=== PATIENT | female | born 1950 | race Caucasian/White ===

== ENCOUNTER 2020-02-01 18:12 | Emergency (ER) | payer MEDICARE, OTHER ==
[~2020-02-01] VITALS: Ht 180.3 cm; Wt 117.0 kg
--- OUTSIDE RECORDS SUMMARY | ~2020-02-01 | XMS | Encounter Summary ---
Demographics + + + | Address | [address] | | | [place] [address] | + + + | Home Phone | | + + + | Preferred Language | Unknown | + + + | Marital Status | | + + + | Episcopalian Affiliation | Unknown | + + + | Race | Unknown | + + + | Ethnic Group | Unknown | + + + Author + + + | Author | [facility] | | | and [place] | + + + | Organization | [facility] | | | and [place] | + + + | Address | Unknown | + + + | Phone | Unavailable | + + + Support + + +---------+ + | Name | Relationship | Address | Phone | + + +---------+ + | Nolan Manuel | ECON | Unknown | | + + +---------+ + | Naheed Shelton | ECON | Unknown | | + + +---------+ + Care Team Providers + +------+ + | Care Oil Lease Buyer Name | Role | Phone | + +------+ + PCP | Unavailable | + +------+ + Encounter Details +--------+ + + + + | Date | Type | Department | Care Team | Description | +--------+ + + + + | 06/18/ | Hospital | [facility] | Conversion | Pain | | 2018 | Encounter | CONVERSION DEP [address] | Transaction, | | | | | [address] | Provider Unknown | | | | | [place] | [phone] | | | | | [phone] | | | | | | [phone] | | | +--------+ + + + + Social History + +-------+ +--------+------+ | Tobacco Use | Types | Packs/Day | Years | Date | | | | | Used | | + +-------+ +--------+------+ | Never Assessed | | | | | + +-------+ +--------+------+ + + + | Sex Assigned at | Date Recorded | | | | + + + | Not on file | | + + + documented as of this encounter Medications at Time of Discharge + + + +---------+ + + | Medication | Sig | Dispensed | Refills | Start | End Date | | | | | | Date | | + + + +---------+ + + | clopidogrel | Take 75 mg by mouth | | 0 | 07/15/19 | | | (PLAVIX) 75 mg | Daily. | | | 12 | | | tablet | | | | | | + + + +---------+ + + | gemfibrozil | Take 600 mg by mouth | | 0 | 07/15/19 | | | (LOPID) 600 mg | 2 times daily. | | | 12 | | | tablet | | | | | | + + + +---------+ + + | metoprolol | Take 50 mg by mouth | | 0 | 07/15/19 | | | succinate | Daily. | | | 12 | | | (TOPROL-XL) 50 mg 24 | | | | | | | hr tablet | | | | | | + + + +---------+ + + | pravastatin | Take 40 mg by mouth | | 0 | 07/15/19 | | | (PRAVACHOL) 40 MG | Daily. | | | 12 | | | tablet | | | | | | + + + +---------+ + + | fluoxetine | Take 40 mg by mouth | | 0 | 07/15/19 | | | (PROZAC) 40 MG | Daily. | | | 12 | 9 | | capsule | | | | | | + + + +---------+ + + | furosemide (LASIX) | Take 40 mg by mouth | | 0 | 11/18/19 | | | 40 mg tablet | every morning. | | | 12 | 9 | + + + +---------+ + + | | Take 25 mg by mouth | | 0 | 07/15/19 | | | hydrochlorothiazide | Daily. | | | 12 | 9 | | 25 mg tablet | | | | | | + + + +---------+ + + | lisinopril | Take 40 mg by mouth | | 0 | 07/15/19 | | | (PRINIVIL,ZESTRIL) | Daily. | | | 12 | 9 | | 40 MG tablet | | | | | | + + + +---------+ + + | omeprazole ([facility] | Take 20 mg by mouth | | 0 | 09/18/19 | | | OMEPRAZOLE) 20 mg | nightly. | | | 12 | 9 | | TBEC | | | | | | + + + +---------+ + + | potassium chloride | Take 10 mEq by mouth | | 0 | 11/18/19 | | | (K-DUR) 10 MEQ | Daily. | | | 12 | 9 | | tablet | | | | | | + + + +---------+ + + documented as of this encounter Plan of Treatment +--------+ + + + + | Date | Type | Specialty | Care Team | Description | +--------+ + + + + | 02/01/ | Virtual | Pulmonology | Rodrigo Cruz MD | | | 2019 | Office | | [address] | | | | Visit | | [place] | | | | | | [phone] | | | | | | | | +--------+ + + + + | 02/22/ | Office | Cardiology | Phylicia Patel DO | | | 2019 | Visit | | [address] | | | | | | [place] | | | | | | [phone] | | | | | | | | +--------+ + + + + documented as of this encounter Procedures + +--------+ + + + | Procedure Name | Priori | Date/Time | Associated Diagnosis | Comments | | | ty | | | | + +--------+ + + + | ECHO COMPLETE | Routin | 06/18/2018 | | Results for this | | | e | 11:05 PM | | procedure are in the | | | | PST | | results section. | + +--------+ + + + documented in this encounter Results ECHO Complete (06/18/2018 11:05 PM PST) + + | Specimen | + + | | + + + + + | Narrative | Performed At | + + + | This is a non-reportable procedure without a radiologist report and | | | is used for image storage only | | + + + + + | Procedure Note | + + | Cody Thrasher - 02/16/2019 5:12 AM PDT This is a non-reportable procedure | | without a radiologist report and isused for image storage only | + + documented in this encounter Visit Diagnoses + + | Diagnosis | + + | Pain Generalized pain | + + documented in this encounter"
--- OUTSIDE RECORDS SUMMARY | ~2020-02-01 | XMS | Encounter Summary ---
Demographics + + + | Address | [address] | | | [place] [address] | + + + | Home Phone | | + + + | Preferred Language | Unknown | + + + | Marital Status | | + + + | Pentecostal Affiliation | Unknown | + + + | Race | Unknown | + + + | Ethnic Group | Unknown | + + + Author + + + | Author | [facility] | | | and [place] | + + + | Organization | [facility] | | | and [...] Team Providers + +------+ + | Care Packing Floor Worker Name | Role | Phone | + +------+ + | Heidi Koch MD | PCP | | + +------+ + Encounter Details +--------+ + + + + | Date | Type | Department | Care Team | Description | +--------+ + + + + | 07/20/ | Orders Only | [facility] | Conversion | | | 2018 | | NEPRHOLOGY FRIEND | Transaction, | | | | | [address] | Provider Unknown | | | | | [address] [place], [place] | [phone] | | | | | [address] | | | | | | [phone] | | | +--------+ + + + [...] [place] | | | | | | [phone] | | | | | | | | +--------+ + + + + | 02/22/ | Office | Cardiology | Phylicia Patel DO | | | 2019 | Visit | | [address] | | | | | | [place] | | | | | | [address] | | | | | | | | +--------+ + + + + documented as of this encounter Procedures + +--------+ + + + | Procedure Name | Priori | Date/Time | Associated Diagnosis | Comments | | | ty | | | | + +--------+ + + + | EXTERNAL LAB: CBC | Routin | 07/20/2017 | | Results for this | | | e | 12:00 AM | | procedure are in the | | | | PST | | results section. | + +--------+ + + + | PARATHYROID HORMONE, | Routin | 07/20/2017 | | Results for this | | INTACT AND CALCIUM | e | 12:00 AM | | procedure are in the | | | | PST | | results section. | + +--------+ + + + | URIC ACID | Routin | 07/20/2017 | | Results for this | | | e | 12:00 AM | | procedure are in the | | | | PST | | results section. | + +--------+ + + + | MAGNESIUM | Routin | 07/20/2017 | | Results for this | | | e | 12:00 AM | | procedure are in the | | | | PST | | results section. | + +--------+ + + + | RENAL FUNCTION PANEL | Routin | 07/20/2017 | | Results for this | | | e | 12:00 AM | | procedure are in the | | | | PST | | results section. | + +--------+ + + + documented in this encounter Results Parathyroid Hormone, Intact and Calcium (07/20/2017 12:00 AM PST) + + + + + + | Component | Value | Ref Range | Performed | Pathologist | | | | | At | Signature | + + + + + + | PTH Intact | 5.15 (A) | 15 - 65 | EXTERNAL | | | | | | LAB | | + + + + + + | Calcium | 10.2 | 8.4 - 10.2 | EXTERNAL | | | | | | LAB | | + + + + + + + + | Specimen | + + | Blood specimen | | (specimen) | + + + +---------+ + + | Performing | Address | City/State/Zipcode | Phone Number | | Organization | | | | + +---------+ + + | EXTERNAL LAB | | | | + +---------+ + + External Lab: CBC (07/20/2017 12:00 AM PST) + + + + + + | Component | Value | Ref Range | Performed | Pathologist | | | | | At | Signature | + + + + + + | WBC | 5.3 | 4.5 - 11.0 10 | EXTERNAL | | | | | | LAB | | + + + + + + | Non- | 4.06 | 3.8 - 5.1 10 | EXTERNAL | | | Red Blood | | | LAB | | | Cells | | | | | | Counted | | | | | + + + + + + | Hemoglobin | 11.7 (A) | 12.0 - 16.0 | EXTERNAL | | | | | g/dL | LAB | | + + + + + + | Hematocrit, | 35.7 | 35 - 45 % | EXTERNAL | | | POC | | | LAB | | + + + + + + | MCV | 87.8 | 81 - 99 fL | EXTERNAL | | | | | | LAB | | + + + + + + | MCH | 29 | 27 - 33 pg | EXTERNAL | | | | | | LAB | | + + + + + + | MCHC | 33 | 30 - 36 g/dL | EXTERNAL | | | | | | LAB | | + + + + + + | Platelet | 329 | 140 - 440 K/ L | EXTERNAL | | | Count | | | LAB | | | Plasma | | | | | + + + + + + | RDW-CV | 13.9 | 10.5 - 15.0 % | EXTERNAL | | | | | | LAB | | + + + + + + | MPV | | fL | EXTERNAL | | | | | | LAB | | + + + + + + | Differentia | | | EXTERNAL | | | l Type | | | LAB | | + + + + + + | % Segmented | 63.8 | 39 - 80 % | EXTERNAL | | | | | | LAB | | | Neutrophils | | | | | + + + + + + | % | 20.3 (A) | 24 - 44 % | EXTERNAL | | | Lymphocytes | | | LAB | | + + + + + + | % Monocytes | 10.5 | 0 - 12 % | EXTERNAL | | | | | | LAB | | + + + + + + | % | 4.6 | 0 - 6 % | EXTERNAL | | | Eosinophils | | | LAB | | + + + + + + | % Basophils | 0.8 | 0 - 2 % | EXTERNAL | | | | | | LAB | | + + + + + + | Absolute | | / L | EXTERNAL | | | Segmented | | | LAB | | | Neutrophils | | | | | + + + + + + | Absolute | | / L | EXTERNAL | | | Lymphocytes | | | LAB | | + + + + + + | Absolute | | / L | EXTERNAL | | | Monocytes | | | LAB | | + + + + + + | Absolute | | / L | EXTERNAL | | | Eosinophils | | | LAB | | + + + + + + | Absolute | | / L | EXTERNAL | | | Basophils | | | LAB | | + + + + + + + + | Specimen | + + | Blood specimen | | (specimen) | + + + +---------+ + + | Performing | Address | City/State/Zipcode | Phone Number | | Organization | | | | + +---------+ + + | EXTERNAL LAB | | | | + +---------+ + + Uric Acid (07/20/2017 12:00 AM PST) + +---------+ + + + | Component | Value | Ref Range | Performed | Pathologist | | | | | At | Signature | + +---------+ + + + | Uric Acid | 9.2 (A) | 2.3 - 6.6 | EXTERNAL | | | | | | LAB | | + +---------+ + + + + + | Specimen | + + | Blood specimen | | (specimen) | + + + +---------+ + + | Performing | Address | City/State/Zipcode | Phone Number | | Organization | | | | + +---------+ + + | EXTERNAL LAB | | | | + +---------+ + + Magnesium (07/20/2017 12:00 AM PST) + +-------+ + + + | Component | Value | Ref Range | Performed | Pathologist | | | | | At | Signature | + +-------+ + + + | Magnesium | 2.3 | 1.7 - 2.5 mg/dL | EXTERNAL | | | | | | LAB | | + +-------+ + + + + + | Specimen | + + | Blood specimen | | (specimen) | + + + +---------+ + + | Performing | Address | City/State/Zipcode | Phone Number | | Organization | | | | + +---------+ + + | EXTERNAL LAB | | | | + +---------+ + + Renal Function Panel (07/20/2017 12:00 AM PST) + + + + + + | Component | Value | Ref Range | Performed | Pathologist | | | | | At | Signature | + + + + + + | Glucose, | 87 | 70 - 100 mg/dL | EXTERNAL | | | Fasting | | | LAB | | + + + + + + | BUN | 52 (A) | 6 - 23 mg/dL | EXTERNAL | | | | | | LAB | | + + + + + + | Creatinine | 3.06 (A) | 0.70 - 1.25 | EXTERNAL | | | | | mg/dL | LAB | | + + + + + + | PHOSPHORUS | | mg/dL | EXTERNAL | | | | | | LAB | | + + + + + + | Albumin | 4.2 | 3.5 - 5.0 | EXTERNAL | | | | | | LAB | | + + + + + + | Na | 138 | 132 - 143 | EXTERNAL | | | | | mmol/L | LAB | | + + + + + + | K | 4.9 | 3.6 - 5.1 | EXTERNAL | | | | | mmol/L | LAB | | + + + + + + | Cl | 104 | 95 - 112 mmol/L | EXTERNAL | | | | | | LAB | | + + + + + + | CO2 | 23 | 19 - 31 mmol/L | EXTERNAL | | | | | | LAB | | + + + + + + | Anion Gap | 15.9 | 7 - 21 mmol/L | EXTERNAL | | | | | | LAB | | + + + + + + | eGFR, | | | EXTERNAL | | | non- | | | LAB | | | [place]ronesian | | | | | + + + + + + | Phosphorus, | 4.3 | 2.5 - 5.0 | EXTERNAL | | | Inorganic | | | LAB | | + + + + + + | BUN/Creatin | 17.0 | 6.0 - 28.6 | EXTERNAL | | | ine Ratio | | | LAB | | + + + + + + | Calcium | 10.2 | 8.4 - 10.2 | EXTERNAL | | | | | mg/dL | LAB | | + + + + + + | Estimated | 15 | mg/dL | EXTERNAL | | | GFR | | | LAB | | + + + + + + + + | Specimen | + + | Blood specimen | | (specimen) | + + + +---------+ + + | Performing | Address | City/State/Zipcode | Phone Number | | Organization | | | | + +---------+ + + | EXTERNAL LAB | | | | + +---------+ + + documented in this encounter Visit Diagnoses Not on filedocumented in this encounter"
--- OUTSIDE RECORDS SUMMARY | ~2020-02-01 | XMS | Encounter Summary ---
Demographics + + + | Address | [address] | | | [place] [address] | + + + | Home Phone | | + + + | Preferred Language | Unknown | + + + | Marital Status | | + + + | Jehovah'S Witness Affiliation | Unknown | + + + | Race | Unknown | + + + | Ethnic Group | Unknown | + + + Author + + + | Author | [facility] | | | and [place] | + + + | Organization | [facility] | | [...] Team Providers + +------+ + | Care Tray Filler Name | Role | Phone | + +------+ + | Heidi Koch MD | PCP | | + +------+ + Encounter Details +--------+ + + + + | Date | Type | Department | Care Team | Description | +--------+ + + + + | 12/23/ | Orders Only | [facility] | Conversion | | | 2015 | | NEPHROLOGY [place] | Transaction, | | | | | [address] | Provider Unknown | | | | | [address] [facility], [place] | | | | | | [address] | (Fax) | | | | | [phone] | | | +--------+ + + + [...] [place] | | | | | | [phone] | | | | | | | | +--------+ + + + + | 02/22/ | Office | Cardiology | Phylicia Patel DO | | | 2019 | Visit | | [address] | | | | | | [place] | | | | | | [phone] | | | | | | | | +--------+ + + + + documented as of this encounter Procedures + +--------+ + + + | Procedure Name | Priori | Date/Time | Associated Diagnosis | Comments | | | ty | | | | + +--------+ + + + | EXTERNAL LAB: CBC | Routin | 12/24/2015 | | Results for this | | | e | 12:59 PM | | procedure are in the | | | | PDT | | results section. | + +--------+ + + + | URINALYSIS WITH | Routin | 12/24/2015 | | Results for this | | MICROSCOPIC WITH | e | 12:59 PM | | procedure are in the | | CULTURE IF INDICATED | | PDT | | results section. | + +--------+ + + + | VITAMIN D, | Routin | 12/24/2015 | | Results for this | | DEFICIENCY SCREEN | e | 12:59 PM | | procedure are in the | | (25-HYDROXY) | | PDT | | results section. | + +--------+ + + + | PARATHYROID HORMONE, | Routin | 12/24/2015 | | Results for this | | INTACT AND CALCIUM | e | 12:59 PM | | procedure are in the | | | | PDT | | results section. | + +--------+ + + + | MAGNESIUM | Routin | 12/24/2015 | | Results for this | | | e | 12:59 PM | | procedure are in the | | | | PDT | | results section. | + +--------+ + + + | RENAL FUNCTION PANEL | Routin | 12/24/2015 | | Results for this | | | e | 12:59 PM | | procedure are in the | | | | PDT | | results section. | + +--------+ + + + | URIC ACID | Routin | 11/20/2015 | | | | | e | 12:00 AM | | | | | | PDT | | | + +--------+ + + + documented in this encounter Results Urinalysis with Microscopic with Culture if Indicated (12/24/2015 12:59 PM PDT) + + + + + + | Component | Value | Ref Range | Performed | Pathologist | | | | | At | Signature | + + + + + + | Color | Yellow | | EXTERNAL | | | | | | LAB | | + + + + + + | Clarity, | Slightly Cloudy | | EXTERNAL | | | Urine | | | LAB | | + + + + + + | Spec Grav, | 1.019 | 1.005 - 1.030 | EXTERNAL | | | Fluid | | | LAB | | + + + + + + | Leukocyte | Comment: 100 | | EXTERNAL | | | Esterase, | | | LAB | | | Urine | | | | | + + + + + + | Nitrite, | Negative | | EXTERNAL | | | Urine | | | LAB | | + + + + + + | Urobilinoge | Normal | | EXTERNAL | | | n, Urine | | | LAB | | + + + + + + | Total | 25 | | EXTERNAL | | | Protein | | | LAB | | + + + + + + | pH, Urine | 5 | 5 - 9 | EXTERNAL | | | | | | LAB | | + + + + + + | Blood, | Negative | | EXTERNAL | | | Urine | | | LAB | | + + + + + + | Ketones | Negative | | EXTERNAL | | | | | | LAB | | + + + + + + | Bilirubin, | Negative | | EXTERNAL | | | Urine | | | LAB | | + + + + + + | Glucose, | Negative | | EXTERNAL | | | Urine | | | LAB | | + + + + + + | WBC, UA | 50 (A) | 0 - 4 | EXTERNAL | | | | | | LAB | | + + + + + + | RBC, UA | 5 (A) | 0 - 4 | EXTERNAL | | | | | | LAB | | + + + + + + | Epithelial | Squ[place] 2+ | | EXTERNAL | | | Cells | | | LAB | | + + + + + + | Bacteria, | Comment: 3+ | | EXTERNAL | | | UA | | | LAB | | + + + + + + | HYALINE | | | EXTERNAL | | | CASTS UA | | | LAB | | + + + + + + + + | Specimen | + + | | + + + +---------+ + + | Performing | Address | City/State/Zipcode | Phone Number | | Organization | | | | + +---------+ + + | EXTERNAL LAB | | | | + +---------+ + + Parathyroid Hormone, Intact and Calcium (12/24/2015 12:59 PM PDT) + + + + + + | Component | Value | Ref Range | Performed | Pathologist | | | | | At | Signature | + + + + + + | PTH Intact | 32.94 | 15 - 65 | EXTERNAL | | | | | | LAB | | + + + + + + | Calcium | 10.9 (A) | 8.4 - 10.2 | EXTERNAL | [...] | | | + +---------+ + + Vitamin D, Deficiency Screen (25-Hydroxy) (12/24/2015 12:59 PM PDT) + +-------+ + + + | Component | Value | Ref Range | Performed | Pathologist | | | | | At | Signature | + +-------+ + + + | Vit D, | 54 | 30 - 100 | EXTERNAL | | | 25-Hydroxy | | | LAB | | + [...] + +---------+ + + External Lab: CBC (12/24/2015 12:59 PM PDT) + + + + + + | Component | Value | Ref Range | Performed | Pathologist | | | | | At | Signature | + + + + + + | WBC | 6.6 | 4.5 - 11.0 10 | EXTERNAL | | | | | | LAB | | + + + + + + | Non- | 3.51 (A) | 3.8 - 5.1 10 | EXTERNAL | | | Red Blood | | | LAB | | | Cells | | | | | | Counted | | | | | + + + + + + | Hemoglobin | 9.5 (A) | 12.0 - 16.0 | EXTERNAL | | | | | g/dL | LAB | | + + + + + + | Hematocrit, | 29.4 (A) | 35 - 45 % | EXTERNAL | | | POC | | | LAB | | + + + + + + | MCV | 83.7 | 81 - 99 fL | EXTERNAL | | | | | | LAB | | + + + + + + | MCH | 27 | 27 - 33 pg | EXTERNAL | | | | | | LAB | | + + + + + + | MCHC | 32 | 30 - 36 g/dL | EXTERNAL | | | | | | LAB | | + + + + + + | Platelet | 388 | 140 - 440 K/ L | EXTERNAL | | | Count | | | LAB | | | Plasma | | | | | + + + + + + | RDW-CV | | % | EXTERNAL | | | | [...] + + + | % Segmented | | % | EXTERNAL | | | | | | LAB | | | Neutrophils | | | | | + + + + + + | % | | % | EXTERNAL | | | Lymphocytes | | | LAB | | + + + + + + | % Monocytes | | % | EXTERNAL | | | | | | LAB | | + + + + + + | % | | % | EXTERNAL | | | Eosinophils | | | LAB | | + + + + + + | % Basophils | | % | EXTERNAL | | | | [...] | | + +---------+ + + Magnesium (12/24/2015 12:59 PM PDT) + +-------+ + + + | Component | Value | Ref Range | Performed | Pathologist | | | | | At | Signature | + +-------+ + + + | Magnesium | 2.0 | 1.7 - 2.5 mg/dL | EXTERNAL [...] + +---------+ + + Renal Function Panel (12/24/2015 12:59 PM PDT) + + + + + + | Component | Value | Ref Range | Performed | Pathologist | | | | | At | Signature | + + + + + + | Glucose, | 101 (A) | 70 - 100 mg/dL | EXTERNAL | | | Fasting | | | LAB | | + + + + + + | BUN | 56 (A) | 6 - 23 mg/dL | EXTERNAL | | | | | | LAB | | + + + + + + | Creatinine | 3.57 (A) | 0.70 - 1.25 | EXTERNAL | | | | | mg/dL | LAB | | + + + + + + | PHOSPHORUS | 3.3 | 2.5 - 5.0 mg/dL | EXTERNAL | | | | | | LAB | | + + + + + + | Albumin | 4.0 | 3.5 - 5.0 | EXTERNAL | | | | | | LAB | | + + + + + + | Na | 134 | 132 - 143 | EXTERNAL | | | | | mmol/L | LAB | | + + + + + + | K | 4.2 | 3.6 - 5.1 | EXTERNAL | | | | | mmol/L | LAB | | + + + + + + | Cl | 102 | 95 - 112 mmol/L | EXTERNAL | | | | | | LAB | | + + + + + + | CO2 | 22 | 19 - 31 mmol/L | EXTERNAL | | | | | | LAB | | + + + + + + | Anion Gap | 14.2 | 7 - 21 mmol/L | EXTERNAL | | | | | | LAB | | + + + + + + | eGFR, | | | EXTERNAL | | | non- | | | LAB | | | [place] | | | | | + + + + + + | Phosphorus, | | | EXTERNAL | | | Inorganic | | | LAB | | + + + + + + | BUN/Creatin | 15.7 | 6.0 - 28.6 | EXTERNAL | | | ine Ratio | | | LAB | | + + + + + + | Calcium | 10.9 (A) | 8.4 - 10.2 | EXTERNAL | | | | | mg/dL | LAB | | + + + + + + | Estimated | 13 | mg/dL | EXTERNAL | | | [...] | + +---------+ + + Uric Acid (11/20/2015 12:00 AM PDT) + +-------+ + + + | Component | Value | Ref Range | Performed | Pathologist | | | | | At | Signature | + +-------+ + + + | Uric Acid | | | EXTERNAL | | | | | [...]
--- OUTSIDE RECORDS SUMMARY | ~2020-02-01 | XMS | Encounter Summary ---
Demographics + + + | Address | [address] | | | [place] [address] | + + + | Home Phone | | + + + | Preferred Language | Unknown | + + + | Marital Status | | + + + | Hinduism Affiliation | Unknown | + + + | Race | Unknown | + + + | Ethnic Group | Unknown | + + + Author + + + | Author | [facility] | | | and [place] | + + + | Organization | [facility] | | | [...] Team Providers + +------+ + | [employer] Name | Role | Phone | + +------+ + | Heidi Koch MD | PCP | | + +------+ + Encounter Details +--------+ + + + + | Date | Type | Department | Care Team | Description | +--------+ + + + + | 09/13/ | Orders Only | [facility] | Oskar Rainey MD | | | 2014 | | [facility] [place] | [address] [place] | | | | | [address] | [address], [place] | | | | | [place], [place] | [address] | | | | | [address] | | | | | | [phone] | | | +--------+ + + + [...] RIOS | | | | | | [id number] | | | | | | | | +--------+ + + + + documented as of this encounter Procedures + +--------+ + + + | Procedure Name | Priori | Date/Time | Associated Diagnosis | Comments | | | ty | | | | + +--------+ + + + | CULTURE, URINE | Routin | 09/13/2014 | | Results for this | | | e | 12:00 AM | | procedure are in the | | | | PDT | | results section. | + +--------+ + + + | LIPID PANEL | Routin | 03/13/2014 | | Results for this | | | e | 11:40 AM | | procedure are in the | | | | PDT | | results section. | + +--------+ + + + | CK TOTAL | Routin | 03/13/2014 | | Results for this | | | e | 11:40 AM | | procedure are in the | | | | PDT | | results section. | + +--------+ + + + | COMPREHENSIVE | Routin | 03/13/2014 | | Results for this | | METABOLIC PANEL | e | 11:40 AM | | procedure are in the | | | | PDT | | results section. | + +--------+ + + + documented in this encounter Results Culture, Urine (09/13/2014 12:00 AM PDT) + + | Specimen | + + | Urine specimen | | (specimen) | + + + + + | Narrative | Performed At | + + + | Specimen Description Urine CULTURE | EXTERNAL LAB | | No Growth at 18-24 hrs. REPORT | | | STATUS Final | | + + + + +---------+ + + | Performing | Address | City/State/Zipcode | Phone Number | | Organization | | | | + +---------+ + + | EXTERNAL LAB | | | | + +---------+ + + CK Total (03/13/2014 11:40 AM PDT) + +-------+ + + + | Component | Value | Ref Range | Performed | Pathologist | | | | | At | Signature | + +-------+ + + + | CK, Total | 28 | 24 - 170 U/L | EXTERNAL | | | | | [...] | | | + +---------+ + + Lipid Panel (03/13/2014 11:40 AM PDT) + +---------+ + + + | Component | Value | Ref Range | Performed | Pathologist | | | | | At | Signature | + +---------+ + + + | Cholesterol | 176 | 200 mg/dL | EXTERNAL | | | | | | LAB | | + +---------+ + + + | Triglycerid | 143 | 30 - 150 mg/dL | EXTERNAL | | | es | | | LAB | | + +---------+ + + + | HDL | 44.7 | 40 mg/dl | EXTERNAL | | | | | | LAB | | + +---------+ + + + | LDL, | 103 (A) | 100 mg/dL | EXTERNAL | | | Calculated | | | LAB | | + +---------+ + + + | LDl/HDL | | | EXTERNAL | | | Ratio | | | LAB | | + +---------+ + + + | Chol/HDL | 3.9 | 4.44 | EXTERNAL | | | Ratio | | | LAB | | + +---------+ + + + | VLDL | 29 | 4 - 40 mg/dL | EXTERNAL | | | | | | LAB | | + +---------+ + + + | Non HDL | 131 (A) | 130 | EXTERNAL | | | Chol. | | | LAB | | | (LDL+VLDL) | | | | | + +---------+ + + + + + | Specimen | + + | Blood specimen | | (specimen) | + + + +---------+ + + | Performing | Address | City/State/Zipcode | Phone Number | | Organization | | | | + +---------+ + + | EXTERNAL LAB | | | | + +---------+ + + Comprehensive Metabolic Panel (03/13/2014 11:40 AM PDT) + + + + + + | Component | Value | Ref Range | Performed | Pathologist | | | | | At | Signature | + + + + + + | Glucose, | 90 | 70 - 100 mg/dL | EXTERNAL | | | Fasting | | | LAB | | + + + + + + | BUN | 39 (A) | 6 - 23 mg/dL | EXTERNAL | | | | | | LAB | | + + + + + + | Creatinine | 1.91 (A) | 0.70 - 1.25 | EXTERNAL | | | | | mg/dL | LAB | | + + + + + + | BUN/Creatin | 20.4 | 6.0 - 28.6 | EXTERNAL | | | ine Ratio | | | LAB | | + + + + + + | Calcium | 11.3 (A) | 8.4 - 10.2 | EXTERNAL | | | | | mg/dL | LAB | | + + + + + + | Protein, | 7.7 | 6.0 - 8.0 g/dL | EXTERNAL | | | Total | | | LAB | | + + + + + + | Albumin | 4.6 | 3.5 - 5.0 | EXTERNAL | | | | | | LAB | | + + + + + + | Globulin | 3.1 | 1.8 - 3.5 | EXTERNAL | | | | | | LAB | | + + + + + + | A/G Ratio | 1.5 | 1.1 - 2.4 | EXTERNAL | | | | | | LAB | | + + + + + + | Bilirubin | 0.3 | 0.0 - 1.2 mg/dL | EXTERNAL | | | Total | | | LAB | | + + + + + + | ALP, | 88 | 30 - 128 | EXTERNAL | | | External | | | LAB | | + + + + + + | ALT | 11 | 7 - 52 U/L | EXTERNAL | | | | | | LAB | | + + + + + + | AST | 16 | 13 - 39 U/L | EXTERNAL | | | | | | LAB | | + + + + + + | Na | 137 | 132 - 143 | EXTERNAL | | | | | mmol/L | LAB | | + + + + + + | K | 4.6 | 3.6 - 5.1 | EXTERNAL | | | | | mmol/L | LAB | | + + + + + + | Cl | 103 | 95 - 112 mmol/L | EXTERNAL | | | | | | LAB | | + + + + + + | CO2 | 25 | 19 - 31 mmol/L | EXTERNAL | | | | | | LAB | | + + + + + + | Anion Gap | 13.6 | 7 - 21 mmol/L | EXTERNAL | | | | | | LAB | | + + + + + + | Estimated | 26 (A) | 60 mg/dL | EXTERNAL | | | GFR [...]
--- OUTSIDE RECORDS SUMMARY | ~2020-02-01 | XMS | Encounter Summary ---
Demographics + + + | Address | [address] | | | [place] [address] | + + + | Home Phone | | + + + | Preferred Language | Unknown | + + + | Marital Status | | + + + | Confucianist Affiliation | Unknown | + + + | Race | Unknown | + + + | Ethnic Group | Unknown | + + + Author + + + | Author | [facility] | | | and [place] | + + + | Organization | [facility] | | | [...] Team Providers + +------+ + | Care Exit Booth Agent Name | Role | Phone | + +------+ + | Heidi Koch MD | PCP | | + +------+ + Encounter Details +--------+ + + + + | Date | Type | Department | Care Team | Description | +--------+ + + + + | 09/15/ | Orders Only | [facility] | Oskar Rainey MD | | | 2013 | | NEPHROLOGY [place] | [address] [place] | | | | | [address] [place] | [address] [place], [place] | | | | | [address] [place], [place] | [address] | | | | | [address] | | | | | | [phone] | | | +--------+ + + + [...] RIOS | | | | | | [id number] | | | | | | | | +--------+ + + + + documented as of this encounter Procedures + +--------+ + + + | Procedure Name | Priori | Date/Time | Associated Diagnosis | Comments | | | ty | | | | + +--------+ + + + | EXTERNAL LAB: CBC | Routin | 03/13/2014 | | Results for this | | | e | 12:00 AM | | procedure are in the | | | | PDT | | results section. | + +--------+ + + + | URINALYSIS WITH | Routin | 03/13/2014 | | Results for this | | MICROSCOPIC WITH | e | 12:00 AM | | procedure are in the | | CULTURE IF INDICATED | | PDT | | results section. | + +--------+ + + + | VITAMIN D, | Routin | 03/13/2014 | | Results for this | | DEFICIENCY SCREEN | e | 12:00 AM | | procedure are in the | | (25-HYDROXY) | | PDT | | results section. | + +--------+ + + + | PARATHYROID HORMONE, | Routin | 03/13/2014 | | Results for this | | INTACT AND CALCIUM | e | 12:00 AM | | procedure are in the | | | | PDT | | results section. | + +--------+ + + + | PROTEIN/CREATININE | Routin | 03/13/2014 | | Results for this | | RATIO, URINE | e | 12:00 AM | | procedure are in the | | | | PDT | | results section. | + +--------+ + + + | PROTEIN, URINE, | Routin | 03/13/2014 | | Results for this | | RANDOM | e | 12:00 AM | | procedure are in the | | | | PDT | | results section. | + +--------+ + + + | CREATININE, URINE, | Routin | 03/13/2014 | | Results for this | | RANDOM | e | 12:00 AM | | procedure are in the | | | | PDT | | results section. | + +--------+ + + + | URIC ACID | Routin | 03/13/2014 | | Results for this | | | e | 12:00 AM | | procedure are in the | | | | PDT | | results section. | + +--------+ + + + | MAGNESIUM | Routin | 03/13/2014 | | Results for this | | | e | 12:00 AM | | procedure are in the | | | | PDT | | results section. | + +--------+ + + + | RENAL FUNCTION PANEL | Routin | 03/13/2014 | | Results for this | | | e | 12:00 AM | | procedure are in the | | | | PDT | | results section. | + +--------+ + + + | CULTURE, URINE | Routin | 09/15/2013 | | Results for this | | | e | 12:00 AM | | procedure are in the | | | | PDT | | results section. | + +--------+ + + + | URINALYSIS WITH | Routin | 09/13/2013 | | Results for this | | MICROSCOPIC WITH | e | 12:00 AM | | procedure are in the | | CULTURE IF INDICATED | | PDT | | results section. | + +--------+ + + + | URINALYSIS WITH | Routin | 08/29/2013 | | Results for this | | MICROSCOPIC WITH | e | 12:00 AM | | procedure are in the | | CULTURE IF INDICATED | | PST | | results section. | + +--------+ + + + | PROTEIN/CREATININE | Routin | 08/29/2013 | | Results for this | | RATIO, URINE | e | 12:00 AM | | procedure are in the | | | | PST | | results section. | + +--------+ + + + | PROTEIN, URINE, | Routin | 08/29/2013 | | Results for this | | RANDOM | e | 12:00 AM | | procedure are in the | | | | PST | | results section. | + +--------+ + + + | CREATININE, URINE, | Routin | 08/29/2013 | | Results for this | | RANDOM | e | 12:00 AM | | procedure are in the | | | | PST | | results section. | + +--------+ + + + | EXTERNAL LAB: CBC | Routin | 08/26/2013 | | Results for this | | | e | 12:00 AM | | procedure are in the | | | | PST | | results section. | + +--------+ + + + | VITAMIN D, | Routin | 08/26/2013 | | Results for this | | DEFICIENCY SCREEN | e | 12:00 AM | | procedure are in the | | (25-HYDROXY) | | PST | | results section. | + +--------+ + + + | PARATHYROID HORMONE, | Routin | 08/26/2013 | | Results for this | | INTACT AND CALCIUM | e | 12:00 AM | | procedure are in the | | | | PST | | results section. | + +--------+ + + + | SEDIMENTATION RATE, | Routin | 08/26/2013 | | Results for this | | AUTOMATED | e | 12:00 AM | | procedure are in the | | | | PST | | results section. | + +--------+ + + + | C-REACTIVE PROTEIN | Routin | 08/26/2013 | | Results for this | | | e | 12:00 AM | | procedure are in the | | | | PST | | results section. | + +--------+ + + + | URIC ACID | Routin | 08/26/2013 | | Results for this | | | e | 12:00 AM | | procedure are in the | | | | PST | | results section. | + +--------+ + + + | MAGNESIUM | Routin | 08/26/2013 | | Results for this | | | e | 12:00 AM | | procedure are in the | | | | PST | | results section. | + +--------+ + + + | RENAL FUNCTION PANEL | Routin | 08/26/2013 | | Results for this | | | e | 12:00 AM | | procedure are in the | | | | PST | | results section. | + +--------+ + + + documented in this encounter Results Urinalysis with Microscopic with Culture if Indicated (03/13/2014 12:00 AM PDT) + + + + + + | Component | Value | Ref Range | Performed | Pathologist | | | | | At | Signature | + + + + + + | Color | Yellow | | EXTERNAL | | | | | | LAB | | + + + + + + | Clarity, | Clear | | EXTERNAL | | | Urine | | | LAB | | + + + + + + | Spec Grav, | 1.020 | 1.005 - 1.030 | EXTERNAL | | | Fluid | | | LAB | | + + + + + + | Leukocyte | 4+Comment: 500 | | EXTERNAL | | | Esterase, [...] + + + + | Total | Negative | Negative | EXTERNAL | | | Protein | | | LAB | | + + + + + + | pH, Urine | 5 | 5 - 9 | EXTERNAL | | | | | | LAB | | + + + + + + | Blood, | PositiveComment: 10 | | EXTERNAL | | | Urine | | | LAB | | + + + + + + | Ketones | Negative | Negative | EXTERNAL | | | | | [...] + + + | WBC, UA | | | EXTERNAL | | | | | | LAB | | + + + + + + | RBC, UA | | | EXTERNAL | | | | | | LAB | | + + + + + + | Epithelial | | | EXTERNAL | | | Cells | | | LAB | | + + + + + + | Bacteria, | | | EXTERNAL | | | UA [...] + + Parathyroid Hormone, Intact and Calcium (03/13/2014 12:00 AM PDT) + + + + + + | Component | Value | Ref Range | Performed | Pathologist | | | | | At | Signature | + + + + + + | PTH Intact | 11.05 (A) | 15 - 65 | EXTERNAL | | | | | | LAB | | + + + + + + | Calcium | 11.2 (A) | 8.4 - 10.2 | EXTERNAL [...] | | | + +---------+ + + Protein/Creatinine Ratio, Urine (03/13/2014 12:00 AM PDT) + +-------+ + + + | Component | Value | Ref Range | Performed | Pathologist | | | | | At | Signature | + +-------+ + + + | Protein/Cre | 122.9 | 0 - 150 | EXTERNAL | | | at Ratio | | | LAB | | + +-------+ + + + + + | Specimen | + + | Urine specimen | | (specimen) | + + + +---------+ + + | Performing | Address | City/State/Zipcode | Phone Number | | Organization | | | | + +---------+ + + | EXTERNAL LAB | | | | + +---------+ + + Protein, Urine, Random (03/13/2014 12:00 AM PDT) + +-------+ + + + | Component | Value | Ref Range | Performed | Pathologist | | | | | At | Signature | + +-------+ + + + | Protein, | 22 | 0.0 - 50.0 | EXTERNAL | | | Urine | [...] | | | + +---------+ + + Creatinine, Urine, Random (03/13/2014 12:00 AM PDT) + +-------+ + + + | Component | Value | Ref Range | Performed | Pathologist | | | | | At | Signature | + +-------+ + + + | Creatinine, | 179 | | EXTERNAL | | | 24H Ur | | | LAB | | + [...] + + Vitamin D, Deficiency Screen (25-Hydroxy) (03/13/2014 12:00 AM PDT) + +-------+ + + + | Component | Value | Ref Range | Performed | Pathologist | | | | | At | Signature | + +-------+ + + + | Vit D, | 42 | 30 - 100 | EXTERNAL | [...] + +---------+ + + External Lab: CBC (03/13/2014 12:00 AM PDT) + +-------+ + + + | Component | Value | Ref Range | Performed | Pathologist | | | | | At | Signature | + +-------+ + + + | WBC | 6.1 | 4.5 - 11.0 10 | EXTERNAL | | | | | | LAB | | + +-------+ + + + | Non- | 4.47 | 3.8 - 5.1 10 | EXTERNAL | | | Red Blood | | | LAB | | | Cells | | | | | | Counted | | | | | + +-------+ + + + | Hemoglobin | 12.7 | 12.0 - 16.0 | EXTERNAL | | | | | g/dL | LAB | | + +-------+ + + + | Hematocrit, | 38.2 | 35 - 45 % | EXTERNAL | | | POC | | | LAB | | + +-------+ + + + | MCV | 85.5 | 81 - 99 fL | EXTERNAL | | | | | | LAB | | + +-------+ + + + | MCH | 28 | 27 - 33 pg | EXTERNAL | | | | | | LAB | | + +-------+ + + + | MCHC | 33 | 30 - 36 g/dL | EXTERNAL | | | | | | LAB | | + +-------+ + + + | Platelet | 367 | 140 - 440 K/ L | EXTERNAL | | | Count | | | LAB | | | Plasma | | | | | + +-------+ + + + | RDW-CV | 14.6 | 10.5 - 15.0 % | EXTERNAL | | | | | | LAB | | + +-------+ + + + | MPV | | fL | EXTERNAL | | | | | | LAB | | + +-------+ + + + | Differentia | Auto | | EXTERNAL | | | l Type | | | LAB | | + +-------+ + + + | % Segmented | 60.1 | 39 - 80 % | EXTERNAL | | | | | | LAB | | | Neutrophils | | | | | + +-------+ + + + | % | 26.5 | 24 - 44 % | EXTERNAL | | | Lymphocytes | | | LAB | | + +-------+ + + + | % Monocytes | 10.7 | 0 - 12 % | EXTERNAL | | | | | | LAB | | + +-------+ + + + | % | 2.3 | 0 - 6 % | EXTERNAL | | | Eosinophils | | | LAB | | + +-------+ + + + | % Basophils | 0.4 | 0 - 2 % | EXTERNAL | | | | | | LAB | | + +-------+ + + + | Absolute | | / L | EXTERNAL | | | Segmented | | | LAB | | | Neutrophils | | | | | + +-------+ + + + | Absolute | | / L | EXTERNAL | | | Lymphocytes | | | LAB | | + +-------+ + + + | Absolute | | / L | EXTERNAL | | | Monocytes | | | LAB | | + +-------+ + + + | Absolute | | / L | EXTERNAL | | | Eosinophils | | | LAB | | + +-------+ + + + | Absolute | | [...] | + +---------+ + + Uric Acid (03/13/2014 12:00 AM PDT) + + + + + + | Component | Value | Ref Range | Performed | Pathologist | | | | | At | Signature | + + + + + + | Uric Acid | 11.1 (A) | 2.3 - 6.6 | EXTERNAL [...] | | + +---------+ + + Magnesium (03/13/2014 12:00 AM PDT) + +-------+ + + + | Component | Value | Ref Range | Performed | Pathologist | | | | | At | Signature | + +-------+ + + + | Magnesium | 42 | 30 - 100 mg/dL | EXTERNAL | | | | [...] + +---------+ + + Renal Function Panel (03/13/2014 12:00 AM PDT) + + + + + + | Component | Value | Ref Range | Performed | Pathologist | | | | | At | Signature | + + + + + + | Glucose, | 94 | 70 - 100 mg/dL | EXTERNAL | | | Fasting | | | LAB | | + + + + + + | BUN | 40 (A) | 6 - 23 mg/dL | EXTERNAL | | | | | | LAB | | + + + + + + | Creatinine | 2.03 (A) | 0.70 - 1.25 | EXTERNAL | | | | | mg/dL | LAB | | + + + + + + | PHOSPHORUS | | mg/dL | EXTERNAL | | | | | | LAB | | + + + + + + | Albumin | 4.4 | 3.5 - 5.0 | EXTERNAL | | | | | | LAB | | + + + + + + | Na | 136 | 132 - 143 | EXTERNAL | | | | | mmol/L | LAB | | + + + + + + | K | 4.5 | 3.6 - 5.1 | EXTERNAL | | | | | mmol/L | LAB | | + + + + + + | Cl | 104 | 95 - 112 mmol/L | EXTERNAL | | | | | | LAB | | + + + + + + | CO2 | 24 | 19 - 31 mmol/L | EXTERNAL | | | | | | LAB | | + + + + + + | Anion Gap | 12.5 | 7 - 21 mmol/L | EXTERNAL | | | | | | LAB | | + + + + + + | eGFR, | | | EXTERNAL | | | non- | | | LAB | | | Ni[place]an | | | | | + + + + + + | Phosphorus, | 4.7 | 2.5 - 5.0 | EXTERNAL | | | Inorganic | | | LAB | | + + + + + + | BUN/Creatin | 19.7 | 6.0 - 28.6 | EXTERNAL | | | ine Ratio | | | LAB | | + + + + + + | Calcium | 11.2 (A) | 8.4 - 10.2 | EXTERNAL | | | | | mg/dL | LAB | | + + + + + + | Estimated | 25 | mg/dL | EXTERNAL | | | [...] | | | + +---------+ + + Culture, Urine (09/15/2013 12:00 AM PDT) + + | Specimen | + + | Urine specimen | | (specimen) | + + + + + | Narrative | Performed At | + + + | Specimen Description Urine CULTURE | EXTERNAL LAB | | See table below Over 100,000 | | | CFU/ML Yeast, Identification On Request. REPORT STATUS | | | Final | | + + + + +---------+ + + | Performing | Address | City/State/Zipcode | Phone Number | | Organization | | | | + +---------+ + + | EXTERNAL LAB | | | | + +---------+ + + Urinalysis with Microscopic with Culture if Indicated (09/13/2013 12:00 AM PDT) + + + + + + | Component | Value | Ref Range | Performed | Pathologist | | | | | At | Signature | + + + + + + | Color | Yellow | | EXTERNAL | | | | | | LAB | | + + + + + + | Clarity, | Clear | | EXTERNAL | | | Urine | | | LAB | | + + + + + + | Spec Grav, | 1.027 | | EXTERNAL | | | Fluid | | | LAB | | + + + + + + | Leukocyte | 4+Comment: 500 | | EXTERNAL | | | Esterase, [...] + | pH, Urine | 5 | | EXTERNAL | | | | [...] + + + + | Bilirubin, | 1+ | | EXTERNAL | | | Urine | | | LAB | | + + + + + + | Glucose, | Negative | | EXTERNAL | | | Urine | | | LAB | | + + + + + + | WBC, UA | | | EXTERNAL | | | | | | LAB | | + + + + + + | RBC, UA | | | EXTERNAL | | | | | | LAB | | + + + + + + | Epithelial | | | EXTERNAL | | | Cells | | | LAB | | + + + + + + | Bacteria, | | | EXTERNAL | | | UA [...] | | | + +---------+ + + Urinalysis with Microscopic with Culture if Indicated (08/29/2013 12:00 AM PST) + + + + + + | Component | Value | Ref Range | Performed | Pathologist | | | | | At | Signature | + + + + + + | Color | Yellow | | EXTERNAL | | | | | | LAB | | + + + + + + | Clarity, | Clear | | EXTERNAL | | | Urine | | | LAB | | + + + + + + | Spec Grav, | 1.017 | | EXTERNAL | | | Fluid | | | LAB | | + + + + + + | Leukocyte | 1+Comment: 25 | | EXTERNAL | | | Esterase, [...] + + + + | Total | Negative | | EXTERNAL | | | Protein | | | LAB | | + + + + + + | pH, Urine | 5 | | EXTERNAL | | | | [...] + + + | WBC, UA | | | EXTERNAL | | | | | | LAB | | + + + + + + | RBC, UA | | | EXTERNAL | | | | | | LAB | | + + + + + + | Epithelial | | | EXTERNAL | | | Cells | | | LAB | | + + + + + + | Bacteria, | | | EXTERNAL | | | UA [...] | | | + +---------+ + + Protein/Creatinine Ratio, Urine (08/29/2013 12:00 AM PST) + +-------+ + + + | Component | Value | Ref Range | Performed | Pathologist | | | | | At | Signature | + +-------+ + + + | Protein/Cre | 234.0 | | EXTERNAL | | | at Ratio | | | LAB | | + +-------+ + + + + + | Specimen | + + | Urine specimen | | (specimen) | + + + +---------+ + + | Performing | Address | City/State/Zipcode | Phone Number | | Organization | | | | + +---------+ + + | EXTERNAL LAB | | | | + +---------+ + + Protein, Urine, Random (08/29/2013 12:00 AM PST) + +-------+ + + + | Component | Value | Ref Range | Performed | Pathologist | | | | | At | Signature | + +-------+ + + + | Protein, | 22 | | EXTERNAL | | | Urine [...] | | | + +---------+ + + Creatinine, Urine, Random (08/29/2013 12:00 AM PST) + +-------+ + + + | Component | Value | Ref Range | Performed | Pathologist | | | | | At | Signature | + +-------+ + + + | Creatinine, | 94 | | EXTERNAL | | | 24H Ur | | | LAB | | + [...] + + Parathyroid Hormone, Intact and Calcium (08/26/2013 12:00 AM PST) + +-------+ + + + | Component | Value | Ref Range | Performed | Pathologist | | | | | At | Signature | + +-------+ + + + | PTH Intact | 63.61 | | EXTERNAL | | | | | | LAB | | + +-------+ + + + | Calcium | 9.3 | | EXTERNAL | | | | [...] + + Vitamin D, Deficiency Screen (25-Hydroxy) (08/26/2013 12:00 AM PST) + +-------+ + + + | Component | Value | Ref Range | Performed | Pathologist | | | | | At | Signature | + +-------+ + + + | Vit D, | 26 | | EXTERNAL | | | 25-Hydroxy | [...] | | | + +---------+ + + Sedimentation rate, automated (08/26/2013 12:00 AM PST) + +-------+ + + + | Component | Value | Ref Range | Performed | Pathologist | | | | | At | Signature | + +-------+ + + + | Sed Rate | 35 | | EXTERNAL | | | | [...] + +---------+ + + External Lab: CBC (08/26/2013 12:00 AM PST) + +-------+ + + + | Component | Value | Ref Range | Performed | Pathologist | | | | | At | Signature | + +-------+ + + + | WBC | 6.8 | 10 | EXTERNAL | | | | | | LAB | | + +-------+ + + + | Non- | 4.48 | 10 | EXTERNAL | | | Red Blood | | | LAB | | | Cells | | | | | | Counted | | | | | + +-------+ + + + | Hemoglobin | 13.2 | g/dL | EXTERNAL | | | | | | LAB | | + +-------+ + + + | Hematocrit, | 38.8 | % | EXTERNAL | | | POC | | | LAB | | + +-------+ + + + | MCV | 86.4 | fL | EXTERNAL | | | | | | LAB | | + +-------+ + + + | MCH | 29 | pg | EXTERNAL | | | | | | LAB | | + +-------+ + + + | MCHC | 34 | g/dL | EXTERNAL | | | | | | LAB | | + +-------+ + + + | Platelet | 373 | K/ L | EXTERNAL | | | Count | | | LAB | | | Plasma | | | | | + +-------+ + + + | RDW-CV | 15.0 | % | EXTERNAL | | | | | | LAB | | + +-------+ + + + | MPV | | fL | EXTERNAL | | | | | | LAB | | + +-------+ + + + | Differentia | Auto | | EXTERNAL | | | l Type | | | LAB | | + +-------+ + + + | % Segmented | 66.5 | % | EXTERNAL | | | | | | LAB | | | Neutrophils | | | | | + +-------+ + + + | % | 16.0 | % | EXTERNAL | | | Lymphocytes | | | LAB | | + +-------+ + + + | % Monocytes | 11.6 | % | EXTERNAL | | | | | | LAB | | + +-------+ + + + | % | 5.3 | % | EXTERNAL | | | Eosinophils | | | LAB | | + +-------+ + + + | % Basophils | 0.6 | % | EXTERNAL | | | | | | LAB | | + +-------+ + + + | Absolute | | / L | EXTERNAL | | | Segmented | | | LAB | | | Neutrophils | | | | | + +-------+ + + + | Absolute | | / L | EXTERNAL | | | Lymphocytes | | | LAB | | + +-------+ + + + | Absolute | | / L | EXTERNAL | | | Monocytes | | | LAB | | + +-------+ + + + | Absolute | | / L | EXTERNAL | | | Eosinophils | | | LAB | | + +-------+ + + + | Absolute | | [...] | | | + +---------+ + + C-Reactive Protein (08/26/2013 12:00 AM PST) + +-------+ + + + | Component | Value | Ref Range | Performed | Pathologist | | | | | At | Signature | + +-------+ + + + | CRP | 9.5 | mg/dL | EXTERNAL | | | [...] | + +---------+ + + Uric Acid (08/26/2013 12:00 AM PST) + +-------+ + + + | Component | Value | Ref Range | Performed | Pathologist | | | | | At | Signature | + +-------+ + + + | Uric Acid | 6.3 | | EXTERNAL | | | | [...] | | + +---------+ + + Magnesium (08/26/2013 12:00 AM PST) + +-------+ + + + | Component | Value | Ref Range | Performed | Pathologist | | | | | At | Signature | + +-------+ + + + | Magnesium | 2.0 | mg/dL | EXTERNAL | | | [...] + +---------+ + + Renal Function Panel (08/26/2013 12:00 AM PST) + +-------+ + + + | Component | Value | Ref Range | Performed | Pathologist | | | | | At | Signature | + +-------+ + + + | Glucose, | 88 | mg/dL | EXTERNAL | | | Fasting | | | LAB | | + +-------+ + + + | BUN | 30 | mg/dL | EXTERNAL | | | | | | LAB | | + +-------+ + + + | Creatinine | 1.83 | mg/dL | EXTERNAL | | | | | | LAB | | + +-------+ + + + | PHOSPHORUS | | mg/dL | EXTERNAL | | | | | | LAB | | + +-------+ + + + | Albumin | 4.5 | | EXTERNAL | | | | | | LAB | | + +-------+ + + + | Na | 139 | mmol/L | EXTERNAL | | | | | | LAB | | + +-------+ + + + | K | 4.4 | mmol/L | EXTERNAL | | | | | | LAB | | + +-------+ + + + | Cl | 104 | mmol/L | EXTERNAL | | | | | | LAB | | + +-------+ + + + | CO2 | 21 | mmol/L | EXTERNAL | | | | | | LAB | | + +-------+ + + + | Anion Gap | 18.4 | mmol/L | EXTERNAL | | | | | | LAB | | + +-------+ + + + | eGFR, | | | EXTERNAL | | | non- | | | LAB | | | [place]an | | | | | + +-------+ + + + | Phosphorus, | 3.5 | | EXTERNAL | | | Inorganic | | | LAB | | + +-------+ + + + | BUN/Creatin | 16.4 | | EXTERNAL | | | ine Ratio | | | LAB | | + +-------+ + + + | Calcium | 9.3 | mg/dL | EXTERNAL | | | | | | LAB | | + +-------+ + + + | Estimated | 28 | mg/dL | EXTERNAL | | | [...]
--- OUTSIDE RECORDS SUMMARY | ~2020-02-01 | XMS | Encounter Summary ---
Demographics + + + | Address | [address] | | | [place] [address] | + + + | Home Phone | | + + + | Preferred Language | Unknown | + + + | Marital Status | | + + + | Caodaism Affiliation | Unknown | + + + | Race | Unknown | + + + | Ethnic Group | Unknown | + + + Author + + + | Author | [facility] | | | and [place] | + + + | Organization | [facility] | | | [...] Team Providers + +------+ + | Care Shipping Receiving Manager Name | Role | Phone | + +------+ + PCP | Unavailable | + +------+ + Encounter Details +--------+ + + + + | Date | Type | Department | Care Team | Description | +--------+ + + + + | 10/05/ | Hospital | [facility] | Damion Zamarripa | | | 2012 - | Encounter | MED [facility] MED ON[facility] | MD Wei, FACS [address] | | | | | [address] [place] | [place] | | | 10/16/ | | [place] [address] | [place] [address] | | | 2011 | | [phone] | [phone] | | | | | | | [...] + + documented as of this encounter Discharge Summaries Damion Zamarripa MD - 10/06/2011 5:51 AM PDTADMISSION DATE: 10/06/2011 DISCHARGE DATE: 10/17/2011 FINAL DIAGNOSES 1. ABDOMINAL AND ILIAC ARTERY ANEURYSM. 2. ATHEROSCLEROTIC HEART DISEASE. 3. RENAL INSUFFICIENCY. 4. MORBID OBESITY. PROCEDURES PERFORMED: On 10/06/2011 abdominal aortic aneurysm resection with aortoiliac by pass. HISTORY OF PRESENT ILLNESS: This 61-year-old female is noted to have abdominal aortic ane urysm on CT scan done 04/21/2011 at [facility]. Consideration of doing en dovascular repair of the iliac and aortic aneurysm noted that this is not possible due to t he anatomy. The patient has a history of numerous myocardial infarctions in the past. She has had several stents placed by Dr. Smith in [facility] who is her weight reducing technician. A preoper ative Myoview stress test was done and Dr. Smith recommended proceeding with surgical care. The patient's preoperative creatinine is 1.65 and last creatinine in the hospital is 1.13. PHYSICAL EXAMINATION GENERAL: The patient is well developed, well nourished, quite obese. LUNGS: Clear and equal bilaterally to auscultation. ABDOMEN: Significant central adiposity. Unable to palpate aneurysms. LOWER EXTREMITIES: Left femoral pulse 1+, left DP present by Doppler only. Right femoral p ulse 2+, dorsalis pedis 1 to 2+. HOSPITAL COURSE: The patient was admitted, taken to the operating room on 10/05 whe re resection of the abdominal and iliac aneurysms was done. At the time of surgery, [facility] ed blood loss was 2500 mL. She received 4 units of packed RBCs. An 18 x 9-mm woven graft wa s placed. The first postoperative day, the patient complained of left hip pain. She thought it was dislocated. Subsequent x-ray revealed it to be in good position. This pain gradual ly resolved. The patient was extubated the day after surgery, tolerated this well. Two day s later, she had progressive confusion thought secondary to excessive narcotics. She was pl aced on a CPAP mask and Dilaudid was discontinued. The patient's confusion resolved. The myles olvera had persistent postoperative nausea. The patient improved. She was ambulated. On the 9th postoperative day, she had fluid draining from her wound. The wound was opened with apparent wound infection. Cultures were done, which eventually came back no growth. T he patient was given Ancef for 2 days but stopped after there was no growth in the wound. T o evaluate her ongoing nausea and apparent ileus, a small bowel follow through was done, wh ich demonstrated contrast in the colon within a few hours. The patient developed diarrhea. She was continued on Reglan, Zofran and Phenergan for her nausea. She seemed to improve. By the 11th postoperative day, a wound VAC was placed. She was judged to be stable to be t ransferred to intermediate for further care. PLAN: The patient will continue medications as ordered. She should be on one aspirin a da y the rest of her life. Return to clinic with Dr. Zamarripa in 2 weeks. Full liquids to a regul ar diet. Activity as tolerated. She should walk at least 3 times a day. DICTATED BY: Damion Zamarripa MD Surgery JOB #: [id number] EXT JOB #:[id number] EDITED: 10/17/2011 15:59 <Electronically Signed by Damion Zamarripa MD> 10/18/11 [id number] documented in this encounter Medications at Time of Discharge [...] + + documented as of this encounter Consult Notes Harrison Arrington MD - 10/06/2011 5:51 AM PDTDATE: 10/06/2011 CONSULTING PHYSICIAN: Harrison Arrington MD PHYSICIAN REQUESTING CONSULT: Dr. Jericho Zamarripa REASON FOR CONSULT: Ventilator management in a patient who is intubated postop abdominal ao rtic aneur ysm repair. The patient is intubated and not able to answer questions readily. Thus, her history is obt ained from the H and P of Dr. Jericho Zamarripa. PROBLEM LIST 1. Status post repair of the abdominal aortic aneurysm with bilateral common iliac artery g raftgirma. S urgeon Dr. Jericho Zamarripa. Library Circulation Department Chief surgeon Dr. Da Silva. 2. Hypercholesterolemia. 3. History of myocardial infarction in the past, with double bypass and 4 or 5 stents. Last stent was approximately 3 years ago. 4. Chronic pain from osteoarthritis and history of distant trauma. 5. History of chronic renal failure, kidney disease stage III. 6. History of multiple surgeries following trauma. 7. Left hip replacement multiple times. 8. Hysterectomy with bilateral salpingo-oophorectomy. 9. Some type of pulmonary surgery. 10. Cystoscopy with stone extraction. 11. Restless legs. 12. History of head injury. 13. History of depression. 14. History of hay fever versus seasonal allergies. Preop chest x-ray 09/18/2011, notable for post CABG and coronary artery re-stenting. Otherw ise, negat tracey chest x-ray. ALLERGIES 1. CODEINE. 2. BRAZIL NUTS. SOCIAL HISTORY: Ex-smoker, does not drink alcohol. HISTORY OF PRESENT ILLNESS: This is a patient who had first seen a doctor at [facility], who was not able to do endovascular thrombosis of the iliac aneurysms. Patient had seen a Dr. Skinner in Cardio logy, with a Lexiscan Myoview stress test and the recommendation that the patient proceed with surgic al care. She was seen by Dr. Jericho Zamarripa. Patient's primary care physician is Taina Beasley, who is a nurse practitioner. Patient's neph rologist i s Dr. Rainey, and patient's weight reducing technician is Dr. Skinner. Patient did go to the OR today and came back on the ventilator. Dr. Zamarripa contacted me for help with the ventilator. When she first came back this 6-foot-tall woman, who weighs 135 kg, was under-ventilated wi th setting s of rate 16, tidal volume 400, pressure support 10-P3, with a blood gas 7.1, pH 7.14, PCO2 66, PO2 8 9. They increased the rate to 20 and the tidal volume to 500, and it improved with a pH of 7.23, PCO2 49, PO2 104. Her bicarb was 20.2 on the second blood gas. I did ask that they increase the rate to 2 2 and she is on SIMV mode. The patient is not able to add much to history. I asked her if she is in pain and she is on ly in pain in her abdomen and she can indicate that by nodding her head. She can open and c lose her eyes. She s hakes her head, no, answering if she is having any pain in her chest o r head. She indicates that she no longer smokes and that she does not drink. A formal review of systems is really not possible in this patient at the present time. Family history and further past medical history, social history not obtainable at the prese nt time. REVIEW OF SYSTEMS: Not obtainable. PHYSICAL EXAMINATION GENERAL: She is an alert, intubated female who is awake despite being on propofol, but she looks comf ortable. Mood and affect appropriate for being on propofol and postop. Not able to talk because she i s intubated. VITAL SIGNS: Heart rate 64, blood pressure 110/62, but it was higher earlier, before they i ncreased t he propofol. Her rate was 20, but now 22 on the ventilator. Temperature 35.9 wit h an esophageal probe , she was colder when she first came up from the OR, but now they are warming her up. EYES: Pupils equal, round. No conjunctivitis nor scleral icterus. ENT: Difficult because she is intubated. NECK: Thick, but no adenopathy, thyromegaly nor masses. CARDIAC: Regular rate and rhythm. No murmur, rub or gallop, but obesity limits exam. CHEST: Also difficult. She is supine and intubated, but what I can hear is clear. ABDOMEN: Bowel sounds are absent. Cannot assess organomegaly. She is morbidly obese. She do es indicat e some abdominal discomfort. EXTREMITIES: Revealed mild edema. LYMPH NODES: Negative in the following areas: Neck and epitrochlear. I am not able to test orientation. Blood gases have been described as above. Pre-op chest x-ray as above. Also, she had some pre-op labs on 09/18/2011; hematocrit 35.9, platelet count normal. Maxi profile: BUN 29, creatinine 1.83, with an MDRD of 28. Her prev ious kidney function has been described as stage III chronic kidney disease, but if this is her baseline renal function t his is actually stage IV, since the GFR is less than 30. Her CO2 on 09/18/2011 is 23, which is almost normal, but not quite. ASSESSMENT 1. MECHANICAL VENTILATION, STATUS POST ABDOMINAL AORTIC ANEURYSM REPAIR IN A MORBIDLY OBESE PATIENT. Her current blood gas indicates a combination of metabolic and respiratory acidos is. I have increased the rate further, and will check another blood gas early this evening. She has some metabolic acidos is, as well. Her CO2 pre-op was barely below normal. She may have some contribution of chronic acidos is from her chronic kidney disease, but there may also be some component of metabolic acidosis from r ecent major surgery. 2. CORONARY ARTERY DISEASE WITH PREVIOUS MYOCARDIAL INFARCTIONS. 3. HIGH CHOLESTEROL, REPORTEDLY SEVERE IN THE PAST. 4. PATIENT INDICATES NO HISTORY OF DIABETES AND THAT SHE IS AN EX-SMOKER. PLAN: As above. Check blood gas later this evening and again tomorrow. Hopefully, she will be able to be extubated tomorrow. She is on propofol for sedation, which is appropriate. Gi yoko her body size, I suspect she may have sleep apnea. DICTATED BY: Harrison Arrington MD Internal Medicine JOB #: [id number] EXT JOB #:[id number] cc: MD Damion Lara MD <Electronically Signed by Harrison Arrington MD> 10/06/11 8507 documented in this encounter Miscellaneous Notes Op Note - Damion Zamarripa MD - 10/06/2011 5:51 AM PDTDATE: 10/06/2011 PREOPERATIVE DIAGNOSIS: Abdominal and iliac artery aneurysms. POSTOPERATIVE DIAGNOSIS: ABDOMINAL AND ILIAC ARTERY ANEURYSMS. TITLE OF PROCEDURE: Repair of abdominal and iliac aneurysms with [id number] bypass (Dac shayla graft) . OPERATING SURGEON: Damion Zamarripa MD TOW BOAT CAPTAIN: Santiago Da Silva MD DURATION OF SURGERY: Four hours. INDICATIONS FOR PROCEDURE: This 61-year-old female was noted to have aorto- and iliac arter y 4.5 cm a neurysms. The anatomy does not allow endovascular approach. FINDINGS AT SURGERY: An 18 x 9 mm UltraMax double velour Dacron graft chosen for replacemen t. Right i nternal iliac artery was occluded. Left internal iliac artery open. Post-procedu re, the patient with strong femoral pulses bilaterally. Right DP pulse 2+, left DP pulse by Doppler only. OPERATIVE PROCEDURE: In the same day surgery area, the surgical procedure was once again di scussed wi th the patient and her family. All questions were answered. The patient was then taken to the operati ng room where Dr. Hernandes proceeded with a general endotracheal ane sthesia, placed a right radial A -line. Nolasco catheter was placed. The patient's abdomen an d upper thighs were prepped with ChloraPrep and draped in a sterile manner. Pause was made to identify the patient, procedure, perioperative med ications, and allergies. Vertical midline incision was made. Subcutaneous fat was divided down to the linea alba and the perit khan cavity was entered. The abdomen was briefly explored. The small and large bowel were essentiall y normal. The appendix was present. Duodenum was dissected off the an eurysm neck and pushed to the ri ght side of the abdomen. Bowels were packed away using the Bookwalter retractor. The patient had a re tro-aortic left renal vein. The proximal aorta was dissected free of surrounding tissue, such that a clamp could be securely applied. Diss ection was carried on the anterior surface of the aorta down pas t the aneurysm to the marsha c bifurcation. The common iliac arteries were dissected out and cleared of surrounding tiss ue, such that they could be clamped. An 18 x 9 mm Dacron graft was chosen for replace ment. The patient was given heparin 10,000 units IV push. After 3 minute circulation time the valdemar ac a rteries were occluded with vascular clamps, followed by the infrarenal abdominal aorta . The aneurysm wall was then cauterized as it was opened. The patient had 2 sets of bleedin g lumbar arteries. One se t was stick tied using a 2-0 silk suture. The other set was right at the anastomotic line so these we re included in the suture line. The beveled end of the 18 mm graft was sutured into the infrarenal ab dominal aorta using a 2-0 Prolene suture. Anastomosis was completed, the suture line was checked. There was one area of bleeding on t he anterol ateral side. This was at a stick site. This bleeder was controlled using a 1 cm patch of aneurysm wal l and 4-0 Prolene suture. The patient had persistent oozing from the aortic bifurcation region. The m iddle sacral artery was suture ligated using a 2-0 silk bonilla ture. The patient had venous oozing. Consid ering this, I over sewed the aortic bifurcation using a 3-0 Prolene suture. This controlled the bleed ing. I then created a retroperitoneal tunnel to the right external iliac artery. This was done t o dissect posterior to the ureter. The common iliac aneurysm was then opened. From the insi de there was only on e lumen of the external iliac. There was no internal iliac lumen. I ov er sewed the lumen of the exter nal iliac artery using a 3-0 Prolene suture. I then isolate d the external iliac artery in vessel loop s in its mid position. I brought the 8 mm limb o f the graft in the retroperitoneal tunnel to the [facility] t external iliac artery. A longitudin al arteriotomy was made for about 15 mm along the external iliac artery. The beveled end of the right limb of the graft was sutured in place using 4-0 Prolene suture . Vessels were f lushed and back bled appropriately. Anastomosis was completed. The patient had slight hypot ension on de-clamping but this was quickly controlled. Attention was then directed towards the left limb. The sigmoid colon was dissected from its usual lat eral adhesions. The left external iliac artery was dissected away from the surro unding tissue and enc ircled with a vessel loop. The sigmoid colon was then pulled towards the midline, exposing the iliac bifurcation aneurysm. This was then entered and fortunately the end of the aneurysm was orifice of anders th the external and internal iliac artery. Consi dering this, I dragged the left limb of the 8 mm viraj t through the retroperitoneal tissue, measured it appropriately, sutured the beveled end of the left 8 mm graft to the orifice o f the external and internal iliac artery using 4-0 Prolene suture. Vessels were flushed and back bled appropriately. Anastomosis was completed and flow was established to the left li mb. The patient had excellent left external iliac and right external iliac pulses distal to th e anastomosis. The incoming common iliac artery was suture ligated using 3-0 Prolene sut ure on the le ft. The sigmoid colon was carefully inspected. It was pink, had brisk capillary refill. All 3 s uture line s were checked. There was no oozing noted. There was no further bleeding from th e aortic wall. The po sterior peritoneum was approximated using 2-0 Vicryl suture. Care was taken to pack retroperitoneal f atty tissue beneath the duodenum. The bowels were returned to their anatomic position. The abdomen wa s irrigated with saline, suctioned free. The li ghislaine alba was then approximated using running #1 Vicryl suture, skin edges using skin clips. The patient remained intubated, was taken to ICU for further ca re. ESTIMATED BLOOD LOSS: 2500. BLOOD REPLACED: 4 units packed RBCs post. Post procedure, the patient had a DP pulse present by Doppler. DICTATED BY: Damion Zamarripa MD Surgery JOB #: [id number] EXT JOB #:[id number] cc: Santiago Da Silva MD <Electronically Signed by Damion Zamarripa MD> 10/14/11 0900 documented in this encounter Plan of Treatment +--------+ + + + + | Date | Type | Specialty | Care Team | Description | +--------+ + + + + | 02/01/ | Virtual | Pulmonology | Rodrigo Cruz MD | | | 2019 | Office | | [address] | | | | Visit | | [place] | | | | | | [address] | | | | | | | | +--------+ + + + + | 02/22/ | Office | Cardiology | Phylicia Patel DO | | | 2019 | Visit | | [address] | | | | | | [place] | | | | | | [address] | | | | | | | | +--------+ + + + + documented as of this encounter Procedures + +--------+ + + + | Procedure Name | Priori | Date/Time | Associated Diagnosis | Comments | | | ty | | | | + +--------+ + + + | CBC WITH | Routin | 10/16/2011 | | Results for this | | DIFFERENTIAL | e | 6:26 AM | | procedure are in the | | | | PDT | | results section. | + +--------+ + + + | BASIC METABOLIC | Routin | 10/16/2011 | | Results for this | | PANEL | e | 6:26 AM | | procedure are in the | | | | PDT | | results section. | + +--------+ + + + | CULTURE, WOUND, | Routin | 10/15/2011 | | Results for this | | SMEAR | e | 10:38 AM | | procedure are in the | | | | PDT | | results section. | + +--------+ + + + | CBC WITH | Routin | 10/14/2011 | | Results for this | | DIFFERENTIAL | e | 4:52 AM | | procedure are in the | | | | PDT | | results section. | + +--------+ + + + | PHOSPHORUS | Routin | 10/14/2011 | | Results for this | | | e | 4:52 AM | | procedure are in the | | | | PDT | | results section. | + +--------+ + + + | MAGNESIUM | Routin | 10/14/2011 | | Results for this | | | e | 4:52 AM | | procedure are in the | | | | PDT | | results section. | + +--------+ + + + | COMPREHENSIVE | Routin | 10/14/2011 | | Results for this | | METABOLIC PANEL | e | 4:52 AM | | procedure are in the | | | | PDT | | results section. | + +--------+ + + + | CBC NO DIFFERENTIAL | Routin | 10/13/2011 | | Results for this | | | e | 4:32 AM | | procedure are in the | | | | PDT | | results section. | + +--------+ + + + | BASIC METABOLIC | Routin | 10/13/2011 | | Results for this | | PANEL | e | 4:32 AM | | procedure are in the | | | | PDT | | results section. | + +--------+ + + + | CBC WITH | Routin | 10/11/2011 | | Results for this | | DIFFERENTIAL | e | 4:17 AM | | procedure are in the | | | | PDT | | results section. | + +--------+ + + + | BASIC METABOLIC | Routin | 10/11/2011 | | Results for this | | PANEL | e | 4:17 AM | | procedure are in the | | | | PDT | | results section. | + +--------+ + + + | BLOOD GAS, ARTERIAL | Routin | 10/10/2011 | | Results for this | | | e | 6:32 AM | | procedure are in the | | | | PDT | | results section. | + +--------+ + + + | CBC WITH | Routin | 10/10/2011 | | Results for this | | DIFFERENTIAL | e | 4:36 AM | | procedure are in the | | | | PDT | | results section. | + +--------+ + + + | PHOSPHORUS | Routin | 10/10/2011 | | Results for this | | | e | 4:36 AM | | procedure are in the | | | | PDT | | results section. | + +--------+ + + + | MAGNESIUM | Routin | 10/10/2011 | | Results for this | | | e | 4:36 AM | | procedure are in the | | | | PDT | | results section. | + +--------+ + + + | BASIC METABOLIC | Routin | 10/10/2011 | | Results for this | | PANEL | e | 4:36 AM | | procedure are in the | | | | PDT | | results section. | + +--------+ + + + | BLOOD GAS, ARTERIAL | Routin | 10/09/2011 | | Results for this | | | e | 5:44 PM | | procedure are in the | | | | PDT | | results section. | + +--------+ + + + | CBC NO DIFFERENTIAL | Routin | 10/09/2011 | | Results for this | | | e | 6:28 AM | | procedure are in the | | | | PDT | | results section. | + +--------+ + + + | BASIC METABOLIC | Routin | 10/09/2011 | | Results for this | | PANEL | e | 6:28 AM | | procedure are in the | | | | PDT | | results section. | + +--------+ + + + | CBC WITH | Routin | 10/08/2011 | | Results for this | | DIFFERENTIAL | e | 5:14 AM | | procedure are in the | | | | PDT | | results section. | + +--------+ + + + | BASIC METABOLIC | Routin | 10/08/2011 | | Results for this | | PANEL | e | 5:14 AM | | procedure are in the | | | | PDT | | results section. | + +--------+ + + + | BLOOD GAS, ARTERIAL | Routin | 10/07/2011 | | Results for this | | | e | 4:59 AM | | procedure are in the | | | | PDT | | results section. | + +--------+ + + + | CBC WITH | Routin | 10/07/2011 | | Results for this | | DIFFERENTIAL | e | 4:26 AM | | procedure are in the | | | | PDT | | results section. | + +--------+ + + + | BASIC METABOLIC | Routin | 10/07/2011 | | Results for this | | PANEL | e | 4:26 AM | | procedure are in the | | | | PDT | | results section. | + +--------+ + + + | BLOOD GAS, ARTERIAL | Routin | 10/06/2011 | | Results for this | | | e | 8:51 PM | | procedure are in the | | | | PDT | | results section. | + +--------+ + + + | CULTURE, MRSA | Routin | 10/06/2011 | | | | | e | 6:11 PM | | | | | | PDT | | | + +--------+ + + + | BLOOD GAS, ARTERIAL | Routin | 10/06/2011 | | Results for this | | + CO-OX | e | 4:13 PM | | procedure are in the | | | | PDT | | results section. | + +--------+ + + + | BLOOD GAS, ARTERIAL | Routin | 10/06/2011 | | Results for this | | | e | 3:22 PM | | procedure are in the | | | | PDT | | results section. | + +--------+ + + + | ABO RH | Routin | 10/06/2011 | | Results for this | | | e | 7:11 AM | | procedure are in the | | | | PDT | | results section. | + +--------+ + + + | ABO RH | Routin | 10/06/2011 | | | | | e | 7:11 AM | | | | | | PDT | | | + +--------+ + + + | ANTIBODY SCREEN | Routin | 10/06/2011 | | Results for this | | | e | 7:11 AM | | procedure are in the | | | | PDT | | results section. | + +--------+ + + + | CROSSMATCH (IN ML) | Routin | 10/06/2011 | | Results for this | | | e | 6:50 AM | | procedure are in the | | | | PDT | | results section. | + +--------+ + + + | CROSSMATCH (IN ML) | Routin | 10/06/2011 | | Results for this | | | e | 6:50 AM | | procedure are in the | | | | PDT | | results section. | + +--------+ + + + | CROSSMATCH (IN ML) | Routin | 10/06/2011 | | Results for this | | | e | 6:50 AM | | procedure are in the | | | | PDT | | results section. | + +--------+ + + + | CROSSMATCH (IN ML) | Routin | 10/06/2011 | | Results for this | | | e | 6:50 AM | | procedure are in the | | | | PDT | | results section. | + +--------+ + + + | FL SMALL BOWEL | | 10/06/2011 | | Results for this | | FOLLOW THROUGH | | 5:51 AM | | procedure are in the | | | | PDT | | results section. | + +--------+ + + + | XR PELVIS 1 OR 2 VW | | 10/06/2011 | | Results for this | | | | 5:51 AM | | procedure are in the | | | | PDT | | results section. | + +--------+ + + + | XR CHEST AP PORTABLE | | 10/06/2011 | | Results for this | | | | 5:51 AM | | procedure are in the | | | | PDT | | results section. | + +--------+ + + + | XR CHEST AP PORTABLE | | 10/06/2011 | | Results for this | | | | 5:51 AM | | procedure are in the | | | | PDT | | results section. | + +--------+ + + + | XR ABDOMEN AP | | 10/06/2011 | | Results for this | | | | 5:51 AM | | procedure are in the | | | | PDT | | results section. | + +--------+ + + + documented in this encounter Results Basic Metabolic Panel (10/16/2011 6:26 AM PDT) + + + + + + | Component | Value | Ref Range | Performed | Pathologist | | | | | At | Signature | + + + + + + | Glucose | 93 | 70 - 109 mg/dL | [facility] - | | | | | | [facility]ORY | | + + + + + + | Calcium | 8.2 (L) | 8.3 - 10.5 | [facility] | | | | | mg/dL | [facility] | | | | [facility] | | | [facility] - | | | | | | LAB[facility]ATORY | | + + + + + + | BUN | 25 (H) | 7 - 18 mg/dL | [facility] | | | | | | [facility] | | | [facility] | [facility] | | | | | | [facility] - | | | | | | LABORATORY | | + + + + + + | Creatinine | 1.13 | 0.60 - 1.30 | [facility] | | | | | mg/dL | [facility] | | | | | | [facility] | | | | | | [facility] - | | | | | | LABORATORY | | + + + + + + | Estimated | 49 (L)Comment: For | >60 mL/min/A | [facility] | | | GFR | -Americans, | | [facility] | | | | please multiply the | | MEDICAL | | | | result by 1.210 | | CENTER - | | | | This is an estimated | | LABORATORY | | | | GFR and is based on a | | | | | | standard adult | | | | | | body mass (A=1.73m2) and | | | | | | serum creatinine | | | | + + + + + + | BUN/Creatin | 22.1 (H) | 12 - 20 | [facility] | | | ine Ratio | | | [facility] | | | | | | [facility] | | | | | | [facility] - | | | | | | LABORATORY | | + + + + + + | Na | 140 | 136 - 149 mEq/L | [facility] | | | | | | [facility] | | | | | | [facility] | | | | | | [facility] - | | | | | | LABORATORY | | + + + + + + | K | 3.9 | 3.5 - 5.1 mEq/l | [facility] | | | | | | [facility] | | | | | | [facility] | | | | | | [facility] - | | | | | | LABORATORY | | + + + + + + | Cl | 107 | 98 - 109 mEq/l | [facility] | | | | | | [facility] | | | | | | [facility] | | | | | | [facility] - | | | | | | LABORATORY | | + + + + + + | CO2 | 21 (L) | 24 - 31 mEq/L | [facility] | | | | | | [facility] | | | | | | [facility] | | | | | | [facility] - | | | | | | LABORATORY | | + + + + + + | Anion Gap | 15.9 | 6.0 - 17.0 | [facility] | | | | | | [facility] | | | | | | [facility] | | | | | | [facility] - | | | | | | LABORATORY | | + + + + + + + + | Specimen | + + | | + + + + + + + | Performing | Address | City/State/Zipcode | Phone Number | | Organization | | | | + + + + + | [facility] | [address] | [place] | [phone] | | [facility] | | [address] | | | - LABORATORY | | | | + + + + + | [facility] | [address] | [place], [place] | | | [facility] | | [address], [facility] | | | - LABORATORY | | | | + + + + + CBC with Differential (10/16/2011 6:26 AM PDT) + + + + + + | Component | Value | Ref Range | Performed | Pathologist | | | | | At | Signature | + + + + + + | White Blood | 11.3 (H) | 4.0 - 11.0 K/uL | [facility] | | | Cells | | | [facility] | | | | | | [facility] | | | | | | [facility] - | | | | | | LABORATORY | | + + + + + + | Red Blood | 3.18 (L) | 3.70 - 5.20 | [facility] | | | Cells | | M/uL | [facility] | | | | | | [facility] | | | | | | CENTER - | | | | | | LABORATORY | | + + + + + + | Hemoglobin | 9.3 (L) | 11.5 - 16.0 | [facility] | | | | | gm/dL | [facility] | | | | | | [facility] | | | | | | CENTER - | | | | | | LABORATORY | | + + + + + + | Hematocrit | 27.9 (L) | 34.0 - 47.0 % | [facility] | | | | | | [facility] | | | | | | [facility] | | | | | | [facility] - | | | | | | LABORATORY | | + + + + + + | MCV | 87.7 | 83.0 - 101.0 fL | [facility] | | | | | | [facility] | | | | | | [facility] | | | | | | [facility] - | | | | | | LABORATORY | | + + + + + + | MCH | 29.2 | 28.0 - 35.0 pg | [facility] | | | | | | [facility] | | | | | | [facility] | | | | | | CENTER - | | | | | | LABORATORY | | + + + + + + | MCHC | 33.2 | 32.0 - 36.0 | [facility] | | | | | g/dL | [facility] | | | | | | [facility] | | | | | | CENTER - | | | | | | LABORATORY | | + + + + + + | RDW-CV | 15.2 (H) | <15.0 % | [facility] | | | | | | [facility] | | | | | | [facility] | | | | | | CENTER - | | | | | | LABORATORY | | + + + + + + | Platelet | 402 | 140 - 440 K/uL | [facility] | | | Count | | | [facility] | | | | | | [facility] | | | | | | CENTER - | | | | | | LABORATORY | | + + + + + + | % | 78.3 | 45 - 82 % | [facility] | | | Neutrophils | | | [facility] | | | | | | [facility] | | | | | | CENTER - | | | | | | LABORATORY | | + + + + + + | % | 15.3 (L) | 20 - 45 % | [facility] | | | Lymphocytes | | | [facility] | | | | | | MEDICAL | | | | | | CENTER - | | | | | | LABORATORY | | + + + + + + | % Monocytes | 6.4 | 4 - 12 % | [facility] | | | | | | [facility] | | | | | | [facility] | | | | | | CENTER - | | | | | | LABORATORY | | + + + + + + | Absolute | 8.8 (H) | 1.8 - 8.5 K/uL | [facility] | | | Neutrophils | | | [facility] | | | | | | [facility] | | | | | | CENTER - | | | | | | LABORATORY | | + + + + + + | Absolute | 1.7 | 0.6 - 3.2 K/uL | [facility] | | | Lymphocytes | | | [facility] | | | | | | MEDICAL | | | | | | CENTER - | | | | | | LABORATORY | | + + + + + + | Absolute | 0.7 | 0.0 - 1.0 K/uL | [facility] | | | Monocytes | | | [facility] | | | | | | MEDICAL | | | | | | CENTER - | | | | | | LABORATORY | | + + + + + + + + | Specimen | + + | | + + + + + + + | Performing | Address | City/State/Zipcode | Phone Number | | Organization | | | | + + + + + | [facility] | [address] | [place], [place] | [phone] | | [facility] | | [address] | | | - LABORATORY | | | | + + + + + | [facility] | [address] | [place] | | | [facility] | | [id number] | | | - LABORATORY | | | | + + + + + Culture, Wound, Smear (10/15/2011 10:38 AM PDT) + + + + + + | Component | Value | Ref Range | Performed | Pathologist | | | | | At | Signature | + + + + + + | Culture | FEW WBC/HPF | | [facility] | | | Result | NO ORGANISMS SEEN | | [facility] | | | | | | [facility] | | | | | | CENTER - | | | | | | LABORATORY | | + + + + + + + + | Specimen | + + | | + + + + + + + | Performing | Address | City/State/Zipcode | Phone Number | | Organization | | | | + + + + + | [facility] | [address] | [place] | [phone] | | [facility] | | [address] | | | - LABORATORY | | | | + + + + + | [facility] | [address] | [place], [place] | | | [facility] | | [id number] | | | - LABORATORY | | | | + + + + + Comprehensive Metabolic Panel (10/14/2011 4:52 AM PDT) + + + + + + | Component | Value | Ref Range | Performed | Pathologist | | | | | At | Signature | + + + + + + | Glucose | 106 | 70 - 109 mg/dL | [facility] | | | | | | [facility] | | | | | | MEDICAL | | | | | | CENTER - | | | | | | LABORATORY | | + + + + + + | Calcium | 8.9 | 8.3 - 10.5 | [facility] | | | | | mg/dL | [facility] | | | | | | MEDICAL | | | | | | CENTER - | | | | | | LABORATORY | | + + + + + + | Alkaline | 85 | 40 - 110 IU/L | [facility] | | | Phosphatase | | | [facility] | | | | | | MEDICAL | | | | | | CENTER - | | | | | | LABORATORY | | + + + + + + | AST | 39 | 10 - 42 IU/L | [facility] | | | | | | [facility] | | | | | | MEDICAL | | | | | | CENTER - | | | | | | LABORATORY | | + + + + + + | ALT | 26 | 6 - 45 IU/L | [facility] | | | | | | [facility] | | | | | | [facility]ICAL | | | | | | CENTER - | | | | | | LABORATORY | | + + + + + + | Bilirubin | 0.7 | 0.2 - 1.0 mg/dL | [facility] | | | Total | | | [facility] | | | | | | MEDICAL | | | | | | CENTER - | | | | | | LABORATORY | | + + + + + + | Total | 5.8 (L) | 6.0 - 7.8 gm/dL | [facility] | | | Protein | | | [facility] | | | | | | MEDICAL | | | | | | CENTER - | | | | | | LABORATORY | | + + + + + + | Albumin | 2.5 (L) | 3.2 - 5.0 gm/dL | [facility] | | | | | | [facility] | | | | | | [facility]ICAL | | | | | | CENTER - | | | | | | LABORATORY | | + + + + + + | BUN | 27 (H) | 7 - 18 mg/dL | [facility] | | | | | | [facility] | | | | | | [facility]ICAL | | | | | | CENTER - | | | | | | LABORATORY | | + + + + + + | Creatinine | 1.13 | 0.60 - 1.30 | [facility] | | | | | mg/dL | [facility] | | | | | | MEDICAL | | | | | | CENTER - | | | | | | LABORATORY | | + + + + + + | Estimated | 49 (L)Comment: For | >60 mL/min/A | [facility] | | | GFR | -Americans, | | [facility] | | | | please multiply the | | MEDICAL | | | | result by 1.210 | | CENTER - | | | | This is an estimated | | LABORATORY | | | | GFR and is based on a | | | | | | standard adult | | | | | | body mass (A=1.73m2) and | | | | | | serum creatinine | | | | + + + + + + | BUN/Creatin | 23.9 (H) | 12 - 20 | [facility] | | | ine Ratio | | | [facility] | | | | | | MEDICAL | | | | | | CENTER - | | | | | | LABORATORY | | + + + + + + | Na | 141 | 136 - 149 mEq/L | [facility] | | | | | | [facility] | | | | | | [facility]ICAL | | | | | | CENTER - | | | | | | LABORATORY | | + + + + + + | K | 3.6 | 3.5 - 5.1 mEq/l | [facility] | | | | | | [facility] | | | | | | MEDICAL | | | | | | CENTER - | | | | | | LABORATORY | | + + + + + + | Cl | 104 | 98 - 109 mEq/l | [facility] | | | | | | [facility] | | | | | | MEDICAL | | | | | | CENTER - | | | | | | LABORATORY | | + + + + + + | CO2 | 26 | 24 - 31 mEq/L | [facility] | | | | | | [facility] | | | | | | [facility]ICAL | | | | | | CENTER - | | | | | | LABORATORY | | + + + + + + | Anion Gap | 14.6 | 6.0 - 17.0 | [facility] | | | | | | [facility] | | | | | | [facility]ICAL | | | | | | CENTER - | | | | | | LABORATORY | | + + + + + + + + | Specimen | + + | | + + + + + + + | Performing | Address | City/State/Zipcode | Phone Number | | Organization | | | | + + + + + | [facility] | [address] | [place] | [phone] | | [facility] | | [address] | | | - LABORATORY | | | | + + + + + | [facility] | [address] | [place] | | | [facility] | | [id number] | | | - LABORATORY | | | | + + + + + Magnesium (10/14/2011 4:52 AM PDT) + +-------+ + + + | Component | Value | Ref Range | Performed | Pathologist | | | | | At | Signature | + +-------+ + + + | Magnesium | 1.8 | 1.8 - 2.5 mg/dL | [facility] | | | | | | [facility] | | | | | | MEDICAL | | | | | | CENTER - | | | | | | LABORATORY | | + +-------+ + + + + + | Specimen | + + | | + + + + + + + | Performing | Address | City/State/Zipcode | Phone Number | | Organization | | | | + + + + + | [facility] | [address] | [place] | [phone] | | [facility] | | [address] | | | - LABORATORY | | | | + + + + + | [facility] | [address] | [place], [place] | | | [facility] | | [id number] | | | - LABORATORY | | | | + + + + + Phosphorus (10/14/2011 4:52 AM PDT) + +-------+ + + + | Component | Value | Ref Range | Performed | Pathologist | | | | | At | Signature | + +-------+ + + + | Phosphorus | 3.8 | 2.5 - 4.6 mg/dL | [facility] | | | | | | [facility] | | | | | | [facility] | | | | | | CENTER - | | | | | | LABORATORY | | + +-------+ + + + + + | Specimen | + + | | + + + + + + + | Performing | Address | City/State/Zipcode | Phone Number | | Organization | | | | + + + + + | [facility] | [address] | [place], [place] | [phone] | | [facility] | | [address] | | | - LABORATORY | | | | + + + + + | [facility] | [address] | [place] | | | [facility] | | [id number] [place] [address] | | | - LABORATORY | | | | + + + + + CBC with Differential (10/14/2011 4:52 AM PDT) + + + + + + | Component | Value | Ref Range | Performed | Pathologist | | | | | At | Signature | + + + + + + | White Blood | 6.7 | 4.0 - 11.0 K/uL | [facility] | | | Cells | | | [facility] | | | | | | MEDICAL | | | | | | CENTER - | | | | | | LABORATORY | | + + + + + + | Red Blood | 3.28 (L) | 3.70 - 5.20 | [facility] | | | Cells | | M/uL | [facility] | | | | | | MEDICAL | | | | | | CENTER - | | | | | | LABORATORY | | + + + + + + | Hemoglobin | 9.7 (L) | 11.5 - 16.0 | [facility] | | | | | gm/dL | [facility] | | | | | | MEDICAL | | | | | | CENTER - | | | | | | LABORATORY | | + + + + + + | Hematocrit | 29.0 (L) | 34.0 - 47.0 % | [facility] | | | | | | [facility] | | | | | | MEDICAL | | | | | | CENTER - | | | | | | LABORATORY | | + + + + + + | MCV | 88.4 | 83.0 - 101.0 fL | [facility] | | | | | | [facility] | | | | | | MEDICAL | | | | | | CENTER - | | | | | | LABORATORY | | + + + + + + | MCH | 29.6 | 28.0 - 35.0 pg | [facility] | | | | | | [facility] | | | | | | MEDICAL | | | | | | CENTER - | | | | | | LABORATORY | | + + + + + + | MCHC | 33.5 | 32.0 - 36.0 | [facility] | | | | | g/dL | [facility] | | | | | | MEDICAL | | | | | | CENTER - | | | | | | LABORATORY | | + + + + + + | RDW-CV | 15.9 (H) | <15.0 % | [facility] | | | | | | [facility] | | | | | | [facility]ICAL | | | | | | CENTER - | | | | | | LABORATORY | | + + + + + + | Platelet | 367 | 140 - 440 K/uL | [facility] | | | Count | | | [facility] | | | | [facility] | [facility] | | | | | | CENTER - | | | | | | LABORATORY | | + + + + + + | % | 71.7 | 45 - 75 % | [facility] | | | Neutrophils | | | [facility] | | | | | | MEDICAL | | | | | | CENTER - | | | | | | LABORATORY | | + + + + + + | % | 11.9 (L) | 20 - 45 % | [facility] | | | Lymphocytes | | | [facility] | | | | | | MEDICAL | | | | | | CENTER - | | | | | | LABORATORY | | + + + + + + | % Monocytes | 12.6 (H) | 4 - 12 % | [facility] | | | | | | [facility] | | | | | | MEDICAL | | | | | | CENTER - | | | | | | LABORATORY | | + + + + + + | % | 3.7 | 0 - 5 % | [facility] | | | Eosinophils | | | [facility] | | | | | | MEDICAL | | | | | | CENTER - | | | | | | LABORATORY | | + + + + + + | % Basophils | 0.1 | 0 - 1 % | [facility] | | | | | | [facility] | | | | | | MEDICAL | | | | | | CENTER - | | | | | | LABORATORY | | + + + + + + | Absolute | 4.8 | 1.5 - 6.6 K/uL | [facility] | | | Neutrophils | | | [facility] | | | | | | MEDICAL | | | | | | CENTER - | | | | | | LABORATORY | | + + + + + + | Absolute | 0.8 | 0.6 - 3.2 K/uL | [facility] | | | Lymphocytes | | | [facility] | | | | | | MEDICAL | | | | | | CENTER - | | | | | | LABORATORY | | + + + + + + | Absolute | 0.8 | 0.0 - 1.0 K/uL | [facility] | | | Monocytes | | | [facility] | | | | | | MEDICAL | | | | | | CENTER - | | | | | | LABORATORY | | + + + + + + | Absolute | 0.2 | 0.0 - 0.4 K/uL | [facility] | | | Eosinophils | | | [facility] | | | | | | MEDICAL | | | | | | CENTER - | | | | | | LABORATORY | | + + + + + + | Absolute | 0.0 | 0.0 - 0.1 K/uL | [facility] | | | Basophils | | | [facility] | | | | | | MEDICAL | | | | | | CENTER - | | | | | | LABORATORY | | + + + + + + + + | Specimen | + + | | + + + + + + + | Performing | Address | City/State/Zipcode | Phone Number | | Organization | | | | + + + + + | [facility] | [address] | [place] | [phone] | | [facility] | | [address] | | | - LABORATORY | | | | + + + + + | [facility] | [address] | [place], [place] | | | [facility] | | [id number] [address] | | | - LABORATORY | | | | + + + + + Basic Metabolic Panel (10/13/2011 4:32 AM PDT) + + + + + + | Component | Value | Ref Range | Performed | Pathologist | | | | | At | Signature | + + + + + + | Glucose | 101 | 70 - 109 mg/dL | [facility] | | | | | | [facility] | | | | | | [facility]ICAL | | | | | | CENTER - | | | | | | LABORATORY | | + + + + + + | Calcium | 8.5 | 8.3 - 10.5 | [facility] | | | | | mg/dL | [facility] | | | | | | MEDICAL | | | | | | CENTER - | | | | | | LABORATORY | | + + + + + + | BUN | 29 (H) | 7 - 18 mg/dL | [facility] | | | | | | [facility] | | | | | | MEDICAL | | | | | | CENTER - | | | | | | LABORATORY | | + + + + + + | Creatinine | 1.14 | 0.60 - 1.30 | [facility] | | | | | mg/dL | [facility] | | | | | | MEDICAL | | | | | | CENTER - | | | | | | LABORATORY | | + + + + + + | Estimated | 48 (L)Comment: For | >60 mL/min/A | [facility] | | | GFR | -Americans, | | [facility] | | | | please multiply the | | MEDICAL | | | | result by 1.210 | | CENTER - | | | | This is an estimated | | LABORATORY | | | | GFR and is based on a | | | | | | standard adult | | | | | | body mass (A=1.73m2) and | | | | | | serum creatinine | | | | + + + + + + | BUN/Creatin | 25.4 (H) | 12 - 20 | [facility] | | | ine Ratio | | | [facility] | | | | | | MEDICAL | | | | | | CENTER - | | | | | | LABORATORY | | + + + + + + | Na | 136 | 136 - 149 mEq/L | [facility] | | | | | | [facility] | | | | | | MEDICAL | | | | | | CENTER - | | | | | | LABORATORY | | + + + + + + | K | 3.3 (L) | 3.5 - 5.1 mEq/l | [facility] | | | | | | [facility] | | | | | | MEDICAL | | | | | | CENTER - | | | | | | LABORATORY | | + + + + + + | Cl | 102 | 98 - 109 mEq/l | [facility] | | | | | | [facility] | | | | | | MEDICAL | | | | | | CENTER - | | | | | | LABORATORY | | + + + + + + | CO2 | 25 | 24 - 31 mEq/L | [facility] | | | | | | [facility] | | | | | | MEDICAL | | | | | | CENTER - | | | | | | LABORATORY | | + + + + + + | Anion Gap | 12.3 | 6.0 - 17.0 | [facility] | | | | | | [facility] | | | | | | [facility]ICAL | | | | | | CENTER - | | | | | | LABORATORY | | + + + + + + + + | Specimen | + + | | + + + + + + + | Performing | Address | City/State/Zipcode | Phone Number | | Organization | | | | + + + + + | [facility] | [address] | [place] | [phone] | | [facility] | | [address] | | | - LABORATORY | | | | + + + + + | [facility] | [address] | [place] | | | [facility] | | [id number] | | | - LABORATORY | | | | + + + + + CBC no Differential (10/13/2011 4:32 AM PDT) + + + + + + | Component | Value | Ref Range | Performed | Pathologist | | | | | At | Signature | + + + + + + | White Blood | 7.3 (A) | 4.0 - 11.0 K/uL | [facility] | | | Cells | | | [facility] | | | | | | [facility]ICAL | | | | | | CENTER - | | | | | | LABORATORY | | + + + + + + | Red Blood | 3.26 (L) | 3.70 - 5.20 | [facility] | | | Cells | | M/uL | [facility] | | | | | | MEDICAL | | | | | | CENTER - | | | | | | LABORATORY | | + + + + + + | Hemoglobin | 9.7 (L) | 11.5 - 16.0 | [facility] | | | | | gm/dL | [facility] | | | | | | MEDICAL | | | | | | CENTER - | | | | | | LABORATORY | | + + + + + + | Hematocrit | 29.0 (L) | 34.0 - 47.0 % | [facility] | | | | | | [facility] | | | | | | [facility]ICAL | | | | | | CENTER - | | | | | | LABORATORY | | + + + + + + | MCV | 88.9 | 83.0 - 101.0 fL | [facility] | | | | | | [facility] | | | | | | [facility]ICAL | | | | | | CENTER - | | | | | | LABORATORY | | + + + + + + | MCH | 29.7 | 28.0 - 35.0 pg | [facility] | | | | | | [facility] | | | | | | [facility]ICAL | | | | | | CENTER - | | | | | | LABORATORY | | + + + + + + | MCHC | 33.4 | 32.0 - 36.0 | [facility] | | | | | g/dL | [facility] | | | | | | MEDICAL | | | | | | CENTER - | | | | | | LABORATORY | | + + + + + + | RDW-CV | 16.2 (H) | <15.0 % | [facility] | | | | | | [facility] | | | | | | [facility]ICAL | | | | | | CENTER - | | | | | | LABORATORY | | + + + + + + | Platelet | 314 (A) | 140 - 440 K/uL | [facility] | | | Count | | | [facility] | | | | | | [facility] | | | | | | [facility] - | | | | | | LABORATORY | | + + + + + + + + | Specimen | + + | | + + + + + + + | Performing | Address | City/State/Zipcode | Phone Number | | Organization | | | | + + + + + | [facility] | [address] | [place] | [phone] | | [facility] | | [address] | | | - LABORATORY | | | | + + + + + | [facility] | [address] | [place] | | | [facility] | | [address], [facility] | | | - LABORATORY | | | | + + + + + Basic Metabolic Panel (10/11/2011 4:17 AM PDT) + + + + + + | Component | Value | Ref Range | Performed | Pathologist | | | | | At | Signature | + + + + + + | Glucose | 118 (H) | 70 - 109 mg/dL | [facility] | | | | | | [facility] | | | | | | [facility]ICAL | | | | | | CENTER - | | | | | | LABORATORY | | + + + + + + | Calcium | 8.8 | 8.3 - 10.5 | [facility] | | | | | mg/dL | [facility] | | | | | | MEDICAL | | | | | | CENTER - | | | | | | LABORATORY | | + + + + + + | BUN | 36 (H) | 7 - 18 mg/dL | [facility] | | | | | | [facility] | | | | | | MEDICAL | | | | | | CENTER - | | | | | | LABORATORY | | + + + + + + | Creatinine | 1.53 (H) | 0.60 - 1.30 | [facility] | | | | | mg/dL | [facility] | | | | | | MEDICAL | | | | | | CENTER - | | | | | | LABORATORY | | + + + + + + | Estimated | 34 (L)Comment: For | >60 mL/min/A | [facility] | | | GFR | -Americans, | | [facility] | | | | please multiply the | | MEDICAL | | | | result by 1.210 | | CENTER - | | | | This is an estimated | | LABORATORY | | | | GFR and is based on a | | | | | | standard adult | | | | | | body mass (A=1.73m2) and | | | | | | serum creatinine | | | | + + + + + + | BUN/Creatin | 23.5 (H) | 12 - 20 | [facility] | | | ine Ratio | | | [facility] | | | | | | MEDICAL | | | | | | CENTER - | | | | | | LABORATORY | | + + + + + + | Na | 139 | 136 - 149 mEq/L | [facility] | | | | | | [facility] | | | | | | [facility] | | | | | | CENTER - | | | | | | LABORATORY | | + + + + + + | K | 3.7 | 3.5 - 5.1 mEq/l | [facility] | | | | | | [facility] | | | | | | [facility] | | | | | | C[facility] - | | | | | | LABORATORY | | + + + + + + | Cl | 102 | 98 - 109 mEq/l | [facility] | | | | | | [facility] | | | | | | [facility] | | | | | | C[facility] - | | | | | | LABORATORY | | + + + + + + | CO2 | 26 | 24 - 31 mEq/L | [facility] | | | | | | [facility] | | | | | | [facility] | | | | | | CENTER - | | | | | | LABORATORY | | + + + + + + | Anion Gap | 14.7 | 6.0 - 17.0 | [facility] | | | | | | [facility] | | | | | | [facility] | | | | | | CENTER - | | | | | | LABORATORY | | + + + + + + + + | Specimen | + + | | + + + + + + + | Performing | Address | City/State/Zipcode | Phone Number | | Organization | | | | + + + + + | [facility] | [address] | [place], [place] | [phone] | | [facility] | | [id number] | | | - LABORATORY | | | | + + + + + | [facility] | [address] | [place] | | | [facility] | | [id number] [place] [address] | | | - LABORATORY | | | | + + + + + CBC with Differential (10/11/2011 4:17 AM PDT) + + + + + + | Component | Value | Ref Range | Performed | Pathologist | | | | | At | Signature | + + + + + + | White Blood | 6.0 | 4.0 - 11.0 K/uL | [facility] | | | Cells | | | [facility] | | | | | | MEDICAL | | | | | | CENTER - | | | | | | LABORATORY | | + + + + + + | Red Blood | 3.31 (L) | 3.70 - 5.20 | [facility] | | | Cells | | M/uL | [facility] | | | | | | MEDICAL | | | | | | CENTER - | | | | | | LABORATORY | | + + + + + + | Hemoglobin | 9.9 (L) | 11.5 - 16.0 | [facility] | | | | | gm/dL | [facility] | | | | | | MEDICAL | | | | | | CENTER - | | | | | | LABORATORY | | + + + + + + | Hematocrit | 29.5 (L) | 34.0 - 47.0 % | [facility] | | | | | | [facility] | | | | | | [facility] | | | | | | C[facility] - | | | | | | LABORATORY | | + + + + + + | MCV | 89.0 | 83.0 - 101.0 fL | [facility] | | | | | | [facility] | | | | | | [facility] | | | | | | C[facility] - | | | | | | LABORATORY | | + + + + + + | MCH | 29.7 | 28.0 - 35.0 pg | [facility] | | | | | | [facility] | | | | | | [facility] | | | | | | CENTER - | | | | | | LABORATORY | | + + + + + + | MCHC | 33.4 | 32.0 - 36.0 | [facility] | | | | | g/dL | [facility] | | | | | | [facility] | | | [facility] | | CENTER - | | | | | | LABORATORY | | + + + + + + | RDW-CV | 15.6 (H) | <15.0 % | [facility] | | | | | | [facility] | | [facility] | | | [facility] | | | | | | CENTER - | | | | | | LABORATORY | | + + + + + + | Platelet | 220 | 140 - 440 K/uL | [facility] | | | Count | | | [facility] | | | | | | [facility]ICAL | | | | | | CENTER - | | | | | | LABORATORY | | + + + + + + | % | 80.5 (H) | 45 - 75 % | [facility] | | | Neutrophils | | | [facility] | | | | | | MEDICAL | | | | | | CENTER - | | | | | | LABORATORY | | + + + + + + | % | 8.1 (L) | 20 - 45 % | [facility] | | | Lymphocytes | | | [facility] | | | | | | MEDICAL | | | | | | CENTER - | | | | | | LABORATORY | | + + + + + + | % Monocytes | 10.0 | 4 - 12 % | [facility] | | | | | | [facility] | | | | | | [facility] | | | | | | CENTER - | | | | | | LABORATORY | | + + + + + + | % | 1.2 | 0 - 5 % | [facility] | | | Eosinophils | | | [facility] | | | | | | MEDICAL | | | | | | CENTER - | | | | | | LABORATORY | | + + + + + + | % Basophils | 0.2 | 0 - 1 % | [facility] | | | | | | [facility] | | | | | | [facility]ICAL | | | | | | CENTER - | | | | | | LABORATORY | | + + + + + + | Absolute | 4.9 | 1.5 - 6.6 K/uL | [facility] | | | Neutrophils | | | [facility] | | | | | | MEDICAL | | | | | | CENTER - | | | | | | LABORATORY | | + + + + + + | Absolute | 0.5 (L) | 0.6 - 3.2 K/uL | [facility] | | | Lymphocytes | | | [facility] | | | | | | MEDICAL | | | | | | CENTER - | | | | | | LABORATORY | | + + + + + + | Absolute | 0.6 | 0.0 - 1.0 K/uL | [facility] | | | Monocytes | | | [facility] | | | | | | MEDICAL | | | | | | CENTER - | | | | | | LABORATORY | | + + + + + + | Absolute | 0.1 | 0.0 - 0.4 K/uL | [facility] | | | Eosinophils | | | [facility] | | | | | | MEDICAL | | | | | | CENTER - | | | | | | LABORATORY | | + + + + + + | Absolute | 0.0 | 0.0 - 0.1 K/uL | [facility] | | | Basophils | | | [facility] | | | | | | [facility] | | | | | | C[facility] - | | | | | | LABORATORY | | + + + + + + + + | Specimen | + + | | + + + + + + + | Performing | Address | City/State/Zipcode | Phone Number | | Organization | | | | + + + + + | [facility] | [address] | [place], [place] | [phone] | | [facility] | | [address] | | | - LABORATORY | | | | + + + + + | [facility] | [address] | [place] | | | [facility] | | [address], [facility] | | | - LABORATORY | | | | + + + + + Blood Gas, Arterial (10/10/2011 6:32 AM PDT) + + + + + + | Component | Value | Ref Range | Performed | Pathologist | | | | | At | Signature | + + + + + + | Blood Gas | ARTERIAL | | [facility] | | | Sample Type | | | [facility] | | | | | | MEDICAL | | | | | | CENTER - | | | | | | LABORATORY | | + + + + + + | Blood Gas | [id number] | | [facility] | | | Sample Site | | | [facility] | | | | | | [facility]ICAL | | | | | | CENTER - | | | | | | LABORATORY | | + + + + + + | Binu | PASSED | | [facility] | | | | | | [facility] | | | | | | [facility]ICAL | | | | | | CENTER - | | | | | | LABORATORY | | + + + + + + | Source Of | CANNULA | | [facility] | | | Oxygen | | | [facility] | | | | | | MEDICAL | | | | | | CENTER - | | | | | | LABORATORY | | + + + + + + | L/min of O2 | 5 | | [facility] | | | | | | [facility] | | | | | | [facility]ICAL | | | | | | CENTER - | | | | | | LABORATORY | | + + + + + + | Comment | 18 | | [facility] | | | | | | [facility] | | | | | | [facility] | | | | | | CENTER - | | | | | | LABORATORY | | + + + + + + | Pulse | 98 | % | [facility] | | | Oximetry | | | [facility] | | | | | | MEDICAL | | | | | | CENTER - | | | | | | LABORATORY | | + + + + + + | ARTERIAL | -15.2 (L) | 0.0 - 14.0 | [facility] | | | BLOOD GAS | | | [facility] | | | DO2 DIFF. | | | MEDICAL | | | | | | CENTER - | | | | | | LABORATORY | | + + + + + + | Patient | 37.0 | | [facility] | | | Temperature | | | [facility] | | | | | | MEDICAL | | | | | | CENTER - | | | | | | LABORATORY | | + + + + + + | pH, | 7.295 (L) | 7.350 - 7.450 | [facility] | | | Arterial | | | [facility] | | | | | | MEDICAL | | | | | | CENTER - | | | | | | LABORATORY | | + + + + + + | pCO2, | 50.6 (H) | 35.0 - 45.0 | [facility] | | | Arterial | | mmHg | [facility] | | | | | | MEDICAL | | | | | | CENTER - | | | | | | LABORATORY | | + + + + + + | pO2, | 104.0 (H) | 60.0 - 90.0 | [facility] | | | Arterial | | mmHg | [facility] | | | | | | MEDICAL | | | | | | CENTER - | | | | | | LABORATORY | | + + + + + + | pH Temp | 7.295 (L) | 7.350 - 7.450 | [facility] | | | Corrected, | | | [facility] | | | Arterial | | | MEDICAL | | | | | | CENTER - | | | | | | LABORATORY | | + + + + + + | pCO2 Temp | 50.6 (H) | 35.0 - 45.0 | [facility] | | | Corrected | | mmHg | [facility] | | | | | | MEDICAL | | | | | | CENTER - | | | | | | LABORATORY | | + + + + + + | pO2 Temp | 104.0 (H) | 60.0 - 90.0 | [facility] | | | Corrected | | mmHg | [facility] | | | | | | MEDICAL | | | | | | CENTER - | | | | | | LABORATORY | | + + + + + + | HCO3, | 23.8 | 22.0 - 28.0 | [facility] | | | Arterial | | | [facility] | | | | | | MEDICAL | | | | | | CENTER - | | | | | | LABORATORY | | + + + + + + | Base | -2.3 (L) | -2.0 to 2.0 | [facility] | | | Excess, | | | [facility] | | | Arterial | | | MEDICAL | | | | | | CENTER - | | | | | | LABORATORY | | + + + + + + | O2 | 97.7 | 90.0 - 100.0 % | [facility] | | | Saturation, | | | [facility] | | | Arterial | | | MEDICAL | | | | | | CENTER - | | | | | | LABORATORY | | + + + + + + + + | Specimen | + + | | + + + + + + + | Performing | Address | City/State/Zipcode | Phone Number | | Organization | | | | + + + + + | [facility] | [address] | [place], [place] | [phone] | | [facility] | | [address] | | | - LABORATORY | | | | + + + + + | [facility] | [address] | [place], [place] | | | [facility] | | [address], [facility] | | | - LABORATORY | | | | + + + + + Basic Metabolic Panel (10/10/2011 4:36 AM PDT) + + + + + + | Component | Value | Ref Range | Performed | Pathologist | | | | | At | Signature | + + + + + + | Glucose | 115 (H) | 70 - 109 mg/dL | [facility] | | | | | | [facility] | | | | | | MEDICAL | | | | | | CENTER - | | | | | | LABORATORY | | + + + + + + | Calcium | 8.2 (L) | 8.3 - 10.5 | [facility] | | | | | mg/dL | [facility] | | | | | | MEDICAL | | | | | | CENTER - | | | | | | LABORATORY | | + + + + + + | BUN | 34 (H) | 7 - 18 mg/dL | [facility] | | | | | | [facility] | | | | | | MEDICAL | | | | | | CENTER - | | | | | | LABORATORY | | + + + + + + | Creatinine | 1.44 (H) | 0.60 - 1.30 | [facility] | | | | | mg/dL | [facility] | | | | | | MEDICAL | | | | | | CENTER - | | | | | | LABORATORY | | + + + + + + | Estimated | 37 (L)Comment: For | >60 mL/min/A | [facility] | | | GFR | -Americans, | | [facility] | | | | please multiply the | | MEDICAL | | | | result by 1.210 | | CENTER - | | | | This is an estimated | | LABORATORY | | | | GFR and is based on a | | | | | | standard adult | | | | | | body mass (A=1.73m2) and | | | | | | serum creatinine | | | | + + + + + + | BUN/Creatin | 23.6 (H) | 12 - 20 | [facility] | | | ine Ratio | | | [facility] | | | | | | MEDICAL | | | | | | CENTER - | | | | | | LABORATORY | | + + + + + + | Na | 134 (L) | 136 - 149 mEq/L | [facility] | | | | | | [facility] | | | | | | MEDICAL | | | | | | CENTER - | | | | | | LABORATORY | | + + + + + + | K | 4.1 | 3.5 - 5.1 mEq/l | [facility] | | | | | | [facility] | | | | | | MEDICAL | | | | | | CENTER - | | | | | | LABORATORY | | + + + + + + | Cl | 102 | 98 - 109 mEq/l | [facility] | | | | | | [facility] | | | | | | MEDICAL | | | | | | CENTER - | | | | | | LABORATORY | | + + + + + + | CO2 | 24 | 24 - 31 mEq/L | [facility] | | | | | | [facility] | | | | | | MEDICAL | | | | | | CENTER - | | | | | | LABORATORY | | + + + + + + | Anion Gap | 12.1 | 6.0 - 17.0 | [facility] | | | | | | [facility] | | | | | | MEDICAL | | | | | | CENTER - | | | | | | LABORATORY | | + + + + + + + + | Specimen | + + | | + + + + + + + | Performing | Address | City/State/Zipcode | Phone Number | | Organization | | | | + + + + + | [facility] | [address] | [place] | [phone] | | [facility] | | [address] | | | - LABORATORY | | | | + + + + + | [facility] | [address] | [place] | | | [facility] | | [address], [facility] | | | - LABORATORY | | | | + + + + + Magnesium (10/10/2011 4:36 AM PDT) + +-------+ + + + | Component | Value | Ref Range | Performed | Pathologist | | | | | At | Signature | + +-------+ + + + | Magnesium | 2.3 | 1.8 - 2.5 mg/dL | [facility] | | | | | [facility] | | | [facility] | [facility]ICAL | | | | | | CENTER - | | | | | | LABORATORY | | + +-------+ + + + + + | Specimen | + + | | + + + + + + + | Performing | Address | City/State/Zipcode | Phone Number | | Organization | | | | + + + + + | [facility] | [address] | [place], [place] | [phone] | | [facility] | | [address] | | | - LABORATORY | | | | + + + + + | [facility] | [address] | [place] | | | [facility] | | [address], [facility] | | | - LABORATORY | | | | + + + + + Phosphorus (10/10/2011 4:36 AM PDT) + +-------+ + + + | Component | Value | Ref Range | Performed | Pathologist | | | | | At | Signature | + +-------+ + + + | Phosphorus | 2.6 | 2.5 - 4.6 mg/dL | [facility] | | | | | | [facility] | | | | | | MEDICAL | | | | | | CENTER - | | | | | | LABORATORY | | + +-------+ + + + + + | Specimen | + + | | + + + + + + + | Performing | Address | City/State/Zipcode | Phone Number | | Organization | | | | + + + + + | [facility] | [address] | [place], [place] | [phone] | | [facility] | | [address] | | | - LABORATORY | | | | + + + + + | [facility] | [address] | [place], [place] | | | [facility] | | [id number] | | | - LABORATORY | | | | + + + + + CBC with Differential (10/10/2011 4:36 AM PDT) + + + + + + | Component | Value | Ref Range | Performed | Pathologist | | | | | At | Signature | + + + + + + | White Blood | 6.1 (A) | 4.0 - 11.0 K/uL | [facility] | | | Cells | | | [facility] | | | | | | MEDICAL | | | | | | CENTER - | | | | | | LABORATORY | | + + + + + + | Red Blood | 3.25 (L) | 3.70 - 5.20 | [facility] | | | Cells | | M/uL | [facility] | | | | | | MEDICAL | | | | | | CENTER - | | | | | | LABORATORY | | + + + + + + | Hemoglobin | 9.7 (L) | 11.5 - 16.0 | [facility] | | | | | gm/dL | [facility] | | | | | | MEDICAL | | | | | | CENTER - | | | | | | LABORATORY | | + + + + + + | Hematocrit | 28.7 (L) | 34.0 - 47.0 % | [facility] | | | | | | [facility] | | | | | | MEDICAL | | | | | | CENTER - | | | | | | LABORATORY | | + + + + + + | MCV | 88.5 | 83.0 - 101.0 fL | [facility] | | | | | | [facility] | | | | | | MEDICAL | | | | | | CENTER - | | | | | | LABORATORY | | + + + + + + | MCH | 29.8 | 28.0 - 35.0 pg | [facility] | | | | | | [facility] | | | | | | MEDICAL | | | | | | CENTER - | | | | | | LABORATORY | | + + + + + + | MCHC | 33.7 | 32.0 - 36.0 | [facility] | | | | | g/dL | [facility] | | | | | | MEDICAL | | | | | | CENTER - | | | | | | LABORATORY | | + + + + + + | RDW-CV | 15.6 (H) | <15.0 % | [facility] | | | | | | [facility] | | | | | | MEDICAL | | | | | | CENTER - | | | | | | LABORATORY | | + + + + + + | Platelet | 193 | 140 - 440 K/uL | [facility] | | | Count | | | [facility] | | | | | | MEDICAL | | | | | | CENTER - | | | | | | LABORATORY | | + + + + + + | % | 79.2 (H) | 45 - 75 % | [facility] | | | Neutrophils | | | [facility] | | | | | | MEDICAL | | | | | | CENTER - | | | | | | LABORATORY | | + + + + + + | % | 9.0 (L) | 20 - 45 % | [facility] | | | Lymphocytes | | | [facility] | | | | | | MEDICAL | | | | | | CENTER - | | | | | | LABORATORY | | + + + + + + | % Monocytes | 8.8 | 4 - 12 % | [facility] | | | | | | [facility] | | | | | | MEDICAL | | | | | | CENTER - | | | | | | LABORATORY | | + + + + + + | % | 2.8 | 0 - 5 % | [facility] | | | Eosinophils | | | [facility] | | | | | | MEDICAL | | | | | | CENTER - | | | | | | LABORATORY | | + + + + + + | % Basophils | 0.2 | 0 - 1 % | [facility] | | | | | | [facility] | | | | | | MEDICAL | | | | | | CENTER - | | | | | | LABORATORY | | + + + + + + | Absolute | 4.9 (A) | 1.5 - 6.6 K/uL | [facility] | | | Neutrophils | | | [facility] | | | | | | MEDICAL | | | | | | CENTER - | | | | | | LABORATORY | | + + + + + + | Absolute | 0.6 | 0.6 - 3.2 K/uL | [facility] | | | Lymphocytes | | | [facility] | | | | | | MEDICAL | | | | | | CENTER - | | | | | | LABORATORY | | + + + + + + | Absolute | 0.5 | 0.0 - 1.0 K/uL | [facility] | | | Monocytes | | | [facility] | | | | | | MEDICAL | | | | | | CENTER - | | | | | | LABORATORY | | + + + + + + | Absolute | 0.2 | 0.0 - 0.4 K/uL | [facility] | | | Eosinophils | | | [facility] | | | | | | MEDICAL | | | | | | CENTER - | | | | | | LABORATORY | | + + + + + + | Absolute | 0.0 | 0.0 - 0.1 K/uL | [facility] | | | Basophils | | | [facility] | | | | | | MEDICAL | | | | | | CENTER - | | | | | | LABORATORY | | + + + + + + + + | Specimen | + + | | + + + + + + + | Performing | Address | City/State/Zipcode | Phone Number | | Organization | | | | + + + + + | [facility] | [address] | [place] | [phone] | | [facility] | | [address] | | | - LABORATORY | | | | + + + + + | [facility] | [address] | [place], [place] | | | [facility] | | [address], [facility] | | | - LABORATORY | | | | + + + + + Blood Gas, Arterial (10/09/2011 5:44 PM PDT) + + + + + + | Component | Value | Ref Range | Performed | Pathologist | | | | | At | Signature | + + + + + + | Blood Gas | ARTERIAL | | [facility] | | | Sample Type | | | [facility] | | | | | | MEDICAL | | | | | | CENTER - | | | | | | LABORATORY | | + + + + + + | Blood Gas | [id number] | | [facility] | | | Sample Site | | | [facility] | | | | | | MEDICAL | | | | | | CENTER - | | | | | | LABORATORY | | + + + + + + | Binu | PASSED | | [facility] | | | | | | [facility] | | | | | | MEDICAL | | | | | | CENTER - | | | | | | LABORATORY | | + + + + + + | Source Of | CANNULA | | [facility] | | | Oxygen | | | [facility] | | | | | | MEDICAL | | | | | | CENTER - | | | | | | LABORATORY | | + + + + + + | L/min of O2 | 3 | | [facility] | | | | | | [facility] | | | | | | MEDICAL | | | | | | CENTER - | | | | | | LABORATORY | | + + + + + + | Pulse | 87 | % | [facility] | | | Oximetry | | | [facility] | | | | | | MEDICAL | | | | | | CENTER - | | | | | | LABORATORY | | + + + + + + | Patient | 37.0 | | [facility] | | | Temperature | | | [facility] | | | | | | MEDICAL | | | | | | CENTER - | | | | | | LABORATORY | | + + + + + + | pH, | 7.314 (L) | 7.350 - 7.450 | [facility] | | | Arterial | | | [facility] | | | | | | MEDICAL | | | | | | CENTER - | | | | | | LABORATORY | | + + + + + + | pCO2, | 44.2 | 35.0 - 45.0 | [facility] | | | Arterial | | mmHg | [facility] | | | | | | MEDICAL | | | | | | CENTER - | | | | | | LABORATORY | | + + + + + + | pO2, | 46.0 (LL)Comment: RESULT | 60.0 - 90.0 | [facility] | | | Arterial | CALLED TO DR ZAMARRIPA | mmHg | [facility] | | | | 10/10/11 @1354 by DARLING | | MEDICAL | | | | @ * READ BACK MUST BE | | CENTER - | | | | OBTAINED * READ BACK | | LABORATORY | | | | PERFORMED? Y --- | | | | | | 10/10/11 1354 --- | | | | | | PaO2 previously | | | | | | reported as: 46.0 | | | | | | *L mmHg @ Edited | | | | | | by: Taina Garcia @ | | | | | | Reason: NOT CHANGED | | | | + + + + + + | pH Temp | 7.314 (L) | 7.350 - 7.450 | [facility] | | | Corrected, | | | [facility] | | | Arterial | | | MEDICAL | | | | | | CENTER - | | | | | | LABORATORY | | + + + + + + | pCO2 Temp | 44.2 | 35.0 - 45.0 | [facility] | | | Corrected | | mmHg | [facility] | | | | | | MEDICAL | | | | | | CENTER - | | | | | | LABORATORY | | + + + + + + | pO2 Temp | 46.0 (L) | 60.0 - 90.0 | [facility] | | | Corrected | | mmHg | [facility] | | | | | | MEDICAL | | | | | | CENTER - | | | | | | LABORATORY | | + + + + + + | HCO3, | 22.4 | 22.0 - 28.0 | [facility] | | | Arterial | | | [facility] | | | | | | MEDICAL | | | | | | CENTER - | | | | | | LABORATORY | | + + + + + + | Base | -4.0 (L) | -2.0 to 2.0 | [facility] | | | Excess, | | | [facility] | | | Arterial | | | MEDICAL | | | | | | CENTER - | | | | | | LABORATORY | | + + + + + + | O2 | 77.0 (L) | 90.0 - 100.0 % | [facility] | | | Saturation, | | | [facility] | | | Arterial | | | MEDICAL | | | | | | CENTER - | | | | | | LABORATORY | | + + + + + + + + | Specimen | + + | | + + + + + + + | Performing | Address | City/State/Zipcode | Phone Number | | Organization | | | | + + + + + | [facility] | [address] | [place], [place] | [phone] | | [facility] | | [address] | | | - LABORATORY | | | | + + + + + | [facility] | [address] | [place], [place] | | | [facility] | | [address], [facility] | | | - LABORATORY | | | | + + + + + Basic Metabolic Panel (10/09/2011 6:28 AM PDT) + + + + + + | Component | Value | Ref Range | Performed | Pathologist | | | | | At | Signature | + + + + + + | Glucose | 135 (H) | 70 - 109 mg/dL | [facility] | | | | | | [facility] | | | | | | MEDICAL | | | | | | CENTER - | | | | | | LABORATORY | | + + + + + + | Calcium | 7.4 (L) | 8.3 - 10.5 | [facility] | | | | | mg/dL | [facility] | | | | | | MEDICAL | | | | | | CENTER - | | | | | | LABORATORY | | + + + + + + | BUN | 40 (H) | 7 - 18 mg/dL | [facility] | | | | | | [facility] | | | | | | MEDICAL | | | | | | CENTER - | | | | | | LABORATORY | | + + + + + + | Creatinine | 1.65 (H) | 0.60 - 1.30 | [facility] | | | | | mg/dL | [facility] | | | | | | [facility] | | | | | | CENTER - | | | | | | LABORATORY | | + + + + + + | Estimated | 31 (L)Comment: For | >60 mL/min/A | [facility] | | | GFR | -Americans, | | [facility] | | | | please multiply the | | MEDICAL | | | | result by 1.210 | | CENTER - | | | | This is an estimated | | LABORATORY | | | | GFR and is based on a | | | | | | standard adult | | | | | | body mass (A=1.73m2) and | | | | | | serum creatinine | | | | + + + + + + | BUN/Creatin | 24.2 (H) | 12 - 20 | [facility] | | | ine Ratio | | | [facility] | | | | | | MEDICAL | | | | | | CENTER - | | | | | | LABORATORY | | + + + + + + | Na | 135 (L) | 136 - 149 mEq/L | [facility] | | | | | | [facility] | | | | | | MEDICAL | | | | | | CENTER - | | | | | | LABORATORY | | + + + + + + | K | 4.2 | 3.5 - 5.1 mEq/l | [facility] | | | | | | [facility] | | | | | | MEDICAL | | | | | | CENTER - | | | | | | LABORATORY | | + + + + + + | Cl | 110 (H) | 98 - 109 mEq/l | [facility] | | | | | | [facility] | | | | | | MEDICAL | | | | | | CENTER - | | | | | | LABORATORY | | + + + + + + | CO2 | 23 (L) | 24 - 31 mEq/L | [facility] | | | | | | [facility] | | | | | | MEDICAL | | | | | | CENTER - | | | | | | LABORATORY | | + + + + + + | Anion Gap | 6.2 | 6.0 - 17.0 | [facility] | | | | | | [facility] | | | | | | MEDICAL | | | | | | CENTER - | | | | | | LABORATORY | | + + + + + + + + | Specimen | + + | | + + + + + + + | Performing | Address | City/State/Zipcode | Phone Number | | Organization | | | | + + + + + | [facility] | [address] | [place] | [phone] | | [facility] | | [address] | | | - LABORATORY | | | | + + + + + | [facility] | [address] | [place] | | | [facility] | | [address], [facility] | | | - LABORATORY | | | | + + + + + CBC no Differential (10/09/2011 6:28 AM PDT) + + + + + + | Component | Value | Ref Range | Performed | Pathologist | | | | | At | Signature | + + + + + + | White Blood | 7.7 (A) | 4.0 - 11.0 K/uL | [facility] | | | Cells | | | [facility] | | | | | | MEDICAL | | | | | | CENTER - | | | | | | LABORATORY | | + + + + + + | Red Blood | 3.16 (L) | 3.70 - 5.20 | [facility] | | | Cells | | M/uL | [facility] | | | | | | MEDICAL | | | | | | CENTER - | | | | | | LABORATORY | | + + + + + + | Hemoglobin | 9.3 (L) | 11.5 - 16.0 | [facility] | | | | | gm/dL | [facility] | | | | | | MEDICAL | | | | | | CENTER - | | | | | | LABORATORY | | + + + + + + | Hematocrit | 28.0 (L) | 34.0 - 47.0 % | [facility] | | | | | | [facility] | | | | | | MEDICAL | | | | | | CENTER - | | | | | | LABORATORY | | + + + + + + | MCV | 88.7 | 83.0 - 101.0 fL | [facility] | | | | | | [facility] | | | | | | MEDICAL | | | | | | CENTER - | | | | | | LABORATORY | | + + + + + + | MCH | 29.5 | 28.0 - 35.0 pg | [facility] | | | | | | [facility] | | | | | | MEDICAL | | | | | | CENTER - | | | | | | LABORATORY | | + + + + + + | MCHC | 33.3 | 32.0 - 36.0 | [facility] | | | | | g/dL | [facility] | | | | | | MEDICAL | | | | | | CENTER - | | | | | | LABORATORY | | + + + + + + | RDW-CV | 15.9 (H) | <15.0 % | [facility] | | | | | | [facility] | | | | | | MEDICAL | | | | | | CENTER - | | | | | | LABORATORY | | + + + + + + | Platelet | 172 | 140 - 440 K/uL | [facility] | | | Count | | | [facility] | | | | | | MEDICAL | | | | | | CENTER - | | | | | | LABORATORY | | + + + + + + + + | Specimen | + + | | + + + + + + + | Performing | Address | City/State/Zipcode | Phone Number | | Organization | | | | + + + + + | [facility] | [address] | [place], [place] | [phone] | | [facility] | | [address] | | | - LABORATORY | | | | + + + + + | [facility] | [address] | [place], [place] | | | [facility] | | [address], [facility] | | | - LABORATORY | | | | + + + + + Basic Metabolic Panel (10/08/2011 5:14 AM PDT) + + + + + + | Component | Value | Ref Range | Performed | Pathologist | | | | | At | Signature | + + + + + + | Glucose | 125 (H) | 70 - 109 mg/dL | [facility] | | | | | | [facility] | | | | | | [facility] | | | | | | [facility] - | | | | | | LABORATORY | | + + + + + + | Calcium | 7.3 (L) | 8.3 - 10.5 | [facility] | | | | | mg/dL | [facility] | | | | | | [facility] | | | | | | CENTER - | | | | | | LABORATORY | | + + + + + + | BUN | 34 (H) | 7 - 18 mg/dL | [facility] | | | | | | [facility] | | | | | | MEDICAL | | | | | | CENTER - | | | | | | LABORATORY | | + + + + + + | Creatinine | 1.75 (H) | 0.60 - 1.30 | [facility] | | | | | mg/dL | [facility] | | | | | | [facility]ICAL | | | | | | CENTER - | | | | | | LABORATORY | | + + + + + + | Estimated | 29 (L)Comment: For | >60 mL/min/A | [facility] | | | GFR | -Americans, | | [facility] | | | | please multiply the | | MEDICAL | | | | result by 1.210 | | CENTER - | | | | This is an estimated | | LABORATORY | | | | GFR and is based on a | | | | | | standard adult | | | | | | body mass (A=1.73m2) and | | | | | | serum creatinine | | | | + + + + + + | BUN/Creatin | 19.4 | 12 - 20 | [facility] | | | ine Ratio | | | [facility] | | | | | | [facility] | | | | | | CENTER - | | | | | | LABORATORY | | + + + + + + | Na | 137 | 136 - 149 mEq/L | [facility] | | | | | | [facility] | | | | | | [facility] | | | | | | C[facility] - | | | | | | LABORATORY | | + + + + + + | K | 4.8 | 3.5 - 5.1 mEq/l | [facility] | | | | | | [facility] | | | | | | [facility] | | | | | | [facility] - | | | | | | LABORATORY | | + + + + + + | Cl | 107 | 98 - 109 mEq/l | [facility] | | | | | | [facility] | | | | | | [facility] | | | | | | CENTER - | | | | | | LABORATORY | | + + + + + + | CO2 | 22 (L) | 24 - 31 mEq/L | [facility] | | | | | | [facility] | | | | | | [facility]ICAL | | | | | | CENTER - | | | | | | LABORATORY | | + + + + + + | Anion Gap | 12.8 | 6.0 - 17.0 | [facility] | | | | | | [facility] | | | | | | [facility] | | | | | | CENTER - | | | | | | LABORATORY | | + + + + + + + + | Specimen | + + | | + + + + + + + | Performing | Address | City/State/Zipcode | Phone Number | | Organization | | | | + + + + + | [facility] | [address] | [place], [place] | [phone] | | [facility] | | [id number] | | | - LABORATORY | | | | + + + + + | [facility] | [address] | [place], [place] | | | [facility] | | [id number], [facility] | | | - LABORATORY | | | | + + + + + CBC with Differential (10/08/2011 5:14 AM PDT) + + + + + + | Component | Value | Ref Range | Performed | Pathologist | | | | | At | Signature | + + + + + + | White Blood | 12.4 (H) | 4.0 - 11.0 K/uL | [facility] | | | Cells | | | [facility] | | | | | | [facility] | | | | | | CENTER - | | | | | | LABORATORY | | + + + + + + | Red Blood | 3.40 (L) | 3.70 - 5.20 | [facility] | | | Cells | | M/uL | [facility] | | | | | | MEDICAL | | | | | | CENTER - | | | | | | LABORATORY | | + + + + + + | Hemoglobin | 10.1 (L) | 11.5 - 16.0 | [facility] | | | | | gm/dL | [facility] | | | | | | [facility]ICAL | | | | | | CENTER - | | | | | | LABORATORY | | + + + + + + | Hematocrit | 30.5 (L) | 34.0 - 47.0 % | [facility] | | | | | | [facility] | | | | | | [facility] | | | | | | CENTER - | | | | | | LABORATORY | | + + + + + + | MCV | 89.6 | 83.0 - 101.0 fL | [facility] | | | | | | [facility] | | [facility] | | | [facility] | | | | | | C[facility] - | | | | | | LABORATORY | | + + + + + + | MCH | 29.8 | 28.0 - 35.0 pg | [facility] | | | | | | [facility] | | | | | | [facility] | | | | | | CENTER - | | | | | | LABORATORY | | + + + + + + | MCHC | 33.3 | 32.0 - 36.0 | [facility] | | | | | g/dL | [facility] | | | | | | [facility] | | | | | | CENTER - | | | | | | LABORATORY | | + + + + + + | RDW-CV | 15.8 (H) | <15.0 % | [facility] | | | | | | [facility] | | | | | | [facility] | | | | | | CENTER - | | | | | | LABORATORY | | + + + + + + | Platelet | 209 | 140 - 440 K/uL | [facility] | | | Count | | | [facility] | | | | | | [facility] | | | | | | CENTER - | | | | | | LABORATORY | | + + + + + + | % | 88.0 (H) | 45 - 75 % | [facility] | | | Neutrophils | | | [facility] | | | | | | [facility] | | | | | | CENTER - | | | | | | LABORATORY | | + + + + + + | % | 4.6 (L) | 20 - 45 % | [facility] | | | Lymphocytes | | | [facility] | | | | | | [facility] | | | | | | CENTER - | | | | | | LABORATORY | | + + + + + + | % Monocytes | 7.2 | 4 - 12 % | [facility] | | | | | | [facility] | | | | | | MEDICAL | | | | | | CENTER - | | | | | | LABORATORY | | + + + + + + | % | 0.1 | 0 - 5 % | [facility] | | | Eosinophils | | | [facility] | | | | | | [facility] | | | | | | CENTER - | | | | | | LABORATORY | | + + + + + + | % Basophils | 0.1 | 0 - 1 % | [facility] | | | | | | [facility] | | | | | | [facility] | | | | | | CENTER - | | | | | | LABORATORY | | + + + + + + | Absolute | 10.9 (H) | 1.5 - 6.6 K/uL | [facility] | | | Neutrophils | | | [facility] | | | | | | [facility] | | | | | | CENTER - | | | | | | LABORATORY | | + + + + + + | Absolute | 0.6 | 0.6 - 3.2 K/uL | [facility] | | | Lymphocytes | | | [facility] | | | | | | [facility] | | | | | | CENTER - | | | | | | LABORATORY | | + + + + + + | Absolute | 0.9 | 0.0 - 1.0 K/uL | [facility] | | | Monocytes | | | [facility] | | | | | | [facility] | | | | | | CENTER - | | | | | | LABORATORY | | + + + + + + | Absolute | 0.0 | 0.0 - 0.4 K/uL | [facility] | | | Eosinophils | | | [facility] | | | | | | [facility] | | | | | | CENTER - | | | | | | LABORATORY | | + + + + + + | Absolute | 0.0 | 0.0 - 0.1 K/uL | [facility] | | | Basophils | | | [facility] | | | | | | [facility] | | | | | | CENTER - | | | | | | LABORATORY | | + + + + + + + + | Specimen | + + | | + + + + + + + | Performing | Address | City/State/Zipcode | Phone Number | | Organization | | | | + + + + + | [facility] | [address] | [place] | [phone] | | [facility] | | [address] | | | - LABORATORY | | | | + + + + + | [facility] | [address] | [place], [place] | | | [facility] | | [address], [facility] | | | - LABORATORY | | | | + + + + + Blood Gas, Arterial (10/07/2011 4:59 AM PDT) + + + + + + | Component | Value | Ref Range | Performed | Pathologist | | | | | At | Signature | + + + + + + | Blood Gas | ARTERIAL | | [facility] | | | Sample Type | | | [facility] | | | | | | [facility] | | | | | | CENTER - | | | | | | LABORATORY | | + + + + + + | Blood Gas | LINE | | [facility] | | | Sample Site | | | [facility] | | | | | | MEDICAL | | | | | | CENTER - | | | | | | LABORATORY | | + + + + + + | Source Of | VENTILATOR | | [facility] | | | Oxygen | | | [facility] | | | | | | [facility]ICAL | | | | | | CENTER - | | | | | | LABORATORY | | + + + + + + | FiO2 | 40.00 | | [facility] | | | | | | [facility] | | | | | | [facility]ICAL | | | | | | CENTER - | | | | | | LABORATORY | | + + + + + + | Set Volume | 500 | | [facility] | | | | | | [facility] | | | | | | [facility]ICAL | | | | | | CENTER - | | | | | | LABORATORY | | + + + + + + | SIMV | 22 | | [facility] | | | | | | [facility] | | | | | | [facility]ICAL | | | | | | CENTER - | | | | | | LABORATORY | | + + + + + + | PEEP | 3 | | [facility] | | | | | | [facility] | | | | | | [facility]ICAL | | | | | | CENTER - | | | | | | LABORATORY | | + + + + + + | Comment | 10 | | [facility] | | | | 27 | | [facility] | | | | | | MEDICAL | | | | | | CENTER - | | | | | | LABORATORY | | + + + + + + | ARTERIAL | 132.7 (H) | 0.0 - 14.0 | [facility] | | | BLOOD GAS | | | [facility] | | | [facility] DIFF. | | | MEDICAL | | | | | | CENTER - | | | | | | LABORATORY | | + + + + + + | Patient | 38.1 | | [facility] | | | Temperature | | | [facility] | | | | | | MEDICAL | | | | | | CENTER - | | | | | | LABORATORY | | + + + + + + | pH, | 7.349 (L) | 7.350 - 7.450 | [facility] | | | Arterial | | | [facility] | | | | | | MEDICAL | | | | | | CENTER - | | | | | | LABORATORY | | + + + + + + | pCO2, | 36.2 | 35.0 - 45.0 | [facility] | | | Arterial | | mmHg | [facility] | | | | | | MEDICAL | | | | | | CENTER - | | | | | | LABORATORY | | + + + + + + | pO2, | 102.0 (H) | 60.0 - 90.0 | [facility] | | | Arterial | | mmHg | [facility] | | | | | | MEDICAL | | | | | | CENTER - | | | | | | LABORATORY | | + + + + + + | pH Temp | 7.333 (L) | 7.350 - 7.450 | [facility] | | | Corrected, | | | [facility] | | | Arterial | | | MEDICAL | | | | | | CENTER - | | | | | | LABORATORY | | + + + + + + | pCO2 Temp | 38.2 | 35.0 - 45.0 | [facility] | | | Corrected | | mmHg | [facility] | | | | | | MEDICAL | | | | | | CENTER - | | | | | | LABORATORY | | + + + + + + | pO2 Temp | 109.0 (H) | 60.0 - 90.0 | [facility] | | | Corrected | | mmHg | [facility] | | | | | | MEDICAL | | | | | | CENTER - | | | | | | LABORATORY | | + + + + + + | HCO3, | 19.4 (L) | 22.0 - 28.0 | [facility] | | | Arterial | | | [facility] | | | | | | MEDICAL | | | | | | CENTER - | | | | | | LABORATORY | | + + + + + + | Base | -5.1 (L) | -2.0 to 2.0 | [facility] | | | Excess, | | | [facility] | | | Arterial | | | MEDICAL | | | | | | CENTER - | | | | | | LABORATORY | | + + + + + + | O2 | 97.8 | 90.0 - 100.0 % | [facility] | | | Saturation, | | | [facility] | | | Arterial | | | MEDICAL | | | | | | CENTER - | | | | | | LABORATORY | | + + + + + + + + | Specimen | + + | | + + + + + + + | Performing | Address | City/State/Zipcode | Phone Number | | Organization | | | | + + + + + | [facility] | [address] | [place], [place] | [phone] | | [facility] | | [address] | | | - LABORATORY | | | | + + + + + | [facility] | [address] | [place], [place] | | | [facility] | | [address], [facility] | | | - LABORATORY | | | | + + + + + Basic Metabolic Panel (10/07/2011 4:26 AM PDT) + + + + + + | Component | Value | Ref Range | Performed | Pathologist | | | | | At | Signature | + + + + + + | Glucose | 128 (H) | 70 - 109 mg/dL | [facility] | | | | | | [facility] | | | | | | MEDICAL | | | | | | CENTER - | | | | | | LABORATORY | | + + + + + + | Calcium | 7.1 (L) | 8.3 - 10.5 | [facility] | | | | | mg/dL | [facility] | | | | | | MEDICAL | | | | | | CENTER - | | | | | | LABORATORY | | + + + + + + | BUN | 26 (H) | 7 - 18 mg/dL | [facility] | | | | | | [facility] | | | | | | MEDICAL | | | | | | CENTER - | | | | | | LABORATORY | | + + + + + + | Creatinine | 1.54 (H) | 0.60 - 1.30 | [facility] | | | | | mg/dL | [facility] | | | | | | MEDICAL | | | | | | CENTER - | | | | | | LABORATORY | | + + + + + + | Estimated | 34 (L)Comment: For | >60 mL/min/A | [facility] | | | GFR | -Americans, | | [facility] | | | | please multiply the | | MEDICAL | | | | result by 1.210 | | CENTER - | | | | This is an estimated | | LABORATORY | | | | GFR and is based on a | | | | | | standard adult | | | | | | body mass (A=1.73m2) and | | | | | | serum creatinine | | | | + + + + + + | BUN/Creatin | 16.9 | 12 - 20 | [facility] | | | ine Ratio | | | [facility] | | | | | | MEDICAL | | | | | | CENTER - | | | | | | LABORATORY | | + + + + + + | Na | 137 | 136 - 149 mEq/L | [facility] | | | | | | [facility] | | | | | | MEDICAL | | | | | | CENTER - | | | | | | LABORATORY | | + + + + + + | K | 4.5 | 3.5 - 5.1 mEq/l | [facility] | | | | | | [facility] | | | | | | MEDICAL | | | | | | CENTER - | | | | | | LABORATORY | | + + + + + + | Cl | 106 | 98 - 109 mEq/l | [facility] | | | | | | [facility] | | | | | | MEDICAL | | | | | | CENTER - | | | | | | LABORATORY | | + + + + + + | CO2 | 22 (L) | 24 - 31 mEq/L | [facility] | | | | | | [facility] | | | | | | MEDICAL | | | | | | CENTER - | | | | | | LABORATORY | | + + + + + + | Anion Gap | 13.5 | 6.0 - 17.0 | [facility] | | | | | | [facility] | | | | | | MEDICAL | | | | | | CENTER - | | | | | | LABORATORY | | + + + + + + + + | Specimen | + + | | + + + + + + + | Performing | Address | City/State/Zipcode | Phone Number | | Organization | | | | + + + + + | [facility] | [address] | [place] | [phone] | | [facility] | | [address] | | | - LABORATORY | | | | + + + + + | [facility] | [address] | [place], [place] | | | [facility] | | [id number] | | | - LABORATORY | | | | + + + + + CBC with Differential (10/07/2011 4:26 AM PDT) + + + + + + | Component | Value | Ref Range | Performed | Pathologist | | | | | At | Signature | + + + + + + | White Blood | 8.2 | 4.0 - 11.0 K/uL | [facility] | | | Cells | | | [facility] | | | | | | MEDICAL | | | | | | CENTER - | | | | | | LABORATORY | | + + + + + + | Red Blood | 3.21 (L) | 3.70 - 5.20 | [facility] | | | Cells | | M/uL | [facility] | | | | | | MEDICAL | | | | | | CENTER - | | | | | | LABORATORY | | + + + + + + | Hemoglobin | 9.9 (L) | 11.5 - 16.0 | [facility] | | | | | gm/dL | [facility] | | | | | | MEDICAL | | | | | | CENTER - | | | | | | LABORATORY | | + + + + + + | Hematocrit | 28.6 (L) | 34.0 - 47.0 % | [facility] | | | | | | [facility] | | | | | | MEDICAL | | | | | | CENTER - | | | | | | LABORATORY | | + + + + + + | MCV | 89.1 | 83.0 - 101.0 fL | [facility] | | | | | | [facility] | | | | | | MEDICAL | | | | | | CENTER - | | | | | | LABORATORY | | + + + + + + | MCH | 30.8 | 28.0 - 35.0 pg | [facility] | | | | | | [facility] | | | | | | MEDICAL | | | | | | CENTER - | | | | | | LABORATORY | | + + + + + + | MCHC | 34.6 | 32.0 - 36.0 | [facility] | | | | | g/dL | [facility] | | | | | | MEDICAL | | | | | | CENTER - | | | | | | LABORATORY | | + + + + + + | RDW-CV | 15.3 (H) | <15.0 % | [facility] | | | | | | [facility] | | | | | | MEDICAL | | | | | | CENTER - | | | | | | LABORATORY | | + + + + + + | Platelet | 192 | 140 - 440 K/uL | [facility] | | | Count | | | [facility] | | | | | | MEDICAL | | | | | | CENTER - | | | | | | LABORATORY | | + + + + + + | % | 85.9 (H) | 45 - 75 % | [facility] | | | Neutrophils | | | [facility] | | | | | | MEDICAL | | | | | | CENTER - | | | | | | LABORATORY | | + + + + + + | % | 6.4 (L) | 20 - 45 % | [facility] | | | Lymphocytes | | | [facility] | | | | | | MEDICAL | | | | | | CENTER - | | | | | | LABORATORY | | + + + + + + | % Monocytes | 7.5 | 4 - 12 % | [facility] | | | | | | [facility] | | | | | | MEDICAL | | | | | | CENTER - | | | | | | LABORATORY | | + + + + + + | % | 0.1 | 0 - 5 % | [facility] | | | Eosinophils | | | [facility] | | | | | | MEDICAL | | | | | | CENTER - | | | | | | LABORATORY | | + + + + + + | % Basophils | 0.1 | 0 - 1 % | [facility] | | | | | | [facility] | | | | | | MEDICAL | | | | | | CENTER - | | | | | | LABORATORY | | + + + + + + | Absolute | 7.0 (H) | 1.5 - 6.6 K/uL | [facility] | | | Neutrophils | | | [facility] | | | | | | MEDICAL | | | | | | CENTER - | | | | | | LABORATORY | | + + + + + + | Absolute | 0.5 (L) | 0.6 - 3.2 K/uL | [facility] | | | Lymphocytes | | | [facility] | | | | | | MEDICAL | | | | | | CENTER - | | | | | | LABORATORY | | + + + + + + | Absolute | 0.6 | 0.0 - 1.0 K/uL | [facility] | | | Monocytes | | | [facility] | | | | | | MEDICAL | | | | | | CENTER - | | | | | | LABORATORY | | + + + + + + | Absolute | 0.0 | 0.0 - 0.4 K/uL | [facility] | | | Eosinophils | | | [facility] | | | | | | MEDICAL | | | | | | CENTER - | | | | | | LABORATORY | | + + + + + + | Absolute | 0.0 | 0.0 - 0.1 K/uL | [facility] | | | Basophils | | | [facility] | | | | | | MEDICAL | | | | | | CENTER - | | | | | | LABORATORY | | + + + + + + + + | Specimen | + + | | + + + + + + + | Performing | Address | City/State/Zipcode | Phone Number | | Organization | | | | + + + + + | [facility] | [address] | [place], [place] | [phone] | | [facility] | | [address] | | | - LABORATORY | | | | + + + + + | [facility] | [address] | [place], [place] | | | [facility] | | [address], [facility] | | | - LABORATORY | | | | + + + + + Blood Gas, Arterial (10/06/2011 8:51 PM PDT) + + + + + + | Component | Value | Ref Range | Performed | Pathologist | | | | | At | Signature | + + + + + + | Blood Gas | ARTERIAL | | [facility] | | | Sample Type | | | [facility] | | | | | | [facility] | | | | | | CENTER - | | | | | | LABORATORY | | + + + + + + | Blood Gas | LINE | | [facility] | | | Sample Site | | | [facility] | | | | | [facility] | | | | | | CENTER - | | | | | | LABORATORY | | + + + + + + | Source Of | VENTILATOR | | [facility] | | | Oxygen | | | [facility] | | | | | | MEDICAL | | | | | | CENTER - | | | | | | LABORATORY | | + + + + + + | FiO2 | 40.00 | | [facility] | | | | | | [facility] | [facility] | | [facility] | | | | | | CENTER - | | | | | | LABORATORY | | + + + + + + | Set Volume | 500 | | [facility] | | | | | | [facility] | | | | | | MEDICAL | | | | | | CENTER - | | | | | | LABORATORY | | + + + + + + | SIMV | 22 | | [facility] | | | | | | [facility] | | | | | | MEDICAL | | | | | | CENTER - | | | | | | LABORATORY | | + + + + + + | PEEP | 3 | | [facility] | | | | | | [facility] | | | | | | MEDICAL | | | | | | CENTER - | | | | | | LABORATORY | | + + + + + + | Comment | 10 | | [facility] | | | | 27 | | [facility] | | | | | | MEDICAL | | | | | | CENTER - | | | | | | LABORATORY | | + + + + + + | ARTERIAL | 125.0 (H) | 0.0 - 14.0 | [facility] | | | BLOOD GAS | | | [facility] | | | DO2 DIFF. | | | MEDICAL | | | | | | CENTER - | | | | | | LABORATORY | | + + + + + + | Patient | 37.0 | | [facility] | | | Temperature | | | [facility] | | | | | | MEDICAL | | | | | | CENTER - | | | | | | LABORATORY | | + + + + + + | pH, | 7.307 (L) | 7.350 - 7.450 | [facility] | | | Arterial | | | [facility] | | | | | | MEDICAL | | | | | | CENTER - | | | | | | LABORATORY | | + + + + + + | pCO2, | 39.6 | 35.0 - 45.0 | [facility] | | | Arterial | | mmHg | [facility] | | | | | | MEDICAL | | | | | | CENTER - | | | | | | LABORATORY | | + + + + + + | pO2, | 108.0 (H) | 60.0 - 90.0 | [facility] | | | Arterial | | mmHg | [facility] | | | | | | MEDICAL | | | | | | CENTER - | | | | | | LABORATORY | | + + + + + + | pH Temp | 7.307 (L) | 7.350 - 7.450 | [facility] | | | Corrected, | | | [facility] | | | Arterial | | | MEDICAL | | | | | | CENTER - | | | | | | LABORATORY | | + + + + + + | pCO2 Temp | 39.6 | 35.0 - 45.0 | [facility] | | | Corrected | | mmHg | [facility] | | | | | | MEDICAL | | | | | | CENTER - | | | | | | LABORATORY | | + + + + + + | pO2 Temp | 108.0 (H) | 60.0 - 90.0 | [facility] | | | Corrected | | mmHg | [facility] | | | | | | MEDICAL | | | | | | CENTER - | | | | | | LABORATORY | | + + + + + + | HCO3, | 19.2 (L) | 22.0 - 28.0 | [facility] | | | Arterial | | | [facility] | | | | | | MEDICAL | | | | | | CENTER - | | | | | | LABORATORY | | + + + + + + | Base | -6.1 (L) | -2.0 to 2.0 | [facility] | | | Excess, | | | [facility] | | | Arterial | | | MEDICAL | | | | | | CENTER - | | | | | | LABORATORY | | + + + + + + | O2 | 98.1 | 90.0 - 100.0 % | [facility] | | | Saturation, | | | [facility] | | | Arterial | | | MEDICAL | | | | | | CENTER - | | | | | | LABORATORY | | + + + + + + + + | Specimen | + + | | + + + + + + + | Performing | Address | City/State/Zipcode | Phone Number | | Organization | | | | + + + + + | [facility] | [address] | [place], [place] | [phone] | | [facility] | | [address] | | | - LABORATORY | | | | + + + + + | [facility] | [address] | [place], [place] | | | [facility] | | [id number] [place] [address] | | | - LABORATORY | | | | + + + + + Culture, MRSA (10/06/2011 6:11 PM PDT) + + | Specimen | + + | | + + + + + + + | Performing | Address | City/State/Zipcode | Phone Number | | Organization | | | | + + + + + | [facility] | [address] | [place] | [phone] | | [facility] | | [address] | | | - LABORATORY | | | | + + + + + Blood Gas, Arterial + Co-Ox (10/06/2011 4:13 PM PDT) + + + + + + | Component | Value | Ref Range | Performed | Pathologist | | | | | At | Signature | + + + + + + | Blood Gas | ARTERIAL | | [facility] | | | Sample Type | | | [facility] | | | | | [facility] | | | | | | C[facility] - | | | | | | LABORATORY | | + + + + + + | Blood Gas | LINE | | [facility] | | | Sample Site | | | [facility] | | | | | | MEDICAL | | | | | | CENTER - | | | | | | LABORATORY | | + + + + + + | Source Of | VENTILATOR | | [facility] | | | Oxygen | | | [facility] | | | | | | MEDICAL | | | | | | CENTER - | | | | | | LABORATORY | | + + + + + + | FiO2 | 40.00 | | [facility] | | | | | | [facility] | | | | | | MEDICAL | | | | | | CENTER - | | | | | | LABORATORY | | + + + + + + | Set Volume | 500 | | [facility] | | | | | | [facility] | | | | | | MEDICAL | | | | | | CENTER - | | | | | | LABORATORY | | + + + + + + | SIMV | 20 | | [facility] | | | | | | [facility] | | | | | | MEDICAL | | | | | | CENTER - | | | | | | LABORATORY | | + + + + + + | PEEP | 3 | | [facility] | | | | | | [facility] | | | | | | MEDICAL | | | | | | CENTER - | | | | | | LABORATORY | | + + + + + + | Comment | 10 | | [facility] | | | | 20 | | [facility] | | | | | | MEDICAL | | | | | | CENTER - | | | | | | LABORATORY | | + + + + + + | Pulse | 100 | % | [facility] | | | Oximetry | | | [facility] | | | | | | MEDICAL | | | | | | CENTER - | | | | | | LABORATORY | | + + + + + + | ARTERIAL | 119.7 (H) | 0.0 - 14.0 | [facility] | | | BLOOD GAS | | | [facility] | | | DO2 DIFF. | | | MEDICAL | | | | | | CENTER - | | | | | | LABORATORY | | + + + + + + | Patient | 37.0 | | [facility] | | | Temperature | | | [facility] | | | | | | MEDICAL | | | | | | CENTER - | | | | | | LABORATORY | | + + + + + + | pH, | 7.233 (L) | 7.350 - 7.450 | [facility] | | | Arterial | | | [facility] | | | | | | MEDICAL | | | | | | CENTER - | | | | | | LABORATORY | | + + + + + + | pCO2, | 49.6 (H) | 35.0 - 45.0 | [facility] | | | Arterial | | mmHg | [facility] | | | | | | MEDICAL | | | | | | CENTER - | | | | | | LABORATORY | | + + + + + + | pO2, | 104.0 (H) | 60.0 - 90.0 | [facility] | | | Arterial | | mmHg | [facility] | | | | | | MEDICAL | | | | | | CENTER - | | | | | | LABORATORY | | + + + + + + | pH Temp | 7.233 (L) | 7.350 - 7.450 | [facility] | | | Corrected, | | | [facility] | | | Arterial | | | MEDICAL | | | | | | CENTER - | | | | | | LABORATORY | | + + + + + + | pCO2 Temp | 49.6 (H) | 35.0 - 45.0 | [facility] | | | Corrected | | mmHg | [facility] | | | | | | MEDICAL | | | | | | CENTER - | | | | | | LABORATORY | | + + + + + + | pO2 Temp | 104.0 (H) | 60.0 - 90.0 | [facility] | | | Corrected | | mmHg | [facility] | | | | | | MEDICAL | | | | | | CENTER - | | | | | | LABORATORY | | + + + + + + | HCO3, | 20.2 (L) | 22.0 - 28.0 | [facility] | | | Arterial | | | [facility] | | | | | | MEDICAL | | | | | | CENTER - | | | | | | LABORATORY | | + + + + + + | Base | -7.0 (L) | -2.0 to 2.0 | [facility] | | | Excess, | | | [facility] | | | Arterial | | | MEDICAL | | | | | | CENTER - | | | | | | LABORATORY | | + + + + + + | O2 | 97.1 | 90.0 - 100.0 % | [facility] | | | Saturation, | | | [facility] | | | Arterial | | | MEDICAL | | | | | | CENTER - | | | | | | LABORATORY | | + + + + + + | Hgb, Blood | 12.8 | 12.0 - 16.0 | [facility] | | | Gas | | g/dL | [facility] | | | | | | MEDICAL | | | | | | CENTER - | | | | | | LABORATORY | | + + + + + + | Oxyhemoglob | 94.1 | 90.0 - 100.0 % | [facility] | | | in, | | | [facility] | | | Arterial | | | MEDICAL | | | | | | CENTER - | | | | | | LABORATORY | | + + + + + + | Carbon | 2.0 (H) | 0.0 - 1.5 % | [facility] | | | Monoxide, | | | [facility] | | | Blood | | | MEDICAL | | | | | | CENTER - | | | | | | LABORATORY | | + + + + + + | Methemoglob | 1.1 | 0.0 - 1.5 % | [facility] | | | in, Venous | | | [facility] | | | | | | MEDICAL | | | | | | CENTER - | | | | | | LABORATORY | | + + + + + + + + | Specimen | + + | | + + + + + + + | Performing | Address | City/State/Zipcode | Phone Number | | Organization | | | | + + + + + | [facility] | [address] | [place], [place] | [phone] | | [facility] | | [address] | | | - LABORATORY | | | | + + + + + | [facility] | [address] | [place], [place] | | | [facility] | | [address] [place] [address] | | | - LABORATORY | | | | + + + + + Blood Gas, Arterial (10/06/2011 3:22 PM PDT) + + + + + + | Component | Value | Ref Range | Performed | Pathologist | | | | | At | Signature | + + + + + + | Blood Gas | ARTERIAL | | [facility] | | | Sample Type | | | [facility] | | | | | | MEDICAL | | | | | | CENTER - | | | | | | LABORATORY | | + + + + + + | Blood Gas | LINE | | [facility] | | | Sample Site | | | [facility] | | | | | | MEDICAL | | | | | | CENTER - | | | | | | LABORATORY | | + + + + + + | Source Of | VENTILATOR | | [facility] | | | Oxygen | | | [facility] | | | | | | MEDICAL | | | | | | CENTER - | | | | | | LABORATORY | | + + + + + + | FiO2 | 40.00 | | [facility] | | | | | | [facility] | | | | | | MEDICAL | | | | | | CENTER - | | | | | | LABORATORY | | + + + + + + | Set Volume | 400 | | [facility] | | | | | | [facility] | | | | | | MEDICAL | | | | | | CENTER - | | | | | | LABORATORY | | + + + + + + | SIMV | 16 | | [facility] | | | | | | [facility] | | | | | | [facility]ICAL | | | | | | CENTER - | | | | | | LABORATORY | | + + + + + + | PEEP | 3 | | [facility] | | | | | | [facility] | [facility] | | | | [facility] | [facility] - | | | | | | LABORATORY | | + + + + + + | Comment | 10 | | [facility] | | | | 16 | | [facility] | | | | | | [facility]ICAL | | | | | | CENTER - | | | | | | LABORATORY | | + + + + + + | Pulse | 96 | % | [facility] | | | Oximetry | | | [facility] | | | | | | MEDICAL | | | | | | CENTER - | | | | | | LABORATORY | | + + + + + + | ARTERIAL | 121.5 (H) | 0.0 - 14.0 | [facility] | | | BLOOD GAS | | | [facility] | | | DO2 DIFF. | | | MEDICAL | | | | | | CENTER - | | | | | | LABORATORY | | + + + + + + | Patient | 37.0 | | [facility] | | | Temperature | | | [facility] | | | | | | MEDICAL | | | | | | CENTER - | | | | | | LABORATORY | | + + + + + + | pH, | 7.141 (LL)Comment: | 7.350 - 7.450 | [facility] | | | Arterial | RESULT CALLED TO | | [facility] | | | | FIELD 10/06/11 @1524 by | | MEDICAL | | | | RADHA @ * READ BACK | | CENTER - | | | | MUST BE OBTAINED * | | LABORATORY | | | | READ BACK PERFORMED? | | | | + + + + + + | pCO2, | 65.7 (H) | 35.0 - 45.0 | [facility] | | | Arterial | | mmHg | [facility] | | | | | | [facility]ICAL | | | | | | CENTER - | | | | | | LABORATORY | | + + + + + + | pO2, | 84.4 | 60.0 - 90.0 | [facility] | | | Arterial | | mmHg | [facility] | | | | | | [facility] | | | | | | CENTER - | | | | | | LABORATORY | | + + + + + + | pH Temp | 7.141 (L) | 7.350 - 7.450 | [facility] | | | Corrected, | | | [facility] | | | Arterial | | | MEDICAL | | | | | | CENTER - | | | | | | LABORATORY | | + + + + + + | pCO2 Temp | 65.7 (H) | 35.0 - 45.0 | [facility] | | | Corrected | | mmHg | [facility] | | | | | | MEDICAL | | | | | | CENTER - | | | | | | LABORATORY | | + + + + + + | pO2 Temp | 84.4 | 60.0 - 90.0 | [facility] | | | Corrected | | mmHg | [facility] | | | | | | MEDICAL | | | | | | CENTER - | | | | | | LABORATORY | | + + + + + + | HCO3, | 21.5 (L) | 22.0 - 28.0 | [facility] | | | Arterial | | | [facility] | | | | | | MEDICAL | | | | | | CENTER - | | | | | | LABORATORY | | + + + + + + | Base | -8.3 (L) | -2.0 to 2.0 | [facility] | | | Excess, | | | [facility] | | | Arterial | | | MEDICAL | | | | | | CENTER - | | | | | | LABORATORY | | + + + + + + | O2 | 95.1 | 90.0 - 100.0 % | [facility] | | | Saturation, | | | [facility] | | | Arterial | | | MEDICAL | | | | | | CENTER - | | | | | | LABORATORY | | + + + + + + + + | Specimen | + + | | + + + + + + + | Performing | Address | City/State/Zipcode | Phone Number | | Organization | | | | + + + + + | [facility] | [address] | [place], [place] | [phone] | | [facility] | | [facility] | | | - LABORATORY | | | | + + + + + | [facility] | [address] | [place], [place] | | | [facility] | | [address] [place] [address] | | | - LABORATORY | | | | + + + + + ABO Rh (10/06/2011 7:11 AM PDT) + +-------+ + + + | Component | Value | Ref Range | Performed | Pathologist | | | | | At | Signature | + +-------+ + + + | ABO | BP | | [facility] | | | | | | [facility] | | | | | | MEDICAL | | | | | | CENTER - | | | | | | LABORATORY | | + +-------+ + + + + + | Specimen | + + | | + + + + + + + | Performing | Address | City/State/Zipcode | Phone Number | | Organization | | | | + + + + + | [facility] | [address] | [place] | [phone] | | [facility] | | [address] | | | - LABORATORY | | | | + + + + + | [facility] | [address] | [place] | | | [facility] | | [id number], [facility] | | | - LABORATORY | | | | + + + + + Antibody Screen (10/06/2011 7:11 AM PDT) + + + + + + | Component | Value | Ref Range | Performed | Pathologist | | | | | At | Signature | + + + + + + | Antibody | NEGATIVE | | [facility] | | | Screen | | | [facility] | | | | | | [facility] | | | | | | CENTER - | | | | | | LABORATORY | | + + + + + + + + | Specimen | + + | | + + + + + + + | Performing | Address | City/State/Zipcode | Phone Number | | Organization | | | | + + + + + | [facility] | [address] | [place], [place] | [phone] | | [facility] | | [address] | | | - LABORATORY | | | | + + + + + | [facility] | [address] | [place], [place] | | | [facility] | | [address] [place] [address] | | | - LABORATORY | | | | + + + + + ABO Rh (10/06/2011 7:11 AM PDT) + + | Specimen | + + | | + + + + + + + | Performing | Address | City/State/Zipcode | Phone Number | | Organization | | | | + + + + + | [facility] | [address] | [place] | [phone] | | [facility] | | [address] | | | - LABORATORY | | | | + + + + + Product: OLEG (10/06/2011 6:50 AM PDT) + + + + + + | Component | Value | Ref Range | Performed | Pathologist | | | | | At | Signature | + + + + + + | Product | PACKED CELLS | | [facility] | | | Code | | | [facility] | | | | | | [facility] | | | | | | C[facility] - | | | | | | LABORATORY | | + + + + + + | UNIT # | [id number] | | [facility] | | | | | | [facility] | | | | [facility] | [facility] | | | | | | CENTER - | | | | | | LABORATORY | | + + + + + + | UNIT ABO | B | | [facility] | | | | | [facility] | | | [facility] | | [facility] | | | | | | CENTER - | | | | | | LABORATORY | | + + + + + + | UNIT RH | POS | | [facility] | | | | | [facility] | | | | | | [facility] | | | | | | CENTER - | | | | | | LABORATORY | | + + + + + + | Unit Status | TRANSFUSED | | [facility] | | | | [facility] | | [facility] | [facility] | | | | | | CENTER - | | | | | | LABORATORY | | + + + + + + + + | Specimen | + + | | + + + + + + + | Performing | Address | City/State/Zipcode | Phone Number | | Organization | | | | + + + + + | [facility] | [address] | [place] | [phone] | | [facility] | | [address] | | | - LABORATORY | | | | + + + + + | [facility] | | | | | [facility] | | | | | - LABORATORY | | | | + + + + + Product: PRBC (10/06/2011 6:50 AM PDT) + + + + + + | Component | Value | Ref Range | Performed | Pathologist | | | | | At | Signature | + + + + + + | Product | PACKED CELLS | | [facility] | | | Code | | | [facility] | | | [facility] | | [facility] | | | | | | CENTER - | | | | | | LABORATORY | | + + + + + + | UNIT # | [id number] | | [facility] | | | | | [facility] | | | | | | [facility] | | | | | | CENTER - | | | | | | LABORATORY | | + + + + + + | UNIT ABO | B | | [facility] | | | | [facility] | | | | | | [facility] | | | | | | CENTER - | | | | | | LABORATORY | | + + + + + + | UNIT RH | POS | | [facility] | | | | | | [facility] | | | | [facility] | [facility]ICAL | | | | | | CENTER - | | | | | | LABORATORY | | + + + + + + | Unit Status | TRANSFUSED | | [facility] | | | [facility] | | | [facility] | [facility] | | | | | | CENTER - | | | | | | LABORATORY | | + + + + + + + + | Specimen | + + | | + + + + + + + | Performing | Address | City/State/Zipcode | Phone Number | | Organization | | | | + + + + + | [facility] | [address] | [place] | [phone] | | [facility] | | [address] | | | - LABORATORY | | | | + + + + + | [facility] | | | | | [facility] | | | | | - LABORATORY | | | | + + + + + Product: PRBC (10/06/2011 6:50 AM PDT) + + + + + + | Component | Value | Ref Range | Performed | Pathologist | | | | | At | Signature | + + + + + + | Product | PACKED CELLS | | [facility] | | | Code | | | [facility] | | [facility] | [facility] | | | | | | CENTER - | | | | | | LABORATORY | | + + + + + + | UNIT # | [id number] | | [facility] | | | | | [facility] | | [facility] | [facility] | | | | | | CENTER - | | | | | | LABORATORY | | + + + + + + | UNIT ABO | B | | [facility] | | | | [facility] | | [facility] | [facility] | | | | | | CENTER - | | | | | | LABORATORY | | + + + + + + | UNIT RH | POS | | [facility] | | | | [facility] | | [facility] | [facility] | | | | | | CENTER - | | | | | | LABORATORY | | + + + + + + | Unit Status | TRANSFUSED | | [facility] | [facility] | [facility] | | | | | | CENTER - | | | | | | LABORATORY | | + + + + + + + + | Specimen | + + | | + + + + + + + | Performing | Address | City/State/Zipcode | Phone Number | | Organization | | | | + + + + + | [facility] | [address] | [place] | [phone] | | [facility] | | [address] | | | - LABORATORY | | | | + + + + + | [facility] | | | | | [facility] | | | | | - LABORATORY | | | | + + + + + Product: PRBC (10/06/2011 6:50 AM PDT) + + + + + + | Component | Value | Ref Range | Performed | Pathologist | | | | | At | Signature | + + + + + + | Product | PACKED CELLS | | [facility] | | | Code | | | [facility] | | [facility] | [facility] | | | | | | C[facility] - | | | | | | LABORATORY | | + + + + + + | UNIT # | [id number] | | [facility] | | | | | [facility] | | [facility] | [facility] | | | | | | CENTER - | | | | | | LABORATORY | | + + + + + + | UNIT ABO | B | | [facility] | | | | | [facility] | | [facility] | [facility] | | | | | | CENTER - | | | | | | LABORATORY | | + + + + + + | UNIT RH | POS | | [facility] | | | | | [facility] | | [facility] | | [facility] | | | | | | CENTER - | | | | | | LABORATORY | | + + + + + + | Unit Status | TRANSFUSED | | [facility] | | | [facility] | [facility] | [facility] | | | | | | [facility] - | | | | | | LABORATORY | | + + + + + + + + | Specimen | + + | | + + + + + + + | Performing | Address | City/State/Zipcode | Phone Number | | Organization | | | | + + + + + | [facility] | [address] | [place] | [phone] | | [facility] | | [address] | | | - LABORATORY | | | | + + + + + | [facility] | | | | | [facility] | | | | | - LABORATORY | | | | + + + + + [place] Small Bowel Follow Through (10/06/2011 5:51 AM PDT) + + | Specimen | + + | | + + + + + | Narrative | Performed At | + + + | [facility] | [place] | | [address] [place] | [facility] | | SMALL BOWEL RADIOGRAPH, | DIAG IMG | | 10/16/2011 CLINICAL HISTORY: SMALL BOWEL FOLLOW-THROUGH WITH | | | GASTROGRAFIN BARIUM, NAUSEA AND VOMITING. POSTOP. FINDINGS: | | | Sand Digger image shows mildly dilated loops of small bowel. There is | | | visible colonic gas. The patient was administered a combination | | | of EnteroVu and Gastrografin. This was followed with inte rmittent | | | imaging through the 3 hour and 2 minute maddy. There was relatively | | | normal progression of co ntrast through mildly dilated loops of small | | | bowel. This continued to progress through to the colon without | | | significant delay. Final imaging was delayed somewhat due to patient | | | limitations and other c are obligations. On the final imaging, | | | contrast had transitted through to the rectum and the patient had | | | been having multiple bowel movements. There is a duodenal | | | diverticulum visualized on early imag ing measuring about 2 cm. | | | IMPRESSION: 1. NO EVIDENCE FOR GASTROINTESTINAL TRACT | | | OBSTRUCTION. 2. DILATED LOOPS OF SMALL BOWEL LIKELY REPRESENT | | | AN ILEUS PATTERN. Dictated Date/Time: 10/16/2011 16:55 | | | Transcribed Date/Time: 10/16/2011 18:05 Cranberry Bog Supervisor: | | | <Electronically Signed by Terry Jerez MD> 10/17/11 1818 | | + + + + + | Procedure Note | + + | Prcie, Rad Conversion - 08/12/2013 5:02 PM [facility] | | Diagnostic Imaging Department [address] [place] [address] | | SMALL BOWEL RADIOGRAPH, 10/16/2011 CLINICAL HISTORY: | | SMALL BOWEL FOLLOW-THROUGH WITH GASTROGRAFIN BARIUM, NAUSEA AND VOMITING. POSTOP. | | FINDINGS: Sand Digger image shows mildly dilated loops of small bowel. There is visible | | colonic gas. The patient was administered a combination of EnteroVu and Gastrografin. | | This was followed with intermittent imaging through the 3 hour and 2 minute maddy. | | There was relatively normal progression of contrast through mildly dilated loops of | | small bowel. This continued to progress through to the colon without significant delay. | | Final imaging was delayed somewhat due to patient limitations and other care | | obligations. On the final imaging, contrast had transitted through to the rectum and | | the patient had been having multiple bowel movements. There is a duodenal diverticulum | | visualized on early imaging measuring about 2 cm. IMPRESSION: 1. NO EVIDENCE FOR | | GASTROINTESTINAL TRACT OBSTRUCTION. 2. DILATED LOOPS OF SMALL BOWEL LIKELY REPRESENT | | AN ILEUS PATTERN. Dictated Date/Time: 10/16/2011 16:55Transcribed Date/Time: | | 10/16/2011 18:05Transcriptionist: <Electronically Signed by Terry Jerez MD> | | 10/17/111817 | |are obligations. On the final imaging, contrast had transitted through to the rectum and t he patient | | had been having multiple bowel movements. There is a duodenal diverticulum visualized on early imag | |ing measuring about 2 cm. | | | |IMPRESSION: | |1. NO EVIDENCE FOR GASTROINTESTINAL TRACT OBSTRUCTION. | | | |2. DILATED LOOPS OF SMALL BOWEL LIKELY REPRESENT AN ILEUS PATTERN. | | | |Dictated Date/Time: 10/16/2011 16:55 | |Transcribed Date/Time: 10/16/2011 18:05 | |Cranberry Bog Supervisor: | |<Electronically Signed by Terry Jerez MD> 10/17/111817 | + + + +---------+ + + | Performing | Address | City/State/Zipcode | Phone Number | | Organization | | | | + +---------+ + + | [place] | | | | | [facility] | | | | + +---------+ + + XR Abdomen AP (10/06/2011 5:51 AM PDT) + + | Specimen | + + | | + + + + + | Narrative | Performed At | + + + | [facility] | [facility] | | [address] [facility] | [facility] | | SINGLE VIEW ABDOMEN, 10/14/2011 | DIAG IMG | | CLINICAL HISTORY: ABDOMINAL PAIN. FINDINGS: There are | | | diffuse gas filled borderline dilated small bowel loops in the central | | | abdomen. There is a small amount of residual left sided colonic | | | stool. Findings are consistent with ileus or early small bowel | | | obstruction. IMPRESSION: 1. GAS FILLED BORDERLINE DISTENDED | | | SMALL BOWEL LOOPS REPRESENTING ILEUS OR EARLY OBSTRUCTION; PROGRES S | | | STUDIES SUGGESTED. Dictated Date/Time: 10/14/2011 08:44 | | | Transcribed Date/Time: 10/14/2011 08:49 Cranberry Bog Supervisor: | | | <Electronically Signed by Braeden Yuan MD> 10/14/11 0912 | | + + + + + | Procedure Note | + + | Price, Rad Conversion - 08/12/2013 5:02 PM [facility] | | Diagnostic Imaging Department [address] [place] [address] | | SINGLE VIEW ABDOMEN, 10/14/2011 CLINICAL HISTORY: | | ABDOMINAL PAIN. FINDINGS: There are diffuse gas filled borderline dilated small bowel | | loops in the central abdomen. There is a small amount of residual left sided colonic | | stool. Findings are consistent with ileus or early small bowel obstruction. IMPRESSION: | | 1. GAS FILLED BORDERLINE DISTENDED SMALL BOWEL LOOPS REPRESENTING ILEUS OR EARLY | | OBSTRUCTION; PROGRESS STUDIES SUGGESTED. Dictated Date/Time: 10/14/2011 | | 08:44Transcribed Date/Time: 10/14/2011 08:49Transcriptionist: <Electronically | | Signed by Braeden Yuan MD> 10/14/11911 | |FINDINGS: There are diffuse gas filled borderline dilated small bowel loops in the central abdomen. | | There is a small amount of residual left sided colonic stool. Findings are consistent wit h ileus or | | early small bowel obstruction. | | | |IMPRESSION: | |1. GAS FILLED BORDERLINE DISTENDED SMALL BOWEL LOOPS REPRESENTING ILEUS OR EARLY OBSTRUCTIO N; PROGRES | |S STUDIES SUGGESTED. | | | |Dictated Date/Time: 10/14/2011 08:44 | |Transcribed Date/Time: 10/14/2011 08:49 | |Cranberry Bog Supervisor: | |<Electronically Signed by Braeden Yuan MD> 10/14/11911 | + + + +---------+ + + | Performing | Address | City/State/Zipcode | Phone Number | | Organization | | | | + +---------+ + + | [place] | | | | | [facility] | | | | + +---------+ + + XR Chest AP Portable (10/06/2011 5:51 AM PDT) + + | Specimen | + + | | + + + + + | Narrative | Performed At | + + + | [facility] | [facility] | | [address] [facility] | [facility] | | SINGLE AP CHEST, 10/09/2011 | DIAG IMG | | CLINICAL HISTORY: HYPOXIA. COMPARISON: Chest radiographs | | | 10/06/2011 and 09/18/2011. FINDINGS: Endotracheal and | | | esophagogastric tubes have been removed in the interim. Sternal | | | wires an d cardiac surgery clips are again evident. The cardiac | | | silhouette remains borderline to mildly enlar ged, and there is | | | persistent prominence and crowding of the central bronchovascular | | | structures. Lung volumes remain slightly low, and there is mild, | | | patchy reticular opacity in the lung bases. Upper l dieudonne smith | | | remain clear. No pneumothorax or pleural effusion is visible. Skin | | | mynor project in e midline upper abdomen. A healed left | | | posterolateral sixth rib fracture is again noted. IMPRESSION: | | | 1. SIMILAR APPEARANCE OF THE CHEST FOLLOWING EXTUBATION, WITH | | | PERSISTENT BORDERLINE TO MILD ENLARGEM ENT OF THE CARDIAC SILHOUETTE | | | AND CENTRAL BRONCHOVASCULAR CROWDING WITH BASILAR RETICULAR OPACITY | | | FAV ORING AT LEAST A COMPONENT OF ATELECTASIS IN THE SETTING OF | | | PERSISTENTLY LOW LUNG VOLUMES. Dictated Date/Time: 10/10/2011 | | | 07:39 Transcribed Date/Time: 10/10/2011 07:50 Cranberry Bog Supervisor: | | | <Electronically Signed by Yasmany Gomez MD> 10/10/11 6834 | | + + + + + | Procedure Note | + + | Price, Rad Conversion - 08/12/2013 5:02 PM [facility] | | Diagnostic Imaging Department [address] [facility] | | SINGLE AP CHEST, 10/09/2011 CLINICAL HISTORY: HYPOXIA. | | COMPARISON: Chest radiographs 10/06/2011 and 09/18/2011. FINDINGS: Endotracheal and | | esophagogastric tubes have been removed in the interim. Sternal wires and cardiac | | surgery clips are again evident. The cardiac silhouette remains borderline to mildly | | enlarged, and there is persistent prominence and crowding of the central bronchovascular | | structures. Lung volumes remain slightly low, and there is mild, patchy reticular | | opacity in the lung bases. Upper lung smith remain clear. No pneumothorax or pleural | | effusion is visible. Skin mynor project in the midline upper abdomen. A healed left | | posterolateral sixth rib fracture is again noted. IMPRESSION: 1. SIMILAR APPEARANCE OF | | THE CHEST FOLLOWING EXTUBATION, WITH PERSISTENT BORDERLINE TO MILD ENLARGEMENT OF THE | | CARDIAC SILHOUETTE AND CENTRAL BRONCHOVASCULAR CROWDING WITH BASILAR RETICULAR OPACITY | | FAVORING AT LEAST A COMPONENT OF ATELECTASIS IN THE SETTING OF PERSISTENTLY LOW LUNG | | VOLUMES. Dictated Date/Time: 10/10/2011 07:39Transcribed Date/Time: 10/10/2011 | | 07:50Transcriptionist: <Electronically Signed by Yasmany Gomez MD> 10/10/11 1044 | |dieudonne smith remain clear. No pneumothorax or pleural effusion is visible. Skin mynor pro ject in th | |e midline upper abdomen. A healed left posterolateral sixth rib fracture is again noted. | | | |IMPRESSION: | |1. SIMILAR APPEARANCE OF THE CHEST FOLLOWING EXTUBATION, WITH PERSISTENT BORDERLINE TO MIL D ENLARGEM | |ENT OF THE CARDIAC SILHOUETTE AND CENTRAL BRONCHOVASCULAR CROWDING WITH BASILAR RETICULAR O PACITY FAV | |ORING AT LEAST A COMPONENT OF ATELECTASIS IN THE SETTING OF PERSISTENTLY LOW LUNG VOLUMES. | | | |Dictated Date/Time: 10/10/2011 07:39 | |Transcribed Date/Time: 10/10/2011 07:50 | |Cranberry Bog Supervisor: | |<Electronically Signed by Yasmany Gomez MD> 10/10/11 1044 | + + + +---------+ + + | Performing | Address | City/State/Zipcode | Phone Number | | Organization | | | | + +---------+ + + | [facility] | | | | | [facility] | | | | + +---------+ + + XR Pelvis 1 or 2 Vw (10/06/2011 5:51 AM PDT) + + | Specimen | + + | | + + + + + | Narrative | Performed At | + + + | [facility] | [facility] | | [address] | [facility] | | SINGLE AP PELVIS: 10/07/2011 @ | DIAG IMG | | 0907 HOURS CLINICAL HISTORY: LEFT HIP PAIN, EVALUATE FOR | | | DISLOCATION. COMPARISON: CT abdomen and pelvis 04/21/2011. | | | FINDINGS: Left total hip arthroplasty hardware is present and | | | appears grossly normal in alignment, allowing for the AP image | | | provided and incomplete imaging of the femoral arthroplasty | | | component. The right hip joint appears moderately narrowed. | | | Sacroiliac joints are not well-visualized. Pubic symphysis appears | | | maintained. Surgical mynor project over the pelvic cavity and left | | | mid to lower abdomen. Surgical clips also project in the imaged left | | | upper, inner thigh. A Nolasco catheter is suggested. Iliac vascular | | | calcification is noted. IMPRESSION: 1. GROSSLY UNREMARKABLE | | | APPEARANCE OF LEFT TOTAL HIP ARTHROPLASTY HARDWARE, ALLOWING FOR THE | | | SINGLE AP IMAGE PROVIDED AND INCOMPLETE IMAGING OF THE FEMORAL | | | ARTHROPLASTY COMPONENT. 2. VASCULAR CALCIFICATION AND | | | POSTOPERATIVE CHANGES DISCUSSED. COMMENT: Results of the study | | | were phoned to the nurse caring for the patient as requested at the | | | time of interpretation on 10/07/2011 at 0950 hours. Dictated | | | Date/Time: 10/07/2011 09:49 Transcribed Date/Time: 10/07/2011 | | | 09:58 Cranberry Bog Supervisor: <Electronically Signed by Yasmany Layne | | | MD Jason> 10/07/11 1056 | | + + + + + | Procedure Note | + + | Price, Rad Conversion - 08/12/2013 5:02 PM [facility] | | Diagnostic Imaging Department | | [address] [facility] | | | | | | | | SINGLE AP PELVIS: 10/07/2011 @ 0907 HOURS | | | | CLINICAL HISTORY: LEFT HIP PAIN, EVALUATE FOR DISLOCATION. | | | | COMPARISON: CT abdomen and pelvis 04/21/2011. | | | | FINDINGS: Left total hip arthroplasty hardware is present and appears grossly | | normal in alignment, allowing for the AP image provided and incomplete imaging | | of the femoral arthroplasty component. The right hip joint appears moderately | | narrowed. Sacroiliac joints are not well-visualized. Pubic symphysis appears | | maintained. Surgical mynor project over the pelvic cavity and left mid to | | lower abdomen. Surgical clips also project in the imaged left upper, inner | | thigh. A Nolasco catheter is suggested. Iliac vascular calcification is noted. | | | | IMPRESSION: | | 1. GROSSLY UNREMARKABLE APPEARANCE OF LEFT TOTAL HIP ARTHROPLASTY HARDWARE, | | ALLOWING FOR THE SINGLE AP IMAGE PROVIDED AND INCOMPLETE IMAGING OF THE FEMORAL | | ARTHROPLASTY COMPONENT. | | | | 2. VASCULAR CALCIFICATION AND POSTOPERATIVE CHANGES DISCUSSED. | | | | COMMENT: Results of the study were phoned to the nurse caring for the patient | | as requested at the time of interpretation on 10/07/2011 at 0950 hours. | | | | Dictated Date/Time: 10/07/2011 09:49 | | Transcribed Date/Time: 10/07/2011 09:58 | | Cranberry Bog Supervisor: | | <Electronically Signed by Yasmany Gomez MD> 10/07/11 1056 | + + + +---------+ + + | Performing | Address | City/State/Unm Hospital[facility] | Phone Number | | Organization | | | | + +---------+ + + | [facility] | | | | | [facility] | | | | + +---------+ + + XR Chest AP Portable (10/06/2011 5:51 AM PDT) + + | Specimen | + + | | + + + + + | Narrative | Performed At | + + + | [facility] | [facility] | | [address] [facility] [address] | [facility] | | SINGLE AP CHEST, 10/06/2011 @ | DIAG IMG | | 1704 HOURS CLINICAL HISTORY: ET TUBE PLACEMENT. COMPARISON: | | | Chest radiographs 09/18/2011. FINDINGS: An endotracheal tube | | | is present, and ends approximately 3.2 cm above the brigid. An esoph | | | agogastric tube now passes into the left upper abdomen, coiling in | | | the region of the gastric fundus. The cardiac silhouette appears at | | | least borderline to mildly enlarged and there is increased promine | | | nce and crowding of the central bronchovascular structures. Lung | | | volumes are decreased. There is pa tchy reticular opacity in the | | | lung bases. Upper lung smith are relatively clear. No | | | pneumothorax o r pleural effusion is evident. A healed-appearing | | | left posterior sixth rib fracture is again evident . Sternal wires | | | persist. Bones and soft tissues are otherwise unremarkable. | | | IMPRESSION: 1. ENDOTRACHEAL TUBE 3.2 CM ABOVE THE BRIGID. | | | 2. ESOPHAGOGASTRIC TUBE COILING IN THE REGION OF THE GASTRIC FUNDUS. | | | 3. BORDERLINE TO MILD ENLARGEMENT OF THE CARDIAC SILHOUETTE | | | WITH PROMINENCE AND ILL DEFINITION OF TH E CENTRAL BRONCHOVASCULAR | | | STRUCTURES AND BASILAR RETICULAR OPACITY FAVORING AT LEAST A COMPONENT | | | OF A TELECTASIS IN THE SETTING OF LOW LUNG VOLUMES. Dictated | | | Date/Time: 10/06/2011 17:55 Transcribed Date/Time: 10/06/2011 | | | 18:22 Cranberry Bog Supervisor: <Electronically Signed by Yasmany Layne | | | MD Jason> 10/06/11 2154 | | + + + + + | Procedure Note | + + | Cody Thrasher Conversion - 08/12/2013 5:02 PM [facility] | | Diagnostic Imaging Department [address] [facility] | | SINGLE AP CHEST, 10/06/2011 @ 1704 HOURS CLINICAL | | HISTORY: ET TUBE PLACEMENT. COMPARISON: Chest radiographs 09/18/2011. FINDINGS: An | | endotracheal tube is present, and ends approximately 3.2 cm above the brigid. An | | esophagogastric tube now passes into the left upper abdomen, coiling in the region of | | the gastric fundus. The cardiac silhouette appears at least borderline to mildly | | enlarged and there is increased prominence and crowding of the central bronchovascular | | structures. Lung volumes are decreased. There is patchy reticular opacity in the lung | | bases. Upper lung smith are relatively clear. No pneumothorax or pleural effusion is | | evident. A healed-appearing left posterior sixth rib fracture is again evident. | | Sternal wires persist. Bones and soft tissues are otherwise unremarkable. IMPRESSION: | | 1. ENDOTRACHEAL TUBE 3.2 CM ABOVE THE BRIGID. 2. ESOPHAGOGASTRIC TUBE COILING IN | | THE REGION OF THE GASTRIC FUNDUS. 3. BORDERLINE TO MILD ENLARGEMENT OF THE CARDIAC | | SILHOUETTE WITH PROMINENCE AND ILL DEFINITION OF THE CENTRAL BRONCHOVASCULAR STRUCTURES | | AND BASILAR RETICULAR OPACITY FAVORING AT LEAST A COMPONENT OF ATELECTASIS IN THE | | SETTING OF LOW LUNG VOLUMES. Dictated Date/Time: 10/06/2011 17:55Transcribed | | Date/Time: 10/06/2011 18:22Transcriptionist: <Electronically Signed by Yasmany Layne | | MD Jason> 10/06/11 7650 | | | |IMPRESSION: | |1. ENDOTRACHEAL TUBE 3.2 CM ABOVE THE BRIGID. | | | |2. ESOPHAGOGASTRIC TUBE COILING IN THE REGION OF THE GASTRIC FUNDUS. | | | |3. BORDERLINE TO MILD ENLARGEMENT OF THE CARDIAC SILHOUETTE WITH PROMINENCE AND ILL DEFINI TION OF TH | |E CENTRAL BRONCHOVASCULAR STRUCTURES AND BASILAR RETICULAR OPACITY FAVORING AT LEAST A COMP ONENT OF A | |TELECTASIS IN THE SETTING OF LOW LUNG VOLUMES. | | | |Dictated Date/Time: 10/06/2011 17:55 | |Transcribed Date/Time: 10/06/2011 18:22 | |Cranberry Bog Supervisor: | |<Electronically Signed by Yasmany Gomez MD> 10/06/11 2154 | + + + +---------+ + + | Performing | Address | City/State/Zipcode | Phone Number | | Organization | | | | + +---------+ + + | [facility] | | | | | [facility] | | | | + +---------+ + + documented in this encounter Visit Diagnoses Not on filedocumented in this encounter"
--- OUTSIDE RECORDS SUMMARY | ~2020-02-01 | XMS | Encounter Summary ---
Demographics + + + | Address | [address] | | | [place] [address] | + + + | Home Phone | | + + + | Preferred Language | Unknown | + + + | Marital Status | | + + + | Mu-Ism Affiliation | Unknown | + + + | Race | Unknown | + + + | Ethnic Group | Unknown | + + + Author + + + | Author | [facility] | | | and [place] | + + + | Organization | [facility] | | | [...] Team Providers + +------+ + | Care Fire Behavior Analyst Name | Role | Phone | + +------+ + | Heidi Koch MD | PCP | | + +------+ + Encounter Details +--------+ + + + + | Date | Type | Department | Care Team | Description | +--------+ + + + + | 08/20/ | Orders Only | [facility] | Bull Wild, | | | 2018 | | NEPHROLOGY EARLENE | 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 [address] | | | | | [address] | [address] | | | | | [address] [place], [place] | [place] | | | | | [address] | [address] | | | | | [phone] | [phone] | | | | | | | [...] [place] | | | | | | [phone] | | | | | | | | +--------+ + + + + | 02/22/ | Office | Cardiology | Phylicia Patel DO | | | 2019 | Visit | | [address] | | | | | | [place] | | | | | | [phone] | | | | | | | | +--------+ + + + + documented as of this encounter Procedures + +--------+ + + + | Procedure Name | Priori | Date/Time | Associated Diagnosis | Comments | | | ty | | | | + +--------+ + + + | EXTERNAL LAB: CBC | Routin | 08/20/2018 | | Results for this | | | e | 11:20 AM | | procedure are in the | | | | PST | | results section. | + +--------+ + + + | PROTEIN/CREATININE | Routin | 08/20/2018 | | Results for this | | RATIO, URINE | e | 11:20 AM | | procedure are in the | | | | PST | | results section. | + +--------+ + + + | URIC ACID | Routin | 08/20/2018 | | Results for this | | | e | 11:20 AM | | procedure are in the | | | | PST | | results section. | + +--------+ + + + | RENAL FUNCTION PANEL | Routin | 08/20/2018 | | Results for this | | | e | 11:20 AM | | procedure are in the | | | | PST | | results section. | + +--------+ + + + documented in this encounter Results Protein/Creatinine Ratio, Urine (08/20/2018 11:20 AM PST) + + + + + + | Component | Value | Ref Range | Performed | Pathologist | | | | | At | Signature | + + + + + + | Protein/Cre | 826.5 (A) | 0 - 150 | EXTERNAL | [...] + +---------+ + + External Lab: CBC (08/20/2018 11:20 AM PST) + + + + + + | Component | Value | Ref Range | Performed | Pathologist | | | | | At | Signature | + + + + + + | WBC | 6.1 | 4.5 - 11.0 10 | EXTERNAL | | | | | | LAB | | + + + + + + | Non- | 4.34 | 3.8 - 5.1 10 | EXTERNAL | | | Red Blood | | | LAB | | | Cells | | | | | | Counted | | | | | + + + + + + | Hemoglobin | 12.2 | 12.0 - 16.0 | EXTERNAL | | | | | g/dL | LAB | | + + + + + + | Hematocrit, | 38.0 | 35 - 45 % | EXTERNAL | | | POC | | | LAB | | + + + + + + | MCV | 87.6 | 81 - 99 fL | EXTERNAL | | | | | | LAB | | + + + + + + | MCH | 28 | 27 - 33 pg | EXTERNAL | | | | | | LAB | | + + + + + + | MCHC | 32 | 30 - 36 g/dL | EXTERNAL | | | | | | LAB | | + + + + + + | Platelet | 333 | 140 - 450 K/ L | EXTERNAL | | | Count | | | LAB | | | Plasma | | | | | + + + + + + | RDW-CV | 14.5 | 10.5 - 15.0 % | EXTERNAL [...] + + + | % Segmented | 62.4 | 39 - 80 % | EXTERNAL | | | | | | LAB | | | Neutrophils | | | | | + + + + + + | % | 20.7 (A) | 24 - 44 % | EXTERNAL | | | Lymphocytes | | | LAB | | + + + + + + | % Monocytes | 11.0 | 0 - 12 % | EXTERNAL | | | | | | LAB | | + + + + + + | % | 0.5 | 0 - 2 % | EXTERNAL | | | Eosinophils | | | LAB | | + + + + + + | % Basophils | 0.5 | 0 - 2 % | EXTERNAL [...] | + +---------+ + + Uric Acid (08/20/2018 11:20 AM PST) + +---------+ + + + | Component | Value | Ref Range | Performed | Pathologist | | | | | At | Signature | + +---------+ + + + | Uric Acid | 9.0 (A) | 2.3 - 6.6 | EXTERNAL [...] + +---------+ + + Renal Function Panel (08/20/2018 11:20 AM PST) + + + + + + | Component | Value | Ref Range | Performed | Pathologist | | | | | At | Signature | + + + + + + | Glucose, | 97 | 70 - 100 mg/dL | EXTERNAL | | | Fasting | | | LAB | | + + + + + + | BUN | 42 (A) | 6 - 23 mg/dL | EXTERNAL | | | | | | LAB | | + + + + + + | Creatinine | 3.05 (A) | 70 - 1.18 mg/dL | EXTERNAL | | | | | | LAB | | + + + + + + | PHOSPHORUS | 4.0 | 2.5 - 5.0 mg/dL | EXTERNAL | | | | | | LAB | | + + + + + + | Albumin | 4.6 | 3.5 - 5.0 | EXTERNAL | | | | | | LAB | | + + + + + + | Na | 143 | 132 - 143 | EXTERNAL | | | | | mmol/L | LAB | | + + + + + + | K | 5.0 | 3.6 - 5.1 | EXTERNAL | | | | | mmol/L | LAB | | + + + + + + | Cl | 106 | 95 - 112 mmol/L | EXTERNAL | | | | | | LAB | | + + + + + + | CO2 | 22 | 19 - 31 mmol/L | EXTERNAL | | | | | | LAB | | + + + + + + | Anion Gap | 20.0 | 7 - 21 mmol/L | EXTERNAL | | | | | | LAB | | + + + + + + | eGFR, | | | EXTERNAL | | | non- | | | LAB | | | [place] | | | | | + + + + + + | Phosphorus, | | | EXTERNAL | | | Inorganic | | | LAB | | + + + + + + | BUN/Creatin | 13.8 | 6.0 - 28.6 | EXTERNAL | | | ine Ratio | | | LAB | | + + + + + + | Calcium | 9.9 | 8.5 - 10.3 | EXTERNAL | | | | | mg/dL | LAB | | + + + + + + | Estimated | 15 (A) | 60 - 140 mg/dL | EXTERNAL | | | GFR [...]
--- OUTSIDE RECORDS SUMMARY | ~2020-02-01 | XMS | Encounter Summary ---
Demographics + + + | Address | [address] | | | [place] [address] | + + + | Home Phone | | + + + | Preferred Language | Unknown | + + + | Marital Status | | + + + | Church Affiliation | Unknown | + + + | Race | Unknown | + + + | Ethnic Group | Unknown | + + + Author + + + | Author | [facility] | | | and [place] | + + + | Organization | [facility] | | [...] Team Providers + +------+ + | Care Stationary Boiler Fireman Name | Role | Phone | + +------+ + | Heidi Koch MD | PCP | | + +------+ + Encounter Details +--------+ + + + + | Date | Type | Department | Care Team | Description | +--------+ + + + + | 02/18/ | Orders Only | [facility] | Ирина Song | Atherosclerosis of | | 2019 | | CARDIOLOGY [place] | [address] | coronary artery | | | | [address] | [address] [address] | bypass graft with | | | | [address] | [place] [address] | angina pectoris | | | | [place], [place] | [phone] | (HCC); Presence of | | | | [address] | | aortocoronary bypass | | | | [phone] | | graft; | | | | | | Atherosclerotic | | | | | | heart disease of | | | | | | [place] coronary | | | | | | artery without | | | | | | angina pectoris; | | | | | | Hyperlipidemia; | | | | | | Chronic kidney | | | | | | disease, stage IV | | | | | | (severe) ([facility]); | | | | | | Heart failure ([facility]) | +--------+ + + + + Social History + +-------+ +--------+ + | Tobacco Use | Types | Packs/Day | Years | Date | | | | | Used | | + +-------+ +--------+ + | Former Smoker | | 1.5 | | Quit: 07/06/2008 | + +-------+ +--------+ + + + + | Sex Assigned at [...] | | 2019 | Office | | [address] | | | | Visit | | [place] | | | | | | [address] | | | | | | | | +--------+ + + + + | 02/22/ | Office | Cardiology | Phylicia Patel DO | | | 2019 | Visit | | [address] | | | | | | [place] | | | | | | [address] | | | | | | | | +--------+ + + + + + +------+--------+ + + | Name | Type | Priori | Associated Diagnoses | Order Schedule | | | | ty | | | + +------+--------+ + + | Lipid Panel | Lab | Routin | Atherosclerosis of | Expected: | | | | e | coronary artery | 07/08/2018, Expires: | | | | | bypass graft with | 07/08/2019 | | | | | angina pectoris | | | | | | ([facility]) Presence of | | | | | | aortocoronary bypass | | | | | | graft | | | | | | Atherosclerotic | | | | | | heart disease of | | | | | | chipe[place] coronary | | | | | | artery without | | | | | | angina pectoris | | | | | | Hyperlipidemia | | + +------+--------+ + + | Basic Metabolic | Lab | Routin | Chronic kidney | Expected: | | Panel | | e | disease, stage IV | 08/19/2018, Expires: | | | | | (severe) ([facility]) | 08/05/2019 | + +------+--------+ + + | B Type Natriuretic | Lab | Routin | Heart failure | Expected: | | Peptide | | e | ([facility]) | 11/11/2018, Expires: | | | | | | 11/12/2019 | + +------+--------+ + + | Renal Function Panel | Lab | Routin | Chronic kidney | Expected: | | | | e | disease, stage IV | 01/13/2019, Expires: | | | | | (severe) ([facility]) | 12/29/2019 | + +------+--------+ + + | Magnesium | Lab | Routin | Chronic kidney | Expected: | | | | e | disease, stage IV | 01/13/2019, Expires: | | | | | (severe) (HCC) | 12/29/2019 | + +------+--------+ + + | CBC with | Lab | Routin | Chronic kidney | Expected: | | Differential | | e | disease, stage IV | 01/13/2019, Expires: | | | | | (severe) (HCC) | 12/29/2019 | + +------+--------+ + + | Uric Acid | Lab | Routin | Chronic kidney | Expected: | | | | e | disease, stage IV | 01/13/2019, Expires: | | | | | (severe) ([facility]) | 12/29/2019 | + +------+--------+ + + | Protein/Creatinine | Lab | Routin | Chronic kidney | Expected: | | Ratio, Urine | | e | disease, stage IV | 01/13/2019, Expires: | | | | | (severe) ([facility]) | 12/29/2019 | + +------+--------+ + + documented as of this encounter Visit Diagnoses + + | Diagnosis | + + | 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
--- OUTSIDE RECORDS SUMMARY | ~2020-02-01 | XMS | Encounter Summary ---
Demographics + + + | Address | [address] | | | [place] [address] | + + + | Home Phone | | + + + | Preferred Language | Unknown | + + + | Marital Status | | + + + | Cheondoism Affiliation | Unknown | + + + | Race | Unknown | + + + | Ethnic Group | Unknown | + + + Author + + + | Author | [facility] | | | and [place] | + + + | Organization | [facility] | | | and [...] Team Providers + +------+ + | Care Concrete Float Maker Name | Role | Phone | + +------+ + | Heidi Koch MD | PCP | | + +------+ + Reason for Visit + +--------+ + | Reason | Onset | Comments | | | Date | | + +--------+ + | Advice Only | 03/25/ | | | | 2019 | | + +--------+ + Encounter Details +--------+ + + + + | Date | Type | Department | Care Team | Description | +--------+ + + + + | 03/25/ | Telephone | [facility] | Rodrigo Cruz MD | Advice Only | | 2019 | | PULMONOLOGY [address] | [address] | | | | | [address] | [place], [place] | | | | | [place], [place] | [address] | | | | | [address] | | | | | | [phone] | | | +--------+ + + + + Social History + +-------+ +--------+ + | Tobacco Use | Types | Packs/Day | Years | Date | | | | | Used | | + +-------+ +--------+ + | Former Smoker | | 1.5 | | Quit: 07/06/2008 | + +-------+ +--------+ + + +---+---+---+ | Smokeless Tobacco: | | | | | Never Used | | | | + +---+---+---+ + + +---------+ + | Alcohol Use | Drinks/Week | oz/Week | Comments | + + +---------+ + | Not Currently | | | | + + +---------+ + + + + | Sex Assigned at | Date Recorded | | | | + + + | Not on file | | + + + documented as of this encounter Miscellaneous Notes Telephone Encounter - Kiera Salomon Hr Analyst - 03/25/2019 10:33 AM PDTDr. Nabor torres will send Incruse Ellipta instead of SpirivaElectronically signed by Kiera Salomon [facility] chhaya Senior Sql Server Dba at 03/25/2019 10:34 AM PDTdocumented in this encounter Plan of Treatment +--------+ [...] [place] | | | | | | [phone] | | | | | | | | +--------+ + + + + | 02/22/ | Office | Cardiology | Phylicia Patel DO | | 2019 | Visit | | [address] | | | | | | [place] | | | | | | [address] | | | | | | | | +--------+ + + + + documented as of this encounter Visit Diagnoses Not on filedocumented in this encounter"
--- OUTSIDE RECORDS SUMMARY | ~2020-02-01 | XMS | Clinical Summary ---
Demographics + + + | Address | [address] | | | [place] [address] | + + + | Home Phone | | + + + | Preferred Language | Unknown | + + + | Marital Status | | + + + | Advent Affiliation | Unknown | + + + [...] Team Providers + +------+ + | Care Gauger Chief Delivery Name | Role | Phone | + +------+ + | Heidi Koch MD | PCP | | + +------+ + Allergies + + + + + + | Active Allergy | Reactions | Severity | Noted | Comments | | | | | Date | | + + + + + + | Codeine Sulfate | | | 09/11/19 | | | | | | 12 | | + + + + + + | Peanuts | | | 09/18/19 | [place] Nuts | | | | | 12 | | + + + + + + | [place] | Anaphylaxis | High | 03/24/20 | BRAZIL NUTS | | | | | 19 | | + + + + + + Medications + + + +---------+------+------+-------+ | Medication | Sig | Dispensed | Refills | Star | End | Statu | | | | | | t | Date | s | | | | | | Date | | | + + + +---------+------+------+-------+ | pravastatin | Take 40 mg by mouth | | 0 | 01/1 | | Activ | | (PRAVACHOL) 40 MG | Daily. | | | 0/20 | | e | | tablet | | | | 12 | | | + + + +---------+------+------+-------+ | gemfibrozil | Take 600 mg by mouth | | 0 | 01/1 | | Activ | | (LOPID) 600 mg | 2 times daily. | | | 0/20 | | e | | tablet | | | | 12 | | | + + + +---------+------+------+-------+ | clopidogrel | Take 75 mg by mouth | | 0 | 01/1 | | Activ | | (PLAVIX) 75 mg | Daily. | | | 0/20 | | e | | tablet | | | | 12 | | | + + + +---------+------+------+-------+ | metoprolol | Take 50 mg by mouth | | 0 | 01/1 | | Activ | | succinate | Daily. | | | 0/20 | | e | | (TOPROL-XL) 50 mg 24 | | | | 12 | | | | hr tablet | | | | | | | + + + +---------+------+------+-------+ | gabapentin | Take 100 mg by mouth | | 0 | | | Activ | | (NEURONTIN) 100 mg | 2 times daily. | | | | | e | | capsule | | | | | | | + + + +---------+------+------+-------+ | hydrALAZINE | Take 50 mg by mouth | | 0 | | | Activ | | (APRESOLINE) 25 mg | 3 times daily. | | | | | e | | tablet | | | | | | | + + + +---------+------+------+-------+ | raNITIdine | Take 150 mg by mouth | | 0 | | | Activ | | (ZANTAC) 150 mg | 2 times daily. | | | | | e | | tablet | | | | | | | + + + +---------+------+------+-------+ | aspirin 81 mg EC | Take 81 mg by mouth | | 0 | | | Activ | | tablet | Daily. | | | | | e | + + + +---------+------+------+-------+ | buPROPion | Take 300 mg by mouth | | 0 | | | Activ | | (WELLBUTRIN XL) 300 | every morning. | | | | | e | | mg 24 hr tablet | | | | | | | + + + +---------+------+------+-------+ | isosorbide | Take 60 mg by mouth | | 0 | | | Activ | | mononitrate 60 mg ER | Daily. | | | | | e | | tablet | | | | | | | + + + +---------+------+------+-------+ | VENTOLIN HFA 108 | INHALE TWO PUFFS BY | 18 g | 3 | 11/2 | | Activ | | (90 Base) MCG/ACT | MOUTH EVERY 6 HOURS | | | 5/20 | | e | | inhalerIndications: | NEEDED FOR | | | 19 | | | | Chronic obstructive | WHEEZING | | | | | | | pulmonary disease, | | | | | | | | unspecified COPD | | | | | | | | type (HCC) | | | | | | | + + + +---------+------+------+-------+ | | Inhale 1 puff into | 1 each | 11 | 04/ | | Activ | | fluticasone-umeclidi | the lungs Daily. | | | 03/25 | | e | | nium-vilanterol | | | | 20 | | | | (TRELEGY ELLIPTA) | | | | | | | | 100-62.5-25 mcg/puff | | | | | | | | inhaler | | | | | | | + + + +---------+------+------+-------+ Active Problems + + | Patient Care Coordination Note | + + | [facility] Evaluation: Yanique Prasad (1950), age 68Hx: MR, CAD s/p CABG | | x2 (2004, Unknown where) & KEYON RCA & Circ (Multiple, [id number]), Hx MS, CHF, AAA s/p | | repair, HTN, Hyperlipidemia, COPD/Emphysema, Pulmonary HTN, CKD, AnemiaReferring | | Provider: Dr. Gellerardiologist: Surgeon #1: Dr. Araiza 12/22/18 Risk Profile (MV | | Replacement Only): 14.6% (Final)STS Risk Profile (MV Repair): 9.9% (Final)Incremental | | STS Risk Factors: (+3%) FrailtyNew York Heart Failure Classification: IIIEchocardiogram | | (LOLA): EF%: Type of MR: (Functional/Degenerative/Both)PFTs & 6-minute walk test:DLCO- | | 39% FEV1(L)-1.42 FEV1%-55%Cardiac Cath: Rondon Analysis:[facility]ra[facility] Date: | | Medications to hold pre-procedure: None | |Incremental STS Risk Factors: (+3%) Frailty | |[place] Heart Failure Classification: III | | | |Echocardiogram (LOLA): | |EF%: | | | |Type of MR: (Functional/Degenerative/Both) | | | |PFTs & 6-minute walk test: | |DLCO- 39% FEV1(L)-1.42 FEV1%-55% | | | |Cardiac Cath: | | | |Rondon Analysis: | | | |MitraClip Date: | | | |Medications to hold pre-procedure: None | + + + + + | Problem | Noted Date | + + + | 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 | | + + + | Pulmonary emphysema | 12/22/2018 | + + + | Class 1 obesity due to excess calories in adult | 12/22/2018 | + + + | S/P CABG (coronary artery bypass graft) | 12/22/2018 | + + + | S/P coronary artery stent placement | 12/22/2018 | + + + + + | Overview: multiple | + + + + + | ABDOMINAL AORTIC ANEURYSM | 07/15/2011 | + + + | HYPERLIPIDEMIA | | + + + | Mitral regurgitation | | + + + | Pulmonary HTN | | + + + | CKD (chronic kidney disease), stage IV | | + + + | HTN (hypertension) | | + + + | HLD (hyperlipidemia) | | + + + | Coronary artery disease of [place] artery of [place] heart with | | | stable angina pectoris | | + + + Encounters +--------+ + + + + | Date | Type | Specialty | Care Team | Description | +--------+ + + + + | 11/01/ | Virtual | Pulmonology | Rodrigo Cruz MD | Chronic obstructive | | 2019 | Office | | | pulmonary disease, | | | Visit | | | unspecified COPD | | | | | | type (HCC) (Primary | | | | | | Dx); Centrilobular | | | | | | emphysema (HCC); | | | | | | Moderate to severe | | | | | | mitral regurgitation | +--------+ + + + + from Last 3 Months Immunizations + + + + | Name | Administration Dates | Next Due | + + + + | HEP A/HEP B, 3 DOSE | 11/02/2018, 09/06/2018 | | | (ADULT) | | | + + + + | INFLUENZA 63 Y OR >, | 04/21/2017, 06/09/2016 | | | TRIVALENT HIGH-DOSE | | | + + + + | INFLUENZA TRIV | 05/20/2013, 04/09/2011, 08/12/2010 | | | W/PRES(PED/ADOL/ADUL | | | | T),MULTIDOSE | | | + + + + | PNEUMOCOCCAL | 06/09/2016 | | | CONJUGATE 13-VALENT | | | | (PCV13) | | | + + + + | PNEUMOCOCCAL | 09/06/2018 | | | POLYSACCHARIDE | | | | 23-VALENT (PPSV23) | | | + + + + | TDAP, (ADOL/ADULT) | 08/14/2016, 08/20/2012 | | + + + + Family History + + +------+ + | Medical History | Relation | Name | Comments | + + +------+ + | Emphysema | Mother | | | + + +------+ + | Heart attack | Mother | | | + + +------+ + | Heart disease | Mother | | | + + +------+ + | Hypertension | Mother | | | + + +------+ + + +------+ + + | Relation | Name | Status | Comments | + +------+ + + | Father | | | dementia | | | | (Age | | | | | 73) | | + +------+ + + | Mother | | | | + +------+ + + | Mother | | | heart disease,HTN | | | | (Age | | | | | 68) | | + +------+ + + | Mother | | | | + +------+ + + Social History + +-------+ +--------+ [...] on file | | + + + Last Filed Vital Signs + + + + + | Vital Sign | Reading | Time Taken | Comments | + + + + + | Blood Pressure | 130/70 | 09/08/2019 2:47 PM | | | | | PST | | + + + + + | Pulse | 51 | 09/08/2019 2:47 PM | | | | | PST | | + + + + + | Temperature | 36.2 C (97.2 F) | 03/04/2019 12:22 PM | | | | | PDT | | + + + + + | Respiratory Rate | 18 | 09/02/2018 9:03 AM | | | | | PST | | + + + + + | Oxygen Saturation | 97% | 09/08/2019 2:47 PM | | | | | PST | | + + + + + | Inhaled Oxygen | - | - | | | Concentration | | | | + + + + + | Weight | 118.8 kg (262 lb) | 09/08/2019 2:47 PM | | | | | PST | | + + + + + | Height | 182.9 cm (6') | 09/08/2019 2:47 PM | | | | | PST | | + + + + + | Body Mass Index | 35.53 | 09/08/2019 2:47 PM | | | | | PST | | + + + + + Plan of Treatment +--------+ + + + + | Date | Type | Specialty | Care Team | Description | +--------+ + + + + | 02/01/ | Virtual | Pulmonology | Rodrigo Cruz MD | | | 2019 | Office | | [address] | | | | Visit | | [place] | | | | | | [address] | | | | | | | | +--------+ + + + + | 02/22/ | Office | Cardiology | Phylicia Patel DO | | | 2019 | Visit | | [address] | | | | | | [place] | | | | | | [address] | | | | | | | | +--------+ + + + + + + + + + | Health Maintenance | Due Date | Last | Comments | | | | Done | | + + + + + | Hepatitis C | | | | | Screening | 9 | | | + + + + + | Medication | | | | | Management | 9 | | | + + + + + | Colorectal Cancer | | | | | Screening | 9 | | | | (Colonoscopy) | | | | + + + + + | Vaccine: Zoster (1 | | | | | of 2) | 9 | | | + + + + + | Breast Cancer | | | | | Screening | 4 | | | + + + + + | Lung Cancer | | | | | Screening | 4 | | | + + + + + | Adult Annual | | | | | Wellness Visit | 9 | | | + + + + + | Statin Therapy | | | | | (optimal intensity) | 9 | | | + + + + + | Med Mgmt: Cr | | 01/14/20 | | | | 0 | 19, | | | | | 08/20/19 | | | | | 19, | | | | | 08/20/19 | | | | | 19, | | | | | Addition | | | | | al | | | | | history | | | | | exists | | + + + + + | Med Mgmt: HCT | | 01/14/20 | | | | 0 | 19, | | | | | 08/20/19 | | | | | 19, | | | | | 05/26/20 | | | | | 18, | | | | | Addition | | | | | al | | | | | history | | | | | exists | | + + + + + | Med Mgmt: HGB | | 01/14/20 | | | | 0 | 19, | | | | | 08/20/19 | | | | | 19, | | | | | 05/26/20 | | | | | 18, | | | | | Addition | | | | | al | | | | | history | | | | | exists | | + + + + + | Med Mgmt: PLT | | 01/14/20 | | | | 0 | 19, | | | | | 08/20/19 | | | | | 19, | | | | | 05/26/20 | | | | | 18, | | | | | Addition | | | | | al | | | | | history | | | | | exists | | + + + + + | Med Mgmt: RBC | | 01/14/20 | | | | 0 | 19, | | | | | 08/20/19 | | | | | 19, | | | | | 05/26/20 | | | | | 18, | | | | | Addition | | | | | al | | | | | history | | | | | exists | | + + + + + | Med Mgmt: WBC | | 01/14/20 | | | | 0 | 19, | | | | | 08/20/19 | | | | | 19, | | | | | 05/26/20 | | | | | 18, | | | | | Addition | | | | | al | | | | | history | | | | | exists | | + + + + + | Med Mgmt: eGFR | | 01/14/20 | | | | 0 | 19, | | | | | 08/20/19 | | | | | 19, | | | | | 08/20/19 | | | | | 19, | | | | | Addition | | | | | al | | | | | history | | | | | exists | | + + + + + | Vaccine: Influenza | | 04/21/20 | | | (#1) | 0 | 17, | | | | | 06/09/20 | | | | | 16, | | | | | 05/20/20 | | | | | 13, | | | | | Addition | | | | | al | | | | | history | | | | | exists | | + + + + + | Vaccine: | | 08/14/19 | | | Dtap/Tdap/Td (3 - | 7 | 17, | | | Td) | | 08/20/19 | | | | | 13 | | + + + + + | Vaccine: | Completed | 09/07/19 | | | Pneumococcal 65+ | | 19, | | | | | 06/09/20 | | | | | 16 | | + + + + + Results Not on filefrom Last 3 Months Insurance + +--------+ +--------+ +---------+--------+ | Payer | Benefi | Subscriber | Effect | Phone | Address | Type | | | t Plan | ID | tracey | | | | | | / | | Dates | | | | | | Group | | | | | | + +--------+ +--------+ +---------+--------+ | MEDICARE | MEDICA | [id number] | 01/04/20 | [phone] | | Medica | | | RE | | 18-Pre | 5 | | re | | | PART A | | sent | | | | | | AND B | | | | | | + +--------+ +--------+ +---------+--------+ | MEDICARE | MEDICA | [id number] | 01/04/20 | [phone] | | Medica | | | RE | | 18-Pre | 5 | | re | | | PART A | | sent | | | | | | AND B | | | | | | + +--------+ +--------+ +---------+--------+ | [employer] | MODA | [id number] | | [phone] | | Medica | | MEDICAID HMO | HEALTH | | 019-Pr | 1 | | id | | | MDCD | | esent | | | | | | [place]MO [place] | | | | | | + +--------+ +--------+ +---------+--------+ | [employer] | MODA | [id number] | | [phone] | | Medica | | MEDICAID HMO | HEALTH | | 020-Pr | 1 | | id | | | MDCD | | esent | | | | | | [place]MO [place] | | | | | | + +--------+ +--------+ +---------+--------+ + +--------+ +--------+ + + | Guarantor Name | Accoun | Relation to | Date | Phone | Billing Address | | | t Type | Patient | of | | | | | | | | | | + +--------+ +--------+ + + | Yanique Prasad | Person | Self [birth year] | [address] | | | al/Fam | | 1951 | [phone] | [place] | | | [place] | | | [address] (Home) | [address] | + +--------+ +--------+ + + | Yanique Prasad | Person | Self [birth year] | [address] | | | al/Fam | | 1951 | [phone] | [place] | | | [place] | | | [address] (Home) | [address] | + +--------+ +--------+ + + Advance Directives + + + + + | Type | Date Recorded | Patient | Explanation | | | | Asbestos Pipe Supervisor | | + + + + + | Power of | | | | | Packer And Carry Out | | | | + + + + + | Advance | | | | | Directive | | | | + + + + +"
--- OUTSIDE RECORDS SUMMARY | ~2020-02-01 | XMS | Encounter Summary ---
Demographics + + + | Address | [address] | | | [place] [address] | + + + | Home Phone | | + + + | Preferred Language | Unknown | + + + | Marital Status | | + + + | Anabaptism Affiliation | Unknown | + + + | Race | Unknown | + + + | Ethnic Group | Unknown | + + + Author + + + | Author | [facility] | | | and [place] | + + + | Organization | [facility] | | | and [...] Team Providers + +------+ + | [facility] Name | Role | Phone | + +------+ + | Heidi Koch MD | PCP | | + +------+ + Encounter Details +--------+ + + + + | Date | Type | Department | Care Team | Description | +--------+ + + + + | 02/26/ | Orders Only | [facility] | [place], | | | 2016 | | NEPHROLOGY [place] | DIGITAL TECHNICIAN [address] | | | | | [address] | [address] | | | | | [address] [place], [place] | [place] | | | | | [address] | [address] | | | | | [phone] | [phone] | | | | | | | [...] [place] | | | | | | [phone] | | | | | | | | +--------+ + + + + | 02/22/ | Office | Cardiology | Phylicia Patel DO | | | 2019 | Visit | | [address] | | | | | | [place] | | | | | | [phone] | | | | | | | | +--------+ + + + + documented as of this encounter Procedures + +--------+ + + + | Procedure Name | Priori | Date/Time | Associated Diagnosis | Comments | | | ty | | | | + +--------+ + + + | EXTERNAL LAB: CBC | Routin | 02/26/2017 | | Results for this | | | e | 1:50 PM | | procedure are in the | | | | PDT | | results section. | + +--------+ + + + | URINALYSIS, REFLEX | Routin | 02/26/2017 | | Results for this | | MICROSCOPIC AND/OR | e | 1:50 PM | | procedure are in the | | CULTURE | | PDT | | results section. | + +--------+ + + + | PROTEIN/CREATININE | Routin | 02/26/2017 | | Results for this | | RATIO, URINE | e | 1:50 PM | | procedure are in the | | | | PDT | | results section. | + +--------+ + + + | URIC ACID | Routin | 02/26/2017 | | Results for this | | | e | 1:50 PM | | procedure are in the | | | | PDT | | results section. | + +--------+ + + + | PARATHYROID HORMONE, | Routin | 02/26/2017 | | Results for this | | INTACT | e | 1:50 PM | | procedure are in the | | | | PDT | | results section. | + +--------+ + + + | MAGNESIUM | Routin | 02/26/2017 | | Results for this | | | e | 1:50 PM | | procedure are in the | | | | PDT | | results section. | + +--------+ + + + | RENAL FUNCTION PANEL | Routin | 02/26/2017 | | Results for this | | | e | 1:50 PM | | procedure are in the | | | | PDT | | results section. | + +--------+ + + + documented in this encounter Results Urinalysis, Reflex Microscopic and/or Culture (02/26/2017 1:50 PM PDT) + + + + + [...] + + + | Spec Grav, | 1.013 | 1.005 - 1.030 | EXTERNAL | [...] + +---------+ + + Protein/Creatinine Ratio, Urine (02/26/2017 1:50 PM PDT) + + + + + + | Component | Value | Ref Range | Performed | Pathologist | | | | | At | Signature | + + + + + + | Protein/Cre | 463.6 (A) | 0 - 150 | EXTERNAL [...] + +---------+ + + External Lab: CBC (02/26/2017 1:50 PM PDT) + + + + + + | Component | Value | Ref Range | Performed | Pathologist | | | | | At | Signature | + + + + + + | WBC | 5.8 | 4.5 - 11.0 10 | EXTERNAL | | | | | | LAB | | + + + + + + | Non- | 3.87 | 3.8 - 5.1 10 | EXTERNAL | | | Red Blood | | | LAB | | | Cells | | | | | | Counted | | | | | + + + + + + | Hemoglobin | 11.1 (A) | 12.0 - 16.0 | EXTERNAL | | | | | g/dL | LAB | | + + + + + + | Hematocrit, | 33.5 (A) | 35 - 45 % | EXTERNAL | | | POC | | | LAB | | + + + + + + | MCV | 86.5 | 81 - 99 fL | EXTERNAL [...] + + + + | Platelet | 330 | 140 - 440 K/ L | EXTERNAL | | | Count | | | LAB | | | Plasma | | | | | + + + + + + | RDW-CV | 14.4 | 10.5 - 15.0 % | EXTERNAL [...] | + +---------+ + + Uric Acid (02/26/2017 1:50 PM PDT) + +---------+ + + + | Component | Value | Ref Range | Performed | Pathologist | | | | | At | Signature | + +---------+ + + + | Uric Acid | 9.7 (A) | 2.3 - 6.6 | EXTERNAL [...] + +---------+ + + Parathyroid Hormone, Intact (02/26/2017 1:50 PM PDT) + +-------+ + + + | Component | Value | Ref Range | Performed | Pathologist | | | | | At | Signature | + +-------+ + + + | PTH INTACT | 47.47 | 15 - 65 pg/mL | EXTERNAL | | | | | [...] | | + +---------+ + + Magnesium (02/26/2017 1:50 PM PDT) + +-------+ + + + | Component | Value | Ref Range | Performed | Pathologist | | | | | At | Signature | + +-------+ + + + | Magnesium | 2.2 | 1.7 - 2.5 mg/dL | EXTERNAL [...] + +---------+ + + Renal Function Panel (02/26/2017 1:50 PM PDT) + + + + + + | Component | Value | Ref Range | Performed | Pathologist | | | | | At | Signature | + + + + + + | Glucose, | 83 | 70 - 100 mg/dL | EXTERNAL | | | Fasting | | | LAB | | + + + + + + | BUN | 49 (A) | 6 - 23 mg/dL | [...] + + + + | Albumin | 4.3 | 3.5 - 5.0 | EXTERNAL | | | | | | LAB | | + + + + + + | Na | 140 | 132 - 143 | EXTERNAL | | | | | mmol/L | LAB | | + + + + + + | K | 4.7 | 3.6 - 5.1 | EXTERNAL | | | | | mmol/L | LAB | | + + + + + + | Cl | 105 | 95 - 112 mmol/L | EXTERNAL | | | | | | LAB | | + + + + + + | CO2 | 20 | 19 - 31 mmol/L | EXTERNAL | | | | | | LAB | | + + + + + + | Anion Gap | 19.7 | 7 - 21 mmol/L | EXTERNAL | | | | | | LAB | | + + + + + + | eGFR, | | | EXTERNAL | | | non- | | | LAB | | | [place] | | | | | + + + + + + | Phosphorus, | 3.6 | 2.5 - 5.0 | EXTERNAL | | | Inorganic | | | LAB | | + + + + + + | BUN/Creatin | 16.0 | 6.0 - 28.6 | EXTERNAL | | | ine Ratio | | | LAB | | + + + + + + | Calcium | 9.9 | 8.4 - 10.2 | EXTERNAL | [...]
--- OUTSIDE RECORDS SUMMARY | ~2020-02-01 | XMS | Encounter Summary ---
Demographics + + + | Address | [address] | | | [place] [address] | + + + | Home Phone | | + + + | Preferred Language | Unknown | + + + | Marital Status | | + + + | Episcopal Affiliation | Unknown | + + + | Race | Unknown | + + + | Ethnic Group | Unknown | + + + Author + + + | Author | [facility] | | | and [place] | + + + | Organization | [facility] | | | [...] Team Providers + +------+ + | Care Drop Wire Stringer Name | Role | Phone | + +------+ + | Heidi Koch MD | PCP | | + +------+ + Encounter Details +--------+ + + + + | Date | Type | Department | Care Team | Description | +--------+ + + + + | 05/26/ | Orders Only | [facility] | Bull Wild, | | | 2017 | | NEPRHOLOGY [place] | HOME THERAPY CLINICIAN [address] | | | | | [address] | [address] | | | | | [address] [place], [place] | [place] | | | | | [address] | [address] | | | | | [phone] | [phone] | | | | | | | [...] [place] | | | | | | [phone] | | | | | | | | +--------+ + + + + documented as of this encounter Procedures + +--------+ + + + | Procedure Name | Priori | Date/Time | Associated Diagnosis | Comments | | | ty | | | | + +--------+ + + + | EXTERNAL LAB: CBC | Routin | 05/26/2018 | | Results for this | | | e | 12:00 AM | | procedure are in the | | | | PST | | results section. | + +--------+ + + + | URINALYSIS WITH | Routin | 05/26/2018 | | Results for this | | MICROSCOPIC IF | e | 12:00 AM | | procedure are in the | | INDICATED | | PST | | results section. | + +--------+ + + + | PROTEIN/CREATININE | Routin | 05/26/2018 | | Results for this | | RATIO, URINE | e | 12:00 AM | | procedure are in the | | | | PST | | results section. | + +--------+ + + + | URIC ACID | Routin | 05/26/2018 | | Results for this | | | e | 12:00 AM | | procedure are in the | | | | PST | | results section. | + +--------+ + + + | PARATHYROID HORMONE, | Routin | 05/26/2018 | | Results for this | | INTACT | e | 12:00 AM | | procedure are in the | | | | PST | | results section. | + +--------+ + + + | MAGNESIUM | Routin | 05/26/2018 | | Results for this | | | e | 12:00 AM | | procedure are in the | | | | PST | | results section. | + +--------+ + + + | RENAL FUNCTION PANEL | Routin | 05/26/2018 | | Results for this | | | e | 12:00 AM | | procedure are in the | | | | PST | | results section. | + +--------+ + + + documented in this encounter Results Protein/Creatinine Ratio, Urine (05/26/2018 12:00 AM PST) + + + + + + | Component | Value | Ref Range | Performed | Pathologist | | | | | At | Signature | + + + + + + | Protein/Cre | 616.3 (A) | 0 - 150 | EXTERNAL [...] + +---------+ + + Urinalysis with Microscopic if Indicated (05/26/2018 12:00 AM PST) + + + + + + | Component | Value | Ref Range | Performed | Pathologist | | | | | At | Signature | + + + + + + | Color | Yellow | | EXTERNAL | | | | | | LAB | | + + + + + + | Clarity, | Cloudy | | EXTERNAL | | | Urine | | | LAB | | + + + + + + | Spec Grav, | 1.019 | 1.005 - 1.030 | EXTERNAL | | | Fluid | | | LAB | | + + + + + + | Leukocyte | Comment: large | | EXTERNAL | | | Esterase, [...] + + + + | Total | 30 | | EXTERNAL | | | Protein [...] + + + + | Ketones | negative | | EXTERNAL | | | | | | LAB | | + + + + + + | Bilirubin, | Comment: positive | | EXTERNAL | | | Urine [...] | + +---------+ + + External Lab: DL (05/26/2018 12:00 AM PST) + + + + + + | Component | Value | Ref Range | Performed | Pathologist | | | | | At | Signature | + + + + + + | WBC | 6.5 | 4.5 - 11 10 | EXTERNAL | | | | | | LAB | | + + + + + + | Non- | 4.08 | 3.8 - 5.1 10 | EXTERNAL | | | Red Blood | | | LAB | | | Cells | | | | | | Counted | | | | | + + + + + + | Hemoglobin | 11.7 (A) | 12 - 16 g/dL | EXTERNAL | | | | | | LAB | | + + + + + + | Hematocrit, | 36.5 | 35 - 45 % | EXTERNAL | | | POC | | | LAB | | + + + + + + | MCV | 89.5 | 81 - 99 fL | EXTERNAL [...] + + + + | Platelet | 350 | 140 - 440 K/ L | EXTERNAL | | | Count | | | LAB | | | Plasma | | | | | + + + + + + | RDW-CV | 13.7 | 10.5 - 15 % | EXTERNAL | | | | [...] | + +---------+ + + Uric Acid (05/26/2018 12:00 AM PST) + +---------+ + + + | Component | Value | Ref Range | Performed | Pathologist | | | | | At | Signature | + +---------+ + + + | Uric Acid | 8.8 (A) | 2.3 - 6.6 | EXTERNAL [...] + +---------+ + + Parathyroid Hormone, Intact (05/26/2018 12:00 AM PST) + +-------+ + + + | Component | Value | Ref Range | Performed | Pathologist | | | | | At | Signature | + +-------+ + + + | PTH INTACT | 64.85 | 15 - 65 pg/mL | EXTERNAL [...] | | + +---------+ + + Magnesium (05/26/2018 12:00 AM PST) + +-------+ + + [...] + +---------+ + + Renal Function Panel (05/26/2018 12:00 AM PST) + + + + [...] + + + + | BUN | 35 (A) | 6 - 23 mg/dL | EXTERNAL | | | | | | LAB | | + + + + + + | Creatinine | 2.04 (A) | 0.70 - 1.25 | EXTERNAL | | | | | mg/dL | LAB | | + + + + + + | PHOSPHORUS | 3.7 | 2.5 - 5.0 mg/dL | EXTERNAL | | | | | | LAB | | + + + + + + | Albumin | 4.2 | 3.5 - 5.0 | EXTERNAL | | | | | | LAB | | + + + + + + | Na | 142 | 132 - 143 | EXTERNAL | | | | | mmol/L | LAB | | + + + + + + | K | 4.6 | 3.6 - 5.1 | EXTERNAL | | | | | mmol/L | LAB | | + + + + + + | Cl | 108 | 95 - 112 mmol/L | EXTERNAL | | | | | | LAB | | + + + + + + | CO2 | 20 | 19 - 31 mmol/L | EXTERNAL | | | | | | LAB | | + + + + + + | Anion Gap | 18.6 | 7 - 21 mmol/L | EXTERNAL | | | | | | LAB | | + + + + + + | eGFR, | | | EXTERNAL | | | non- | | | LAB | | | Turkish | | | | | + + + + + + | Phosphorus, | | | EXTERNAL | | | Inorganic | | | LAB | | + + + + + + | BUN/Creatin | 17.2 | 6 - 28.6 | EXTERNAL | | | ine Ratio | | | LAB | | + + + + + + | Calcium | 9.8 | 8.5 - 10.3 | EXTERNAL | | | | | mg/dL | LAB | | + + + + + + | Estimated | 24 | mg/dL | EXTERNAL | | | [...]
--- OUTSIDE RECORDS SUMMARY | ~2020-02-01 | XMS | Encounter Summary ---
Demographics + + + | Address | [address] | | | [place] [address] | + + + | Home Phone | | + + + | Preferred Language | Unknown | + + + | Marital Status | | + + + | Catholic Affiliation | Unknown | + + + | Race | Unknown | + + + | Ethnic Group | Unknown | + + + Author + + + | Author | [facility] | | | and [place] | + + + | Organization | [facility] | | | and [...] Team Providers + +------+ + | Care Client Services Specialist Name | Role | Phone | + +------+ + | Heidi Koch MD | PCP | | + +------+ + Encounter Details +--------+ + + + + | Date | Type | Department | Care Team | Description | +--------+ + + + + | 01/13/ | Orders Only | [facility] | Conversion | | | 2019 | | [facility]OLOGY [place] | Transaction, | | | | | [address] | Provider Unknown | | | | | [address] [place], [place] | [phone] | | | | | [address] | | | | | | [phone] | | | +--------+ + + + + Social History + +-------+ +--------+ + | Tobacco Use | Types | Packs/Day | Years | Date | | | | | Used | | + +-------+ +--------+ + | Former Smoker | | | | Quit: 07/06/2008 | + +-------+ [...] RIOS | | | | | | [id number] | | | | | | | | +--------+ + + + + documented as of this encounter Procedures + +--------+ + + + | Procedure Name | Priori | Date/Time | Associated Diagnosis | Comments | | | ty | | | | + +--------+ + + + | EXTERNAL LAB: CBC | Routin | 01/13/2019 | | Results for this | | | e | 12:00 AM | | procedure are in the | | | | PDT | | results section. | + +--------+ + + + | PROTEIN/CREATININE | Routin | 01/13/2019 | | Results for this | | RATIO, URINE | e | 12:00 AM | | procedure are in the | | | | PDT | | results section. | + +--------+ + + + | URIC ACID | Routin | 01/13/2019 | | Results for this | | | e | 12:00 AM | | procedure are in the | | | | PDT | | results section. | + +--------+ + + + | MAGNESIUM | Routin | 01/13/2019 | | Results for this | | | e | 12:00 AM | | procedure are in the | | | | PDT | | results section. | + +--------+ + + + | RENAL FUNCTION PANEL | Routin | 01/13/2019 | | Results for this | | | e | 12:00 AM | | procedure are in the | | | | PDT | | results section. | + +--------+ + + + documented in this encounter Results Protein/Creatinine Ratio, Urine (01/13/2019 12:00 AM PDT) + + + + + + | Component | Value | Ref Range | Performed | Pathologist | | | | | At | Signature | + + + + + + | Protein/Cre | 532.4 (A) | 0 - 150.0 | EXTERNAL | | | at Ratio | | | LAB | | + + + + + + + + | Specimen | + + | Urine specimen | | (specimen) | + + + + + | Narrative | Performed At | + + + | PROTEIN, URINE - 52 - 0.0 - 50.0 CREATININE, URINE - 97.68 | EXTERNAL LAB | + + + + +---------+ + + | Performing | Address | City/State/Zipcode | Phone Number | | Organization | | | | + +---------+ + + | EXTERNAL LAB | | | | + +---------+ + + External Lab: CBC (01/13/2019 12:00 AM PDT) + +---------+ + + + | Component | Value | Ref Range | Performed | Pathologist | | | | | At | Signature | + +---------+ + + + | WBC | 6.2 | 4.5 - 11.0 10 | EXTERNAL | | | | | | LAB | | + +---------+ + + + | Non- | 4.36 | 3.8 - 5.1 10 | EXTERNAL | | | Red Blood | | | LAB | | | Cells | | | | | | Counted | | | | | + +---------+ + + + | Hemoglobin | 12.4 | 12.0 - 16.0 | EXTERNAL | | | | | g/dL | LAB | | + +---------+ + + + | Hematocrit, | 38.6 | 35 - 45 % | EXTERNAL | | | POC | | | LAB | | + +---------+ + + + | MCV | 88.5 | 81 - 99 fL | EXTERNAL | | | | | | LAB | | + +---------+ + + + | MCH | 28 | 27 - 33 pg | EXTERNAL | | | | | | LAB | | + +---------+ + + + | MCHC | 32 | 30 - 36 g/dL | EXTERNAL | | | | | | LAB | | + +---------+ + + + | Platelet | 396 | 140 - 440 K/ L | EXTERNAL | | | Count | | | LAB | | | Plasma | | | | | + +---------+ + + + | RDW-CV | 14.9 | 10.5 - 15.0 % | EXTERNAL | | | | | | LAB | | + +---------+ + + + | MPV | | fL | EXTERNAL | | | | | | LAB | | + +---------+ + + + | Differentia | | | EXTERNAL | | | l Type | | | LAB | | + +---------+ + + + | % Segmented | 55.2 | 39 - 80 % | EXTERNAL | | | | | | LAB | | | Neutrophils | | | | | + +---------+ + + + | % | 25.3 | 24 - 44 % | EXTERNAL | | | Lymphocytes | | | LAB | | + +---------+ + + + | % Monocytes | 11.5 | 0 - 12 % | EXTERNAL | | | | | | LAB | | + +---------+ + + + | % | 7.1 (A) | 0 - 6 % | EXTERNAL | | | Eosinophils | | | LAB | | + +---------+ + + + | % Basophils | 0.9 | 0 - 2 % | EXTERNAL | | | | | | LAB | | + +---------+ + + + | Absolute | | / L | EXTERNAL | | | Segmented | | | LAB | | | Neutrophils | | | | | + +---------+ + + + | Absolute | | / L | EXTERNAL | | | Lymphocytes | | | LAB | | + +---------+ + + + | Absolute | | / L | EXTERNAL | | | Monocytes | | | LAB | | + +---------+ + + + | Absolute | | / L | EXTERNAL | | | Eosinophils | | | LAB | | + +---------+ + + + | Absolute | | [...] | + +---------+ + + Uric Acid (01/13/2019 12:00 AM PDT) + +---------+ + + + | Component | Value | Ref Range | Performed | Pathologist | | | | | At | Signature | + +---------+ + + + | Uric Acid | 8.5 (A) | 2.3 - 6.6 | EXTERNAL [...] | | + +---------+ + + Magnesium (01/13/2019 12:00 AM PDT) + +-------+ + + + | Component | Value | Ref Range | Performed | Pathologist | | | | | At | Signature | + +-------+ + + + | Magnesium | 2.4 | 1.7 - 11.0 | EXTERNAL | | | | | mg/dL | LAB | | + +-------+ + + + + + | Specimen | + + | Blood specimen | | (specimen) | + + + +---------+ + + | Performing | Address | City/State/Zipcode | Phone Number | | Organization | | | | + +---------+ + + | EXTERNAL LAB | | | | + +---------+ + + Renal Function Panel (01/13/2019 12:00 AM PDT) + + + + [...] + + + + | BUN | 45 (A) | 6 - 23 mg/dL | EXTERNAL | | | | | | LAB | | + + + + + + | Creatinine | 2.47 (A) | 0.70 - 1.18 | EXTERNAL | | | | | [...] + + + + | K | 5.1 | 3.6 - 5.1 | EXTERNAL | [...] + + + | Anion Gap | 17.1 | 7 - 21 mmol/L | EXTERNAL | | | | | | LAB | | + + + + + + | eGFR, | | | EXTERNAL | | | non- | | | LAB | | | Bangl[place]hi | | | | | + + + + + + | Phosphorus, | 4.5 | 2.5 - 5.0 | EXTERNAL | | | Inorganic | | | LAB | | + + + + + + | BUN/Creatin | 18.2 | 6.0 - 28.6 | EXTERNAL | | | ine Ratio | | | LAB | | + + + + + + | Calcium | 9.5 | 8.5 - 10.3 | EXTERNAL | | | | | mg/dL | LAB | | + + + + + + | Estimated | 19 | mg/dL | EXTERNAL | | | [...]
--- OUTSIDE RECORDS SUMMARY | ~2020-02-01 | XMS | Encounter Summary ---
Demographics + + + | Address | [address] | | | [place] [address] | + + + | Home Phone | | + + + | Preferred Language | Unknown | + + + | Marital Status | | + + + | Protestant Affiliation | Unknown | + + + | Race | Unknown | + + + | Ethnic Group | Unknown | + + + Author + + + | Author | [facility] | | | and [place] | + + + | Organization | [facility] | | | and [...] Team Providers + +------+ + | Care Sheriff'S Sergeant Name | Role | Phone | + +------+ + | Heidi Koch MD | PCP | | + +------+ + Encounter Details +--------+ + + + + | Date | Type | Department | Care Team | Description | +--------+ + + + + | 11/19/ | Orders Only | [facility] | Oskar Rainey MD | | | 2016 | | NEPHROLOGY [place] | [address] [place] | | | | | [address] [place] | [address] [place], [place] | | | | | [address] [place], [place] | [address] | | | | | [address] | | | | | | [phone] | | | +--------+ + + + [...] RIOS | | | | | | [id number] | | | | | | | | +--------+ + + + + documented as of this encounter Procedures + +--------+ + + + | Procedure Name | Priori | Date/Time | Associated Diagnosis | Comments | | | ty | | | | + +--------+ + + + | EXTERNAL LAB: CBC | Routin | 11/19/2016 | | Results for this | | | e | 12:00 AM | | procedure are in the | | | | PDT | | results section. | + +--------+ + + + | URINALYSIS WITH | Routin | 11/19/2016 | | Results for this | | MICROSCOPIC IF | e | 12:00 AM | | procedure are in the | | INDICATED | | PDT | | results section. | + +--------+ + + + | VITAMIN D, | Routin | 11/19/2016 | | Results for this | | DEFICIENCY SCREEN | e | 12:00 AM | | procedure are in the | | (25-HYDROXY) | | PDT | | results section. | + +--------+ + + + | PROTEIN/CREATININE | Routin | 11/19/2016 | | Results for this | | RATIO, URINE | e | 12:00 AM | | procedure are in the | | | | PDT | | results section. | + +--------+ + + + | CULTURE, URINE | Routin | 11/19/2016 | | Results for this | | | e | 12:00 AM | | procedure are in the | | | | PDT | | results section. | + +--------+ + + + | URIC ACID | Routin | 11/19/2016 | | Results for this | | | e | 12:00 AM | | procedure are in the | | | | PDT | | results section. | + +--------+ + + + | PARATHYROID HORMONE, | Routin | 11/19/2016 | | Results for this | | INTACT | e | 12:00 AM | | procedure are in the | | | | PDT | | results section. | + +--------+ + + + | MAGNESIUM | Routin | 11/19/2016 | | Results for this | | | e | 12:00 AM | | procedure are in the | | | | PDT | | results section. | + +--------+ + + + | RENAL FUNCTION PANEL | Routin | 11/19/2016 | | Results for this | | | e | 12:00 AM | | procedure are in the | | | | PDT | | results section. | + +--------+ + + + documented in this encounter Results Culture, Urine (11/19/2016 12:00 AM PDT) + + | Specimen | + + | Urine specimen | | (specimen) | + + + + + | Narrative | Performed At | + + + | Specimen Description Urine CULTURE | EXTERNAL LAB | | Probable Contaminants, suggest | | | recollection. REPORT STATUS Final | | | | | + + + + +---------+ + + | Performing | Address | City/State/Zipcode | Phone Number | | Organization | | | | + +---------+ + + | EXTERNAL LAB | | | | + +---------+ + + Protein/Creatinine Ratio, Urine (11/19/2016 12:00 AM PDT) + + + + + + | Component | Value | Ref Range | Performed | Pathologist | | | | | At | Signature | + + + + + + | Protein/Cre | 413.0 (A) | 0 - 150 | EXTERNAL [...] + + Vitamin D, Deficiency Screen (25-Hydroxy) (11/19/2016 12:00 AM PDT) + +-------+ + + + | Component | Value | Ref Range | Performed | Pathologist | | | | | At | Signature | + +-------+ + + + | Vit D, | 71 | 30 - 100 | EXTERNAL | [...] + + Urinalysis with Microscopic if Indicated (11/19/2016 12:00 AM PDT) + + + + + + | Component | Value | Ref Range | Performed | Pathologist | | | | | At | Signature | + + + + + + | Color | Yellow | | EXTERNAL | | | | | | LAB | | + + + + + + | Clarity, | Turbid | | EXTERNAL | | | Urine | | | LAB | | + + + + + + | Spec Grav, | 1.017 | 1.005 - 1.030 | EXTERNAL | | | Fluid | | | LAB | | + + + + + + | Leukocyte | Comment: 500 | | EXTERNAL | | | [...] + +---------+ + + External Lab: CBC (11/19/2016 12:00 AM PDT) + + + + + + | Component | Value | Ref Range | Performed | Pathologist | | | | | At | Signature | + + + + + + | WBC | 6.8 | 4.5 - 11.0 10 | EXTERNAL | | | | | | LAB | | + + + + + + | Non- | 4.09 | 3.8 - 5.1 10 | EXTERNAL | | | Red Blood | | | LAB | | | Cells | | | | | | Counted | | | | | + + + + + + | Hemoglobin | 11.9 (A) | 12.0 - 16.0 | EXTERNAL | | | | | g/dL | LAB | | + + + + + + | Hematocrit, | 35.9 | 35 - 45 % | EXTERNAL [...] + + + + | Platelet | 324 | 140 - 440 K/ L | [...] | + +---------+ + + Uric Acid (11/19/2016 12:00 AM PDT) + + + + + + | Component | Value | Ref Range | Performed | Pathologist | | | | | At | Signature | + + + + + + | Uric Acid | 10.5 (A) | 2.3 - 6.6 | EXTERNAL [...] + +---------+ + + Parathyroid Hormone, Intact (11/19/2016 12:00 AM PDT) + +-------+ + + + | Component | Value | Ref Range | Performed | Pathologist | | | | | At | Signature | + +-------+ + + + | PTH INTACT | 27.76 | 15 - 65 pg/mL | EXTERNAL [...] | | + +---------+ + + Magnesium (11/19/2016 12:00 AM PDT) + +-------+ + + [...] + +---------+ + + Renal Function Panel (11/19/2016 12:00 AM PDT) + + + + + + | Component | Value | Ref Range | Performed | Pathologist | | | | | At | Signature | + + + + + + | Glucose, | 88 | 70 - 100 mg/dL | EXTERNAL | | | Fasting | | | LAB | | + + + + + + | BUN | 54 (A) | 6 - 23 mg/dL | EXTERNAL | | | | | | LAB | | + + + + + + | Creatinine | 3.60 (A) | 0.70 - 1.25 | EXTERNAL [...] + + | Na | 139 | 132 - 143 | EXTERNAL | [...] | | | LAB | | | Trin[place] | | | | | + + + + + + | Phosphorus, | 4.0 | 2.5 - 5.0 | EXTERNAL | | | Inorganic | | | LAB | | + + + + + + | BUN/Creatin | 15.0 | 6.0 - 28.6 | EXTERNAL | [...]
--- OUTSIDE RECORDS SUMMARY | ~2020-02-01 | XMS | Encounter Summary ---
Demographics + + + | Address | [address] | | | [place] [address] | + + + | Home Phone | | + + + | Preferred Language | Unknown | + + + | Marital Status | | + + + | Pentecostalism Affiliation | Unknown | + + + | Race | Unknown | + + + | Ethnic Group | Unknown | + + + Author + + + | Author | [facility] | | | and [place] | + + + | Organization | [facility] | | | [...] Team Providers + +------+ + | Care Truck Body Builder Apprentice Name | Role | Phone | + +------+ + | Heidi Koch MD | PCP | | + +------+ + Reason for Visit + + + | Reason | Comments | + + + | Follow-up | 3 month / Monitor | + + + Encounter Details +--------+---------+ + + + | Date | Type | Department | Care Team | Description | +--------+---------+ + + + | 03/24/ | Office | [facility] | Phylicia Patel DO | Coronary artery | | 2019 | Visit | CARDIOLOGY [place] | [address] | disease of | | | | [address] | [place] | autologous vein | | | | [address] | [id number] | bypass graft with | | | | [place], [place] | | stable angina | | | | [address] | | pectoris (HCC) | | | | [phone] | | (Primary Dx); | | | | | | Abdominal aortic | | | | | | aneurysm (AAA) | | | | | | without rupture | | | | | | (HCC); Non-rheumatic | | | | | | mitral | | | | | | regurgitation; | | | | | | Pulmonary HTN (HCC); | | | | | | Hypertension, | | | | | | unspecified type; | | | | | | Hyperlipidemia, | | | | | | unspecified | | | | | | hyperlipidemia type; | | | | | | Pulmonary | | | | | | emphysema, | | | | | | unspecified | | | | | | emphysema type | | | | | | (HCC); CKD (chronic | | | | | | kidney disease), | | | | | | stage IV (HCC) | +--------+---------+ + + + Social History + +-------+ [...] + + documented as of this encounter Last Filed Vital Signs + + + + + | Vital Sign | Reading | Time Taken | Comments | + + + + + | Blood Pressure | 140/66 | 03/24/2019 1:35 PM | | | | | PDT | | + + + + + | Pulse | 71 | 03/24/2019 1:35 PM | | | | | PDT | | + + + + + | Temperature | - | - | | + + + + + | Respiratory Rate | - | - | | + + + + + | Oxygen Saturation | 97% | 03/24/2019 1:35 PM | | | | | PDT | | + + + + + | Inhaled Oxygen | - | - | | | Concentration | | | | + + + + + | Weight | 117 kg (258 lb) | 03/24/2019 1:35 PM | | | | | PDT | | + + + + + | Height | 180.3 cm (5' 11") | 03/24/2019 1:35 PM | | | | | PDT | | + + + + + | Body Mass Index | 35.98 | 03/24/2019 1:35 PM | | | | | PDT | | + + + + + documented in this encounter Patient Instructions Patient Instructions Phylicia Patel DO - 03/24/2019 1:40 PM PDT- I am increasing your Hydr alazine to 50mg by mouth three times daily. - Please obtain blood work including a BNP - Please obtain an echocardiogram before our next visit - I am referring you to Dr. Casas, pulmonology in [place]. - Follow up in 3 months documented in this encounter Progress Notes Phylicia Patel DO - 03/24/2019 1:40 PM PDT [facility] Cardiology Cardiology Follow Up Note Reason for Consultation: establish care/prior patient of Dr. Smith Requesting Physician: Heidi Koch History Obtained From: patient HISTORY OF PRESENT ILLNESS: Cardiac Problem List 1. CAD - S/P inferior PA - CABG 2004 (WARD-LAD, SVG-D1) - 08/19/2005 KEYON placed to LCx 3.5x8mm Taxus - 12/23/2006 KEYON placed to RCA 3.0x12mm Taxus - 04/19/2007 KEYON placed to RCA 3.5x3.0mm Taxus - 12/14/2007 KEYON placed to LCx 2.06k83nc Taxus - 12/05/14 cath LAD occluded at the ostium, prox LCx stents patent, tandem 60% OM2 stenosis, RCA stents patent, 90% mid PDA stenosis, WARD-LAD patent SVG-D1 with severe disease. 2. HTN 3. HLD 4. Pulmonary HTN 5. Mod-severe MR 6. AAA repair Non Cardiac Problem List 7. COPD 8. CKD 4 9. OA 10. Nephrolithiasis The patient is a 68-year-old female with the above past medical histories, who presents to the Cardiology office for initial consultation to establish care. She was previously follow ed by Dr. Smith. She has been seen and followed closely by Dk Song since Dr. Halie salas retired. The patient was last seen on 09/02/2018 by Dk. At that time, she was fol lowing up to assess her response to hydralazine added to her medical regimen. She was toy ating the hydralazine well at that time and denied any lower extremity swelling. She had be en started on a new inhaler, Breo, which helped improve symptoms of shortness of breath that she was having. She reported 2 episodes of chest pressure, which were quickly alleviated w ith nitro. She had some reported palpitations. There were plans for her to follow up with Pulmonology on 09/21/2018. The patient reports that since she was last seen, she has developed some intermittent palpi tations. These primarily occur when she is lying in bed. She describes them as a sudden on set, fast irregular heartbeat, which typically lasts a few minutes. It happened a total of 3 times. It occurred the night before last, then 3 days before that, then 1 week before ranjan t. She drinks 1 small cup of coffee per day. She denies any history of any thyroid issues. She denies any episodes of syncope or presyncope. The patient reports that she has needed to take nitroglycerin twice since she last saw Ирина Patino due to symptoms of chest pain. Both of these episodes were completely alleviated with nitroglycerin. She has not noticed any correlation of the chest pain with her symptoms of palpitations. She denies any lower extremity swelling. She does have some chronic dyspnea on exertion and reports that she cannot walk across the room without becoming short of breat h. Until 8 years ago, she was smoking up to 2 packs of cigarettes per day. I suspect that she does have underlying pulmonary disease as well. She lives alone and is able to do all o f her ADLs, cleaning and chores. She does not partake in any regular physical activity asid e from this. She checks her blood pressures at home and reports that they have been very we ll controlled lately with systolics in the 110s-120s. The patient was seen by me in consultation 09/09/18. At that time, we ordered a 2-week event monitor to work-up some symptoms of palpitations that she had been having. I also referred her to cardiac rehab. The patient reports that she is feeling okay today. She never obtai ethel her Holter monitor that was ordered at last visit. She reports that she has had several doctors visits and was feeling a little overwhelmed which is why she did not get this test. She has had a few palpitations since we last saw each other but reports that they have not been quite as bad as they were at last visit. She has not had any episodes of syncope or p resyncope. She denies any lower extremity swelling. She does admit to some orthopnea. Sin ce we last saw each other, she has lost a few pounds. She believes that her breathing is wo rse than it was 1 month ago. She had recent pulmonary function testing which demonstrated m oderately severe obstructive airway disease, probable restriction, and severe diffusion defe ct. She also reports that she has had intermittent wheezing and coughing. She has had less chest pain recently than she had before. She has not had to use any sublingual nitro since we last saw each other. Interim history I last saw the patient on 11/11/2018. At that time, we ordered a 2-week event monitor. e plan was to repeat an echocardiogram in a year to follow her mitral valve. Her event lyla tor demonstrated sinus rhythm. No atrial fibrillation that was detected. Since I last saw her, she followed up with Dr. Araiza in [place] for consideration of a MitraClip. He recomme nded a coronary angiogram and a 3D LOLA. He referred her to a fitness club manager there to have sukh procedures done. The patient reports that she was not really interested in getting a Mi traClip and was feeling okay. She decided against pursuing a coronary angiogram or LOLA. Sh cheng prefers to continue with medical management and monitoring of her mitral valve. She is re questing a referral to a different mail weigher. Since I last saw the patient, she has bee n doing about at her baseline. She reports a few episodes of chest pain, which were brief and mild. She continues to have issues with dyspnea on exertion. She denies any lower extr emity swelling. She has occasional orthopnea, but denies any PND. She denies any episodes of syncope or presyncope since we last saw each other. Review of Systems Constitutional: positive for fatigue. HENT: Negative for nosebleeds. Eyes: Negative for visual disturbance. She wears glasses. Respiratory: She has chronic SOB, COPD, extensive smoking history Cardiovascular: see HPI Gastrointestinal: Negative for nausea, vomiting, abdominal pain and blood in stool. She has GERD Genitourinary: Negative for hematuria or dysuria. She has CKD. Musculoskeletal: Negative for myalgias, back pain. She has arthritis with persistent left h ip pain. Skin: Negative for color change. Neurological: Negative for dizziness, syncope and numbness. Hematological: Does not bruise/bleed easily. Psychiatric/Behavioral: The patient is not nervous/anxious. PAST MEDICAL & SURGICAL HISTORY Past Medical History Diagnosis Date Arthritis COPD (chronic obstructive pulmonary disease) (HCC) Heart attack (HCC) Heart disease Hyperlipidemia Hypertension Kidney stones Past Surgical History Procedure Laterality Date ABDOMINAL SURGERY aneurysm ARTERIAL ANEURYSM REPAIR iliac x 2 CARDIAC SURGERY CORONARY ANGIOPLASTY CORONARY ARTERY BYPASS GRAFT HYSTERECTOMY LUNG SURGERY 1997 for gel like mass? , not cancer REMOVAL IMPLANT SUPERFICIAL SPX UNLISTED PROCEDURE ARTHROSCOPY MEDICATIONS Home Medications Outpatient Encounter Prescriptions as of 11/11/2018 Medication Sig Dispense Refill aspirin 81 MG chewable tablet Take 81 mg by mouth daily with breakfast. buPROPion (WELLBUTRIN XL) 300 MG 24 hr tablet Take 150 mg by mouth every morning. clopidogrel (PLAVIX) 75 MG tablet Take 1 tablet by mouth daily. 90 tablet 0 Fluticasone Furoate-Vilanterol (BREO ELLIPTA) 200-25 MCG/INH AEPB Inhale 1 puff into th e lungs daily. gemfibrozil (LOPID) 600 MG tablet Take 1 tablet by mouth 2 (two) times daily. 180 table t 3 hydrALAZINE (APRESOLINE) 25 MG tablet Take 1 tablet by mouth 3 (three) times daily. 90 tablet 11 hydrOXYzine (VISTARIL) 25 MG capsule Take 25 mg by mouth 2 (two) times daily. isosorbide mononitrate (IMDUR) 60 MG 24 hr tablet Take 1 tablet by mouth daily. 90 tabl et 3 Magnesium 250 MG TABS tablet Take 250 mg by mouth daily. metoprolol (TOPROL-XL) 50 MG 24 hr tablet Take 1 tablet by mouth 2 (two) times daily. 1 80 tablet 3 nitroGLYCERIN (NITROSTAT) 0.[address] 1 tablet under the tongue every 5 (fiv e) minutes as needed for Chest pain. 25 tablet 11 pravastatin (PRAVACHOL) 40 MG tablet Take 1 tablet by mouth nightly. 90 tablet 3 ranitidine (ZANTAC) 150 MG capsule Take 150 mg by mouth 2 (two) times daily. UNABLE TO FIND Apply topically as needed. Theraworx relief No facility-administered encounter medications on file as of 11/11/2018. Allergies Allergies Allergen Reactions Allopurinol Itching Severe itching. Peanut-Containing Drug Products Shortness of Breath Tree Nut Anaphylaxis and Swelling Codeine Nausea and Vomiting and Other (See Comments) FAMILY HISTORY Family History Problem Relation Age of Onset Heart disease Mother Hypertension Mother SOCIAL HISTORY Social History Social History Marital status: Single Spouse name: N/A Number of children: N/A Years of education: N/A Occupational History disabled Social History Main Topics Smoking status: Former Smoker Packs/day: 1.50 Years: 36.00 Types: Cigarettes Quit date: 08/20/2008 Smokeless tobacco: Never Used Alcohol use No Drug use: No Sexual activity: Not Currently Partners: Male Other Topics Concern Not on file Social History Narrative No narrative on file PHYSICAL EXAM Vitals: 03/24/19 1335 BP: 140/66 Pulse: 71 SpO2: 97% Weight: 117 kg (258 lb) Height: 1.803 m (5' 11") Physical Exam GENERAL: Well developed, well nourished, in no distress. Appears approximately stated age . Ambulates with a 4 wheel walker. HEENT: Normocephalic, atraumatic. EYES: PERRL, sclerae anicteric, no xanthelsasmas NECK: No JVD, lymphadenopathy, thyromegaly, bruits. Carotid pulses are 2+ bilaterally LUNGS: Coarse breath sounds b/l, with no rales, rhonchi or wheezing noted, respirations un labored HEART: Nondisplaced PMI, regular rate and rhythm, S1, S2 normal. II/ systolic murmur, n o rubs or gallops noted. ABDOMEN: Soft, nontender, no organomegaly, masses or bruits. Bowel sounds are normal in a ll 4 quadrants. EXTREMITIES: No edema. Radial pulses 2+ bilaterally. DP and PT pulses are 2+ bilaterally. SKIN: Warm and dry, capillary refill is normal, no lesions. NEUROLOGIC: Awake, alert and oriented x 3. No focal motor deficits. PSYCHIATRIC: Appropriate, affect appears normal DATA Results for YANIQUE PRASAD ( ) as of 09/09/2018 09:28 Ref. Range 08/20/2018 11:20 SODIUM Latest Ref Range: 132 - 143 141 POTASSIUM Latest Ref Range: 3.6 - 5.1 mmol/L 5.0 CHLORIDE Latest Ref Range: 95 - 112 mmol/L 104 CO2 Latest Ref Range: 19 - 31 mmol/L 21 ANION GAP AGAP Latest Ref Range: 7 - 21 mmol/L 21.0 GLUCOSE Latest Ref Range: 70 - 100 mg/dL 97 BUN Latest Ref Range: 6 - 23 mg/dL 42 (A) CREATININE Latest Ref Range: 0.70 - 1.18 mg/dL 2.95 (A) BUN/CREAT Latest Ref Range: 6.0 - 28.6 14.2 CALCIUM Latest Ref Range: 8.5 - 10.3 mg/dL 9.9 TOTAL PROTEIN Latest Ref Range: 6.0 - 8.3 g/dL 7.7 ALBUMIN Latest Ref Range: 3.5 - 5.0 4.6 GLOBULIN Latest Ref Range: 1.8 - 3.5 3.1 TBIL Latest Ref Range: 0.0 - 1.2 mg/dL 0.4 ALK PHOS Latest Ref Range: 13 - 130 110 AST Latest Ref Range: 13 - 39 U/L 12 (A) ALT Latest Ref Range: 7 - 52 U/L 8 EGFR Latest Ref Range: 60 - 140 mg/dL 16 (A) A/G Latest Ref Range: 1.1 - 2.4 1.5 Results for YANIQUE PRASAD ( ) as of 09/09/2018 09:28 Ref. Range 07/28/2018 09:25 CHOLESTEROL Latest Ref Range: <200 mg/dL 164 HDL Latest Ref Range: >40 mg/dl 67.8 LDL CALC Latest Ref Range: <100 mg/dL 74 CHOL/HDL Latest Ref Range: <4.44 2.4 VLDL CHOL Latest Ref Range: 4 - 40 mg/dL 22 Results for YANIQUE PRASAD ( ) as of 09/09/2018 09:28 Ref. Range 08/20/2018 11:20 HEMOGLOBIN A1C Latest Units: % 5.0 Results for YANIQUE PRASAD ( ) as of 09/09/2018 09:28 Ref. Range 08/20/2018 11:20 WBC Latest Ref Range: 4.5 - 11.0 10^3/mL 6.1 RBC Latest Ref Range: 3.8 - 5.1 10^6/L 4.34 HGB Latest Ref Range: 12.0 - 16.0 g/dL 12.2 HCT Latest Ref Range: 35 - 45 % 38.0 MCV Latest Ref Range: 81 - 99 fL 87.6 MCH Latest Ref Range: 27 - 33 pg 28 MCHC Latest Ref Range: 30 - 36 g/dL 32 RDW Latest Ref Range: 10.5 - 15.0 % 14.5 Platelets Latest Ref Range: 140 - 450 K/L 333 CARDIAC PROCEDURES/IMAGING Hx CAB: CABG x 2(WARD to LAD, SVG to D1). Hx PCI/stent: 08/17/2005,RCA (3.5*18 mm Vision) 08/19/2005, LCx (3.5*8mm Taxus KEYON) 12/23/2006, RCA (3.0*12mm Taxus KEYON) 04/19/2007, RCA (3.5*8mm, 3.0*16mm Taxus KEYON's) 12/14/2007,LCx (2.75*12mm Taxus KEYON) Last Cath, 12/05/2014 ([facility]):Left main OK, LAD occluded at ostium, prox-LCx stents patent, tandem 60% OM2, RCA stents patent, 90% mid-PDA. WARD to LAD patent, SVG to D1 severe diff use disease. LVEF 55-60%. Last Stress Test:, MPI, 08/17/2012: postero-basal infarction, no ongoing ischemia, LVEF 58%. VASCULAR IMAGING AND PROCEDURES: 10/06/2011: [facility] : abdominal aortic aneurysm resection with aortoiliac bypass.(Dr. Fr dyan Sears) ECHO: Last 06/18/2018: ([facility]). Sinus rhythm, rare irregular beats. TAS. EF 55-60. LV normal in size and wall thickness, no regional wall motion abnormalities. RV normal in size and f unction. Moderate LAE, mild SOUMYA. Aortic valve trileaflet, mildly calcified, no aortic re gurgitation. Mild aortic stenosis( Peak/mean gradient across the valve 18.78mmHg/9.96mmH g. VITOR Vmax:1.99 cm2 VITOR (VTI): 2.10 cm2). Moderate to severe MR, mild MAC. Tricuspi d valve normal, moderate TR. Moderate pulmonary hypertension, RVSP 60.91 mmHg. Pulmonic valve normal, trace/mild PI. No pericardial or pleural effusion. IVC WNL, CVP 10-15. A ortic root, ascending aorta, and aortic arch are normal Echo: 02/26/2017: TDS.EF 60-65 percent LV normal in size, normal wall thickness, mild di astolic dysfunction, grade 1. Mild RVE, normal systolic function. Mild SOUMYA, LAD normal. Tri leaflet aortic valve mobile left coronary cusp, moderate calcification, and no AR, mil d aortic stenosis, (VITOR 2.38 cm 2, mean/max 6.24/10.83 mmHg ) mild MR, mild mitral calcifi cation. Mild TR, mild pulmonary hypertension, RVSP 41.35 mmHg. Mild OK. No effusion. IVC not well visualized. Aortic root, ascending aorta, aorta WNL Echo: 12/05/2014 ([facility]): TDS, LVEF 55-60%, suggestion of basal infero-lateral hypokinesis, L AE/SOUMYA, mild RVE, mild MR, mild TR, mild PI, systolic PAP 35 mmHg+CVP. PFTS: Conclusions: Although there is moderately severe airway obstruction and a diffusion defect suggesting emphysema, the absence of overinflation indicates a concurrent restrictive proces s which may account for the diffusion defect. The response to bronchodilators indicates a r eversible component. In view of the severity of the diffusion defect, studies with exercise would be helpful to evaluate the presence of hypoxemia. Pulmonary function diagnosis: Next moderately severe obstructive airway disease next probab le restriction next severe diffusion defect. EKG/EVENT MONITOR : 48 hr HM, 02/26/2016([facility]): sinus rhythm, 54-95, averaging 64 bpm, rare ectopy, no significant tachy or erik events, no AVB/pauses, symptoms of dizziness/palpitations associ ated with NSR. EK02/04/2016:EKG: Normal sinus rhythm. ST abnormalities to inferior and lateral leads with poor R-wave progression and low voltage QRS and inferior and lateral leads. Rate 63 b pm, OK 132 ms, QRS 116 ms, QTC 462 ms EK02/05/2017: Sinus rhythm rate 64 bpm, OK 138 ms, QRS 78 ms, QTC 433 ms ( personally revie wed by me in the office today and compared to EKG done in February 2016 and no significant abran nges noted) EK07/08/2018: Sinus rhythm,old inferior infarct, stable ST and T wave abnormalities to inferior and lateral leads with poor R-wave progression and low voltage QRS to limb leads. Rate 73 bpm, OK 156 ms, QRS 104 ms, QTC 460 ms him a tracing personally reviewed by me and similar morphology to previous EKG's ASSESSMENT & PLAN 1. CAD - S/P inferior PA - CABG 2004 (WARD-LAD, SVG-D1) - 08/19/2005 KEYON placed to LCx 3.5x8mm Taxus - 12/23/2006 KEYON placed to RCA 3.0x12mm Taxus - 04/19/2007 KEYON placed to RCA 3.5x3.0mm Taxus - 12/14/2007 KEYON placed to LCx 2.10o09ol Taxus - 12/05/14 cath LAD occluded at the ostium, prox LCx stents patent, tandem 60% OM2 stenosis, RCA stents patent, 90% mid PDA stenosis, WARD-LAD patent SVG-D1 with severe disease. 2. HTN 3. HLD 4. Pulmonary HTN 5. Mod-severe MR 6. AAA repair 7. COPD 8. CKD 4 9. OA - Mrs. Prasad is a 68 yo female with the above past medical histories who presents to the cardiology office to follow up. She has not had any significant episodes of angina since we last saw each other. She does not appear fluid overloaded at this time. She reports that she continues to have issues with SOB/SILVA. Recent PFTs demonstrate moderately severe obstru ctive airway disease. She was recently evaluated by Dr. Araiza in [place] for a second opini on for consideration of mitraclip, he recommended a LOLA and coronary angiogram she was refer red to a general fitness club manager in [place] for this workup. She reports that she does not wish to pursue mitraclip at this time. I think that her symptoms may be multifactorial due to he art failure and COPD. She asked for a referral to see a different mail weigher. Will place referal today, in the meantime, will increase her afterload reduction and plan for a repeat TTE prior to our next visit. - she is to continue current doses of pravastatin, sublingual nitroglycerin, metoprolol suc cinate, Imdur, Plavix, aspirin. - Increase hydralazine to 50mg po TID - obtain a BNP - obtain a complete echocardiogram prior to next visit. - Follow up in 3 months Thank you for allowing me to participate in the care of this patient. 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
--- OUTSIDE RECORDS SUMMARY | ~2020-02-01 | XMS | Encounter Summary ---
Demographics + + + | Address | [address] | | | [place] [address] | + + + | Home Phone | | + + + | Preferred Language | Unknown | + + + | Marital Status | | + + + | Sabianism Affiliation | Unknown | + + + | Race | Unknown | + + + | Ethnic Group | Unknown | + + + Author + + + | Author | [facility] | | | and [place] | + + + | Organization | [facility] | | [...] Team Providers + +------+ + | Care Artist'S Representative Name | Role | Phone | + +------+ + | Heidi Koch MD | PCP | | + +------+ + Reason for Visit +--------+--------+ + | Reason | Onset | Comments | | | Date | | +--------+--------+ + | Other | 06/17/ | | | | 2019 | | +--------+--------+ + Encounter Details +--------+ + + + + | Date | Type | Department | Care Team | Description | +--------+ + + + + | 06/17/ | Telephone | [facility] | Rodrigo Cruz MD | Other | | 2019 | | PULMONOLOGY [address] | [address] | | | | | [address] | [place], [place] | | | | | [place], [place] | [address] | | | | | [address] | | | | | | [phone] | | | +--------+ + + + [...] encounter Miscellaneous Notes Telephone Encounter - Kiera Salomon, Machine Pecan Gatherer - 06/17/2019 10:52 AM PSTCalled p atient X3 due to albert FOX Left my name and call back number documented in this encounter Plan of Treatment [...] Oliver | | | | | | [phone] | | | | | | | | +--------+ + + + + | 02/22/ | Office | Cardiology | Phylicia Patel DO | | | 2019 | Visit | | [address] | | | | | | [place] | | | | | | [phone] | | | | | | | | +--------+ + + + + documented as of this encounter Visit Diagnoses Not on filedocumented in this encounter"
--- OUTSIDE RECORDS SUMMARY | ~2020-02-01 | XMS | Encounter Summary ---
Demographics + + + | Address | [address] | | | [place] [address] | + + + | Home Phone | | + + + | Preferred Language | Unknown | + + + | Marital Status | | + + + | Restorationism Affiliation | Unknown | + + + | Race | Unknown | + + + | Ethnic Group | Unknown | + + + Author + + + | Author | [facility] | | | and [place] | + + + | Organization | [facility] | | | [...] Team Providers + +------+ + | Care Fermenting Cellars Receiver Name | Role | Phone | + +------+ + | Heidi Koch MD | PCP | | + +------+ + Encounter Details +--------+ + + + + | Date | Type | Department | Care Team | Description | +--------+ + + + + | 12/28/ | Orders Only | Jessica Trin[facility] | Itz Warner, | Shortness of breath | | 2018 | | [facility] | MD [address] | (Primary Dx) | | | | [address] | [address] [place], | | | | | [place] [address] [place], [place] | [place] [address] | | | | | [address] | [phone] | | | | | [phone] | | | +--------+ + + + [...] [place] | | | | | | [address] | | | | | | | | +--------+ + + + + | 02/22/ | Office | Cardiology | Phylicia Patel DO | | | 2019 | Visit | | [address] | | | | | | [place] | | | | | | [address] | | | | | | | | +--------+ + + + + + +------+--------+ + + | Name | Type | Priori | Associated Diagnoses | Order Schedule | | | | ty | | | + +------+--------+ + + | Pulmonary Fx Tests | PFT | DINO | Shortness of | 1 Occurrences | | (Hospital Performed) | | | breath | starting 12/28/2018 | | | | | | until 12/29/2019 | + +------+--------+ + + documented as of this encounter Visit Diagnoses + + | Diagnosis | + + | Shortness of breath - Primary | + + documented in this encounter"
--- OUTSIDE RECORDS SUMMARY | ~2020-02-01 | XMS | Encounter Summary ---
Demographics + + + | Address | [address] | | | [place] [address] | + + + | Home Phone | | + + + | Preferred Language | Unknown | + + + | Marital Status | | + + + | Zoroastrianism Affiliation | Unknown | + + + [...] Team Providers + +------+ + | Care Outdoor Education Teacher Name | Role | Phone | + +------+ + | eHidi Koch MD | PCP | | + +------+ + Encounter Details +--------+ + + + + | Date | Type | Department | Care Team | Description | +--------+ + + + + | 06/12/ | Orders Only | [facility] | [place], | | | 2014 | | NEPHROLOGY [place] | [facility] [address] | | | | | [address] [place] | [address] | | | | | [address] [place], [place] | [place] | | | | | [address] | [address] | | | | | [phone] | [phone] | | | | | | | [...] [place] | | | | | | [phone] | | | | | | | | +--------+ + + + + | 02/22/ | Office | Cardiology | Phylicia Patel DO | | | 2019 | Visit | | [address] | | | | | | [place] | | | | | | [phone] | | | | | | | | +--------+ + + + + documented as of this encounter Procedures + +--------+ + + + | Procedure Name | Priori | Date/Time | Associated Diagnosis | Comments | | | ty | | | | + +--------+ + + + | URINALYSIS WITH | Routin | 06/12/2015 | | Results for this | | MICROSCOPIC WITH | e | 12:00 AM | | procedure are in the | | CULTURE IF INDICATED | | PST | | results section. | + +--------+ + + + | VITAMIN D, | Routin | 06/12/2015 | | Results for this | | DEFICIENCY SCREEN | e | 12:00 AM | | procedure are in the | | (25-HYDROXY) | | PST | | results section. | + +--------+ + + + | PARATHYROID HORMONE, | Routin | 06/12/2015 | | Results for this | | INTACT AND CALCIUM | e | 12:00 AM | | procedure are in the | | | | PST | | results section. | + +--------+ + + + | MICROALBUMIN/CREATIN | Routin | 06/12/2015 | | Results for this | | INE RATIO, URINE | e | 12:00 AM | | procedure are in the | | TEST | | PST | | results section. | + +--------+ + + + | URIC ACID | Routin | 06/12/2015 | | Results for this | | | e | 12:00 AM | | procedure are in the | | | | PST | | results section. | + +--------+ + + + | MAGNESIUM | Routin | 06/12/2015 | | Results for this | | | e | 12:00 AM | | procedure are in the | | | | PST | | results section. | + +--------+ + + + | RENAL FUNCTION PANEL | Routin | 06/12/2015 | | Results for this | | | e | 12:00 AM | | procedure are in the | | | | PST | | results section. | + +--------+ + + + documented in this encounter Results Urinalysis with Microscopic with Culture if Indicated (06/12/2015 12:00 AM PST) + + + + [...] + + + | Spec Grav, | 1.030 | 1.005 - 1.030 | EXTERNAL | [...] + + + | pH, Urine | 6 | 5 - 9 | EXTERNAL | | | | | | LAB | | + + + + + + | Blood, | PositiveComment: 50 | | EXTERNAL | | | Urine [...] + + Parathyroid Hormone, Intact and Calcium (06/12/2015 12:00 AM PST) + +-------+ + + + | Component | Value | Ref Range | Performed | Pathologist | | | | | At | Signature | + +-------+ + + + | PTH Intact | 44.77 | 15 - 65 | EXTERNAL | | | | | | LAB | | + +-------+ + + + | Calcium | 10.2 [...] | | | + +---------+ + + Microalbumin/Creatinine Ratio, Urine (06/12/2015 12:00 AM PST) + + + + + + | Component | Value | Ref Range | Performed | Pathologist | | | | | At | Signature | + + + + + + | ALBUMIN/CRE | 84.5 (A) | 0 - 30 | EXTERNAL | | | ATININE | | | LAB | | | RATIO.URINE | | | | | | .ORD.MG/G | | | | | | (HENNA) | | | | | | | [...] + + Vitamin D, Deficiency Screen (25-Hydroxy) (06/12/2015 12:00 AM PST) + +--------+ + + + | Component | Value | Ref Range | Performed | Pathologist | | | | | At | Signature | + +--------+ + + + | Vit D, | 23 (A) | 30 - 100 | EXTERNAL | | | 25-Hydroxy | | | LAB | | + +--------+ + + + + + | Specimen | + + | Blood specimen | | (specimen) | + + + +---------+ + + | Performing | Address | City/State/Zipcode | Phone Number | | Organization | | | | + +---------+ + + | EXTERNAL LAB | | | | + +---------+ + + Uric Acid (06/12/2015 12:00 AM PST) + +---------+ + + + | Component | Value | Ref Range | Performed | Pathologist | | | | | At | Signature | + +---------+ + + + | Uric Acid | 9.1 (A) | 2.3 - 6.6 | EXTERNAL [...] | | + +---------+ + + Magnesium (06/12/2015 12:00 AM PST) + +-------+ + + [...] + +---------+ + + Renal Function Panel (06/12/2015 12:00 AM PST) + + + + + + | Component | Value | Ref Range | Performed | Pathologist | | | | | At | Signature | + + + + + + | Glucose, | 93 | 70 - 100 mg/dL | EXTERNAL | | | Fasting | | | LAB | | + + + + + + | BUN | 45 (A) | 6 - 23 mg/dL | EXTERNAL | | | | | | LAB | | + + + + + + | Creatinine | 2.46 (A) | 0.70 - 1.25 | EXTERNAL [...] + + + | Anion Gap | 19.0 | 7 - 21 mmol/L | EXTERNAL | | | | | | LAB | | + + + + + + | eGFR, | | | EXTERNAL | | | non- | | | LAB | | | [place] | | | | | + + + + + + | Phosphorus, | 3.7 | 2.5 - 5.0 | EXTERNAL | | | Inorganic | | | LAB | | + + + + + + | BUN/Creatin | 18.3 | 6.0 - 28.6 | EXTERNAL | | | ine Ratio | | | LAB | | + + + + + + | Calcium | 10.2 | 8.4 - 10.2 | EXTERNAL | | | | | mg/dL | LAB | | + + + + + + | Estimated | 20 (A) | 60 - 140 mg/dL | [...]
--- OUTSIDE RECORDS SUMMARY | ~2020-02-01 | XMS | Encounter Summary ---
Demographics + + + | Address | [address] | | | [place] [address] | + + + | Home Phone | | + + + | Preferred Language | Unknown | + + + | Marital Status | | + + + | Adventism Affiliation | Unknown | + + + | Race | Unknown | + + + | Ethnic Group | Unknown | + + + Author + + + | Author | [facility] | | | and [place] | + + + | Organization | [facility] | | | [...] Team Providers + +------+ + | Care Registered Respiratory Therapist Name | Role | Phone | + +------+ + | Heidi Koch MD | PCP | | + +------+ + Encounter Details +--------+ + + + + | Date | Type | Department | Care Team | Description | +--------+ + + + + | 02/26/ | Orders Only | [facility] | Conversion | | | 2017 | | NEPHROLOGY [place] | Transaction, | | | | | [address] [place] | Provider Unknown | | | | | [address] [facility], [place] | | | | | | [address] | (Fax) | | | | | [phone] | | | +--------+ + + + [...] [place] | | | | | | [phone] | | | | | | | | +--------+ + + + + | 02/22/ | Office | Cardiology | Phylicia Patel DO | | | 2019 | Visit | | [address] | | | | | | [place] | | | | | | [phone] | | | | | | | | +--------+ + + + + documented as of this encounter Procedures + +--------+ + + + | Procedure Name | Priori | Date/Time | Associated Diagnosis | Comments | | | ty | | | | + +--------+ + + + | CULTURE, URINE | Routin | 02/26/2017 | | Results for this | | | e | 1:50 PM | | procedure are in the | | | | PDT | | results section. | + +--------+ + + + documented in this encounter Results Culture, Urine (02/26/2017 1:50 PM PDT) + + | Specimen | + + | Urine specimen | | (specimen) | + + + + + | Narrative | Performed At | + + + | Specimen Description Urine CULTURE | EXTERNAL LAB | | Yeast | | | identification on request. REPORT STATUS | | | Final | [...]
--- OUTSIDE RECORDS SUMMARY | ~2020-02-01 | XMS | Encounter Summary ---
Demographics + + + | Address | [address] | | | [place] [address] | + + + | Home Phone | | + + + | Preferred Language | Unknown | + + + | Marital Status | | + + + | Mormon Affiliation | Unknown | + + + | Race | Unknown | + + + | Ethnic Group | Unknown | + + + Author + + + | Author | [facility] | | | and [place] | + + + | Organization | [facility] | | | and [place] | + + + | Address | Unknown | + + + | Phone | Unavailable | + + + Support + + +---------+ + | Name | Relationship | Address | Phone | + + +---------+ + | oNlan Manuel | ECON | Unknown | | + + +---------+ + | Naheed Shelton | ECON | Unknown | | + + +---------+ + Care Team Providers + +------+ + | Care Oracle Adf Developer Name | Role | Phone | + +------+ + PCP | Unavailable | + +------+ + Encounter Details +--------+ + + + + | Date | Type | Department | Care Team | Description | +--------+ + + + + | 02/03/ | Hospital | [facility] | Conversion | | | 2012 | Encounter | [facility] | Transaction, | | | | | [address] | Provider Unknown | | | | | [place], [place] | | | | | | [address] | (Fax) | | | | | [phone] | | | +--------+ + + + [...] | Rodrigo Cruz MD | | | 2020 | Office | | [address] | | | | Visit | | [place] | | | | | | [phone] | | | | | | | | +--------+ + + + + | 02/22/ | Office | Cardiology | Phylicia Patel DO | | | 2019 | Visit | | [address] | | | | | | [place] | | | | | | [address] | | | | | | | | +--------+ + + + + documented as of this encounter Visit Diagnoses Not on filedocumented in this encounter"
--- OUTSIDE RECORDS SUMMARY | ~2020-02-01 | XMS | Encounter Summary ---
Demographics + + + | Address | [address] | | | [place] [address] | + + + | Home Phone | | + + + | Preferred Language | Unknown | + + + | Marital Status | | + + + | Confucianist Affiliation | Unknown | + + + | Race | Unknown | + + + | Ethnic Group | Unknown | + + + Author + + + | Author | [facility] | | | and [place] | + + + | Organization | [facility] | | | [...] Team Providers + +------+ + | Care Sales Assistant Displays Name | Role | Phone | + +------+ + | Heidi Koch MD | PCP | | + +------+ + Reason for Visit Evaluate & Treat (Routine) +--------+--------+ + + + + | Status | Reason | Specialty | Diagnoses / | Referred By | Referred To | | | | | Procedures | Contact | Contact | +--------+--------+ + + + + | Closed | | Cardiothoraci | Diagnoses | Annie, | Siwek, | | | | c Surgery | MR (68) | MD Rodrigo | Keegan Sena MD | | | | | ANNIE | [address] | [address] [facility] [facility] | | | | | Procedures | [address] | [place], | | | | | EVAL FOR | [place] | [place] [address] | | | | | [facility] | [place], [place] | Phone: | | | | | | [address] | [phone] | | | | | | Phone: | Fax: | | | | | | [phone] | [phone] | | | | | | Fax: | | | | | | | [phone] | | +--------+--------+ + + + + Encounter Details +--------+---------+ + + + | Date | Type | Department | Care Team | Description | +--------+---------+ + + + | 12/22/ | Office | [facility] [place] | Keegan Araiza G, | Non-rheumatic mitral | | 2019 | Visit | [facility] | [address] | regurgitation | | | | [facility] [address] | [place] [address] | (Primary Dx); | | | | [address] | [phone] | Pulmonary HTN (HCC); | | | | [place], [place] | | Coronary artery | | | | [address] | | disease of torres martinez | | | | [phone] | | artery of torres martinez | | | | | | heart with stable | | | | | | angina pectoris | | | | | | ([facility]); Coronary | | | | | | artery disease of | | | | | | autologous vein | | | | | | bypass graft with | | | | | | stable angina | | | | | | pectoris ([facility]); CKD | | | | | | (chronic kidney | | | | | | disease), stage IV | | | | | | ([facility]); Pulmonary | | | | | | emphysema, | | | | | | unspecified | | | | | | emphysema type | | | | | | ([facility]); Class 1 | | | | | | obesity due to | | | | | | excess calories with | | | | | | serious comorbidity | | | | | | and body mass index | | | | | | (BMI) of 34.0 to | | | | | | 34.9 in adult; S/P | | | | | | CABG (coronary | | | | | | artery bypass | | | | | | graft); S/P coronary | | | | | | artery stent | | | | | | placement | +--------+---------+ + + + Social History [...] + + + | Blood Pressure | 144/72 | 12/22/2018 1:53 PM | | | | | PDT | | + + + + + | Pulse | 72 | 12/22/2018 1:53 PM | | | | | PDT | | + + + + + | Temperature | - | - | | + + + + + | Respiratory Rate | - | - | | + + + + + | Oxygen Saturation | - | - | | + + + + + | Inhaled Oxygen | - | - | | | Concentration | | | | + + + + + | Weight | 112.9 kg (249 lb) | 12/22/2018 1:53 PM | | | | | PDT | | + + + + + | Height | 180.3 cm (5' 11") | 12/22/2018 1:53 PM | | | | | PDT | | + + + + + | Body Mass Index | 34.73 | 12/22/2018 1:53 PM | | | | | PDT | | + + + + + documented in this encounter H&P Notes Keegan Araiza MD - 12/22/2018 1:40 PM PDTFormatting of this note might be different fro m the original. [facility] Keegan Araiza MD PATIENT NAME: Yanique Prasad : 1950: AGE: 68 y.o. ENCOUNTER DATE: 12/22/2018 DOCUMENT DATE: 12/22/2018 PRIMARY CARE: Heidi Koch MD REFERRING: Rodrigo Cruz MD Leland G Siwek, MD New Patient Visit CARDIAC SURGERY CONSULT HISTORY AND PHYSICAL REASON FOR CONSULTATION: Mitral regurgitation CURRENT ASSESSMENT AND PLAN: Ms. Goldstein is a pleasant 68-year-old woman with multiple comorbidities with moderate to severe mitral regurgitation. She has known coronary artery disease status post coronary by pass grafting as well as multiple stenting. Her main problems now are dyspnea with exertion as well as lying flat. Given her COPD, severe deconditioning, and obesity and coronary art shanell disease it is very difficult to determine whether much if any of her dyspnea is related to mitral regurgitation per se. What I would say is that she is NOT a candidate for any sor t of open heart surgery conventional for minimally invasive. Her risk of mortality, renal f ailure and other complications are simply too high. I would recommend however proceeding wi repeat coronary angiogram (the last one was 4 years ago) and transesophageal echo with 3- D imaging. We would be looking for either coronary artery disease that would need percutane ous intervention or possible candidacy for mitral clip. I will make arrangements for her to return for consultation with either Dr. Lopez or Timmy and undergo the coronary angiogram a nd LOLA. Other than the possibility of either of those percutaneous interventions I think he r treatment will be limited to medical therapy and supplemental oxygen for exercise and perh aps even at night. History of Present Illness: 68 y.o. year old female with Problem List and Overview as noted below. Ms. Goldstein is a pleasant 68-year-old woman referred by Dr. 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 She has an extensive past medical history. She has known coronary artery disease and underwent coronary artery bypass grafting in 2002. She h as had multiple coronary stenting procedures both prior to her bypass surgery as well as aft er her bypass surgery. Her last coronary angiogram was in December 2014 that showed a patent ma mmary artery, very diffusely diseased vein graft to a diagonal, and severe torres martinez coronary d isease. She has had exertional angina treated medically and this is under pretty good contr ol. She only occasionally takes nitroglycerin. In addition to her coronary bypass surgery she has also had abdominal aortic aneurysm surgery. Her main complaint over the past year o r 2 has been exertional dyspnea. She has used a walker for many years because of hip proble ms previously with her walker she gets short of breath trying to walk fairly short distances . She also is short of breath at night and finds that her breathing is better if she is jarrett i-upright. She does have a considerable amount of abdominal obesity. Echocardiograms have shown normal left ventricular function but moderate to severe mitral regurgitation without a ny obvious leaflet prolapse. She was referred for pulmonary evaluation and found to have at least moderate emphysema with FEV1 of 1.42 improving to 1.73 with bronchodilators. DLCO is quite reduced at 39%. Apparently her primary care physician did some exercise oximetry and found that her oxygen levels dropped to 88% with walking and took quite a long time to juan carlos oliver. Not on any oxygen. Dr. Cruz felt her symptoms are more consistent with heart failure then with emphysema and wanted me to see her for an opinion about mitral valve intervention particularly robotic mitral valve repair. Note she has significant chronic renal failure w ith most recent creatinine of 3.05. Due to multiple comorbidities her STS predicted risk for heart surgery are quite high. Risk for isolated mitral valve repair is 9.9% mortality, 49% risk of renal failure, 4.9% r isk of CVA, and 49% combined morbidity mortality. Risk for isolated mitral valve replacement is 14.6% mortality, 64.4% combined morbidity mo rtality Risk for a total valve replacement and CABG is 28% mortality and 70% combined morbidity mo rtality. Patient Active Problem List Diagnosis Date Noted Coronary artery disease of autologous vein bypass graft with stable angina pectoris (HC C) 12/22/2018 Priority: High S/P CABG (coronary artery bypass graft) 12/22/2018 Priority: High S/P coronary artery stent placement 12/22/2018 Priority: High Note Last Updated: 12/22/2018 multiple Mitral regurgitation Priority: High Pulmonary HTN (HCC) Priority: High CKD (chronic kidney disease), stage IV (HCC) Priority: High Pulmonary emphysema (HCC) 12/22/2018 Priority: Medium Class 1 obesity due to excess calories in adult 12/22/2018 Priority: Medium HTN (hypertension) HLD (hyperlipidemia) Coronary artery disease of torres martinez artery of torres martinez heart with stable angina pectoris (H CC) HYPERLIPIDEMIA ABDOMINAL AORTIC ANEURYSM 07/15/2011 Past Medical History: Past Medical History: Diagnosis Date Anemia CAD (coronary artery disease) CKD (chronic kidney disease), stage IV (HCC) COPD (chronic obstructive pulmonary disease) (HCC) History of myocardial infarction HLD (hyperlipidemia) HTN (hypertension) Hypercalcemia Mitral regurgitation Nephrolithiasis PAD (peripheral artery disease) (HCC) Pulmonary emphysema (HCC) Pulmonary HTN (HCC) Tricuspid regurgitation Vitamin D deficiency Past Surgical History: Past Surgical History: Procedure Laterality Date ABDOMINAL AORTIC ANEURYSM REPAIR 2011 with iliac artery aneurysm repair CORONARY ARTERY BYPASS GRAFT 2002 HYSTERECTOMY LUNG SURGERY TOTAL HIP ARTHROPLASTY Left Allergies: Allergies Allergen Reactions Codeine Sulfate Peanuts Alexander Nuts Current Medications: Current Outpatient Medications Medication Sig Dispense Refill clopidogrel (PLAVIX) 75 mg tablet Take 75 mg by mouth Daily. fluoxetine (PROZAC) 40 MG capsule Take 40 mg by mouth Daily. furosemide (LASIX) 40 mg tablet Take 40 mg by mouth every morning. (Patient not taking: Reported on 12/22/2018) gabapentin (NEURONTIN) 100 mg capsule Take 100 mg by mouth 3 times daily. gemfibrozil (LOPID) 600 mg tablet Take 600 mg by mouth 2 times daily. hydrochlorothiazide 25 mg tablet Take 25 mg by mouth Daily. lisinopril (PRINIVIL,ZESTRIL) 40 MG tablet Take 40 mg by mouth Daily. metoprolol succinate (TOPROL-XL) 50 mg 24 hr tablet Take 50 mg by mouth Daily. omeprazole ([employer] OMEPRAZOLE) 20 mg TBEC Take 20 mg by mouth nightly. potassium chloride (K-DUR) 10 MEQ tablet Take 10 mEq by mouth Daily. pravastatin (PRAVACHOL) 40 MG tablet Take 40 mg by mouth Daily. No current facility-administered medications for this visit. Family History: Family History Problem Relation Age of Onset Heart attack Mother Emphysema Mother Social History: Social History Socioeconomic History Marital status: Spouse name: Not on file Number of children: Not on file Years of education: Not on file Highest education level: Not on file Social Needs Financial resource strain: Not on file Food insecurity - worry: Not on file Food insecurity - inability: Not on file Transportation needs - medical: Not on file Transportation needs - non-medical: Not on file Occupational History Not on file Tobacco Use Smoking status: Former Smoker Last attempt to quit: 07/06/2008 Years since quittin.4 Substance and Sexual Activity Alcohol use: Not on file Drug use: Not on file Sexual activity: Not on file Other Topics Concern Not on file Social History Narrative Not on file Comorbidities: Active comorbid conditions include: - angina; controlled on medication - CAD; with stable or controlled angina; of torres martinez artery and of autologous bypass graft - CHF; chronic; diastolic - hypertension; pulmonary - PVD - COPD - renal disease; CKD - obesity; due to excess calories; BMI (30-39) - arthritis - immobility Tobacco History: Social History Tobacco Use Smoking Status Former Smoker Last attempt to quit: 07/06/2008 Years since quittin.4 Review of Systems: Review of Systems Constitutional: Denies Fever, chills, sweats, + fatigue, weakness and weight loss Eyes: Denies Blurred vision, double vision, vision loss ENT: Negative Respiratory: + cough, wheezing and shortness of breath with exertion Cardiovascular: + chest pain and irregular heartbeat + lightheadedness, and orthopnea Genitourinary: Denies frequency or urgency Gastrointestinal: Denies Nausea, vomiting, diarrhea, constipation, Musculoskeletal: Denies Joint pain or stiffness, joint swelling, muscle weakness Dermatologic: Denies Rash, itching, dryness, suspicious lesions Neurologic: Denies Frequent headaches, seizures, tremors, dizziness Denies Transient ischemic attacks Denies Numbness or tingling in hands or feet Denies strokes Endocrine: Denies Excessive thirst, urination, or hunger Denies Intolerance to heat or cold Hematologic: Denies Abnormal bleeding, Allergy: Denies Allergies, hives, hay fever Infectious Disease: Denies Recurrent infections Physical Examination: Weight most recent: Weight: 112.9 kg (249 lb) BMI: Body mass index is 34.73 kg/m. VITAL SIGNS: BP 144/72 | Pulse 72 | Ht 1.803 m (5' 11") | Wt 112.9 kg (249 lb) | BMI 34.73 kg/m General: Well nourished, well developed; alert and oriented, no acute distress Difficulty walking just short distance in exam room HEENT: conjunctiva normal, no circumoral cyanosis, pups equal and reactive, EOMs intact Neck: No cervical lymphadenopathy, thyromegaly, or JVD. no carotid bruits Respiratory: Normal inspiratory effort, clear and equal breath sounds bilaterally, no rales or wheezes Cardiovascular: regular rate and rhythm, S1, S2 normal, no murmur, click, rub or gallop. ( she is large so I could miss a softer murmur) Abdomen: Soft, nondistended, normal bowel sounds, nontender, no organomegaly, no mass or an eurysm Extremities: No clubbing, cyanosis or edema; palpable radial, femoral and pedal pulses; no varicose veins. Musculoskeletal: No gross kyphosis or scoliosis Skin: No rash or lesions. No venous stasis changes Neurological: No gross focal motor or sensory deficits Diagnostic Studies: Available Labs and Images were reviewed personally. Significant results and findings are a ddressed below or in the Assessment and Plan LABS No results for input(s): WBC, HCT, PLT, NA, K, CL, CO2, BUN, CREA, GLU, CALCIUM, INR in the last 72 hours. Thank you for allowing me to participate in the care of this patient. If you have any ques tions, please do not hesitate to contact me. Electronically signed by: Keegan Araiza M.D. CardioThoracic Surgery [facility] 12/22/2018 Portions of this chart were created with Einspect voice recognition software. Occasional wron g-word or sound-alike substitutions may have occurred due to the inherent limitations of voice recognition software. Please read the chart carefully and recognize, using context, where these substitutions have occurred.Electronically signed by Keegan Araiza MD at 12/04 3:15 PM PDTdocumented in this encounter Plan of Treatment +--------+ + + + + | Date | Type | Specialty | Care Team | Description | +--------+ + + + + | 02/01/ | Virtual | Pulmonology | Rodrigo Cruz MD | | | 2019 | Office | | [address] | | | | Visit | | [place] | | | | | | [address] | | | | | | | | +--------+ + + + + | 02/22/ | Office | Cardiology | Amanda DO Phylicia | | | 2019 | Visit | | [address] | | | | | | [place] | | | | | | [address] | | | | | | | | +--------+ + + + + documented as of this encounter Visit Diagnoses + + | Diagnosis | + + | Non-rheumatic mitral regurgitation - Primary | + + | Pulmonary HTN (HCC) Other chronic pulmonary heart diseases | + + | Coronary artery disease of torres martinez artery of torres martinez heart with stable angina pectoris | | (HCC) | + + | Coronary artery disease of autologous vein bypass graft with stable angina pectoris | | (HCC) | + + | CKD (chronic kidney disease), stage IV (HCC) Chronic kidney disease, Stage IV | | (severe) | + + | Pulmonary emphysema, unspecified emphysema type (HCC) | + + | Class 1 obesity due to excess calories with serious comorbidity and body mass index | | (BMI) of 34.0 to 34.9 in adult | + + | S/P CABG (coronary artery bypass graft) Postsurgical aortocoronary bypass status | + + | S/P coronary artery stent placement Postsurgical percutaneous transluminal coronary | | angioplasty status | + + documented in this encounter
--- OUTSIDE RECORDS SUMMARY | ~2020-02-01 | XMS | Encounter Summary ---
Demographics + + + | Address | [address] | | | [place] [address] | + + + | Home Phone | | + + + | Preferred Language | Unknown | + + + | Marital Status | | + + + | Rastafarian Affiliation | Unknown | + + + [...] Team Providers + +------+ + | Care Passenger Screener Name | Role | Phone | + +------+ + | Heidi Koch MD | PCP | | + +------+ + Reason for Visit +--------+--------+ + | Reason | Onset | Comments | | | Date | | +--------+--------+ + | Other | 05/31/ | | | | 2019 | | +--------+--------+ + Encounter Details +--------+ + + + + | Date | Type | Department | Care Team | Description | +--------+ + + + + | 05/31/ | Telephone | [facility] | Rodrigo Cruz MD | Other | | 2019 | | PULMONOLOGY [address] | [address] | | | | | [address] | [place], [place] | | | | | [place], [place] | [address] | | | | | [address] | | | | | | [phone] | | | +--------+ + + + [...] Miscellaneous Notes Telephone Encounter - Kiera Salomon Line Haul Owner Operator - 05/31/2019 12:19 PM PSTAttempte d to call patient X2 to verify which inhalers she is currently taking due to PA for [employer] Will wait for call backElectronically signed by Kiera Salomon, Line Haul Owner Operator at 05/31 12:21 PM PSTdocumented in this encounter Plan of Treatment +--------+ [...] Oliver | | | | | | [phone] | | | | | | | | +--------+ + + + + | 02/22/ | Office | Cardiology | Phylicia Patel DO | | | 2019 | Visit | | [address] | | | | | | [place] | | | | | | [address] | | | | | | | | +--------+ + + + + documented as of this encounter Visit Diagnoses Not on filedocumented in this encounter"
--- OUTSIDE RECORDS SUMMARY | ~2020-02-01 | XMS | Encounter Summary ---
Demographics + + + | Address | [address] | | | [place] [address] | + + + | Home Phone | | + + + | Preferred Language | Unknown | + + + | Marital Status | | + + + | Bahai Affiliation | Unknown | + + + | Race | Unknown | + + + | Ethnic Group | Unknown | + + + Author + + + | Author | [facility] | | | and [place] | + + + | Organization | [facility] | | | [...] Team Providers + +------+ + | Care Pearl Technician Name | Role | Phone | + +------+ + PCP | Unavailable | + +------+ + Encounter Details +--------+ + + + + | Date | Type | Department | Care Team | Description | +--------+ + + + + | 09/17/ | Hospital | [facility] | Damion Sears | | | 2011 | Encounter | MED CTR GENERIC OP | MD Wei, FACS [address] | | | | | CONV DEPT [address] | [address] | | | | | [place], | [place] [address] | | | | | [place] [address] | [phone] | | | | | [phone] | | | +--------+ + + + [...] + + documented as of this encounter Procedure Notes Julio C Short MD - 09/18/2011 2:38 PM PDTDATE: 09/18/2011 TIME: 1514 Sinus bradycardia. Early transition. Possible previous IMI, age indeterminate. Nonspecific, diffuse T -wave flattening. DICTATED BY: Julio C Short MD Internal Medicine JOB #: [id number] EXT JOB #:[id number] cc: Damion Sears MD <Electronically Signed by Julio C Short MD> 10/01/111946 documented in this encounter Plan of Treatment [...] [place] | | | | | | [id number] | | | | | | | | +--------+ + + + + | 02/22/ | Office | Cardiology | Phylicia Patel DO | | | 2019 | Visit | | [address] | | | | | | [place] | | | | | | [address] | | | | | | | | +--------+ + + + + documented as of this encounter Procedures + +--------+ + + + | Procedure Name | Priori | Date/Time | Associated Diagnosis | Comments | | | ty | | | | + +--------+ + + + | CBC NO DIFFERENTIAL | Routin | 09/18/2011 | | Results for this | | | e | 3:30 PM | | procedure are in the | | | | PDT | | results section. | + +--------+ + + + | COMPREHENSIVE | Routin | 09/18/2011 | | Results for this | | METABOLIC PANEL | e | 3:30 PM | | procedure are in the | | | | PDT | | results section. | + +--------+ + + + | XR CHEST PA AND | | 09/18/2011 | | Results for this | | LATERAL | | 2:38 PM | | procedure are in the | | | | PDT | | results section. | + +--------+ + + + documented in this encounter Results Comprehensive Metabolic Panel (09/18/2011 3:30 PM PDT) + + + + + + | Component | Value | Ref Range | Performed | Pathologist | | | | | At | Signature | + + + + + + | Glucose | 114 (H) | 70 - 109 mg/dL | [facility] | | [facility] | | | | | | [facility] - | | | | | | LABORATORY | | + + + + + + | Calcium | 9.6 | 8.3 - 10.5 | [facility] | | | | | mg/dL | [facility] | | | | | | [facility] | | | | | | C[facility] - | | | | | | LABORATORY | | + + + + + + | Alkaline | 68 | 40 - 110 IU/L | [facility] | | | Phosphatase | | | [facility] | | | | | | [facility] | | | | | | CENTER - | | | | | | LABORATORY | | + + + + + + | AST | 21 | 10 - 42 IU/L | [facility] | | | | | | [facility] | | | | | | [facility] | | | | | | C[facility] - | | | | | | LABORATORY | | + + + + + + | ALT | 18 | 6 - 45 IU/L | [facility] | | | | | | [facility] | | | | | | [facility] | | | | | | CENTER - | | | | | | LABORATORY | | + + + + + + | Bilirubin | 0.5 | 0.2 - 1.0 mg/dL | [facility] | | | Total | | | [facility] | | | | | | [facility] | | | | | | CENTER - | | | | | | LABORATORY | | + + + + + + | Total | 7.2 | 6.0 - 7.8 gm/dL | [facility] | | | Protein | | | [facility] | | | | | | [facility] | | | | | | CENTER - | | | | | | LABORATORY | | + + + + + + | Albumin | 3.9 | 3.2 - 5.0 gm/dL | [facility] [...] + + + + | Creatinine | 1.83 (H) | 0.60 - 1.30 | [facility] | | | | | mg/dL | [facility] | | | | | | MEDICAL | | | | | | CENTER - | | | | | | LABORATORY | | + + + + + + | Estimated | 28 (L)Comment: For | >60 mL/min/A | [facility] [...] + + + + | BUN/Creatin | 15.8 | 12 - 20 | [facility] | [...] + | Anion Gap | 14.2 | 6.0 - 17.0 | [facility] | [...] | + + + + + | [facility] | [address] | [place] | [phone] | | [facility] | | [address] | | | - LABORATORY | | | | + + + + + | [facility] | [address] | [place] | | | [facility] | | [id number], [facility] | | | - LABORATORY | | | | + + + + + CBC no Differential (09/18/2011 3:30 PM PDT) + +-------+ + + + | Component | Value | Ref Range | Performed | Pathologist | | | | | At | Signature | + +-------+ + + + | White Blood | 5.7 | 4.0 - 11.0 K/uL | [facility] | | | Cells | | | [facility] | | | | | | MEDICAL | | | | | | CENTER - | | | | | | LABORATORY | | + +-------+ + + + | Red Blood | 4.07 | 3.70 - 5.20 | [facility] | | | Cells | | M/uL | [facility] | | | | | | [facility] | | | | | | CENTER - | | | | | | LABORATORY | | + +-------+ + + + | Hemoglobin | 12.0 | 11.5 - 16.0 | [facility] | | | | | gm/dL | [facility] | | [facility] | | [facility] | | | | | | C[facility] - | | | | | | LABORATORY | | + +-------+ + + + | Hematocrit | 35.9 | 34.0 - 47.0 % | [facility] | | | | | | [facility] | | | | | | MEDICAL | | | | | | CENTER - | | | | | | LABORATORY | | + +-------+ + + + | MCV | 88.1 | 83.0 - 101.0 fL | [facility] | | | | | | [facility] | | | | | | MEDICAL | | | | | | CENTER - | | | | | | LABORATORY | | + +-------+ + + + | MCH | 29.4 | 28.0 - 35.0 pg | [facility] | | | | | | [facility] | | | | | | MEDICAL | | | | | | CENTER - | | | | | | LABORATORY | | + +-------+ + + + | MCHC | 33.4 | 32.0 - 36.0 | [facility] | | | | | g/dL | [facility] | | | | | | MEDICAL | | | | | | CENTER - | | | | | | LABORATORY | | + +-------+ + + + | RDW-CV | 14.3 | <15.0 % | [facility] | | | | | | [facility] | | | | | | MEDICAL | | | | | | CENTER - | | | | | | LABORATORY | | + +-------+ + + + | Platelet | 312 | 140 - 440 K/uL | [facility] [...] + | [facility] | [address] | [place] | [phone] | | [facility] | | [address] | | | - LABORATORY | | | | + + + + + | [facility] | [address] | [place], [place] | | | [facility] | | [address] [place] [address] | | | - LABORATORY | | | | + + + + + XR Chest PA and Lateral (09/18/2011 2:38 PM PDT) + + | Specimen | + + | | + + + + + | Narrative | Performed At | + + + | [facility] Diagnostic Imaging Department | [facility] | | [address] [facility] | [facility] | | TWO VIEW CHEST, 09/18/2011 | DIAG IMG | | CLINICAL HISTORY: PREOP EVALUATION. FINDINGS: Patient is | | | status post median sternotomy, CABG and coronary artery stenting. | | | There is sca rring at the left lung base, which may be | | | postsurgical. Heart size is at the upper limits of normal without | | | heart failure. Old, healed left rib fractures are noted. | | | IMPRESSION: 1. STATUS POST CABG AND CORONARY ARTERY STENTING; | | | NEGATIVE FOR ACUTE CARDIOPULMONARY DISEASE. Dictated Date/Time: | | | 09/18/2011 18:30 Transcribed Date/Time: 09/18/2011 19:00 | | | Space Operations Officer: <Electronically Signed by Braeden Ponce | | | MD Kwabena> 09/18/11 2218 | | + + + + + | Procedure Note | + + | Price, Cody Conversion - 08/12/2013 4:56 PM [facility] | | Diagnostic Imaging Department [address] [place] [address] | | TWO VIEW CHEST, 09/18/2011 CLINICAL HISTORY: PREOP | | EVALUATION. FINDINGS: Patient is status post median sternotomy, CABG and coronary | | artery stenting. There is scarring at the left lung base, which may be postsurgical. | | Heart size is at the upper limits of normal without heart failure. Old, healed left rib | | fractures are noted. IMPRESSION: 1. STATUS POST CABG AND CORONARY ARTERY STENTING; | | NEGATIVE FOR ACUTE CARDIOPULMONARY DISEASE. Dictated Date/Time: 09/18/2011 | | 18:30Transcribed Date/Time: 09/18/2011 19:00Transcriptionist: <Electronically | | Signed by Braeden Yuan MD> 09/18/112217 | |FINDINGS: Patient is status post median sternotomy, CABG and coronary artery stenting. Th ere is sca | |rring at the left lung base, which may be postsurgical. Heart size is at the upper limits of normal | |without heart failure. Old, healed left rib fractures are noted. | | | |IMPRESSION: | |1. STATUS POST CABG AND CORONARY ARTERY STENTING; NEGATIVE FOR ACUTE CARDIOPULMONARY DISEA SE. | | | |Dictated Date/Time: 09/18/2011 18:30 | |Transcribed Date/Time: 09/18/2011 19:00 | |Space Operations Officer: | |<Electronically Signed by Braeden Yuan MD> 09/18/112217 | + + + +---------+ + + | Performing | Address | City/State/Zipcode | Phone Number | | Organization | | | | + +---------+ + + | [place] | | | | | [facility] | | | | + +---------+ + + documented in this encounter Visit Diagnoses Not on filedocumented in this encounter"
--- OUTSIDE RECORDS SUMMARY | ~2020-02-01 | XMS | Encounter Summary ---
Demographics + + + | Address | [address] | | | [place] [address] | + + + | Home Phone | | + + + | Preferred Language | Unknown | + + + | Marital Status | | + + + | Holiness Affiliation | Unknown | + + + | Race | Unknown | + + + | Ethnic Group | Unknown | + + + Author + + + | Author | [facility] | | | and [place] | + + + | Organization | [facility] | | | [...] Team Providers + +------+ + | Care Emt Paramedic Name | Role | Phone | + +------+ + PCP | Unavailable | + +------+ + Encounter Details +--------+ + + + + | Date | Type | Department | Care Team | Description | +--------+ + + + + | 08/08/ | Hospital | [facility] | Conversion | | | 2012 | Encounter | [facility]ICAL CENTER | Transaction, | | | | | OUTPATIENT | Provider Unknown | | | | | PROCEDURES [address] | | | | | | [address] | (Fax) | | | | | [place], [place] | | | | | | [address] | | | | | | [phone] | | | +--------+ + + + [...] [place] | | | | | | [address] | | | | | | | | +--------+ + + + + | 02/22/ | Office | Cardiology | Phylicia Patel DO | | | 2019 | Visit | | [address] | | | | | | [place] | | | | | | [address] | | | | | | | | +--------+ + + + + documented as of this encounter Visit Diagnoses Not on filedocumented in this encounter"
--- OUTSIDE RECORDS SUMMARY | ~2020-02-01 | XMS | Encounter Summary ---
Demographics + + + | Address | [address] | | | [place] [address] | + + + | Home Phone | | + + + | Preferred Language | Unknown | + + + | Marital Status | | + + + | Latter Day Affiliation | Unknown | + + + | Race | Unknown | + + + | Ethnic Group | Unknown | + + + Author + + + | Author | [facility] | | | and [place] | + + + | Organization | [facility] | | | and [...] Team Providers + +------+ + | Care Computerized Mill Recorder Name | Role | Phone | + +------+ + PCP | Unavailable | + +------+ + Encounter Details +--------+ + + + + | Date | Type | Department | Care Team | Description | +--------+ + + + + | 01/30/ | Hospital | [facility] | Yifan Franco, | | | 1999 | Encounter | MED CTR GENERIC OP | MD [address] | | | | | CONV DEPT [address] | [place], [place] | | | | | [place], | [address] | | | | | [place] [address] | | | | | | [phone] | | | +--------+ + + + [...] [place] | | | | | | [id number] | | | | | | | | +--------+ + + + + | 02/22/ | Office | Cardiology | Phylicia Patel DO | | | 2019 | Visit | | [address] | | | | | | [place] | | | | | | [phone] | | | | | | | | +--------+ + + + + documented as of this encounter Visit Diagnoses Not on filedocumented in this encounter"
--- OUTSIDE RECORDS SUMMARY | ~2020-02-01 | XMS | Encounter Summary ---
Demographics + + + | Address | [address] | | | [place] [address] | + + + | Home Phone | | + + + | Preferred Language | Unknown | + + + | Marital Status | | + + + | Gnosticist Affiliation | Unknown | + + + | Race | Unknown | + + + | Ethnic Group | Unknown | + + + Author + + + | Author | [facility] | | | and [place] | + + + | Organization | [facility] | | | and [...] Team Providers + +------+ + | Care Equities Analyst Name | Role | Phone | + +------+ + | Heidi Koch MD | PCP | | + +------+ + Encounter Details +--------+ + + + + | Date | Type | Department | Care Team | Description | +--------+ + + + + | 08/20/ | Orders Only | [facility] | Conversion | | | 2019 | | NEPHROLOGY [place] | Transaction, | | | | | [address] | Provider Unknown | | | | | [address] [facility], [place] | | | | | | [address] | (Fax) | | | | | [phone] | | | +--------+ + + + [...] [place] | | | | | | [id number] | | | | | | | | +--------+ + + + + | 02/22/ | Office | Cardiology | Phylicia Patel DO | | | 2019 | Visit | | [address] | | | | | | [place] | | | | | | [phone] | | | | | | | | +--------+ + + + + documented as of this encounter Procedures + +--------+ + + + | Procedure Name | Priori | Date/Time | Associated Diagnosis | Comments | | | ty | | | | + +--------+ + + + | VITAMIN B-12 | Routin | 08/20/2018 | | Results for this | | | e | 11:20 AM | | procedure are in the | | | | PST | | results section. | + +--------+ + + + | URINALYSIS, | Routin | 08/20/2018 | | Results for this | | MICROSCOPIC ONLY | e | 11:20 AM | | procedure are in the | | | | PST | | results section. | + +--------+ + + + | HEMOGLOBIN A1C | Routin | 08/20/2018 | | Results for this | | | e | 11:20 AM | | procedure are in the | | | | PST | | results section. | + +--------+ + + + | COMPREHENSIVE | Routin | 08/20/2018 | | Results for this | | METABOLIC PANEL | e | 11:20 AM | | procedure are in the | | | | PST | | results section. | + +--------+ + + + documented in this encounter Results Urinalysis, Microscopic Only (08/20/2018 11:20 AM PST) + + + [...] + + + + + + | Specific | 1.014 | 1.005 - 1.030 | EXTERNAL | | | [place], | | | LAB | | | Urine | | | | | + + + + + + | Leukocyte | TraceComment: Large | | EXTERNAL | | | Esterase, [...] + + + + | Protein, | Trace | | EXTERNAL | | | Urine | | | LAB | | + + + + + + | pH, Urine | 5 | 5 - 9 | EXTERNAL | | | | | | LAB | | + + + + + + | Blood, | Positive | | EXTERNAL | | | Urine [...] | | | + +---------+ + + Hemoglobin A1C (08/20/2018 11:20 AM PST) + +-------+ + + + | Component | Value | Ref Range | Performed | Pathologist | | | | | At | Signature | + +-------+ + + + | Hemoglobin | 5.0 | % | EXTERNAL | | | A1c | | | LAB | | + +-------+ + + + + + | Specimen | + + | Blood specimen | | (specimen) | + + + +---------+ + + | Performing | Address | City/State/Zipcode | Phone Number | | Organization | | | | + +---------+ + + | EXTERNAL LAB | | | | + +---------+ + + Vitamin B-08/20/2018 11:20 AM PST) + +-------+ + + + | Component | Value | Ref Range | Performed | Pathologist | | | | | At | Signature | + +-------+ + + + | VITAMIN | 315.5 | 232 - 1,245 | EXTERNAL | | | B-12 | | | LAB | | + [...] + +---------+ + + Comprehensive Metabolic Panel (08/20/2018 11:20 AM PST) + + [...] + + + + | Creatinine | 2.95 (A) | 0.70 - 1.18 | EXTERNAL | | | | | mg/dL | LAB | | + + + + + + | BUN/Creatin | 14.2 | 6.0 - 28.6 | EXTERNAL | | | ine Ratio | | | LAB | | + + + + + + | Calcium | 9.9 | 8.5 - 10.3 | EXTERNAL | | | | | mg/dL | LAB | | + + + + + + | Protein, | 7.7 | 6.0 - 8.3 g/dL | EXTERNAL | | | Total [...] + + + + | Bilirubin | 0.4 | 0.0 - 1.2 mg/dL | EXTERNAL | | | Total | | | LAB | | + + + + + + | ALP, | 110 | 13 - 130 | EXTERNAL | | | External | | | LAB | | + + + + + + | ALT | 8 | 7 - 52 U/L | EXTERNAL | | | | | | LAB | | + + + + + + | AST | 12 (A) | 13 - 39 U/L | EXTERNAL | | | | | | LAB | | + + + + + + | Na | 141 | 132 - 143 | EXTERNAL | [...] + + | CO2 | 21 | 19 - 31 mmol/L | EXTERNAL | | | | | | LAB | | + + + + + + | Anion Gap | 21.0 | 7 - 21 mmol/L | EXTERNAL | | | | | | LAB | | + + + + + + | Estimated | 16 (A) | 60 - 140 mg/dL | [...]
--- OUTSIDE RECORDS SUMMARY | ~2020-02-01 | XMS | Encounter Summary ---
Demographics + + + | Address | [address] | | | [place] [address] | + + + | Home Phone | | + + + | Preferred Language | Unknown | + + + | Marital Status | | + + + | Gnosticism Affiliation | Unknown | + + + [...] Team Providers + +------+ + | Care Parcel Post Carrier Name | Role | Phone | + +------+ + | Hedii Koch MD | PCP | | + +------+ + Reason for Visit + +--------+ + | Reason | Onset | Comments | | | Date | | + +--------+ + | Cardiology | 12/31/ | [facility] Referral | | Appointment | 2019 | | + +--------+ + Encounter Details +--------+ + + + + | Date | Type | Department | Care Team | Description | +--------+ + + + + | 12/31/ | Telephone | [facility] | Maria L Gill | Cardiology | | 2019 | | [facility]IOLOGY [facility] | E, Medical | Appointment | | | | [address] | [place]pl[place] | ([facility] Referral | | | | [place] | | ) | | | | [address] | | | | | | [phone] | | | +--------+ + + + [...] this encounter Miscellaneous Notes Telephone Encounter - Maria L Gill, Manager Commodities - 12/31/2018 10:16 AM [facility] ed patient to review [facility] referral from [facility] and confirm appts scheduled 01/25/19. Patient states that at this time, she is not interested in pursuing any intervention (michelle sky she is aware this is not [facility]) and would like to cancel all scheduled appts. Patient sta josiah " I feel fine and I don't really have any symptoms". She would also like to review w/ he r Windows Application Packager, for a 2nd opinion. Advised we highly suggest patients undergo testing and evlaluation prior to becoming severe ly symptomatic and deconditioned which can lead do a more risky procedure. She acknowledges these concerns and states she is followed very closely w/ her primary Windows Application Packager. Called and LM w/ nursing staff for to provide this update and scheduled patient for follow up office visit to review. d ocumented in this encounter Plan of Treatment +--------+ [...] [place] | | | | | | [id number] | | | | | | | | +--------+ + + + + | 02/22/ | Office | Cardiology | Phylicia Patel DO | | | 2019 | Visit | | [address] | | | | | | [place] | | | | | | [phone] | | | | | | | | +--------+ + + + + documented as of this encounter Visit Diagnoses Not on filedocumented in this encounter
--- OUTSIDE RECORDS SUMMARY | ~2020-02-01 | XMS | Encounter Summary ---
Demographics + + + | Address | [address] | | | [place] [address] | + + + | Home Phone [...] Team Providers + +------+ + | Care Administrative Representative Name | Role | Phone | + +------+ + | Heidi Koch MD | PCP | | + +------+ + Encounter Details +--------+ + + + + | Date | Type | Department | Care Team | Description | +--------+ + + + + | 08/22/ | Orders Only | [facility] | Conversion | | | 2017 | | NEPRHOLOGY [place] | Transaction, | | | | | [address] | Provider Unknown | | | | | [address] [place], [place] | [phone] | | | | | [address] | | | | | | [phone] | | | +--------+ + + + [...] [place] | | | | | | [id number] | | | | | | | [...] + | VITAMIN D, | Routin | 08/22/2016 | | Results for this | | DEFICIENCY SCREEN | e | 8:55 AM | | procedure are in the | | (25-HYDROXY) | | PST | | results section. | + +--------+ + + + | URINALYSIS, | Routin | 08/22/2016 | | Results for this | | MICROSCOPIC ONLY | e | 8:55 AM | | procedure are in the | | | | PST | | results section. | + +--------+ + + + | PROTEIN/CREATININE | Routin | 08/22/2016 | | Results for this | | RATIO, URINE | e | 8:55 AM | | procedure are in the | | | | PST | | results section. | + +--------+ + + + documented in this encounter Results Protein/Creatinine Ratio, Urine (08/22/2016 8:55 AM PST) + + + + + + | Component | Value | Ref Range | Performed | Pathologist | | | | | At | Signature | + + + + + + | Protein/Cre | 434.0 (A) | 0 - 150 | EXTERNAL [...] + + Vitamin D, Deficiency Screen (25-Hydroxy) (08/22/2016 8:55 AM PST) + +-------+ + + + | Component | Value | Ref Range | Performed | Pathologist | | | | | At | Signature | + +-------+ + + + | Vit D, | 83 | 30 - 100 | EXTERNAL | [...] | | | + +---------+ + + Urinalysis, Microscopic Only (08/22/2016 8:55 AM PST) + + + + + [...] - 1.030 | EXTERNAL | | | [place], | | | LAB | | | [...] + + + + | Protein, | Negative | | EXTERNAL | | [...]
--- OUTSIDE RECORDS SUMMARY | ~2020-02-01 | XMS | Encounter Summary ---
Demographics + + + | Address | [address] | | | [place] [address] | + + + | Home Phone | | + + + | Preferred Language | Unknown | + + + | Marital Status | | + + + | Presybeterian Affiliation | Unknown | + + + | Race | Unknown | + + + | Ethnic Group | Unknown | + + + Author + + + | Author | [facility] | | | and [place] | + + + | Organization | [facility] | | [...] Team Providers + +------+ + | Care Mirror Silverer Name | Role | Phone | + +------+ + | Heidi Koch MD | PCP | | + +------+ + Reason for Visit + + + | Reason | Comments | + + + | Follow-up | | + + + Evaluate & Treat (Routine) +--------+ + + + + + | Status | Reason | Specialty | Diagnoses / | Referred By | Referred To | | | | | Procedures | Contact | Contact | +--------+ + + + + + | Closed | Specialty | Pulmonary | Diagnoses | Amanda, | Augusto, | | | Services | Disease / | Chronic | DO Phylicia | Marga | | | Required | Pulmonology | obstructive | [address] | MD Aleena | | | | | pulmonary | [address] | [address] | | | | | disease, | [address] | [address] | | | | | unspecified | [place], [place] | [place] | | | | | COPD type | [address] | [id number] Phone: | | | | | ([facility]LY [facility]) | Phone: | [phone] | | | | | | [phone] | Fax: | | | | | | Fax: | [phone] | | | | | | [phone] | | +--------+ + + + + + Encounter Details +--------+ + + + + | Date | Type | Department | Care Team | Description | +--------+ + + + + | 11/01/ | Virtual | [facility] | Rodrigo Cruz MD | Chronic obstructive | | 2019 | Office | PULMONOLOGY [address] | pulmonary disease, | | | Visit | [address] | [address] [place], [place] | unspecified COPD | | | | [place], [place] | [address] | type (HCC) (Primary | | | | [address] | | Dx); Centrilobular | | | | [phone] | | emphysema (HCC); | | | | | | Moderate to severe | | | | | | mitral regurgitation | +--------+ + + + + Social [...] + + documented as of this encounter Progress Notes Rodrigo Cruz MD - 11/02/2019 1:00 PM PDT Subjective: Patient ID: Yanique Prasad is a 68 y.o. female is here for follow up shortness of breat h . HPI The following portions of the patient's history were reviewed and updated as appropriate an d is available elsewhere in the record: allergies, current medications, past family history, past medical history, past social history, past surgical history and problem list. The paient is a 68 year old female who has been referred for shortness of breath. The patie nt says that she was in her usual state of health couple of years when she gradually started having shortness of breath. Her symptoms usually would get worse in the night and she would have to sit up . She was once admitted to the hospital and was told she has COPD. She was s tarted on spiriva which she has been using regularly and she was switched to Breo one month ago and this has no changed her symptoms. She has been diagnosed with coronary artery disease, congestive heart failure and has moder ate to severe mitral regurgitation which has been managed medically . She has history of smoking but she quit . She has no history of wheezing, recurrent treatme nt with steroids or intubations., she denies any environmental allergies. 12/04/2018 The patient continues to have significant shortness of breath. Her symptoms are mainly in the night when she lays down. She has been compliant with the use of her inhalers. She den ies any significant wheezing. 03/04/2019 The patient was evaluated in cardiothoracic surgery in [place]. The patient was felt to be a very poor candidate. She continues to have shortness of breath on exertion. She de nies having any wheezing. Interim history 11/02/2019 Telephone visit The patient continues to have shortness of breath. She says she has been using inhalers ho weoliver I called her pharmacy and confirmed that she has not filled up Spiriva since July she never picked up Arnuity. She says she is doing much better. Review of Systems Constitutional: Negative. HENT: Negative. Eyes: Negative. Respiratory: Positive for shortness of breath. Cardiovascular: Positive for orthopnea and leg swelling. Gastrointestinal: Negative. Musculoskeletal: Negative. Skin: Negative. Neurological: Negative. Endo/Heme/Allergies: Negative. Psychiatric/Behavioral: Negative. History: Past Medical History: Diagnosis Date Anemia Arthritis CAD (coronary artery disease) CKD (chronic kidney disease), stage IV (HCC) COPD (chronic obstructive pulmonary disease) (HCC) COPD (chronic obstructive pulmonary disease) (HCC) Heart attack (HCC) Heart disease History of myocardial infarction HLD (hyperlipidemia) HTN (hypertension) Hypercalcemia Hyperlipidemia Hypertension Kidney stones Mitral regurgitation Nephrolithiasis PAD (peripheral artery disease) (HCC) Pulmonary emphysema (HCC) Pulmonary HTN (HCC) Tricuspid regurgitation Vitamin D deficiency Past Surgical History: Procedure Laterality Date ABDOMEN SURGERY aneurysm ABDOMINAL AORTIC ANEURYSM REPAIR 2011 with iliac artery aneurysm repair ARTERIAL ANEURYSM REPAIR iliac x 2 CARDIAC SURGERY CORONARY ANGIOPLASTY CORONARY ARTERY BYPASS GRAFT 2003 CORONARY ARTERY BYPASS GRAFT HYSTERECTOMY HYSTERECTOMY LUNG SURGERY LUNG SURGERY 1998 for gel like mass? , not cancer OTHER SURGICAL HISTORY REMOVAL IMPLANT SUPERFICIAL SPX OTHER SURGICAL HISTORY UNLISTED PROCEDURE ARTHROSCOPY TOTAL HIP ARTHROPLASTY Left Social History Socioeconomic History Marital status: Spouse name: Not on file Number of children: Not on file Years of education: Not on file Highest education level: Not on file Occupational History Not on file Social Needs Financial resource strain: Not on file Food insecurity: Worry: Not on file Inability: Not on file Transportation needs: Medical: Not on file Non-medical: Not on file Tobacco Use Smoking status: Former Smoker Packs/day: 1.50 Last attempt to quit: 07/06/2008 Years since quittin.3 Smokeless tobacco: Never Used Substance and Sexual Activity Alcohol use: Not Currently Drug use: Never Comment: Drug use: No Sexual activity: Not Currently Lifestyle Physical activity: Days per week: Not on file Minutes per session: Not on file Stress: Not on file Relationships Social connections: Talks on phone: Not on file Gets together: Not on file Attends latter day service: Not on file Active member of club or organization: Not on file Attends meetings of clubs or organizations: Not on file Relationship status: Not on file Intimate partner violence: Fear of current or ex partner: Not on file Emotionally abused: Not on file Physically abused: Not on file Forced sexual activity: Not on file Other Topics Concern Not on file Social History Narrative Not on file Family History Problem Relation Age of Onset Heart attack Mother Emphysema Mother Heart disease Mother Hypertension Mother Allergies: Allergies Allergen Reactions [place] Anaphylaxis BRAZIL NUTS Codeine Sulfate Peanuts [place] Nuts Current Medications: Current Outpatient Medications on File Prior to Visit Medication Sig Dispense Refill aspirin 81 mg EC tablet Take 81 mg by mouth Daily. buPROPion (WELLBUTRIN XL) 300 mg 24 hr tablet Take 300 mg by mouth every morning. clopidogrel (PLAVIX) 75 mg tablet Take 75 mg by mouth Daily. fluticasone furoate (ARNUITY ELLIPTA) 100 mcg/puff inhaler Inhale 1 puff into the lungs Daily. 1 Inhaler 11 gabapentin (NEURONTIN) 100 mg capsule Take 100 mg by mouth 2 times daily. gemfibrozil (LOPID) 600 mg tablet Take 600 mg by mouth 2 times daily. hydrALAZINE (APRESOLINE) 25 mg tablet Take 50 mg by mouth 3 times daily. isosorbide mononitrate 60 mg ER tablet Take 60 mg by mouth Daily. metoprolol succinate (TOPROL-XL) 50 mg 24 hr tablet Take 50 mg by mouth Daily. pravastatin (PRAVACHOL) 40 MG tablet Take 40 mg by mouth Daily. raNITIdine (ZANTAC) 150 mg tablet Take 150 mg by mouth 2 times daily. tiotropium (SPIRIVA RESPIMAT) 2.5 mcg/puff inhaler Inhale 2 puffs into the lungs Daily. PLEASE RINSE YOUR MOUTH AFTER USE 1 Inhaler 11 VENTOLIN HFA 108 (90 Base) MCG/ACT inhaler INHALE TWO PUFFS BY MOUTH EVERY 6 HOURS N EEDED FOR WHEEZING 18 g 3 No current facility-administered medications on file prior to visit. Objective Objective: Physical Exam There were no vitals filed for this visit. Pulmonary function test 10/29/2018 FEV1/FVC 65 FEV1 1.73/64 FVC 2.65/75 There is a significant bronchodilator response TLC 5.23/87 Diffusing capacity 12.92/39 My impression-there is a moderate obstructive impairment with significant bronchodilator re sponse. The diffusing capacity severely reduced. Assessment/Plan Assessment and Plan: 1. Centrilobular emphysema (HCC) I will start the patient on Trelegy Ellipta 1 puff daily. She will use albuterol as needed .. . . 2. Pulmonary hypertension (HCC) Most likely due to left sided failure. Treatment will be management of underlying disease. 3. Moderate to severe mitral regurgitation Most of her symptoms are suggestive of congestive heart failure . Continue to follow-up wit cardiology Thank you for allowing me to participate in your patient's care. We will review test result s that we have ordered with the patient once they become available. A return visit has been scheduled in 6 months. Rodrigo Cruz MD Pulmonary and Critical Care Medicine [facility] [address], [place] [address] documented in this enco unter Plan of Treatment +--------+ + + + + | Date | Type | Specialty | Care Team | Description | +--------+ + + + + | 02/01/ | Virtual | Pulmonology | Rodrigo Cruz MD | | | 2019 | Office | | [address] | | | | Visit | | [facility] [place] | | | | | | [address] | | | | | | | | +--------+ + + + + | 02/22/ | Office | Cardiology | Phylicia Patel DO | | 2019 | Visit | | [address] | | | | | | [facility] [place] | | | | | | [address] | | | | | | | | +--------+ + + + + documented as of this encounter Visit Diagnoses + + | Diagnosis | + + | Chronic obstructive pulmonary disease, unspecified COPD type (HCC) - Primary | + + | Centrilobular emphysema (HCC) | + + | Moderate to severe mitral regurgitation | + + documented in this encounter"
--- OUTSIDE RECORDS SUMMARY | ~2020-02-01 | XMS | Encounter Summary ---
Demographics + + + | Address | [address] | | | [place] [address] | + + + | Home Phone | | + + + | Preferred Language | Unknown | + + + | Marital Status | | + + + | Taoist Affiliation | Unknown | + + + | Race | Unknown | + + + | Ethnic Group | Unknown | + + + Author + + + | Author | [facility] | | | and [place] | + + + | Organization | [facility] | | | [...] Team Providers + +------+ + | Care Field Artillery Fire Control Man Name | Role | Phone | + +------+ + | Heidi Koch MD | PCP | | + +------+ + Encounter Details +--------+ + + + + | Date | Type | Department | Care Team | Description | +--------+ + + + + | 01/27/ | Orders Only | [facility] | [place] | | | 2015 | | NEPRHOLOGY [facility] | [address] | | | | | [address] | [address] | | | | | [address] [place], [place] | [place] | | | | | [address] | [address] | | | | | [phone] | [phone] | | | | | | | [...] RIOS | | | | | | [id number] | | | | | | | | +--------+ + + + + documented as of this encounter Procedures + +--------+ + + + | Procedure Name | Priori | Date/Time | Associated Diagnosis | Comments | | | ty | | | | + +--------+ + + + | URINALYSIS, REFLEX | Routin | 01/28/2016 | | Results for this | | MICROSCOPIC AND/OR | e | 1:50 PM | | procedure are in the | | CULTURE | | PDT | | results section. | + +--------+ + + + | VITAMIN D, | Routin | 01/28/2016 | | Results for this | | DEFICIENCY SCREEN | e | 1:50 PM | | procedure are in the | | (25-HYDROXY) | | PDT | | results section. | + +--------+ + + + | PARATHYROID HORMONE, | Routin | 01/28/2016 | | Results for this | | INTACT AND CALCIUM | e | 1:50 PM | | procedure are in the | | | | PDT | | results section. | + +--------+ + + + | PROTEIN/CREATININE | Routin | 01/28/2016 | | Results for this | | RATIO, URINE | e | 1:50 PM | | procedure are in the | | | | PDT | | results section. | + +--------+ + + + | URIC ACID | Routin | 01/28/2016 | | Results for this | | | e | 1:50 PM | | procedure are in the | | | | PDT | | results section. | + +--------+ + + + | MAGNESIUM | Routin | 01/28/2016 | | Results for this | | | e | 1:50 PM | | procedure are in the | | | | PDT | | results section. | + +--------+ + + + | RENAL FUNCTION PANEL | Routin | 01/28/2016 | | Results for this | | | e | 1:50 PM | | procedure are in the | | | | PDT | | results section. | + +--------+ + + + documented in this encounter Results Urinalysis, Reflex Microscopic and/or Culture (01/28/2016 1:50 PM PDT) + + + + [...] + + Parathyroid Hormone, Intact and Calcium (01/28/2016 1:50 PM PDT) + +-------+ + + + | Component | Value | Ref Range | Performed | Pathologist | | | | | At | Signature | + +-------+ + + + | PTH Intact | 40.15 | 15 - 65 | EXTERNAL | | | | | | LAB | | + +-------+ + + + | Calcium | 10.0 | 8.4 - 10.2 | EXTERNAL | [...] + +---------+ + + Protein/Creatinine Ratio, Urine (01/28/2016 1:50 PM PDT) + + + + + + | Component | Value | Ref Range | Performed | Pathologist | | | | | At | Signature | + + + + + + | Protein/Cre | 386.2 (A) | 0 - 150 | EXTERNAL [...] + + Vitamin D, Deficiency Screen (25-Hydroxy) (01/28/2016 1:50 PM PDT) + +-------+ + + + | Component | Value | Ref Range | Performed | Pathologist | | | | | At | Signature | + +-------+ + + + | Vit D, | 63 | 30 - 100 | EXTERNAL | [...] | + +---------+ + + Uric Acid (01/28/2016 1:50 PM PDT) + +---------+ + + + | Component | Value | Ref Range | Performed | Pathologist | | | | | At | Signature | + +---------+ + + + | Uric Acid | 9.6 (A) | 2.3 - 6.6 | EXTERNAL [...] | | + +---------+ + + Magnesium (01/28/2016 1:50 PM PDT) + +-------+ + + + | Component | Value | Ref Range | Performed | Pathologist | | | | | At | Signature | + +-------+ + + + | Magnesium | 2.1 | 1.7 - 2.5 mg/dL | EXTERNAL [...] + +---------+ + + Renal Function Panel (01/28/2016 1:50 PM PDT) + + + + + + | Component | Value | Ref Range | Performed | Pathologist | | | | | At | Signature | + + + + + + | Glucose, | 84 | 70 - 100 mg/dL | EXTERNAL | | | Fasting | | | LAB | | + + + + + + | BUN | 45 (A) | 6 - 23 mg/dL | EXTERNAL | | | | | | LAB | | + + + + + + | Creatinine | 3.30 (A) | 0.70 - 1.25 | EXTERNAL [...] + + + | Na | 135 | 132 - 143 | EXTERNAL | | | | | mmol/L | LAB | | + + + + + + | K | 4.8 | 3.6 - 5.1 | EXTERNAL | [...] + + + | Anion Gap | 17.8 | 7 - 21 mmol/L | EXTERNAL | | | | | | LAB | | + + + + + + | eGFR, | | | EXTERNAL | | | non- | | | LAB | | | [place] | | | | | + + + + + + | Phosphorus, | 3.7 | 2.5 - 5.0 | EXTERNAL | | | Inorganic | | | LAB | | + + + + + + | BUN/Creatin | 13.6 | 6.0 - 28.6 | EXTERNAL | | | ine Ratio | | | LAB | | + + + + + + | Calcium | 10.0 | 8.4 - 10.2 | EXTERNAL | | | | | mg/dL | LAB | | + + + + + + | Estimated | 14 | mg/dL | EXTERNAL | | | [...]
--- OUTSIDE RECORDS SUMMARY | ~2020-02-01 | XMS | Encounter Summary ---
Demographics + + + | Address | [address] | | | [place] [address] | + + + | Home Phone | | + + + | Preferred Language | Unknown | + + + | Marital Status | | + + + | Islam Affiliation | Unknown | + + + [...] Team Providers + +------+ + | Care Heel Cutter Name | Role | Phone | + +------+ + | Heidi Koch MD | PCP | | + +------+ + Reason for Referral Evaluate & Treat (Routine) +--------+ + + + + + | Status | Reason | Specialty | Diagnoses / | Referred By | Referred To | | | | | Procedures | Contact | Contact | +--------+ + + + + + | Closed | Specialty | Pulmonary | Diagnoses | Patel, | Augusto, | | | Services | Disease / | Chronic | DO Phylicia | Marga | | | Required | Pulmonology | obstructive | [address] | MD Aleena | | | | | pulmonary | [address] | [address] | | | | | disease, | [place] | [address] | | | | | unspecified | [place], [place] | [place], [place] | | | | | COPD type | [address] | [address] Phone: | | | | | ([facility]) | Phone: | [phone] | | | | | | [phone] | Fax: | | | | | | Fax: | [phone] | | | | | | [phone] | | +--------+ + + + + + Reason for Visit + + + | Reason | Comments | + + + | Follow-up | 3 month / ECHO | + + + Encounter Details +--------+---------+ + + + | Date | Type | Department | Care Team | Description | +--------+---------+ + + + | 09/07/ | Office | [facility] | Phylicia Patel DO | Chronic obstructive | | 2019 | Visit | CARDIOLOGY MARYANNE | [address] | pulmonary disease, | | | | [address] | [place], [place] | unspecified COPD | | | | [address] | [address] | type ([facility]) (Primary | | | | [place] | | Dx); Coronary artery | | | | [address] | | disease of | | | | [phone] | | autologous vein | | | | | | bypass graft with | | | | | | stable angina | | | | | | pectoris ([facility]); | | | | | | Pulmonary HTN ([facility]); | | | | | | Coronary artery | | | | | | disease of [place] | | | | | | artery of [place] | | | | | | heart with stable | | | | | | angina pectoris | | | | | | ([facility]); S/P CABG | | | | | | (coronary artery | | | | | | bypass graft) | +--------+---------+ + + + Social History [...] + + + documented in this encounter Progress Notes PatelPhylicia, - 09/08/2019 2:40 PM PST [facility] Cardiology Follow Up Note Reason for Consultation: establish care/prior patient of Dr. Smith Requesting Physician: Heidi Koch History Obtained From: patient HISTORY OF PRESENT ILLNESS: Cardiac Problem List 1. CAD - S/P inferior [place] - CABG 2004 (WARD-LAD, SVG-D1) - 08/19/2005 KEYON placed to LCx 3.5x8mm Taxus - 12/23/2006 KEYON placed to RCA 3.0x12mm Taxus - 04/19/2007 KEYON placed to RCA 3.5x3.0mm Taxus - 12/14/2007 KEYON placed to LCx 2.79g25zz Taxus - 12/05/14 cath LAD occluded at [...] controlled lately with systolics in the 110s-120s. I saw the patient on 11/11/2018. At that time, we ordered a 2-week event monitor. The navdeep n was to repeat an echocardiogram in a year to follow her mitral valve. Her event monitor d emonstrated sinus rhythm. No atrial fibrillation that was detected. Since I last saw her, she followed up with Dr. Araiza in [place] for consideration of a MitraClip. He recommended a coronary angiogram and a 3D LOLA. He referred her to a bottom bleacher there to have these p rocedures done. The patient reports that she was not really interested in getting a MitraCl ip and was feeling okay. She decided against pursuing a coronary angiogram or LOLA. She pre fers to continue with medical management and monitoring of her mitral valve. She is request ing a referral to a different chief science officer. Since I last saw the patient, she has been doi ng about at her baseline. She reports a few episodes of chest pain, which were brief and m ild. She continues to have issues with dyspnea on exertion. She denies any lower extremity swelling. She has occasional orthopnea, but denies any PND. She denies any episodes of sy ncope or presyncope since we last saw each other. Interim History I last saw the patient on 03/24/2019. At that time, we ordered a complete echocardiogram, we also increased her dose of hydralazine to 50 mg by mouth 3 times daily. The patient's ec hocardiogram was done on 09/01/2019, which demonstrated normal left ventricular size and wal l thickness, ejection fraction was 60 percent. There were no regional wall motion abnormali ties, there was moderate mitral regurgitation and right ventricular systolic pressure was 4 5 mmHg. Since we last saw each other, she has been doing about at her baseline. She contin ues to have dyspnea on exertion. She has had intermittent episodes of chest discomfort and has used her nitroglycerin twice since we last saw each other. She denies any lower extremi ty swelling or orthopnea. She has been doing otherwise well from a cardiac standpoint. PAST MEDICAL & SURGICAL HISTORY Past Medical [...] No narrative on file PHYSICAL EXAM Vitals: 09/08/19 1447 BP: 130/70 Pulse: 51 SpO2: 97% Weight: 118.8 kg (262 lb) Height: 1.829 m (6') Physical Exam GENERAL: Well developed, well nourished, [...] Ref Range: 140 - 450 K/L 333 03/25/2018 sodium 140, potassium 4.4, chloride 105, carbon dioxide 24, glucose 80, calcium 9 .4, BUN 34, creatinine 2.38, GFR 20 CARDIAC PROCEDURES/IMAGING Hx CAB: CABG x 2(WARD [...] LVEF 58%. VASCULAR IMAGING AND PROCEDURES: 10/06/2011: [place] : abdominal aortic aneurysm resection with aortoiliac bypass.(Dr. Fr dyan Sears) ECHO: 09/01/2019 Normal left ventricular cavity size and wall thickness, ejection fraction 60%, no regional wall motion abnormalities, moderate mitral regurgitation, mild pulmonary hypertension right ventricular systolic pressure 45 mmHg, ascending aorta dilation at 4.26 cm. Last 06/18/2018: ([facility]). Sinus rhythm, rare irregular [...] mild pulmonary hypertension, RVSP 41.35 mmHg. Mild VA. No effusion. IVC not well visualized. Aortic [...] diffusion defect. EKG/EVENT MONITOR : 48 hr , 02/26/2016([facility]): sinus rhythm, 54-95, averaging 64 bpm, rare ectopy, no significant tachy or erik events, no AVB/pauses, symptoms of dizziness/palpitations associ ated with NSR. EK02/04/2016:EKG: Normal sinus rhythm. ST abnormalities to inferior and lateral leads with poor R-wave progression and low voltage QRS and inferior and lateral leads. Rate 63 b pm, VA 132 ms, QRS 116 ms, QTC 462 ms EK02/05/2017: Sinus rhythm rate 64 bpm, VA 138 ms, QRS 78 ms, QTC 433 ms ( personally revie wed by me in the office today and compared to EKG done in February 2016 and no significant abran nges noted) EK07/08/2018: Sinus rhythm,old inferior infarct, stable ST and T wave abnormalities to inferior and lateral leads with poor R-wave progression and low voltage QRS to limb leads. Rate 73 bpm, VA 156 ms, QRS 104 ms, QTC 460 ms him a tracing personally reviewed by me and similar morphology to previous EKG's ASSESSMENT & PLAN 1. CAD - S/P inferior [place] - CABG 2004 (WARD-LAD, SVG-D1) - 08/19/2005 KEYON placed to LCx 3.5x8mm Taxus - 12/23/2006 KEYON placed to RCA 3.0x12mm Taxus - 04/19/2007 KEYON placed to RCA 3.5x3.0mm Taxus - 12/14/2007 KEYON placed to LCx 2.76g34jo Taxus - 12/05/14 cath LAD occluded at [...] to the cardiology office to follow up. Recently, she has been doing well from a cardiac standpoin t. She has had a low burden of angina with overall stable symptoms. Most recent echocardio gram demonstrated normal left ventricular function with moderate mitral regurgitation and el evated right ventricular systolic pressures at 45 mmHg. She denies any heart failure sympto ms. She does have chronic shortness of breath when she exerts herself which I think is mult ifactorial and is also related to COPD. She is requesting a second opinion from a pulmonolo gist and would like a referral. -Continue aspirin 81 mg by mouth daily, Plavix 75 mg by mouth daily, gemfibrozil 600 mg by mouth twice daily, hydralazine 50 mg by mouth 3 times daily, isosorbide mononitrate 60 mg by mouth daily, metoprolol succinate 50 mg by mouth daily, pravastatin 40 mg by mouth daily. -We will plan to repeat an echocardiogram in 1 year -We will place referral to pulmonology - Follow up in 6 months Thank you for allowing me to [...] [place] | | | | | | [address] | | | | | | | | +--------+ + + + + | 02/22/ | Office | Cardiology | Phylicia Patel DO | | | 2019 | Visit | | [address] | | | | | | [place] | | | | | | [address] | | | | | | | | +--------+ + + + + + + +--------+ + + | Name | Type | Priori | Associated Diagnoses | Order Schedule | | | | ty | | | + + +--------+ + + | Ambulatory Referral | Outpatient | Routin | Chronic | Ordered: 09/08/2019 | | to [facility] | Referral | e | obstructive | | | Pulmonology | | | pulmonary disease, | | | | | | unspecified COPD | | | | | | type (HCC) | | + + +--------+ + + documented as of this encounter Procedures + +--------+ + + + | Procedure Name | Priori | Date/Time | Associated Diagnosis | Comments | | | ty | | | | + +--------+ + + + | ECHO-EXTERNAL SCAN | | 09/22/2019 | | Results for this | | | | 12:00 AM | | procedure are in the | | | | PDT | | results section. | + +--------+ + + + documented in this encounter Results ECHO-EXTERNAL SCAN (09/22/2019 12:00 AM PDT) + + + | Narrative | Performed At | + + + | Ordered by an | | | unspecified provider. 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
--- OUTSIDE RECORDS SUMMARY | ~2020-02-01 | XMS | Encounter Summary ---
Demographics + + + | Address | [address] | | | [place] [address] | + + + | Home Phone | | + + + | Preferred Language | Unknown | + + + | Marital Status | | + + + | Gnosticist Affiliation | Unknown | + + + | Race | Unknown | + + + | Ethnic Group | Unknown | + + + Author + + + | Author | [facility] | | | and [place] | + + + | Organization | [facility] | | [...] Team Providers + +------+ + | Care Tank Farm Gauger Name | Role | Phone | + +------+ + PCP | Unavailable | + +------+ + Reason for Visit + +--------+ + | Reason | Onset | Comments | | | Date | | + +--------+ + | Establish Care | 10/24/ | | | | 2015 | | + +--------+ + Encounter Details +--------+ + + + + | Date | Type | Department | Care Team | Description | +--------+ + + + + | 10/24/ | Telephone | [facility] [place] | [place], | Establish Care | | 2016 | | PULMONARY [address] | Maru Layne MD | | | | | [place], | | | | | | [place] [address] | | | | | | [phone] | | | +--------+ + + + [...] this encounter Miscellaneous Notes Telephone Encounter - Briana Saenz - 10/25/2015 11:42 AM PDTReceived a fax from Dr. Marian Holloway's office 10/18/15 referring patient to see Dr. El for surgical clearance for gallbladder surgery. Called referring office to let them know Dr. El is leaving her practice mid-December and can no longer accept new consults due to her schedule being full. They will relay message to Dr. Holloway. Electronically signed by Briana Saenz at 11:45 AM PDTdocumented in this encounter Plan of Treatment +--------+ + + + + | Date | Type | Specialty | Care Team | Description | +--------+ + + + + | 02/01/ | Virtual | Pulmonology | Rodrigo Cruz MD | | | 2019 | Office | | [address] | | | | Visit | | [place] | | | | | | [id number] | | | | | | | | +--------+ + + + + | 02/22/ | Office | Cardiology | Phylicia Patel DO | | | 2019 | Visit | | [address] | | | | | | [place] | | | | | | [address] | | | | | | | | +--------+ + + + + documented as of this encounter Visit Diagnoses Not on filedocumented in this encounter"
--- OUTSIDE RECORDS SUMMARY | ~2020-02-01 | XMS | Encounter Summary ---
Demographics + + + | Address | [address] | | | [place] [address] | + + + | Home Phone | | + + + | Preferred Language | Unknown | + + + | Marital Status | | + + + | Restorationism Affiliation | Unknown | + + + | Race | Unknown | + + + | Ethnic Group | Unknown | + + + Author + + + | Author | [facility] | | | and [place] | + + + | Organization | [facility] | | | [...] Team Providers + +------+ + | Care Bicycle Taxi Driver Name | Role | Phone | + +------+ + | Heidi Koch MD | PCP | | + +------+ + Encounter Details +--------+ + + + + | Date | Type | Department | Care Team | Description | +--------+ + + + + | 08/20/ | Orders Only | [facility] | Conversion | | | 2019 | | NEPHROLOGY [place] | Transaction, | | | | | [address] | Provider Unknown | | | | | [address] [facility], [place] | | | | | | [address] | (Fax) | | | | | [phone] | | | +--------+ + + + [...] [place] | | | | | | [phone] | | | | | | | | +--------+ + + + + | 02/22/ | Office | Cardiology | Phylicia Patel DO | | | 2019 | Visit | | [address] | | | | | | [place] | | | | | | [phone] | | | | | | | | +--------+ + + + + documented as of this encounter Procedures + +--------+ + + + | Procedure Name | Priori | Date/Time | Associated Diagnosis | Comments | | | ty | | | | + +--------+ + + + | CULTURE, URINE | Routin | 08/20/2018 | | Results for this | | | e | 11:20 AM | | procedure are in the | | | | PST | | results section. | + +--------+ + + + documented in this encounter Results Culture, Urine (08/20/2018 11:20 AM PST) + + | Specimen | + + | Urine specimen | | (specimen) | + + + + + | Narrative | Performed At | + + + | Specimen Description urine CULTURE | EXTERNAL LAB | | No Growth at 18-24 hrs. REPORT | | | STATUS final | | + + + + +---------+ + + | Performing | Address | City/State/Zipcode | Phone Number | | Organization | | | | + +---------+ + + | EXTERNAL LAB | | | | + +---------+ + + documented in this encounter Visit Diagnoses Not on filedocumented in this encounter"
--- OUTSIDE RECORDS SUMMARY | ~2020-02-01 | XMS | Encounter Summary ---
Demographics + + + | Address | [address] | | | [place] [address] | + + + | Home Phone | | + + + | Preferred Language | Unknown | + + + | Marital Status | | + + + | Yarsani Affiliation | Unknown | + + + | Race | Unknown | + + + | Ethnic Group | Unknown | + + + Author + + + | Author | [facility] | | | and [place] | + + + | Organization | [facility] | | [...] Team Providers + +------+ + | Care Area Mechanic Name | Role | Phone | + +------+ + | Heidi Koch MD | PCP | | + +------+ + Encounter Details +--------+ + + + + | Date | Type | Department | Care Team | Description | +--------+ + + + + | 02/18/ | Orders Only | [facility] | Conversion | | | 2016 | | NEPRHOLOGY [place] | Transaction, | | | | | [address] | Provider Unknown | | | | | [address] [place], [place] | [phone] | | | | | [address] | | | | | | [phone] | | | +--------+ + + + [...] [place] | | | | | | [phone] | | | | | | | [...] | EXTERNAL LAB: CBC | Routin | 02/19/2016 | | Results for this | | | e | 11:50 AM | | procedure are in the | | | | PDT | | results section. | + +--------+ + + + | PROTEIN/CREATININE | Routin | 02/19/2016 | | Results for this | | RATIO, URINE | e | 11:50 AM | | procedure are in the | | | | PDT | | results section. | + +--------+ + + + | URIC ACID | Routin | 02/19/2016 | | Results for this | | | e | 11:50 AM | | procedure are in the | | | | PDT | | results section. | + +--------+ + + + | MAGNESIUM | Routin | 02/19/2016 | | Results for this | | | e | 11:50 AM | | procedure are in the | | | | PDT | | results section. | + +--------+ + + + | RENAL FUNCTION PANEL | Routin | 02/19/2016 | | Results for this | | | e | 11:50 AM | | procedure are in the | | | | PDT | | results section. | + +--------+ + + + documented in this encounter Results Protein/Creatinine Ratio, Urine (02/19/2016 11:50 AM PDT) + + + + + + | Component | Value | Ref Range | Performed | Pathologist | | | | | At | Signature | + + + + + + | Protein/Cre | 535.7 (A) | 0 - 150 | EXTERNAL [...] + +---------+ + + External Lab: CBC (02/19/2016 11:50 AM PDT) + + + + + + | Component | Value | Ref Range | Performed | Pathologist | | | | | At | Signature | + + + + + + | WBC | 5.4 | 4.5 - 11.0 10 | EXTERNAL [...] + + + + | Hemoglobin | 10.6 (A) | 12.0 - 16.0 | EXTERNAL | | | | | g/dL | LAB | | + + + + + + | Hematocrit, | 33.1 (A) | 35 - 45 % | EXTERNAL | | | POC | | | LAB | | + + + + + + | MCV | 85.6 | 81 - 99 fL | EXTERNAL [...] + + + + | Platelet | 365 | 140 - 440 K/ L | [...] | + +---------+ + + Uric Acid (02/19/2016 11:50 AM PDT) + + + + + + | Component | Value | Ref Range | Performed | Pathologist | | | | | At | Signature | + + + + + + | Uric Acid | 11.7 (A) | 2.3 - 6.6 | EXTERNAL [...] | | + +---------+ + + Magnesium (02/19/2016 11:50 AM PDT) + +-------+ + + + [...] + +---------+ + + Renal Function Panel (02/19/2016 11:50 AM PDT) + + + + + [...] + + + + | BUN | 61 (A) | 6 - 23 mg/dL | EXTERNAL | | | | | | LAB | | + + + + + + | Creatinine | 3.86 (A) | 0.70 - 1.25 | EXTERNAL | | | | | mg/dL | LAB | | + + + + + + | PHOSPHORUS | | mg/dL | EXTERNAL | | | | | | LAB | | + + + + + + | Albumin | 4.2 | 3.5 - 5.00 | EXTERNAL | | | | | | LAB | | + + + + + + | Na | 137 | 132 - 143 | EXTERNAL | | | | | mmol/L | LAB | | + + + + + + | K | 5.4 (A) | 3.6 - 5.1 | EXTERNAL | [...] + + + | Anion Gap | 20.4 | 7 - 21 mmol/L | EXTERNAL | | | | | | LAB | | + + + + + + | eGFR, | | | EXTERNAL | | | non- | | | LAB | | | [place] | | | | | + + + + + + | Phosphorus, | 4.5 | 2.5 - 5.0 | EXTERNAL | | | Inorganic | | | LAB | | + + + + + + | BUN/Creatin | 15.8 | 6.0 - 28.6 | EXTERNAL | | | ine Ratio | | | LAB | | + + + + + + | Calcium | 10.4 (A) | 8.4 - 10.2 | EXTERNAL | | | | | mg/dL | LAB | | + + + + + + | Estimated | 12 | mg/dL | EXTERNAL | | | [...]
--- OUTSIDE RECORDS SUMMARY | ~2020-02-01 | XMS | Encounter Summary ---
Demographics + + + | Address | [address] | | | [place] [address] | + + + | Home Phone | | + + + | Preferred Language | Unknown | + + + | Marital Status | | + + + | Episcopal Affiliation | Unknown | + + + | Race | Unknown | + + + | Ethnic Group | Unknown | + + + Author + + + | Author | [facility] | | | and [place] | + + + | Organization | [facility] | | | [...] Team Providers + +------+ + | Care Lab Head Name | Role | Phone | + +------+ + PCP | Unavailable | + +------+ + Encounter Details +--------+ + + + + | Date | Type | Department | Care Team | Description | +--------+ + + + + | 01/24/ | Hospital | [facility] | Manny Boykin MD | Unspecified Chest | | 2009 | Encounter | [facility] | [address] | Pain | | | | CLINICAL DECISION | [place] [address] | | | | | [address] | [phone] | | | | | [place], [place] | | | | | | [address] | | | | | | [phone] | | | +--------+ + + + [...] [place] | | | | | | [address] | | | | | | | | +--------+ + + + + | 02/22/ | Office | Cardiology | Phylicia Patel DO | | | 2019 | Visit | | [address] | | | | | | [place] | | | | | | [address] | | | | | | | | +--------+ + + + + documented as of this encounter Procedures + +--------+ + + + | Procedure Name | Priori | Date/Time | Associated Diagnosis | Comments | | | ty | | | | + +--------+ + + + | CV CARDIAC PROCEDURE | Routin | 01/24/2009 | | Results for this | | | e | 2:19 PM | | procedure are in the | | | | PDT | | results section. | + +--------+ + + + documented in this encounter Results CV CARDIAC PROCEDURE (01/24/2009 2:19 PM PDT) + + | Specimen | + + | | + + + + + | Narrative | Performed At | + + + | [id number] | | | Page 1 CARDIOLOGY | | | CDU [id number]/ | | | OPS [facility] | | [facility] NAME: [place] [address] | | | | | | | | | DATE OF : 1950 ORDER NUMBER: | | | [id number] EXAM DATE/TIME: 01/24/2009 12:10 P ORDERING PHYSICIAN: | | | MANNY BOYKIN ORDER DETAIL: [id number] / / HCL EXAM DESCRIPTION: CCL | | | HEART CATH LT RETRO PERC | | | | | | PROCEDURES 1. Left heart catheterization with left ventriculogram. | | | 2. Selective coronary angiography. 3. Selective vein graft | | | angiography. 4. Selective left internal mammary angiography. | | | INDICATIONS This is a 58-year-old lady with a history of | | | coronary artery disease, status post coronary artery bypass surgery | | | with the WARD to the LAD and vein graft to the diagonal branch who | | | was referred for coronary angiography as she presented with recurrent | | | chest discomfort. In addition, she has had multiple stenting of the | | | left circumflex and right coronary artery in the past. | | | DESCRIPTION OF PROCEDURE The patient was brought to the | | | catheterization lab in the fasting state. She was prepped and draped | | | in the usual sterile fashion. The right groin was anesthetized with | | | 1% lidocaine. A 6-Finnish arterial sheath was placed in the right | | | femoral artery, and a 6-Finnish JL4 catheter was advanced under | | | fluoroscopic guidance and engaged with the ostium of the left main | | | coronary artery, and multiple projections of the left coronary system | | | were done with the use of contrast injections. The catheter was then | | | exchanged for a 6-Finnish JR4 catheter which was engaged with the | | | ostium of the right coronary artery and multiple projections of the | | | right coronary system were obtained with the use of contrast | | | injections. The catheter was then exchanged for a 6-Finnish pigtail | | | catheter which was advanced into the left ventricle and projections | | | of left ventricular function were done with the use of contrast | | | injections. A JR4 catheter was used to engage the vein graft to the | | | diagonal branch, and projections of the vein graft were done with the | | | use of contrast injections. The catheter was advanced to the left | | | subclavian artery and approached the WARD graft. Projection of the | | | graft was then done. All equipment was then removed. FINDINGS | | | HEMODYNAMICS Aortic pressure 180/86, mean of 109. LV pressure | | | 175/24. Gradient: There was no gradient between the left ventricle | | | (LV) and aorta. CORONARY ANGIOGRAPHY The coronary system was | | | right dominant. 1. The left main bifurcated into left anterior | | | descending artery and left circumflex. The left main was | | | minimally diseased. 2. The left anterior descending artery was | | | totally occluded at the ostium. 3. The left circumflex coronary | | | artery had a long stented segment. There was a 30% stenosis at | | | the curve after the stents. The terminal marginal branch has a | | | 30% to 40% diffuse stenosis. 4. The right coronary artery was widely | | | patent including the stent in the middle. 5. The PDA and ESEQUIEL | | | were diffusely diseased. 6. The vein grafts to the diagonal branch | | | were diffusely diseased. There was no focal lesion. 7. The WARD | | | graft was widely patent to the distal LAD. LEFT VENTRICULOGRAM | | | Left ventriculogram in the MOTT view showed akinetic inferior basal | | | wall with an ejection fraction of 50%. ESTIMATED BLOOD LOSS Less | | | than 50 mL. IMPRESSION AND PLAN 1. Normal left ventricular | | | systolic function except for akinetic inferior basal wall. 2. | | | Coronary artery disease, status post previous stenting of the left | | | circumflex and right coronary artery and bypass surgery with left | | | internal mammary to the left anterior descending and vein graft to | | | the diagonal branch. 3. Recommend medical therapy. Read by | | | MANNY BOYKIN MD 01/25/2009 12:13 A Electronically Signed by MANNY | | | MD CANDICE 02/17/2009 06:52 A A DT: | | Kristen 01/25/2009 10:01 A DUANE/[email or web address]/[id number]/ cc: RODRIGO ANDRADE MD | | | MANNY BOYKIN MD | | + + + + + | Procedure Note | + + | Cody Thrasher Conversion - 02/28/2019 2:42 AM PDT | | [id number] Page 1 | | CARDIOLOGY CDU [id number]/ | | OPS | | [facility] NAME: YANIQUE PRASAD | | [place] [address] | | | | DATE OF : 1950 | | | | ORDER NUMBER: [id number] | | EXAM DATE/TIME: 01/24/2009 12:10 P | | ORDERING PHYSICIAN: MANNY BOYKIN | | ORDER DETAIL: [id number] / / HCL | | EXAM DESCRIPTION: CCL HEART CATH LT RETRO PERC | | | | PROCEDURES | | 1. Left heart catheterization with left ventriculogram. | | 2. Selective coronary angiography. | | 3. Selective vein graft angiography. | | 4. Selective left internal mammary angiography. | | | | INDICATIONS | | This is a 58-year-old lady with a history of coronary artery | | disease, status post coronary artery bypass surgery with the WARD to the | | LAD and vein graft to the diagonal branch who was referred for coronary | | angiography as she presented with recurrent chest discomfort. In | | addition, she has had multiple stenting of the left circumflex and right | | coronary artery in the past. | | | | DESCRIPTION OF PROCEDURE | | The patient was brought to the catheterization lab in the fasting state. | | She was prepped and draped in the usual sterile fashion. The right groin | | was anesthetized with 1% lidocaine. A 6-Finnish arterial sheath was | | placed in the right femoral artery, and a 6-Finnish JL4 catheter was | | advanced under fluoroscopic guidance and engaged with the ostium of the | | left main coronary artery, and multiple projections of the left coronary | | system were done with the use of contrast injections. The catheter was | | then exchanged for a 6-Finnish JR4 catheter which was engaged with the | | ostium of the right coronary artery and multiple projections of the | | right coronary system were obtained with the use of contrast injections. | | The catheter was then exchanged for a 6-Finnish pigtail catheter which | | was advanced into the left ventricle and projections of left ventricular | | function were done with the use of contrast injections. A JR4 catheter | | was used to engage the vein graft to the diagonal branch, and | | projections of the vein graft were done with the use of contrast | | injections. The catheter was advanced to the left subclavian artery and | | approached the WARD graft. Projection of the graft was then done. All | | equipment was then removed. | | | | FINDINGS | | | | HEMODYNAMICS | | Aortic pressure 180/86, mean of 109. | | LV pressure 175/24. | | Gradient: There was no gradient between the left ventricle (LV) and | | aorta. | | | | CORONARY ANGIOGRAPHY | | The coronary system was right dominant. | | 1. The left main bifurcated into left anterior descending artery and | | left circumflex. The left main was minimally diseased. | | 2. The left anterior descending artery was totally occluded at the | | ostium. | | 3. The left circumflex coronary artery had a long stented segment. There | | was a 30% stenosis at the curve after the stents. The terminal | | marginal branch has a 30% to 40% diffuse stenosis. | | 4. The right coronary artery was widely patent including the stent in | | the middle. | | 5. The PDA and ESEQUIEL were diffusely diseased. | | 6. The vein grafts to the diagonal branch were diffusely diseased. There | | was no focal lesion. | | 7. The WARD graft was widely patent to the distal LAD. | | | | LEFT VENTRICULOGRAM | | Left ventriculogram in the MOTT view showed akinetic inferior basal wall | | with an ejection fraction of 50%. | | | | ESTIMATED BLOOD LOSS | | Less than 50 mL. | | | | IMPRESSION AND PLAN | | 1. Normal left ventricular systolic function except for akinetic | | inferior basal wall. | | 2. Coronary artery disease, status post previous stenting of the left | | circumflex and right coronary artery and bypass surgery with left | | internal mammary to the left anterior descending and vein graft to | | the diagonal branch. | | 3. Recommend medical therapy. | | | | Read by | | MANNY BOYKIN MD 01/25/2009 12:13 A | | Electronically Signed by | | MANNY BOYKIN MD 02/17/2009 06:52 A | | | | A | | A | | DUANE/[email or web address]/[id number]/ | | cc: RODRIGO ANDRADE MD | | MANNY BOYKIN MD | + + documented in this encounter Visit Diagnoses + + | Diagnosis | + + | Chest pain, unspecified | + + documented in this encounter"
--- OUTSIDE RECORDS SUMMARY | ~2020-02-01 | XMS | Encounter Summary ---
Demographics + + + | Address | [address] | | | [place] [address] | + + + | Home Phone | | + + + | Preferred Language | Unknown | + + + | Marital Status | | + + + | Moravian Affiliation | Unknown | + + + [...] Team Providers + +------+ + | Care Healthcare Administrator Name | Role | Phone | + +------+ + PCP | Unavailable | + +------+ + Encounter Details +--------+ + + + + | Date | Type | Department | Care Team | Description | +--------+ + + + + | 04/19/ | Hospital | [facility] | [place], | Unspecified Chest | | 2006 - | Encounter [facility] | Rafael Chavez, | Pain | | | | INTENSIVE CARE UNIT | MD [address] | | | 04/21/ | | [address] | [place] [address] | | | 2006 | | [place], [place] | [phone] | | | | | [address] | | | | | | [phone] | | | +--------+ + + + [...] [place] | | | | | | [phone] | | | | | | | | +--------+ + + + + documented as of this encounter Visit Diagnoses + + | Diagnosis | + + | Chest pain, unspecified | + + documented in this encounter"
--- OUTSIDE RECORDS SUMMARY | ~2020-02-01 | XMS | Encounter Summary ---
Demographics + + + | Address | [address] | | | [place] [address] | + + + | Home Phone | | + + + | Preferred Language | Unknown | + + + | Marital Status | | + + + | Nondenominational Affiliation | Unknown | + + + [...] Team Providers + +------+ + | Care Pharmaceutical Compounding Supervisor Name | Role | Phone | + +------+ + PCP | Unavailable | + +------+ + Encounter Details +--------+ + + + + | Date | Type | Department | Care Team | Description | +--------+ + + + + | 02/03/ | Hospital | [facility] | Yifan Franco, | | | 1999 | Encounter | MED CTR XRAY [address] [facility] | | | | | [place] | [place], [place] | | | | | [place] [address] | [address] | | | | | [phone] | | | +--------+ + + + [...] | | | | Visit | | [place] | | | | | | [id number] | | | | | | | | +--------+ + + + + | 02/22/ | Office | Cardiology | Phylicia Patel DO | | | 2019 | Visit | | [address] | | | | | | [place] | | | | | | [address] | | | | | | | | +--------+ + + + + documented as of this encounter Visit Diagnoses Not on filedocumented in this encounter"
--- OUTSIDE RECORDS SUMMARY | ~2020-02-01 | XMS | Encounter Summary ---
Demographics + + + | Address | [address] | | | [place] [address] | + + + | Home Phone | | + + + | Preferred Language | Unknown | + + + | Marital Status | | + + + | Hinduism Affiliation | Unknown | + + + | Race | Unknown | + + + | Ethnic Group | Unknown | + + + Author + + + | Author | [facility] | | | and [place] | + + + | Organization | [facility] | | | and [...] Team Providers + +------+ + | Care Director [place] Name | Role | Phone | + +------+ + PCP | Unavailable | + +------+ + Encounter Details +--------+ + + + + | Date | Type | Department | Care Team | Description | +--------+ + + + + | 03/18/ | Abstract | [place] [facility] | [facility] | | | 2011 | | Conversion Location | SR | | | | | [address] [facility] | | | | | | [place], [place] | | | | | | [address] | | | | | | [phone] | | | +--------+ + + + [...] + + + | Blood Pressure | 90/64 | 11/18/2011 12:00 AM | | | | | PDT | | + + + + + | Pulse | - | - | | + [...] + + + + | Weight | 130.7 kg (288 lb 3.2 | 09/18/2011 12:00 AM | | | | oz) | PDT | | + + + + + | Height | 177.5 cm (5' 9.88") | 06/04/2011 12:00 AM | | | | | PST | | + + + + + | Body Mass Index | 41.49 | 06/04/2011 12:00 AM | | | | | PST | | + + + + + documented in this encounter Plan of Treatment [...] [place] | | | | | | [phone] | | | | | | | | +--------+ + + + + | 02/22/ | Office | Cardiology | Phylicia Patel DO | | | 2019 | Visit | | [address] | | | | | | [place] | | | | | | [phone] | | | | | | | | +--------+ + + + + documented as of this encounter Visit Diagnoses Not on filedocumented in this encounter
--- OUTSIDE RECORDS SUMMARY | ~2020-02-01 | XMS | Encounter Summary ---
Demographics + + + | Address | [address] | | | [place] [address] | + + + | Home Phone | | + + + | Preferred Language | Unknown | + + + | Marital Status | | + + + | Jainism Affiliation | Unknown | + + + [...] Team Providers + +------+ + | Care Forest Technician Name | Role | Phone | + +------+ + | Heidi Koch MD | PCP | | + +------+ + Encounter Details +--------+ + + + + | Date | Type | Department | Care Team | Description | +--------+ + + + + | 06/18/ | Orders Only | [facility] | Ирина Song | | | 2018 | | [address] | [address] | | | | | [address] | [place] | | | | | [place], [place] | [place] [address] | | | | | [id number] | [phone] | | | | | [phone] | | | +--------+ + + + [...] Oliver | | | | | | [id number] | | | | | | | [...] + +--------+ + + + | ECHO INTERPRETATION | Routin | 06/18/2018 | | Results for this | | OF OUTSIDE FILMS | e | 7:40 AM | | procedure are in the | | | | PST | | results section. | + +--------+ + + + documented in this encounter Results ECHO Interpretation of Outside Films (06/18/2018 7:40 AM PST) + + | Specimen | + + | | + + + + + | Impressions | Performed At | + + + | 1. The left ventricle is normal in size, wall thickness and systolic | | | function EF 55-60%. 2. The right ventricle is normal in size and | | | function. 3. Eaknysgc-js-lhqllf mitral regurgitation with moderately | | | dilated left atrium. 4. Moderate tricuspid regurgitation with | | | moderate pulmonary hypertension RVSP 60 mmHg. 5. There is no | | | pericardial effusion. | | + + + + + + | Narrative | Performed At | + + + | Patient Name: Yanique Prasad Date of : 1950 | | | Performing Physician: Tigre Salvador MD | | | | | | INDICATIONS CAD, HTN, AAA, murmur CONCLUSIONS | | | 1. The left ventricle is normal in size, wall thickness | | | and systolic function EF 55-60%. 2. The right ventricle is normal in | | | size and function. 3. Wisqhadg-mh-bempfx mitral regurgitation with | | | moderately dilated left atrium. 4. Moderate tricuspid regurgitation | | | with moderate pulmonary hypertension RVSP 60 mmHg. 5. There is no | | | pericardial effusion. FINDINGS -------- ECG rhythm: Sinus rhythm | | | with rare irregular beats. Study: A 2-dimensional transthoracic | | | echocardiogram with m-mode, spectral and color flow Doppler was | | | perfomed. Study: This was a technically adequate study. Left | | | Ventricle: Overall left ventricular systolic function is low-normal | | | with, an EF about 55-60 %. Left Ventricle: The left ventricle cavity | | | size is normal. Left Ventricle: Left ventricular wall thickness is | | | normal. Left Ventricle: No regional wall motion abnormalities. Right | | | Ventricle: The right ventricle is normal in size and function. Left | | | Atrium: The left atrium is moderately enlarged. Right Atrium: The | | | right atrium is mildly enlarged. Aortic Valve: The aortic valve is | | | trileaflet. Aortic Valve: The aortic valve is mildly calcified. | | | Aortic Valve: There is no evidence of aortic regurgitation. Aortic | | | Valve: There is mild aortic stenosis present. Aortic Valve: Peak/mean | | | gradient across the valve is 18.78mmHg/9.96mmHg. Mitral Valve: | | | Oijguwys-qe-cyphst mitral regurgitation is present. Mitral Valve: | | | Mild mitral annular calcification present. Tricuspid Valve: The | | | tricuspid valve appears structurally normal. Tricuspid Valve: | | | Moderate tricuspid regurgitation present. Tricuspid Valve: There is | | | moderate pulmonary hypertension. Tricuspid Valve: The right | | | ventricular systolic pressure (pulmonary artery systolic pressure), as | | | measured by Doppler, is 60.91mmHg. Pulmonic Valve: The pulmonic | | | valve is normal. Pulmonic Valve: Trace/mild pulmonic regurgitation. | | | Pericardium: There is no pericardial effusion. Pericardium: No | | | pleural effusion seen. IVC/Hepatic Veins: The IVC is normal size | | | (1.5-2.5cm) and collapses <50% with sniff, consistent with central | | | venous pressures of 10-15mmHg. Aorta: The aortic root, ascending | | | aorta and aortic arch are normal. MEASUREMENTS Ao | | | asc: 3.12 cm Ao Diam: 2.97 cm Ao sinus: 3.[address] | | | junct: 2.87 cm IVC: 1.92 cm LA Major: 5.57 cm EDV(Teich): | | | 140.75 ml IVSd: 1.05 cm LVIDd: 5.39 cm LVPWd: 0.93 cm | | | LVOT Area: 3.72 cm2 LVOT Diam: 2.17 cm %FS: 12.76 % | | | EF(Teich): 27.18 % ESV(Teich): 102.48 ml LVIDs: 4.70 cm | | | SV(Teich): 38.26 ml RA Major: 5.56 cm RV Major: 6.93 cm RV | | | Minor: 3.04 cm RVIDd: 2.79 cm LVEF MOD A2C: 56.29 % SV | | | MOD A2C: 89.19 ml LVEF MOD A4C: 55.85 % SV MOD A4C: 82.99 | | | ml EF Biplane: 56.03 % LVEDV MOD BP: 155.59 ml LVESV MOD BP: | | | 68.40 ml LVEDV MOD A2C: 158.44 ml LVLd A2C: 8.33 cm LVEDV | | | MOD A4C: 148.57 ml LVLd A4C: 8.58 cm LVESV MOD A2C: 69.25 | | | ml LVLs A2C: 7.29 cm LVESV MOD A4C: 65.58 ml LVLs A4C: | | | 7.05 cm LAESV(A-L): 100.48 ml LAESV Index (A-L): 43.12 ml/m2 | | | LAAs A2C: 23.17 cm2 LAESV A-L A2C: 84.95 ml LALs A2C: 5.36 | | | cm LAAs A4C: 27.41 cm2 LAESV A-L A4C: 108.17 ml LALs A4C: | | | 5.91 cm RAAs: 19.74 cm2 RAESV A-L: 59.54 ml RAESV MOD: | | | 58.73 ml RALs: 5.55 cm TAPSE: 1.76 cm AV maxP.77 mmHg | | | AV meanP.96 mmHg AV Vmax: 2.16 m/s AV Vmean: 1.49 m/s | | | AV VTI: 46.19 cm VITOR Vmax: 1.99 cm2 VITOR (VTI): 2.10 cm2 | | | AVAI Vmax: 0.00 cm2/m2 AVAI (VTI): 0.00 cm2/m2 LVOT maxPG: | | | 5.40 mmHg LVOT meanP.02 mmHg LVSI Dopp: 41.55 ml/m2 LVSV | | | Dopp: 97.23 ml LVOT Vmax: 1.16 m/s LVOT Vmean: 0.81 m/s | | | LVOT VTI: 26.12 cm MV A Esequiel: 0.91 m/s MV Dec Mckenzie: 7.90 | | | m/s2 MV DecT: 136.23 ms MV E Esequiel: 1.07 m/s MV E/A Ratio: | | | 1.18 MV PHT: 39.50 ms MVA By PHT: 5.56 cm2 Septal e': 0.03 | | | m/s Septal E/e': 32.50 Lateral e': 0.05 m/s Lateral E/e': | | | 19.19 RAP: 10 mmHg RV S': 0.08 m/s RVSP: 60.91 mmHg TR | | | maxP.91 mmHg TR Vmax: 3.56 m/s [employer]: | | | Authenticated by: Tigre Salvador MD Report Date/Time: 06-22-2018 | | | 17:38:50 | | + + + + + | Procedure Note | + + | Cody Thrasher Conversion - 02/24/2019 3:17 PM PDT Patient Name: Marium Prasad | | : 1950 Performing Physician: Tigre Salvador | | INDICATIONS C | | AD, HTN, AAA, murmur CONCLUSIONS 1. The left ventricle is normal in size, wall | | thickness and systolic function EF 55-60%.2. The right ventricle is normal in size and | | function.3. Lojbyeii-jl-nuyapw mitral regurgitation with moderately dilated left | | atrium.4. Moderate tricuspid regurgitation with moderate pulmonary hypertension RVSP 60 | | mmHg.5. There is no pericardial effusion. FINDINGS--------ECG rhythm: Sinus rhythm with | | rare irregular beats.Study: A 2-dimensional transthoracic echocardiogram with m-mode, | | spectral and color flow Doppler was perfomed.Study: This was a technically adequate | | study.Left Ventricle: Overall left ventricular systolic function is low-normal with, an | | EF about 55-60 %.Left Ventricle: The left ventricle cavity size is normal.Left | | Ventricle: Left ventricular wall thickness is normal.Left Ventricle: No regional wall | | motion abnormalities.Right Ventricle: The right ventricle is normal in size and | | function.Left Atrium: The left atrium is moderately enlarged.Right Atrium: The right | | atrium is mildly enlarged.Aortic Valve: The aortic valve is trileaflet.Aortic Valve: The | | aortic valve is mildly calcified.Aortic Valve: There is no evidence of aortic | | regurgitation.Aortic Valve: There is mild aortic stenosis present.Aortic Valve: | | Peak/mean gradient across the valve is 18.78mmHg/9.96mmHg.Mitral Valve: | | Vmmsbwhy-st-udvojp mitral regurgitation is present.Mitral Valve: Mild mitral annular | | calcification present.Tricuspid Valve: The tricuspid valve appears structurally | | normal.Tricuspid Valve: Moderate tricuspid regurgitation present.Tricuspid Valve: There | | is moderate pulmonary hypertension.Tricuspid Valve: The right ventricular systolic | | pressure (pulmonary artery systolic pressure), as measured by Doppler, is | | 60.91mmHg.Pulmonic Valve: The pulmonic valve is normal.Pulmonic Valve: Trace/mild | | pulmonic regurgitation.Pericardium: There is no pericardial effusion.Pericardium: No | | pleural effusion seen.IVC/Hepatic Veins: The IVC is normal size (1.5-2.5cm) and | | collapses <50% with sniff, consistent with central venous pressures of 10-15mmHg.Aorta: | | The aortic root, ascending aorta and aortic arch are normal. MEASUREMENTS Ao | | asc: 3.12 cmAo Diam: 2.97 cmAo sinus: 3.[address] junct: 2.87 cmIVC: 1.92 | | cmLA Major: 5.57 cmEDV(Teich): 140.75 mlIVSd: 1.05 cmLVIDd: 5.39 cmLVPWd: 0.93 | | cmLVOT Area: 3.72 az2LXTT Diam: 2.17 cm%FS: 12.76 %EF(Teich): 27.18 | | %ESV(Teich): 102.48 mlLVIDs: 4.70 cmSV(Teich): 38.26 mlRA Major: 5.56 cmRV | | Major: 6.93 cmRV Minor: 3.04 cmRVIDd: 2.79 cmLVEF MOD A2C: 56.29 %SV MOD A2C: | | 89.19 mlLVEF MOD A4C: 55.85 %SV MOD A4C: 82.99 mlEF Biplane: 56.03 %LVEDV MOD BP: | | 155.59 mlLVESV MOD BP: 68.40 mlLVEDV MOD A2C: 158.44 mlLVLd A2C: 8.33 cmLVEDV | | MOD A4C: 148.57 mlLVLd A4C: 8.58 cmLVESV MOD A2C: 69.25 mlLVLs A2C: 7.29 cmLVESV | | MOD A4C: 65.58 mlLVLs A4C: 7.05 cmLAESV(A-L): 100.48 mlLAESV Index (A-L): 43.12 | | ml/m2LAAs A2C: 23.17 [id number] A-L A2C: 84.95 mlLALs A2C: 5.36 cmLAAs A4C: 27.41 | | [id number] A-L A4C: 108.17 mlLALs A4C: 5.91 cmRAAs: 19.74 [id number] A-L: 59.54 | | mlRAESV MOD: 58.73 mlRALs: 5.55 cmTAPSE: 1.76 cmAV maxP.77 mmHgAV meanPG: | | 9.96 mmHgAV Vmax: 2.16 m/Gabby Vmean: 1.49 m/Gabby VTI: 46.19 cmAVA Vmax: 1.99 | | cm2AVA (VTI): 2.10 [id number] Vmax: 0.00 cm2/m2AVAI (VTI): 0.00 cm2/m2LVOT maxPG: | | 5.40 mmHgLVOT meanP.02 mmHgLVSI Dopp: 41.55 ml/m2LVSV Dopp: 97.23 mlLVOT Vmax: | | 1.16 m/sLVOT Vmean: 0.81 m/sLVOT VTI: 26.12 cmMV A Esequiel: 0.91 m/sMV Dec Mckenzie: | | 7.90 m/s2MV DecT: 136.23 msMV E Esequiel: 1.07 m/sMV E/A Ratio: 1.18MV PHT: 39.50 | | msMVA By PHT: 5.56 cw2Jlhzrq e': 0.03 m/sSeptal E/e': 32.50Lateral e': 0.05 | | m/sLateral E/e': 19.19RAP: 10 mmHgRV S': 0.08 m/sRVSP: 60.91 mmHgTR maxPG: | | 50.91 mmHgTR Vmax: 3.56 m/s [employer]: DHAuthenticated by: Tigre Salvador | | MDReport Date/Time: 06-22-2018 17:38:50 IMPRESSION: 1. The left ventricle is normal in | | size, wall thickness and systolic function EF 55-60%.2. The right ventricle is normal in | | size and function.3. Kaglonab-dh-xmqavg mitral regurgitation with moderately dilated | | left atrium.4. Moderate tricuspid regurgitation with moderate pulmonary hypertension | | RVSP 60 mmHg.5. There is no pericardial effusion. | |Ao sinus: 3.56 cm | |Ao st junct: 2.87 cm | |IVC: 1.92 cm | |LA Major: 5.57 cm | |EDV(Teich): 140.75 ml | |IVSd: 1.05 cm | |LVIDd: 5.39 cm | |LVPWd: 0.93 cm | |LVOT Area: 3.72 cm2 | |LVOT Diam: 2.17 cm | |%FS: 12.76 % | |EF(Teich): 27.18 % | |ESV(Teich): 102.48 ml | |LVIDs: 4.70 cm | |SV(Teich): 38.26 ml | |RA Major: 5.56 cm | |RV Major: 6.93 cm | |RV Minor: 3.04 cm | |RVIDd: 2.79 cm | |LVEF MOD A2C: 56.29 % | |SV MOD A2C: 89.19 ml | |LVEF MOD A4C: 55.85 % | |SV MOD A4C: 82.99 ml | |EF Biplane: 56.03 % | |LVEDV MOD BP: 155.59 ml | |LVESV MOD BP: 68.40 ml | |LVEDV MOD A2C: 158.44 ml | |LVLd A2C: 8.33 cm | |LVEDV MOD A4C: 148.57 ml | |LVLd A4C: 8.58 cm | |LVESV MOD A2C: 69.25 ml | |LVLs A2C: 7.29 cm | |LVESV MOD A4C: 65.58 ml | |LVLs A4C: 7.05 cm | |LAESV(A-L): 100.48 ml | |LAESV Index (A-L): 43.12 ml/m2 | |LAAs A2C: 23.17 cm2 | |LAESV A-L A2C: 84.95 ml | |LALs A2C: 5.36 cm | |LAAs A4C: 27.41 cm2 | |LAESV A-L A4C: 108.17 ml | |LALs A4C: 5.91 cm | |RAAs: 19.74 cm2 | |RAESV A-L: 59.54 ml | |RAESV MOD: 58.73 ml | |RALs: 5.55 cm | |TAPSE: 1.76 cm | |AV maxP.77 mmHg | |AV meanP.96 mmHg | |AV Vmax: 2.16 m/s | |AV Vmean: 1.49 m/s | |AV VTI: 46.19 cm | |VITOR Vmax: 1.99 cm2 | |VITOR (VTI): 2.10 cm2 | |AVAI Vmax: 0.00 cm2/m2 | |AVAI (VTI): 0.00 cm2/m2 | |LVOT maxP.40 mmHg | |LVOT meanP.02 mmHg | |LVSI Dopp: 41.55 ml/m2 | |LVSV Dopp: 97.23 ml | |LVOT Vmax: 1.16 m/s | |LVOT Vmean: 0.81 m/s | |LVOT VTI: 26.12 cm | |MV A Esequiel: 0.91 m/s | |MV Dec Mckenzie: 7.90 m/s2 | |MV DecT: 136.23 ms | |MV E Esequiel: 1.07 m/s | |MV E/A Ratio: 1.18 | |MV PHT: 39.50 ms | |MVA By PHT: 5.56 cm2 | |Septal e': 0.03 m/s | |Septal E/e': 32.50 | |Lateral e': 0.05 m/s | |Lateral E/e': 19.19 | |RAP: 10 mmHg | |RV S': 0.08 m/s | |RVSP: 60.91 mmHg | |TR maxP.91 mmHg | |TR Vmax: 3.56 m/s | | | |[employer]: | |Authenticated by: Tigre Salvador MD | |Report Date/Time: 06-22-2018 17:38:50 | | | |IMPRESSION: | |1. The left ventricle is normal in size, wall thickness and systolic function EF 55-60%. | |2. The right ventricle is normal in size and function. | |3. Wbxkecti-zt-xbvrfu mitral regurgitation with moderately dilated left atrium. | |4. Moderate tricuspid regurgitation with moderate pulmonary hypertension RVSP 60 mmHg. | |5. There is no pericardial effusion. | + + documented in this encounter Visit Diagnoses Not on filedocumented in this encounter"
--- OUTSIDE RECORDS SUMMARY | ~2020-02-01 | XMS | Encounter Summary ---
Demographics + + + | Address | [address] | | | [place] [address] | + + + | Home Phone | | + + + | Preferred Language | Unknown | + + + | Marital Status | | + + + | Mosque Affiliation | Unknown | + + + | Race | Unknown | + + + | Ethnic Group | Unknown | + + + Author + + + | Author | [facility] | | | and [place] | + + + | Organization | [facility] | | [...] Team Providers + +------+ + | Care Occupational Health Manager Name | Role | Phone | + +------+ + PCP | Unavailable | + +------+ + Encounter Details +--------+ + + + + | Date | Type | Department | Care Team | Description | +--------+ + + + + | 08/08/ | Hospital | [facility] | Conversion | AAA (abdominal | | 2011 | Encounter | [facility] | Transaction, | aortic aneurysm) | | | | [address] | Provider Unknown | ([facility] | | | | [place], [place] | | | | | | [address] | (Fax) | | | | | [phone] | | | +--------+ + + + [...] documented as of this encounter Progress Notes Conversion Transaction, Provider Unknown - 08/08/2011 1:03 PM PSTFormatting of this note m ight be different from the original. Progress Notes by Rosa Muller at 08/08/11 1303 Author: Rosa Muller Service: (none) Author Type: Registered Nurse Filed: 08/08/11 1307 Date of Service: 08/08/11 1303 Status: Signed Screwmaker Automatic: Rosa Muller Report called to Yanique morrissey in [facility], pt will transfer there by transport post ct, pt aaox3, vs s, iv infusing at decreased rate per md orders. No other changes in pt assessment. Pt stable when i left her in [place] with Billy. parker docume nted in this encounter H&P Notes Obed Oakes NP - 08/08/2011 11:21 AM PST H&P by Obed Oakes NP at 08/08/11 1121 Author: Obed Oakes NP Service: (none) Author Type: Nurse Practitioner Filed: 08/08/11 1141 Date of Service: 08/08/11 1121 Status: Signed Screwmaker Automatic: Obed Oakes NP (Nurse Practitioner) [facility] Service: Interventional Radiology Pre-Operative History & Physical DIAGNOSIS: AAA, Chronic kidney disease stage III INDICATION: Evaluation for endovascular repair PROCEDURE: CTA Abdomen/Pelvis with nephrotoxicity prevention protocol History Obtained From: patient HISTORY OF PRESENT ILLNESS The patient is a 61 y.o. female with significant past medical history of chronic kidney dis ease stage III who presents for CTA Abdomen/Pelvis with nephrotoxicity prevention protocol. The patient had a CT of the abdomen done approximately 2 weeks ago that revealed an AAA. T he patient was referred to Dr. Sears in [place], who then referred the patient to Dr. Wesley zamorano. The patient was subsequently referred here for CTA scan of abdomen and pelvis for e valuation for endovascular repair of the AAA. REVIEW OF SYSTEMS Review of Systems Constitutional: Negative for fever and chills. HENT: Negative for sore throat, trouble swallowing, neck pain, neck stiffness and voice abran nge. Eyes: Negative for pain and visual disturbance. Respiratory: Negative for cough, chest tightness and shortness of breath. Cardiovascular: Negative for chest pain, palpitations and leg swelling. Gastrointestinal: Negative for nausea, vomiting, abdominal pain, diarrhea and blood in stoo l. Genitourinary: Negative for dysuria, urgency, frequency, hematuria and flank pain. Currently treated for UTI, asymptomatic Musculoskeletal: Negative for back pain and gait problem. Skin: Negative for pallor, rash and wound. Neurological: Negative for dizziness, speech difficulty, weakness, numbness and headaches. Past Medical History Diagnosis Date Hypertension Heart disease Arthritis Kidney stones Heart attack Hyperlipidemia Past Surgical History Procedure Date Hysterectomy Removal implant superficial spx Lung surgery Cardiac surgery Unlisted procedure arthroscopy Allergies Allergen Reactions Codeine Nausea and Vomiting and Other (See Comments) Current Outpatient Prescriptions on File Prior to Encounter Medication Sig Dispense Refill aspirin 325 MG tablet Take 325 mg by mouth daily. clopidogrel (PLAVIX) 75 MG tablet Take 75 mg by mouth daily. fluoxetine (PROZAC) 40 MG capsule Take 40 mg by mouth daily. gemfibrozil (LOPID) 600 MG tablet Take 600 mg by mouth 2 (two) times daily. hydrochlorothiazide (HYDRODIURIL) 25 MG tablet Take 25 mg by mouth daily. lisinopril (PRINIVIL,ZESTRIL) 40 MG tablet Take 80 mg by mouth daily. metoprolol (TOPROL-XL) 50 MG 24 hr tablet Take 150 mg by mouth daily. pravastatin (PRAVACHOL) 40 MG tablet Take 40 mg by mouth daily. History reviewed. No pertinent family history. History Smoking status Former Smoker Quit date: 05/26/2008 Smokeless tobacco Never Used History Alcohol Use No History Drug Use No PHYSICAL EXAM Vital Signs: BP 109/72 | Pulse 68 | Temp(Src) 97.9 F (36.6 C) (Temporal) | Resp 18 | Ht 1.829 m (6') | Wt 128.368 kg (283 lb) | BMI 38.38 kg/m2 | SpO2 97% | ? No Physical Exam Constitutional: She is oriented to person, place, and time. She appears well-developed and well-nourished. HENT: Head: Normocephalic and atraumatic. Mouth/Throat: Oropharynx is clear and moist. No oropharyngeal exudate. Eyes: EOM are normal. Pupils are equal, round, and reactive to light. Neck: Normal range of motion. Neck supple. No JVD present. No tracheal deviation present. Cardiovascular: Normal rate, regular rhythm, normal heart sounds and intact distal pulses. No murmur heard. Pulmonary/Chest: Effort normal and breath sounds normal. No respiratory distress. She has n o wheezes. She has no rales. She exhibits no tenderness. Abdominal: Soft. Bowel sounds are normal. She exhibits no distension. There is no tendernes s. Musculoskeletal: Normal range of motion. Neurological: She is alert and oriented to person, place, and time. Skin: No pallor. Psychiatric: She has a normal mood and affect. Thought content normal. DATA Labs from 08/04/2011 BUN: 42 Creatinine: 1.8 GFR: 28 PROBLEM LIST Patient Active Problem List Diagnoses CKD (chronic kidney disease), stage III Essential hypertension, benign Dyslipidemia Obesity Nephrolithiasis CAD (coronary artery disease) Osteoarthritis ASSESSMENT & PLAN 1. Patient is a 61 y.o. female with above specified procedure planned. 2. Procedure options, risks, benefits and alternatives reviewed with patient who express( es) understanding. Any and all questions were answered to their satisfaction. Primary Care Physician: SAMIRA Frias, SAMIRA OAKES NP 08/08/2011 documented in th is encounter Plan of Treatment +--------+ + + + + | Date | Type | Specialty | Care Team | Description | +--------+ + + + + | 02/01/ | Virtual | Pulmonology | Rodrigo Cruz MD | | | 2019 | Office | | [address] | | | | Visit | | [place] | | | | | | [phone] | | | | | | | | +--------+ + + + + | 02/22/ | Office | Cardiology | Phylicia Patel DO | | | 2019 | Visit | | [address] | | | | | | [place] | | | | | | [phone] | | | | | | | | +--------+ + + + + documented as of this encounter Procedures + +--------+ + + + | Procedure Name | Priori | Date/Time | Associated Diagnosis | Comments | | | ty | | | | + +--------+ + + + | CT ANGIOGRAM ABDOMEN | Routin | 08/08/2011 | | Results for this | | PELVIS W CONTRAST | e | 1:25 PM | | procedure are in the | | | | PST | | results section. | + +--------+ + + + documented in this encounter Results CT Angiogram Abdomen Pelvis w Contrast (08/08/2011 1:25 PM PST) + + | Specimen | + + | | + + + + + | Narrative | Performed At | + + + | [facility] CT[facility]BDOM[facility] AND PELVIS W CONTRAST 08/08/2011 12:59 PM | | | HISTORY: 61 years. Female. Infrarenal abdominal aortic | | | aneurysm and bilateral common iliac artery aneurysms for addition | | | evaluation for endograft repair. TECHNIQUE: 5-mm axial images | | | were acquired without intravenous contrast. Subsequently axial | | | 0.625 mm arterial phase images were acquired through the abdomen and | | | pelvis according to a CT angiography protocol. Multiplanar CT | | | angiographic MIP reconstructions were performed from the arterial | | | phase data set. 3-D reconstructions were performed using the | | | [employer] 3-D software and sent to PACS. Oral Contrast: None IV | | | contrast: 80 mL IsoVue 370. Patient was also placed on contrast | | | nephropathy prevention protocol. COMPARISON: None. FINDINGS: | | | Abdomen & Pelvis: The visualized portions of the heart and lung | | | bases are normal. The distal esophagus is normal. The liver, | | | spleen, pancreas, gallbladder, adrenal glands and kidneys are normal | | | in size, position, contour and attenuation. No solid or cystic | | | masses are seen in these organs. There is no evidence of | | | hydronephrosis. No free fluid or free air is present. No | | | adenopathy is seen in the abdomen or pelvis. The stomach, | | | duodenum, jejunum, ileum, ileocecal valve are normal. No air-fluid | | | levels are seen to suggest obstruction. The appendix is identified | | | and is normal. The ascending colon, transverse colon, descending | | | colon, sigmoid colon and rectum demonstrate normal wall thickness. | | | No diverticulosis is noted. In the pelvis the bladder is fluid | | | filled and has a normal contour and wall thickness. No intraluminal | | | filling defects are seen. No diverticulum is noted. Uterus is | | | not identified suggesting likely prior hysterectomy. The muscles | | | are symmetric. No focal atrophy or soft tissue mass is seen. No | | | hernias are identified. The osseous structures do not demonstrate | | | lytic or blastic lesions. SI joints are normal. Evidence of total | | | replacement arthroplasty left hip. Right hip unremarkable. CTA | | | Abdomen & Pelvis: Aorta: 4.1-cm infrarenal abdominal aortic aneurysm | | | without mural thrombus. Celiac: Widely patent. SMA: Widely patent. | | | LEONEL : Widely patent. Right Renal: Widely patent. Left Renal: Left | | | superior main renal artery and left inferior accessory renal artery | | | are widely patent. Left inferior axis of renal artery arises from | | | upper portion of the aneurysm sac. 4.5-cm left common iliac artery | | | aneurysm and 4.6-cm right common iliac artery aneurysm starting at | | | the aortic bifurcation and extending to common iliac artery | | | bifurcation without neck. Both exit neck arteries are widely | | | patent. Significant amount of posterior wall calcification in both | | | common femoral arteries and distal abdominal aorta. IMPRESSION: | | | 1. 4.1-cm infrarenal abdominal aorta and 4.6-cm right common iliac | | | artery aneurysm and 4.5-cm left common iliac artery aneurysm without | | | neck. 2. Patient's anatomy is suboptimal for endovascular repair. | | | | | + + + + + | Procedure Note | + + | Price, Rad Conversion - 02/26/2019 6:19 AM PDT [facility] | | CTA ABDOMEN AND PELVIS W CONTRAST | | 08/08/2011 12:59 PM | | | | HISTORY: | | 61 years. Female. Infrarenal abdominal aortic aneurysm and bilateral | | common iliac artery aneurysms for addition evaluation for endograft repair. | | | | TECHNIQUE: | | 5-mm axial images were acquired without intravenous contrast. Subsequently | | axial 0.625 mm arterial phase images were acquired through the abdomen and | | pelvis according to a CT angiography protocol. Multiplanar CT angiographic | | MIP reconstructions were performed from the arterial phase data set. 3-D | | reconstructions were performed using the [employer] 3-D software and sent to | | PACS. | | | | Oral Contrast: None | | IV contrast: 80 mL IsoVue 370. Patient was also placed on contrast | | nephropathy prevention protocol. | | | | COMPARISON: | | None. | | | | FINDINGS: | | Abdomen & Pelvis: | | The visualized portions of the heart and lung bases are normal. | | | | The distal esophagus is normal. | | | | The liver, spleen, pancreas, gallbladder, adrenal glands and kidneys are | | normal in size, position, contour and attenuation. No solid or cystic | | masses are seen in these organs. There is no evidence of hydronephrosis. | | | | No free fluid or free air is present. | | | | No adenopathy is seen in the abdomen or pelvis. | | | | The stomach, duodenum, jejunum, ileum, ileocecal valve are normal. No | | air-fluid levels are seen to suggest obstruction. The appendix is | | identified and is normal. The ascending colon, transverse colon, | | descending colon, sigmoid colon and rectum demonstrate normal wall | | thickness. No diverticulosis is noted. | | | | In the pelvis the bladder is fluid filled and has a normal contour and wall | | thickness. No intraluminal filling defects are seen. No diverticulum is | | noted. | | | | Uterus is not identified suggesting likely prior hysterectomy. | | | | The muscles are symmetric. No focal atrophy or soft tissue mass is seen. | | No hernias are identified. | | | | The osseous structures do not demonstrate lytic or blastic lesions. SI | | joints are normal. Evidence of total replacement arthroplasty left hip. | | Right hip unremarkable. | | | | CTA Abdomen & Pelvis: | | Aorta: 4.1-cm infrarenal abdominal aortic aneurysm without mural thrombus. | | Celiac: Widely patent. | | SMA: Widely patent. | | LEONEL : Widely patent. | | Right Renal: Widely patent. | | Left Renal: Left superior main renal artery and left inferior accessory | | renal artery are widely patent. Left inferior axis of renal artery arises | | from upper portion of the aneurysm sac. | | 4.5-cm left common iliac artery aneurysm and 4.6-cm right common iliac | | artery aneurysm starting at the aortic bifurcation and extending to common | | iliac artery bifurcation without neck. Both exit neck arteries are widely | | patent. Significant amount of posterior wall calcification in both common | | femoral arteries and distal abdominal aorta. | | | | IMPRESSION: | | 1. 4.1-cm infrarenal abdominal aorta and 4.6-cm right common iliac | | artery aneurysm and 4.5-cm left common iliac artery aneurysm without neck. | | 2. Patient's anatomy is suboptimal for endovascular repair. | | | | | + + documented in this encounter Visit Diagnoses + + | Diagnosis | + + | AAA (abdominal aortic aneurysm) (HCC) Abdominal aneurysm without mention of rupture | + + documented in this encounter"
--- OUTSIDE RECORDS SUMMARY | ~2020-02-01 | XMS | Encounter Summary ---
Demographics + + + | Address | [address] | | | [place] [address] | + + + | Home Phone | | + + + | Preferred Language | Unknown | + + + | Marital Status | | + + + | Christian Affiliation | Unknown | + + + | Race | Unknown | + + + | Ethnic Group | Unknown | + + + Author + + + | Author | [facility] | | | and [place] | + + + | Organization | [facility] | | | [...] Team Providers + +------+ + | Care Correctional Program Officer Name | Role | Phone | + +------+ + | Heidi Koch MD | PCP | | + +------+ + Reason for Visit + + + | Reason | Comments | + + + | Medication Refill | | + + + Encounter Details +--------+--------+ + + + | Date | Type | Department | Care Team | Description | +--------+--------+ + + + | 05/28/ | Refill | [facility] | Rodrigo Cruz MD | Medication Refill | | 2019 | | PULMONOLOGY [address] | | | | | [address] | [address] [place], [place] | | | | | [place], [place] | [address] | | | | | [address] | | | | | | [phone] | | | +--------+--------+ + + + Social History + +-------+ [...] [place] | | | | | | [phone] | | | | | | | | +--------+ + + + + | 02/22/ | Office | Cardiology | Phylicia Patel DO | | | 2019 | Visit | | [address] | | | | | | [place] | | | | | | [phone] | | | | | | | | +--------+ + + + + documented as of this encounter Visit Diagnoses + + | Diagnosis | + + | Chronic obstructive pulmonary disease, unspecified COPD type (HCC) - Primary | + + documented in this encounter"
--- OUTSIDE RECORDS SUMMARY | ~2020-02-01 | XMS | Encounter Summary ---
Demographics + + + | Address | [address] | | | [place] [address] | + + + | Home Phone | | + + + | Preferred Language | Unknown | + + + | Marital Status | | + + + | Gnosticist Affiliation | Unknown | + + + | Race | Unknown | + + + | Ethnic Group | Unknown | + + + Author + + + | Author | [facility] | | | and [place] | + + + | Organization | [facility] | | [...] Team Providers + +------+ + | Care Hand Candle Molder Name | Role | Phone | + +------+ + PCP | Unavailable | + +------+ + Encounter Details +--------+ + + + + | Date | Type | Department | Care Team | Description | +--------+ + + + + | 12/12/ | Emergency | [facility] | John Paul Perrin | Non-cardiac chest | | 2013 - | | [facility]ICAL [facility]ENTER | DO Krishna Tan E | pain; Hypertension | | | | EMERGENCY CENTER | JOSE RADFORDE | | | 12/13/ | | [address] | [place] [address] | | | 2013 | | [place], [place] | [phone] | | | | | [address] | | | | | | [phone] | | | +--------+ + + + [...] + + documented as of this encounter ED Notes Conversion Transaction, Provider Unknown - 12/12/2013 11:20 PM PDTFormatting of this note m ight be different from the original. ED Notes by Nicci Jacobo RN at 12/12/132319 Author: Nicci Jacobo RN Service: (none) Author Type: Registered Nurse Filed: 12/12/132319 Date of Service: 12/12/132319 Status: Signed Notcher: Nicci Jacobo RN (Registered Nurse) Pt awaiting sister to arrive from [place]. Will d/c when she arrives per Dr Perrin. Nicci Jacobo RN 12/12/132319 John Paul Kemp DO - 12/12/2013 8:54 PM PDT ED Provider Notes by John Paul Perrin DO at 12/12/132053 Author: John Paul Perrin DO Service: (none) Author Type: Physician Filed: 12/16/13 1025 Date of Service: 12/12/132053 Status: Signed Notcher: John Paul Perrin DO (Physician) 8:54 PM [facility] Department of Emergency Medicine History of Present Illness Patient Identification Yanique Prasad is a 63 y.o. female. Patient information was obtained from patient. History/Exam limitations: none. Patient presented to the Emergency Department by: Ambulance Chief Complaint Chief Complaint Patient presents with Chest Pain The patient presents to ED with complaints of chest discomfort. Onset of symptoms was aroun d 1500 today, with a waxing/waning course since that time. She states she was watching TV wh en her sx started and she denies doing any strenuous activity prior to onset. She took 3 of her own NTG and called EMS, and while she was being evaluated by them, her sx improved. The symptoms are described to be of moderate severity. She states her pain was located in her ce ntral chest with radiation around to her back. She has h/o multiple KY's but states they all presented differently. She was seen and evaluated at [facility] and had a normal workup at that time, but was transferred to [facility] for admission for monitoring and serial testing. S he has no complaints or concerns at this time. PMHx: h/o multiple KY's with 5 stents. Last KY was about 5 years ago. 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 She states she has had multiple stress tests since then that have been normal. No h/o di abetes. Social hx: former smoker, quit about 5 years ago. PCP: JASON MEREDITH Medical Safety Director: Dr. Smith. Has not been seen by him in the past few months. Past Medical History Diagnosis Date Hypertension Heart disease Arthritis Kidney stones Heart attack Hyperlipidemia Past Surgical History Procedure Date Hysterectomy Removal implant superficial spx Lung surgery Cardiac surgery Unlisted procedure arthroscopy Prior to Admission medications Medication Sig Start Date End Date Taking? Authorizing Provider albuterol (PROVENTIL) (2.5 MG/3ML) 0.083% nebulizer solution Take 2.5 mg by nebulization ev shanell 6 (six) hours as needed. Yes Historical Provider aspirin 325 MG tablet Take 325 mg by mouth daily. Yes Historical Provider buPROPion (WELLBUTRIN SR) 150 MG 12 hr tablet Take 150 mg by mouth 2 (two) times daily. Y es Historical Provider clopidogrel (PLAVIX) 75 MG tablet Take 75 mg by mouth daily. Yes Historical Provider cyclobenzaprine (FLEXERIL) 10 MG tablet Take 10 mg by mouth 3 (three) times daily as needed . Yes Historical Provider diltiazem (CARDIZEM CD) 180 MG 24 hr capsule Take 180 mg by mouth daily. Yes Historical P rovider gemfibrozil (LOPID) 600 MG tablet Take 600 mg by mouth 2 (two) times daily. Yes Histori chhaya Provider hydrochlorothiazide (HYDRODIURIL) 25 MG tablet Take 25 mg by mouth daily. Yes Historica l Provider lisinopril (PRINIVIL,ZESTRIL) 40 MG tablet Take 40 mg by mouth daily. Yes Historical Prov ider metoprolol (TOPROL-XL) 50 MG 24 hr tablet Take 50 mg by mouth 2 (two) times daily. Yes Hi storical Provider pravastatin (PRAVACHOL) 40 MG tablet Take 40 mg by mouth daily. Yes Historical Provider ranitidine (ZANTAC) 150 MG capsule Take 150 mg by mouth 2 (two) times daily. Yes Historic al Provider nitroGLYCERIN (NITROSTAT) 0.[address] 0.4 mg under the tongue every 5 (five) min utes as needed. Historical Provider Allergies Allergen Reactions Codeine Nausea and Vomiting and Other (See Comments) History Social History Marital Status: Single Spouse Name: N/A Number of Children: N/A Years of Education: N/A Occupational History Not on file. Social History Main Topics Smoking status: Former Smoker Quit date: 05/26/2008 Smokeless tobacco: Never Used Alcohol Use: No Drug Use: No Sexually Active: Not Currently -- Male partner(s) Other Topics Concern Not on file Social History Narrative No narrative on file History reviewed. No pertinent family history. Review of Systems Review of Systems Cardiovascular: Positive for chest pain. Musculoskeletal: Positive for back pain (radiation from chest pain). All other systems reviewed and are negative. Physical Exam BP 164/75 | Pulse 66 | Temp 97.5 F (36.4 C) (Oral) | Resp 16 | Wt 133.358 kg (294 lb) | SpO2 98% Vital signs interpretation: hypertensive, otherwise normal Pulse Oximetry interpretation: Normal Gen: A&Ox3, well-appearing, no acute distress Head: Normocephalic, no apparent injury noted Eyes: no conjunctivitis, no scleral icterus Ears: No swelling or erythema, no drainage noted Nose: no rhinorrhea, no epistaxis Mouth: no apparent dysfunction, no gross injury Neck: Supple, no meningismus, no obvious swelling or mass CV: RRR, no murmurs, rubs or clicks Resp: No respiratory distress, no retractions, lungs CTA bilaterally Abd: Round, no distension Ext: normal ROM of bilateral upper and lower extremities, no joint swelling, no deformitie s Back: normal ROM, no deformity noted Skin: No rash, normal color, warm, dry Neuro: no focal neurological deficits noted, cerebellum normal as tested, no sensory or mot or deficiencies noted Psych: normal affect, no emotional distress noted, mentation is appropriate for age Medical Decision Making and Emergency Department Course ED Department Course Patient was transferred to [facility] from [facility] for chest discomfort. She has a h/o KY's with stent placement as well as CABG x2. She is currently pain free and does not have any c omplaints at this time. On exam the patient has no acute findings. My DDx includes, but is n ot limited to, unstable angina, GERD, esophogeal spasm, ACS, vs other. Will order a repeat E KG and troponin, then reevaluate the pt. Will then plan to consult with technical staff engineer utilization management nurse for Dr. Smith after labs are resulted. Pt is stable at this time. Reviewed records from [facility]: WBC: 5.9 HGB: 11.6 HCT: 35.1 Glucose: 154 BUN: 40 Creatinine: 2.44 GFR, EST: 20 Sodium: 138 Potassium: 3.9 [place]: 104 CO2: 23 Creatinine kinase: 26 CKMB-MASS: 1.44 Troponin: < 0.010 Myoglobin: 41.04 BNP: 149 9:00 PM Trop 0.01 10:48 PM Case d/w Dr. Boykin (technical staff engineer utilization management nurse). He agrees that the pt is stable for d/ c home and requests that she f/u with Dr. Smith. 10:51 PM Pt recheck. Pt appears NAD and has no complaints. Explained discussion with Dr. Michael bose and plan for d/c and f/u. Pt understands and agrees with plan. All questions have been addressed. Pt relates her sister will need to pick her up since she lives in [facility] on and she will not be here for another 1.5 hours. Records Reviewed Old medical records. Previous electrocardiograms. Nursing notes. No previous [facility] ED visits available in [facility] for review. Laboratory Evaluation Results Procedure Component Value Ref Range Date/Time POC cardiac troponin [[id number]] Collected:12/12/132045 Order Status:Completed Updated:12/12/13 2100 POC CARDIAC TROPONIN 0.01 0.00 - 0.10 ng/mL I personally reviewed the lab results and they have been posted to the chart. Pertinent po sitive and negative findings have been addressed appropriately. Radiology and EKG Evaluation Imaging Results None EK Normal Sinus Rhythm. Rate: 64 Normal PEDRO Normal QRS Normal ST and T waves No acute ischemia. Unchanged from EKG done today at 1610 Interpreted by John Paul Perrin DO at time of service ED Diagnoses Final diagnoses Non-cardiac chest pain Hypertension Disposition: ED Disposition Orders Discharge Condition at discharge: Stable Follow-up Information Follow up With Details Comments Contact Info Travon Smith DO Schedule an appointment as soon as possible for a visit [facility] Mario Ritter [facility] [id number] [facility] Emergency Department If symptoms worsen [address] [facility] [address] Jason Meredith MD Discharge Medications: New Prescriptions No new medications Additional Documentation Procedures Attending Note: Documentation assistance provided by Tiffany Silvestre (Scribe). Information recorded by the scribe has been reviewed and validated by me. I ag ree with its contents. DO John Paul Dumont DO 12/16/13 1025 onversio n Transaction, Provider Unknown - 12/12/2013 8:44 PM PDTFormatting of this note might be di fferent from the original. ED Notes by Jayden Bone RN at 12/12/132043 Author: Jayden Bone RN Service: (none) Author Type: Registered Nurse Filed: 12/12/132043 Date of Service: 12/12/132043 Status: Signed Notcher: Jayden Bone RN (Registered Nurse) Continuous cardiac monitoring, blood pressure and pulse ox placed on pt, telemetry notified of pt monitoring. Jayden Bone RN 12/12/132043 onver albino Transaction, Provider Unknown - 12/12/2013 8:32 PM PDT ED Notes by Jayden Bone RN at 12/12/132031 Author: Jayden Bone RN Service: (none) Author Type: Registered Nurse Filed: 12/12/132031 Date of Service: 12/12/132031 Status: Signed Notcher: Jayden Bone RN (Registered Nurse) Bed:11
Expected date:
Expected time:
Means of arrival:
Comments:
Trans brina from [place] onver [place]ino Transaction, Provider Unknown - 12/12/2013 7:15 PM PDT ED Notes by Soheila Corcoran RN at 12/12/131914 Author: Soheila Corcoran RN Service: (none) Author Type: Registered Nurse Filed: 12/12/131919 Date of Service: 12/12/131914 Status: Signed Notcher: Soheila Corcoran RN (Registered Nurse) Pt being transferred from [place] report received from [place]. Pt presented with ches t pain and hypotension. Pt had taken three of her own nitro at home then BP dropped. EMS gav e pt 324 mg aspirin and 800 ml bolus. Pt has a 20 gauge IV in right hand. Rn reports Labs an d EKG are WNL's. Soheila Corcoran RN 12/12/131919 docume nted in this encounter Plan of Treatment +--------+ + + + + | Date | Type | Specialty | Care Team | Description | +--------+ + + + + | 02/01/ | Virtual | Pulmonology | Rodrigo Cruz MD | | | 2019 | Office | | [address] | | | | Visit | | [place] | | | | | | [address] | | | | | | | | +--------+ + + + + | 02/22/ | Office | Cardiology | Phylicia Patel DO | | | 2019 | Visit | | [address] | | | | | | [place] | | | | | | [address] | | | | | | | | +--------+ + + + + documented as of this encounter Procedures + +--------+ + + + | Procedure Name | Priori | Date/Time | Associated Diagnosis | Comments | | | ty | | | | + +--------+ + + + | ECG 12 LEAD | Routin | 12/12/2013 | | Results for this | | | e | 8:35 PM | | procedure are in the | | | | PDT | | results section. | + +--------+ + + + documented in this encounter Results ECG 12 lead (12/12/2013 8:35 PM PDT) + + + + + + | Component | Value | Ref Range | Performed | Pathologist | | | | | At | Signature | + + + + + + | DIAGNOSIS: | Sinus rhythm with | | EXTERNAL | | | | Premature atrial | | LAB | | | | complexesInferior | | | | | | infarct (cited on or | | | | | | before | | | | | | 17-AUG-2005)Abnormal | | | | | | ECGWhen compared with | | | | | | ECG of 15-DEC-2007 | | | | | | 05:29,Premature atrial | | | | | | complexes are now | | | | | | PresentThis ECG contains | | | | | | Unconfirmed | | | | | | Interpretation | | | | | | Statements. See ED | | | | | | Record for Physician | | | | | | Interpretation. | | | | | | Confirmed by MUSE READ | | | | | | ONLY, -COMPUTER ([id number]), | | | | | | editorial writer CHE HER ([id number]) | | | | | | on 12/13/2013 7:11:37 AM | | | | | | | | | | + + + + + + + + | Specimen | + + | | + + + + + | Narrative | Performed At | + + + | Historically converted procedure from [facility] environment | EXTERNAL LAB | + + + + +---------+ + + | Performing | Address | City/State/Zipcode | Phone Number | | Organization | | | | + +---------+ + + | EXTERNAL LAB | | | | + +---------+ + + documented in this encounter Visit Diagnoses + + | Diagnosis | + + | Non-cardiac chest pain Other chest pain | + + | Hypertension Unspecified essential hypertension | + + documented in this encounter"
--- OUTSIDE RECORDS SUMMARY | ~2020-02-01 | XMS | Encounter Summary ---
Demographics + + + | Address | [address] | | | [place] [address] | + + + | Home Phone | | + + + | Preferred Language | Unknown | + + + | Marital Status | | + + + | Catholic Affiliation | Unknown | + + + | Race | Unknown | + + + | Ethnic Group | Unknown | + + + Author + + + | Author | [facility] | | | and [place] | + + + | Organization | [facility] | | | and [...] Team Providers + +------+ + | Care Envelope Maker Name | Role | Phone | + +------+ + | Heidi Koch MD | PCP | | + +------+ + Encounter Details +--------+ + + + + | Date | Type | Department | Care Team | Description | +--------+ + + + + | 12/09/ | Orders Only | [facility] | Conversion | | | 2018 | | NEPHROLOGY [place] | Transaction, | | | | | [address] | Provider Unknown | | | | | [address] [facility] [place] | | | | | | [address] | (Fax) | | | | | [phone] | | | +--------+ + + + [...] [place] | | | | | | [phone] | | | | | | | | +--------+ + + + + | 02/22/ | Office | Cardiology | Phylicia Patel DO | | | 2019 | Visit | | [address] | | | | | | [place] | | | | | | [phone] | | | | | | | | +--------+ + + + + documented as of this encounter Procedures + +--------+ + + + | Procedure Name | Priori | Date/Time | Associated Diagnosis | Comments | | | ty | | | | + +--------+ + + + | EXTERNAL LAB: CBC | Routin | 12/09/2017 | | Results for this | | | e | 10:13 AM | | procedure are in the | | | | PDT | | results section. | + +--------+ + + + | URINALYSIS, | Routin | 12/09/2017 | | Results for this | | MICROSCOPIC ONLY | e | 10:13 AM | | procedure are in the | | | | PDT | | results section. | + +--------+ + + + | PROTEIN/CREATININE | Routin | 12/09/2017 | | Results for this | | RATIO, URINE | e | 10:13 AM | | procedure are in the | | | | PDT | | results section. | + +--------+ + + + | MICROALBUMIN/CREATIN | Routin | 12/09/2017 | | Results for this | | INE RATIO, URINE | e | 10:13 AM | | procedure are in the | | TEST | | PDT | | results section. | + +--------+ + + + | URIC ACID | Routin | 12/09/2017 | | Results for this | | | e | 10:13 AM | | procedure are in the | | | | PDT | | results section. | + +--------+ + + + | PARATHYROID HORMONE, | Routin | 12/09/2017 | | Results for this | | INTACT | e | 10:13 AM | | procedure are in the | | | | PDT | | results section. | + +--------+ + + + | MAGNESIUM | Routin | 12/09/2017 | | Results for this | | | e | 10:13 AM | | procedure are in the | | | | PDT | | results section. | + +--------+ + + + | RENAL FUNCTION PANEL | Routin | 12/09/2017 | | Results for this | | | e | 10:13 AM | | procedure are in the | | | | PDT | | results section. | + +--------+ + + + documented in this encounter Results Protein/Creatinine Ratio, Urine (12/09/2017 10:13 AM PDT) + + + + + + | Component | Value | Ref Range | Performed | Pathologist | | | | | At | Signature | + + + + + + | Protein/Cre | 494.6 (A) | 0 - 150 | EXTERNAL [...] + +---------+ + + Microalbumin/Creatinine Ratio, Urine (12/09/2017 10:13 AM PDT) + +---------+ + + + | Component | Value | Ref Range | Performed | Pathologist | | | | | At | Signature | + +---------+ + + + | ALBUMIN/CRE | 8.6 (A) | 0.0 - 2.0 | EXTERNAL | | | ATININE | | | LAB | | | RATIO.URINE | | | | | | .ORD.MG/G | | | | | | (JAVONAKER) | | | | | | | | | | | | | | | | | + +---------+ [...] + +---------+ + + Urinalysis, Microscopic Only (12/09/2017 10:13 AM PDT) + + + + + [...] - 1.030 | EXTERNAL | | | [place], | | | LAB | | | Urine | | | | | + + + + + + | Leukocyte | Trace | | EXTERNAL | | | Esterase, [...] + + + + | Protein, | Comment: 30 | | EXTERNAL | | | Urine [...] Performed At | + + + | WBC's: >50 RBC's: 10 Epithelial: Squamous 3+ Bacteria: 1+ | EXTERNAL LAB | + + + + +---------+ + + | Performing | Address | City/State/Zipcode | Phone Number | | Organization | | | | + +---------+ + + | EXTERNAL LAB | | | | + +---------+ + + External Lab: CBC (12/09/2017 10:13 AM PDT) + + + + + + | Component | Value | Ref Range | Performed | Pathologist | | | | | At | Signature | + + + + + + | WBC | 6.8 | 4.5 - 11.0 10 | EXTERNAL | | | | | | LAB | | + + + + + + | Non- | 3.93 | 3.8 - 5.1 10 | EXTERNAL | | | Red Blood | | | LAB | | | Cells | | | | | | Counted | | | | | + + + + + + | Hemoglobin | 10.8 (A) | 12 - 16 g/dL | EXTERNAL | | | | | | LAB | | + + + + + + | Hematocrit, | 34.1 (A) | 35 - 45 % | EXTERNAL | | | POC | | | LAB | | + + + + + + | MCV | 86.8 | 81 - 99 fL | EXTERNAL [...] + + + + | Platelet | 395 | 140 - 440 K/ L | EXTERNAL | | | Count | | | LAB | | | Plasma | | | | | + + + + + + | RDW-CV | 15 | 10.5 - 15.0 % | EXTERNAL [...] | + +---------+ + + Uric Acid (12/09/2017 10:13 AM PDT) + +---------+ + + + | Component | Value | Ref Range | Performed | Pathologist | | | | | At | Signature | + +---------+ + + + | Uric Acid | 9.3 (A) | 2.3 - 6.6 | EXTERNAL [...] + +---------+ + + Parathyroid Hormone, Intact (12/09/2017 10:13 AM PDT) + + + + + + | Component | Value | Ref Range | Performed | Pathologist | | | | | At | Signature | + + + + + + | PTH INTACT | 12.81 (A) | 15 - 65 pg/mL | EXTERNAL [...] | | + +---------+ + + Magnesium (12/09/2017 10:13 AM PDT) + +-------+ + + + [...] + +---------+ + + Renal Function Panel (12/09/2017 10:13 AM PDT) + + + + + + | Component | Value | Ref Range | Performed | Pathologist | | | | | At | Signature | + + + + + + | Glucose, | 91 | 70 - 100 mg/dL | EXTERNAL | | | Fasting | | | LAB | | + + + + + + | BUN | 42 (A) | 6 - 23 mg/dL | EXTERNAL | | | | | | LAB | | + + + + + + | Creatinine | 2.78 (A) | 0.7 - 1.25 | EXTERNAL | | | | | mg/dL | LAB | | + + + + + + | PHOSPHORUS | 4.6 | 2.5 - 5.0 mg/dL | EXTERNAL | | | | | | LAB | | + + + + + + | Albumin | 4.1 | 3.5 - 5.0 | EXTERNAL | [...] + + + | Anion Gap | 20.8 | 7 - 21 mmol/L | EXTERNAL | | | | | | LAB | | + + + + + + | eGFR, | | | EXTERNAL | | | non- | | | LAB | | | [place] | | | | | + + + + + + | Phosphorus, | | | EXTERNAL | | | Inorganic | | | LAB | | + + + + + + | BUN/Creatin | 15.1 | 6.0 - 28.6 | EXTERNAL | | | ine Ratio | | | LAB | | + + + + + + | Calcium | 10.5 (A) | 8.4 - 10.2 | EXTERNAL | | | | | mg/dL | LAB | | + + + + + + | Estimated | 17 (A) | 60 mg/dL | EXTERNAL | [...]
--- OUTSIDE RECORDS SUMMARY | ~2020-02-01 | XMS | Encounter Summary ---
Demographics + + + | Address | [address] | | | [place] [address] | + + + | Home Phone | | + + + | Preferred Language | Unknown | + + + | Marital Status | | + + + | Moravian Affiliation | Unknown | + + + | Race | Unknown | + + + | Ethnic Group | Unknown | + + + Author + + + | Author | [facility] | | | and [place] | + + + | Organization | [facility] | | | [...] Team Providers + +------+ + | Care Front Desk Officer Name | Role | Phone | + +------+ + | Heidi Koch MD | PCP | | + +------+ + Encounter Details +--------+ + + + + | Date | Type | Department | Care Team | Description | +--------+ + + + + | 02/26/ | Orders Only | [facility] | Ирина Song | | | 2017 | | [address] | [address] | | | | | [address] | [place] | | | | | [place], [place] | [place] [address] | | | | | [address] | [phone] | | | | | [phone] | | | +--------+ + + + [...] Oliver | | | | | | [phone] | | | | | | | [...] + | ECHO INTERPRETATION | Routin | 02/26/2017 | | Results for this | | OF OUTSIDE FILMS | e | 2:36 PM | | procedure are in the | | | | PDT | | results section. | + +--------+ + + + documented in this encounter Results ECHO Interpretation of Outside Films (02/26/2017 2:36 PM PDT) + + | Specimen | + + | | + + + + + | Impressions | Performed At | + + + | 1. The left ventricle is normal in size, wall thickness and systolic | | | function EF 60-65%. 2. The diastolic filling pattern indicates | | | impaired relaxation consistent with mild dysfunction (Grade I). 3. | | | The right ventricle is mildly enlarged with normal systolic function. | | | 4. Mild tricuspid regurgitation with mild pulmonary hypertension. 5. | | | There is no pericardial effusion. | | + + + + + + | Narrative | Performed At | + + + | Patient Name: Yanique Prasad Date of : 1950 | | | Performing Physician: Tigre Olivera | | | | | | INDICATIONS cad, edema CONCLUSIONS 1. | | | The left ventricle is normal in size, wall thickness and systolic | | | function EF 60-65%. 2. The diastolic filling pattern indicates | | | impaired relaxation consistent with mild dysfunction (Grade I). 3. | | | The right ventricle is mildly enlarged with normal systolic function. | | | 4. Mild tricuspid regurgitation with mild pulmonary hypertension. 5. | | | There is no pericardial effusion. FINDINGS -------- ECG rhythm: | | | Sinus rhythm. Study: A 2-dimensional transthoracic echocardiogram | | | with m-mode, spectral and color flow Doppler was perfomed. Study: | | | This was a technically difficult study with suboptimal views. Left | | | Ventricle: Overall left ventricular systolic function is normal with, | | | an EF between 60 - 65 %. Left Ventricle: The left ventricle cavity | | | size is normal. Left Ventricle: Left ventricular wall thickness is | | | normal. Left Ventricle: The diastolic filling pattern indicates | | | impaired relaxation consistent with mild dysfunction (Grade I). Right | | | Ventricle: The right ventricle is mildly enlarged. Right Ventricle: | | | The right ventricular systolic function is normal. Left Atrium: The | | | left atrium is normal in size. Right Atrium: The right atrium is | | | mildly enlarged. Aortic Valve: Aortic valve is trileaflet, immobile | | | left coronary cusp. Aortic Valve: The aortic valve is moderately | | | calcified. Aortic Valve: There is no evidence of aortic | | | regurgitation. Aortic Valve: There is mild aortic stenosis present. | | | Mitral Valve: Mild mitral regurgitation is present. Mitral Valve: | | | Mild mitral annular calcification present. Tricuspid Valve: The | | | tricuspid valve appears structurally normal. Tricuspid Valve: Mild | | | tricuspid regurgitation present. Tricuspid Valve: There is mild | | | pulmonary hypertension. Tricuspid Valve: The right ventricular | | | systolic pressure (pulmonary artery systolic pressure), as measured by | | | Doppler, is 41.35mmHg. Pulmonic Valve: Pulmonic valve appears | | | structurally normal. Pulmonic Valve: Mild pulmonic regurgitation. | | | Pericardium: There is no pericardial effusion. Pericardium: No | | | pleural effusion seen. IVC/Hepatic Veins: The IVC was not well | | | visualized. Aorta: The aortic root, ascending aorta and aortic are | | | within normal dimensions. MEASUREMENTS Ao asc: | | | 3.64 cm Ao sinus: 3.[address] junct: 3.04 cm LA Diam: | | | 5.01 cm EDV(Teich): 130.67 ml IVSd: 1.01 cm LVIDd: 5.22 cm | | | LVPWd: 0.79 cm LVOT Area: 4.13 cm2 LVOT Diam: 2.29 cm | | | %FS: 15.00 % EF(Teich): 31.56 % ESV(Teich): 89.42 ml | | | LVIDs: 4.43 cm SV(Teich): 41.24 ml RVIDd: 2.73 cm LVEF MOD | | | A2C: 69.89 % SV MOD A2C: 75.43 ml LVEF MOD A4C: 58.91 % | | | SV MOD A4C: 62.58 ml EF Biplane: 65.39 % LVEDV MOD BP: | | | 108.84 ml LVESV MOD BP: 37.66 ml LVEDV MOD A2C: 107.92 ml | | | LVLd A2C: 8.37 cm LVEDV MOD A4C: 106.22 ml LVLd A4C: 8.01 | | | cm LVESV MOD A2C: 32.48 ml LVLs A2C: 6.94 cm LVESV MOD A4C: | | | 43.64 ml LVLs A4C: 6.99 cm LAESV(A-L): 54.25 ml LAESV | | | Index (A-L): 23.59 ml/m2 LAAs A2C: 17.49 cm2 LAESV A-L A2C: | | | 52.05 ml LALs A2C: 4.98 cm LAAs A4C: 16.08 cm2 LAESV A-L | | | A4C: 49.88 ml LALs A4C: 4.40 cm RAAs: 16.74 cm2 RAESV A-L: | | | 54.84 ml RAESV MOD: 51.27 ml RALs: 4.34 cm TAPSE: 1.35 | | | cm AV maxP.83 mmHg AV meanP.24 mmHg AV Vmax: | | | 1.64 m/s AV Vmean: 1.18 m/s AV VTI: 35.98 cm VITOR Vmax: | | | 2.38 cm2 VITOR (VTI): 2.19 cm2 AVAI Vmax: 0.00 cm2/m2 AVAI | | | (VTI): 0.00 cm2/m2 LVOT maxP.59 mmHg LVOT meanP.70 | | | mmHg LVSI Dopp: 34.27 ml/m2 LVSV Dopp: 78.82 ml LVOT Vmax: | | | 0.94 m/s LVOT Vmean: 0.61 m/s LVOT VTI: 19.05 cm MV A Esequiel: | | | 0.85 m/s MV DecT: 301.98 ms MV E Esequiel: 0.62 m/s MV E/A | | | Ratio: 0.72 MV PHT: 87.57 ms MVA By PHT: 2.51 cm2 Septal | | | e': 0.03 m/s Septal E/e': 16.59 Lateral e': 0.06 m/s | | | Lateral E/e': 9.03 RAP: 8 mmHg RVSP: 41.34 mmHg TR maxPG: | | | 33.34 mmHg TR Vmax: 2.88 m/s Transportation Security Officer: STEF Authenticated | | | by: Tigre Lundbergrio [place] Report Date/Time: 02-27-2017 07:21:07 | | + + + + + | Procedure Note | + + | Price, Rad Conversion - 02/24/2019 6:59 PM PDT Patient Name: Sanjay Prasad of | | : 1950 Performing Physician: Tigre | | Joselin INDICATIONS------ | | -----cad, edema CONCLUSIONS 1. The left ventricle is normal in size, wall | | thickness and systolic function EF 60-65%.2. The diastolic filling pattern indicates | | impaired relaxation consistent with mild dysfunction (Grade I).3. The right ventricle is | | mildly enlarged with normal systolic function.4. Mild tricuspid regurgitation with mild | | pulmonary hypertension.5. There is no pericardial effusion. FINDINGS--------ECG rhythm: | | Sinus rhythm.Study: A 2-dimensional transthoracic echocardiogram with m-mode, spectral | | and color flow Doppler was perfomed.Study: This was a technically difficult study with | | suboptimal views.Left Ventricle: Overall left ventricular systolic function is normal | | with, an EF between 60 - 65 %.Left Ventricle: The left ventricle cavity size is | | normal.Left Ventricle: Left ventricular wall thickness is normal.Left Ventricle: The | | diastolic filling pattern indicates impaired relaxation consistent with mild dysfunction | | (Grade I).Right Ventricle: The right ventricle is mildly enlarged.Right Ventricle: The | | right ventricular systolic function is normal.Left Atrium: The left atrium is normal in | | size.Right Atrium: The right atrium is mildly enlarged.Aortic Valve: Aortic valve is | | trileaflet, immobile left coronary cusp.Aortic Valve: The aortic valve is moderately | | calcified.Aortic Valve: There is no evidence of aortic regurgitation.Aortic Valve: There | | is mild aortic stenosis present.Mitral Valve: Mild mitral regurgitation is | | present.Mitral Valve: Mild mitral annular calcification present.Tricuspid Valve: The | | tricuspid valve appears structurally normal.Tricuspid Valve: Mild tricuspid | | regurgitation present.Tricuspid Valve: There is mild pulmonary hypertension.Tricuspid | | Valve: The right ventricular systolic pressure (pulmonary artery systolic pressure), as | | measured by Doppler, is 41.35mmHg.Pulmonic Valve: Pulmonic valve appears structurally | | normal.Pulmonic Valve: Mild pulmonic regurgitation.Pericardium: There is no pericardial | | effusion.Pericardium: No pleural effusion seen.IVC/Hepatic Veins: The IVC was not well | | visualized.Aorta: The aortic root, ascending aorta and aortic are within normal | | dimensions. MEASUREMENTS Ao asc: 3.64 cmAo sinus: 3.[address] junct: | | 3.04 cmLA Diam: 5.01 cmEDV(Teich): 130.67 mlIVSd: 1.01 cmLVIDd: 5.22 cmLVPWd: | | 0.79 cmLVOT Area: 4.13 [id number] Diam: 2.29 cm%FS: 15.00 %EF(Teich): 31.56 | | %ESV(Teich): 89.42 mlLVIDs: 4.43 cmSV(Teich): 41.24 mlRVIDd: 2.73 cmLVEF MOD | | A2C: 69.89 %SV MOD A2C: 75.43 mlLVEF MOD A4C: 58.91 %SV MOD A4C: 62.58 mlEF | | Biplane: 65.39 %LVEDV MOD BP: 108.84 mlLVESV MOD BP: 37.66 mlLVEDV MOD A2C: | | 107.92 mlLVLd A2C: 8.37 cmLVEDV MOD A4C: 106.22 mlLVLd A4C: 8.01 cmLVESV MOD A2C: | | 32.48 mlLVLs A2C: 6.94 cmLVESV MOD A4C: 43.64 mlLVLs A4C: 6.99 cmLAESV(A-L): | | 54.25 mlLAESV Index (A-L): 23.59 ml/m2LAAs A2C: 17.49 [id number] A-L A2C: 52.05 | | mlLALs A2C: 4.98 cmLAAs A4C: 16.08 [id number] A-L A4C: 49.88 mlLALs A4C: 4.40 | | cmRAAs: 16.74 [id number] A-L: 54.84 mlRAESV MOD: 51.27 mlRALs: 4.34 cmTAPSE: | | 1.35 cmAV maxP.83 mmHgAV meanP.24 mmHgAV Vmax: 1.64 m/Gabby Vmean: 1.18 | | m/Gabby VTI: 35.98 cmAVA Vmax: 2.38 cm2AVA (VTI): 2.19 [id number] Vmax: 0.00 | | cm2/m2AVAI (VTI): 0.00 cm2/m2LVOT maxP.59 mmHgLVOT meanP.70 mmHgLVSI Dopp: | | 34.27 ml/m2LVSV Dopp: 78.82 mlLVOT Vmax: 0.94 m/sLVOT Vmean: 0.61 m/sLVOT VTI: | | 19.05 cmMV A Esequiel: 0.85 m/sMV DecT: 301.98 msMV E Esequiel: 0.62 m/sMV E/A Ratio: | | 0.72MV PHT: 87.57 msMVA By PHT: 2.51 [id number] e': 0.03 m/sSeptal E/e': | | 16.59Lateral e': 0.06 m/sLateral E/e': 9.03RAP: 8 mmHgRVSP: 41.34 mmHgTR maxPG: | | 33.34 mmHgTR Vmax: 2.88 m/s Transportation Security Officer: DENISEuthenticated by: Tigre Espinoza | | Date/Time: 02-27-2017 07:21:07 IMPRESSION: 1. The left ventricle is normal in size, wall | | thickness and systolic function EF 60-65%.2. The diastolic filling pattern indicates | | impaired relaxation consistent with mild dysfunction (Grade I).3. The right ventricle is | | mildly enlarged with normal systolic function.4. Mild tricuspid regurgitation with mild | | pulmonary hypertension.5. There is no pericardial effusion. | |Ao asc: 3.64 cm | |Ao sinus: 3.52 cm | |Ao st junct: 3.04 cm | |LA Diam: 5.01 cm | |EDV(Teich): 130.67 ml | |IVSd: 1.01 cm | |LVIDd: 5.22 cm | |LVPWd: 0.79 cm | |LVOT Area: 4.13 cm2 | |LVOT Diam: 2.29 cm | |%FS: 15.00 % | |EF(Teich): 31.56 % | |ESV(Teich): 89.42 ml | |LVIDs: 4.43 cm | |SV(Teich): 41.24 ml | |RVIDd: 2.73 cm | |LVEF MOD A2C: 69.89 % | |SV MOD A2C: 75.43 ml | |LVEF MOD A4C: 58.91 % | |SV MOD A4C: 62.58 ml | |EF Biplane: 65.39 % | |LVEDV MOD BP: 108.84 ml | |LVESV MOD BP: 37.66 ml | |LVEDV MOD A2C: 107.92 ml | |LVLd A2C: 8.37 cm | |LVEDV MOD A4C: 106.22 ml | |LVLd A4C: 8.01 cm | |LVESV MOD A2C: 32.48 ml | |LVLs A2C: 6.94 cm | |LVESV MOD A4C: 43.64 ml | |LVLs A4C: 6.99 cm | |LAESV(A-L): 54.25 ml | |LAESV Index (A-L): 23.59 ml/m2 | |LAAs A2C: 17.49 cm2 | |LAESV A-L A2C: 52.05 ml | |LALs A2C: 4.98 cm | |LAAs A4C: 16.08 cm2 | |LAESV A-L A4C: 49.88 ml | |LALs A4C: 4.40 cm | |RAAs: 16.74 cm2 | |RAESV A-L: 54.84 ml | |RAESV MOD: 51.27 ml | |RALs: 4.34 cm | |TAPSE: 1.35 cm | |AV maxP.83 mmHg | |AV meanP.24 mmHg | |AV Vmax: 1.64 m/s | |AV Vmean: 1.18 m/s | |AV VTI: 35.98 cm | |VITOR Vmax: 2.38 cm2 | |VITOR (VTI): 2.19 cm2 | |AVAI Vmax: 0.00 cm2/m2 | |AVAI (VTI): 0.00 cm2/m2 | |LVOT maxP.59 mmHg | |LVOT meanP.70 mmHg | |LVSI Dopp: 34.27 ml/m2 | |LVSV Dopp: 78.82 ml | |LVOT Vmax: 0.94 m/s | |LVOT Vmean: 0.61 m/s | |LVOT VTI: 19.05 cm | |MV A Esequiel: 0.85 m/s | |MV DecT: 301.98 ms | |MV E Esequiel: 0.62 m/s | |MV E/A Ratio: 0.72 | |MV PHT: 87.57 ms | |MVA By PHT: 2.51 cm2 | |Septal e': 0.03 m/s | |Septal E/e': 16.59 | |Lateral e': 0.06 m/s | |Lateral E/e': 9.03 | |RAP: 8 mmHg | |RVSP: 41.34 mmHg | |TR maxP.34 mmHg | |TR Vmax: 2.88 m/s | | | |Transportation Security Officer: STEF | |Authenticated by: Tigre Olivera | |Report Date/Time: 02-27-2017 07:21:07 | | | |IMPRESSION: | |1. The left ventricle is normal in size, wall thickness and systolic function EF 60-65%. | |2. The diastolic filling pattern indicates impaired relaxation consistent with mild dysfunc tion (Grade I). | |3. The right ventricle is mildly enlarged with normal systolic function. | |4. Mild tricuspid regurgitation with mild pulmonary hypertension. | |5. There is no pericardial effusion. | + + documented in this encounter Visit Diagnoses Not on filedocumented in this encounter"
--- OUTSIDE RECORDS SUMMARY | ~2020-02-01 | XMS | Encounter Summary ---
Demographics + + + | Address | [address] | | | [place] [address] | + + + | Home Phone | | + + + | Preferred Language | Unknown | + + + | Marital Status | | + + + | Oriental Orthodox Affiliation | Unknown | + + + | Race | Unknown | + + + | Ethnic Group | Unknown | + + + Author + + + | Author | [facility] | | | and [place] | + + + | Organization | [facility] | | [...] Team Providers + +------+ + | Care Sharepoint Manager Name | Role | Phone | + +------+ + | Heidi Koch MD | PCP | | + +------+ + Encounter Details +--------+ + + + + | Date | Type | Department | Care Team | Description | +--------+ + + + + | 04/16/ | Orders Only | [facility] | Oskar Rainey MD | | | 2015 | | NEPHROLOGY [place] | [address] [place] | | | | | [address] [place] | [address] [place], [place] | | | | | [address] [place], [place] | [address] | | | | | [address] | | | | | | [phone] | | | +--------+ + + + [...] [place] | | | | | | [phone] | | | | | | | | +--------+ + + + + documented as of this encounter Procedures + +--------+ + + + | Procedure Name | Priori | Date/Time | Associated Diagnosis | Comments | | | ty | | | | + +--------+ + + + | EXTERNAL LAB: CBC | Routin | 04/16/2016 | | Results for this | | | e | 12:02 PM | | procedure are in the | | | | PDT | | results section. | + +--------+ + + + | PROTEIN/CREATININE | Routin | 04/16/2016 | | Results for this | | RATIO, URINE | e | 12:02 PM | | procedure are in the | | | | PDT | | results section. | + +--------+ + + + | URIC ACID | Routin | 04/16/2016 | | Results for this | | | e | 12:02 PM | | procedure are in the | | | | PDT | | results section. | + +--------+ + + + | MAGNESIUM | Routin | 04/16/2016 | | Results for this | | | e | 12:02 PM | | procedure are in the | | | | PDT | | results section. | + +--------+ + + + | RENAL FUNCTION PANEL | Routin | 04/16/2016 | | Results for this | | | e | 12:02 PM | | procedure are in the | | | | PDT | | results section. | + +--------+ + + + documented in this encounter Results Protein/Creatinine Ratio, Urine (04/16/2016 12:02 PM PDT) + + + + + + | Component | Value | Ref Range | Performed | Pathologist | | | | | At | Signature | + + + + + + | Protein/Cre | 408.3 (A) | 0 - 150 | EXTERNAL [...] + +---------+ + + External Lab: CBC (04/16/2016 12:02 PM PDT) + + + + + + | Component | Value | Ref Range | Performed | Pathologist | | | | | At | Signature | + + + + + + | WBC | 6.0 | 4.5 - 11.0 10 | EXTERNAL | | | | | | LAB | | + + + + + + | Non- | 4.03 | 3.8 - 5.1 10 | EXTERNAL | | | Red Blood | | | LAB | | | Cells | | | | | | Counted | | | | | + + + + + + | Hemoglobin | 11.6 (A) | 12.0 - 16.0 | EXTERNAL | | | | | g/dL | LAB | | + + + + + + | Hematocrit, | 34.7 (A) | 35 - 45 % | EXTERNAL | | | POC | | | LAB | | + + + + + + | MCV | 86.0 | 81 - 99 fL | EXTERNAL [...] + + + + | Platelet | 321 | 140 - 440 K/ L | [...] | + +---------+ + + Uric Acid (04/16/2016 12:02 PM PDT) + + + + + + | Component | Value | Ref Range | Performed | Pathologist | | | | | At | Signature | + + + + + + | Uric Acid | 10.3 (A) | 2.3 - 6.6 | EXTERNAL [...] | | + +---------+ + + Magnesium (04/16/2016 12:02 PM PDT) + +-------+ + + + [...] + +---------+ + + Renal Function Panel (04/16/2016 12:02 PM PDT) + + + + + + | Component | Value | Ref Range | Performed | Pathologist | | | | | At | Signature | + + + + + + | Glucose, | 82 | 70 - 100 mg/dL | EXTERNAL | | | Fasting | | | LAB | | + + + + + + | BUN | 49 (A) | 6 - 23 mg/dL | EXTERNAL | | | | | | LAB | | + + + + + + | Creatinine | 2.94 (A) | 0.70 - 1.25 | EXTERNAL [...] + + + + | K | 4.3 | 3.6 - 5.1 | EXTERNAL | [...] + + + | Anion Gap | 17.3 | 7 - 21 mmol/L | EXTERNAL | | | | | | LAB | | + + + + + + | eGFR, | | | EXTERNAL | | | non- | | | LAB | | | [place] | | | | | + + + + + + | Phosphorus, | 3.8 | 2.5 - 5.0 | EXTERNAL | | | Inorganic | | | LAB | | + + + + + + | BUN/Creatin | 16.7 | 6.0 - 28.6 | EXTERNAL | | | ine Ratio | | | LAB | | + + + + + + | Calcium | 9.5 | 8.4 - 10.2 | EXTERNAL | | | | | mg/dL | LAB | | + + + + + + | Estimated | 16 | mg/dL | EXTERNAL | | | [...]
--- OUTSIDE RECORDS SUMMARY | ~2020-02-01 | XMS | Encounter Summary ---
Demographics + + + | Address | [address] | | | [place] [address] | + + + | Home Phone | | + + + | Preferred Language | Unknown | + + + | Marital Status | | + + + | Yarsani Affiliation | Unknown | + + + | Race | Unknown | + + + | Ethnic Group | Unknown | + + + Author + + + | Author | [facility] | | | and [place] | + + + | Organization | [facility] | | | [...] Team Providers + +------+ + | Care Advertising Agent Name | Role | Phone | + +------+ + | Heidi Koch MD | PCP | | + +------+ + Encounter Details +--------+ + + + + | Date | Type | Department | Care Team | Description | +--------+ + + + + | 06/18/ | Orders Only | [facility] | Conversion | | | 2015 | | NEPHROLOGY [place] | Transaction, | | | | | [address] [place] | Provider Unknown | | | | | [address] [facility] [place] | | | | | | [address] | (Fax) | | | | | [phone] | | | +--------+ + + + [...] Oliver | | | | | | [phone] | | | | | | | | +--------+ + + + + | 02/22/ | Office | Cardiology | Phylicia Patel DO | | | 2019 | Visit | | [address] | | | | | | [place] | | | | | | [phone] | | | | | | | | +--------+ + + + + documented as of this encounter Procedures + +--------+ + + + | Procedure Name | Priori | Date/Time | Associated Diagnosis | Comments | | | ty | | | | + +--------+ + + + | EXTERNAL LAB: CBC | Routin | 06/18/2016 | | Results for this | | | e | 1:20 PM | | procedure are in the | | | | PST | | results section. | + +--------+ + + + | URINALYSIS, | Routin | 06/18/2016 | | Results for this | | MICROSCOPIC ONLY | e | 1:20 PM | | procedure are in the | | | | PST | | results section. | + +--------+ + + + | PROTEIN, URINE, 24HR | Routin | 06/18/2016 | | Results for this | | | e | 1:20 PM | | procedure are in the | | | | PST | | results section. | + +--------+ + + + | PROTEIN/CREATININE | Routin | 06/18/2016 | | Results for this | | RATIO, URINE | e | 1:20 PM | | procedure are in the | | | | PST | | results section. | + +--------+ + + + | URIC ACID | Routin | 06/18/2016 | | Results for this | | | e | 1:20 PM | | procedure are in the | | | | PST | | results section. | + +--------+ + + + | PARATHYROID HORMONE, | Routin | 06/18/2016 | | Results for this | | INTACT | e | 1:20 PM | | procedure are in the | | | | PST | | results section. | + +--------+ + + + | MAGNESIUM | Routin | 06/18/2016 | | Results for this | | | e | 1:20 PM | | procedure are in the | | | | PST | | results section. | + +--------+ + + + | RENAL FUNCTION PANEL | Routin | 06/18/2016 | | Results for this | | | e | 1:20 PM | | procedure are in the | | | | PST | | results section. | + +--------+ + + + documented in this encounter Results Protein/Creatinine Ratio, Urine (06/18/2016 1:20 PM PST) + + + + + + | Component | Value | Ref Range | Performed | Pathologist | | | | | At | Signature | + + + + + + | Protein/Cre | 304.3 (A) | 0 - 150 | EXTERNAL [...] | + +---------+ + + Protein, Urine, 24Hr (06/18/2016 1:20 PM PST) + +-------+ + + + | Component | Value | Ref Range | Performed | Pathologist | | | | | At | Signature | + +-------+ + + + | PROTEIN, | 32 | 0.0 - 50 | EXTERNAL | | | 24HR URINE | | | LAB | | + [...] + +---------+ + + Urinalysis, Microscopic Only (06/18/2016 1:20 PM PST) + + + + + + [...] + + + + | Specific | 1.015 | 1.005 - 1.030 | EXTERNAL | | | [place], | | | LAB | | | [...] + + + | pH, Urine | 7 | 5 - 9 | EXTERNAL | [...] + +---------+ + + External Lab: CBC (06/18/2016 1:20 PM PST) + + + + + + | Component | Value | Ref Range | Performed | Pathologist | | | | | At | Signature | + + + + + + | WBC | 6.6 | 4.5 - 11.0 10 | EXTERNAL | | | | | | LAB | | + + + + + + | Non- | 3.90 | 3.8 - 5.1 10 | EXTERNAL [...] + + + + | Hematocrit, | 33.8 (A) | 35 - 45 % | EXTERNAL | | | POC | | | LAB | | + + + + + + | MCV | 86.7 | 81 - 99 fL | EXTERNAL [...] + + + + | Platelet | 353 | 140 - 440 K/ L | EXTERNAL | | | Count | | | LAB | | | Plasma | | | | | + + + + + + | RDW-CV | 14.1 | 10.5 - 15.0 % | EXTERNAL [...] | + +---------+ + + Uric Acid (06/18/2016 1:20 PM PST) + +---------+ + + + | Component | Value | Ref Range | Performed | Pathologist | | | | | At | Signature | + +---------+ + + + | Uric Acid | 9.8 (A) | 2.3 - 6.6 | EXTERNAL [...] + +---------+ + + Parathyroid Hormone, Intact (06/18/2016 1:20 PM PST) + +-------+ + + + | Component | Value | Ref Range | Performed | Pathologist | | | | | At | Signature | + +-------+ + + + | PTH INTACT | 36.67 | 15 - 65 pg/mL | EXTERNAL [...] | | + +---------+ + + Magnesium (06/18/2016 1:20 PM PST) + +-------+ + + + | [...] + +---------+ + + Renal Function Panel (06/18/2016 1:20 PM PST) + + + + + + | Component | Value | Ref Range | Performed | Pathologist | | | | | At | Signature | + + + + + + | Glucose, | 102 (A) | 70 - 100 mg/dL | EXTERNAL | | | Fasting | | | LAB | | + + + + + + | BUN | 50 (A) | 6 - 23 mg/dL | EXTERNAL | | | | | | LAB | | + + + + + + | Creatinine | 3.35 (A) | 0.70 - 1.25 | EXTERNAL [...] | | | LAB | | | [place] | | | | | + + + + + + | Phosphorus, | 4.0 | 2.5 - 5.0 | EXTERNAL | | | Inorganic | | | LAB | | + + + + + + | BUN/Creatin | 14.9 | 6.0 - 28.6 | EXTERNAL | [...]
--- OUTSIDE RECORDS SUMMARY | ~2020-02-01 | XMS | Encounter Summary ---
Demographics + + + | Address | [address] | | | [place] [address] | + + + | Home Phone | | + + + | Preferred Language | Unknown | + + + | Marital Status | | + + + | Yazidism Affiliation | Unknown | + + + | Race | Unknown | + + + | Ethnic Group | Unknown | + + + Author + + + | Author | [facility] | | | and [place] | + + + | Organization | [facility] | | | [...] Team Providers + +------+ + | Care Food Safety Director Name | Role | Phone | + +------+ + | Heidi Koch MD | PCP | | + +------+ + Reason for Visit + +--------+ + | Reason | Onset | Comments | | | Date | | + +--------+ + | Advice Only | 03/08/ | | | | 2019 | | + +--------+ + Encounter Details +--------+ + + + + | Date | Type | Department | Care Team | Description | +--------+ + + + + | 03/08/ | Telephone | [facility] | Rodrigo Cruz MD | Advice Only | | 2019 | | PULMONOLOGY [address] | [address] | | | | | [address] | [place], [place] | | | | | [place], [place] | [address] | | | | | [address] | | | | | | [phone] | | | +--------+ + + + [...] | | | + +---+---+---+ + + + | Sex Assigned at | Date Recorded | | | | + + + | Not on file | | + + + documented as of this encounter Miscellaneous Notes Telephone Encounter - Kiera Salomon, Media Marketing Manager - 03/08/2019 10:33 AM PDTSpoke to patients pharmacy, alternatives covered for Spiriva are Incruse Ellipta, Anoro and Combiven t Respimat. Will forward to Dr. Cruz Electronically signed by Kiera Salomon, Media Marketing Manager at 0 03/08/2019 10:34 AM PDTdocumented in this encounter Plan of Treatment +--------+ + + + + | Date | Type | Specialty | Care Team | Description | +--------+ + + + + | 02/01/ | Virtual | Pulmonology | Rodrigo Cruz MD | | | 2019 | Office | | [address] | | | | Visit | | [place] | | | | | | [address] | | | | | | | | +--------+ + + + + | 02/22/ | Office | Cardiology | Phylicia Patel DO | | | 2019 | Visit | | [address] | | | | | | [place] | | | | | | [address] | | | | | | | | +--------+ + + + + documented as of this encounter Visit Diagnoses Not on filedocumented in this encounter"
--- OUTSIDE RECORDS SUMMARY | ~2020-02-01 | XMS | Encounter Summary ---
Demographics + + + | Address | [address] | | | [place] [address] | + + + | Home Phone | | + + + | Preferred Language | Unknown | + + + | Marital Status | | + + + | Advent Affiliation | Unknown | + + + | Race | Unknown | + + + | Ethnic Group | Unknown | + + + Author + + + | Author | [facility] | | | and [place] | + + + | Organization | [facility] | | [...] Team Providers + +------+ + | Care Second Shift Supervisor Name | Role | Phone | + +------+ + | Heidi Koch MD | PCP | | + +------+ + Reason for Referral Diagnostic/Screening (Routine) + +--------+ + + + + | Status | Reason | Specialty | Diagnoses / | Referred By | Referred To | | | | | Procedures | Contact | Contact | + +--------+ + + + + | Pending | | Radiology | Diagnoses | Amanda, | | | Review | | | Mitral | DO Phylicia | | | | | | valve | [address] | | | | | | insufficienc | [address] | | | | | | y, | [place] | | | | | | unspecified | [place] | | | | | | etiology | [address] | | | | | | Procedures | Phone: | | | | | | ECHO | [phone] | | | | | | Complete | Fax: | | | | | | | [phone] | | + +--------+ + + + + Encounter Details +--------+ + + + + | Date | Type | Department | Care Team | Description | +--------+ + + + + | 08/23/ | Orders Only | [facility] | Phylicia Patel DO | Mitral valve | | 2020 | | CARDIOLOGY [place] | [address] | insufficiency, | | | | [address] | [place], [place] | unspecified etiology | | | | [place], [place] | [address] | (Primary Dx) | | | | [address] | | | | | | [phone] | | | +--------+ + + + [...] | | | | Visit | | [place] | | | | | | [address] | | | | | | | | +--------+ + + + + | 02/22/ | Office | Cardiology | Phylicia Patel DO | | | 2019 | Visit | | [address] | | | | | | [place] | | | | | | [address] | | | | | | | | +--------+ + + + + + + +--------+ + + | Name | Type | Priori | Associated Diagnoses | Order Schedule | | | | ty | | | + + +--------+ + + | ECHO Complete | Echocardiog | Routin | Mitral valve | Expected: | | | jenna | e | insufficiency, | 08/30/2019, Expires: | | | | | unspecified etiology | 08/23/2020 | + + +--------+ + + documented as of this encounter Visit Diagnoses + + | Diagnosis | + + | Mitral valve insufficiency, unspecified etiology - Primary | + + documented in this encounter"
--- OUTSIDE RECORDS SUMMARY | ~2020-02-01 | XMS | Encounter Summary ---
Demographics + + + | Address | [address] | | | [place] [address] | + + + | Home Phone [...] Team Providers + +------+ + | Care Clothespin Drier Operator Name | Role | Phone | + +------+ + PCP | Unavailable | + +------+ + Encounter Details +--------+ + + + + | Date | Type | Department | Care Team | Description | +--------+ + + + + | 12/12/ | Hospital | [facility] | MichelleZachary albaen | [facility] | | 2007 - | Encounter | [facility] | MD Vivian [address] | Amarjit ([facility] | | | | CARE FLOOR [address] | [place], [place] | | | 12/14/ | | [address] | [address] | | | 2007 | | [place], [place] | | | | | | [address] | Marcelle Gonzalez | | | | | [phone] | MD Vera [address] | | | | | [address] [place], [place] | | | | | | [address] | | | | | | (Fax) | | +--------+ + + + + [...] [place] | | | | | | [address] | | | | | | | | +--------+ + + + + documented as of this encounter Visit Diagnoses + + | Diagnosis | + + | Acute myocardial infarction, subendocardial infarction, initial episode of care (HCC) | | Acute myocardial infarction, subendocardial infarction, initial episode of care | + + documented in this encounter"
--- OUTSIDE RECORDS SUMMARY | ~2020-02-01 | XMS | Encounter Summary ---
Demographics + + + | Address | [address] | | | [place] [address] | + + + | Home Phone | | + + + | Preferred Language | Unknown | + + + | Marital Status | | + + + | Episcopalian Affiliation | Unknown | + + + | Race | Unknown | + + + | Ethnic Group | Unknown | + + + Author + + + | Author | [facility] | | | and [place] | + + + | Organization | [facility] | | | [...] Team Providers + +------+ + | Care Patient Transportation Driver Name | Role | Phone | [...] + + + | Closed | | | Diagnoses | Davidagrosie, | Anthony, | | | | | Coronary | Camille, | MD Rodrigo | | | | | artery | TRANSFER DRIVER [address] | [address] | | | | | disease | [address] | [address] | | | | | involving | [address] | [place], [place] | | | | | coronary | [place], [place] | [address] Phone: | | | | | bypass graft | [address] | [phone] | | | | | of [place] | Phone: | Fax: | | | | | heart with | [phone] | [phone] | | | | | angina | Fax: | | | | | | pectoris | [phone] | | | | | | (HCC) S/P | | | | | | | CABG x 2 | | | | | | | Moderate to | | | | | | | severe | | | | | | | mitral | | | | | | | regurgitatio | | | | | | | n Mild | | | | | | | aortic | | | | | | | stenosis by | | | | | | | prior | | | | | | | echocardiogr | | | | | | | am Moderate | | | | | | | tricuspid | | | | | | | regurgitatio | | | | | | | n by prior | | | | | | | echocardiogr | | | | | | | am | | | +--------+--------+ + + + + Encounter Details +--------+---------+ + + + | Date | Type | Department | Care Team | Description | +--------+---------+ + + + | 03/04/ | Office | [facility] | Rodrigo Cruz MD | Centrilobular | | 2019 | Visit | PULMONOLOGY [address] | [address] | emphysema (HCC) | | | | [address] | [place], [place] | (Primary Dx); | | | | [place], [place] | [address] | Pulmonary | | | | [address] | | hypertension ([facility]); | | | | [phone] | | Moderate to severe | | | | | | mitral regurgitation | +--------+---------+ + + + Social History [...] + + + | Blood Pressure | 128/66 | 03/04/2019 12:22 PM | | | | | PDT | | + + + + + | Pulse | 61 | 03/04/2019 12:22 PM | | | | | PDT | | + + + + + | Temperature | 36.2 C (97.2 F) | 03/04/2019 12:22 PM | | | | | PDT | | + + + + + | Respiratory Rate | - | - | | + + + + + | Oxygen Saturation | 97% | 03/04/2019 12:22 PM | | | | | PDT | | + + + + + | Inhaled Oxygen | - | - | | | Concentration | | | | + + + + + | Weight | 116.6 kg (257 lb) | 03/04/2019 12:22 PM | | | | | PDT | | + + + + + | Height | 180.3 cm (5' 11") | 03/04/2019 12:22 PM | | | | | PDT | | + + + + + | Body Mass Index | 35.84 | 03/04/2019 12:22 PM | | | | | PDT | | + + + + + documented in this encounter Progress Notes Rodrigo Cruz MD - 03/04/2019 11:55 AM PDT Subjective: Patient ID: Yanique Prasad is a 68 y.o. female is here for follow up shortness of kiana [place] The following portions of the patient's history were reviewed and updated as appropriate an d is available elsewhere in the record: allergies, current medications, past family history, past medical history, past social history, past surgical history and problem list. The abi is a 68 year old female who [...] inhalers. She den ies any significant wheezing. Interim history 03/04/2019 The patient was evaluated in cardiothoracic surgery in [place]. The patient was felt to be a very poor candidate. She continues to have shortness of breath on exertion. She de nies having any wheezing. Review of Systems Constitutional: Negative. HENT: Negative. [...] SURGERY CORONARY ANGIOPLASTY CORONARY ARTERY BYPASS GRAFT 2002 CORONARY ARTERY BYPASS GRAFT HYSTERECTOMY HYSTERECTOMY LUNG [...] Last attempt to quit: 07/06/2008 Years since quittin.6 Smokeless tobacco: Never Used Substance and Sexual Activity Alcohol use: Not on file Drug use: Not on file Comment: Drug use: No Sexual activity: Not on file Other Topics Concern Not on file Social History Narrative Not on file Family History Problem Relation Age of Onset Heart attack Mother Emphysema Mother Heart disease Mother Hypertension Mother Allergies: Allergies Allergen Reactions Codeine Sulfate Peanuts Thomas Nuts Current Medications: Current Outpatient Medications on File Prior to Visit Medication Sig Dispense Refill clopidogrel (PLAVIX) 75 mg tablet Take 75 mg by mouth Daily. fluoxetine (PROZAC) 40 MG capsule Take 40 mg by mouth Daily. furosemide (LASIX) 40 mg tablet Take 40 mg by mouth every morning. gabapentin (NEURONTIN) 100 mg capsule Take 100 [...] by mouth Daily. No current facility-administered medications on file prior to visit. Objective Objective: Physical Exam Vitals: 03/04/19 1222 BP: 128/66 Pulse: 61 Temp: 36.2 C (97.2 F) Vital signs reviewed. GENERAL: pleasant, cooperative, oriented, not in distress HEENT: pink conjunctiva, anicteric sclerae, moist oral mucosae and without any lesions, nor mal appearing nasal mucosae; no JVD; MALAMPATTI _2__; no thyromegaly; no cervicolymphadenopa zahira CVS: PMI non displaced, NRRR, S1 and S2, systolic murmurs/gallops/rubs CHEST: Examination of the chest was unremarkable. There were no bony deformities, no asymme try, and no other abnormalities. LUNGS: Normal effort, Equal in expansion, resonant to percussion, clear and equal breath so unds, no wheezes/rales/rhonchi ABDOMEN: Flat abdomen, NABS, non-tender on palpation, Traube's space intact, liver span nor mal, no masses palpated EXTREMITIES: good distal pulses, no cyanosis, no edema, no clubbing, no nail abnormalities NEURO: awake and oriented, gait normal, no focal neurologic deficits Pulmonary function test 10/29/2018 FEV1/FVC 65 FEV1 1.73/64 FVC 2.65/75 There is a significant bronchodilator response TLC 5.23/87 Diffusing capacity 12.92/39 My impression-there is a moderate obstructive impairment with significant bronchodilator re sponse. The diffusing capacity severely reduced. Assessment/Plan Assessment and Plan: 1. Centrilobular emphysema (HCC) The patient has moderate obstructive impairment she is been compliant with the use of Breo 200/25. She has bronchodilator response. I will start the patient on Spiriva 18 mcg daily. . . 2. Pulmonary hypertension (HCC) Most likely due to left sided failure. Treatment will be management of underlying disease. 3. Moderate to severe mitral regurgitation Most of her symptoms are suggestive of congestive heart failure . Continue to follow-up [facility] cardiology Thank you for allowing me to participate in your patient's care. We will review test result s that we have ordered with the patient once they become available. A return visit has been scheduled in 6 months. Rodrigo Cruz MD Pulmonary and Critical Care Medicine [facility] [address] , [place] [address] documented in this enco unter Plan of [...] [place] | | | | | | [address] | | | | | | | | +--------+ + + + + | 02/22/ | Office | Cardiology | Phylicia Patel DO | | | 2019 | Visit | | [address] | | | | | | [place] | | | | | | [address] | | | | | | | | +--------+ + + + + documented as of this encounter Visit Diagnoses + + | Diagnosis | + + | Centrilobular emphysema (HCC) - Primary | + + | Pulmonary hypertension (HCC) Other chronic pulmonary heart diseases | + + | Moderate to severe mitral regurgitation | + + documented in this encounter
--- OUTSIDE RECORDS SUMMARY | ~2020-02-01 | XMS | Encounter Summary ---
Demographics + + + | Address | [address] | | | [place] [address] | + + + | Home Phone | | + + + | Preferred Language | Unknown | + + + | Marital Status | | + + + | Amish Affiliation | Unknown | + + + | Race | Unknown | + + + | Ethnic Group | Unknown | + + + Author + + + | Author | [facility] | | | and [place] | + + + | Organization | [facility] | | [...] Team Providers + +------+ + | Care Nuclear Equipment Test Engineer Name | Role | Phone | + +------+ + | Heidi Koch MD | PCP | | + +------+ + Encounter Details +--------+ + + + + | Date | Type | Department | Care Team | Description | +--------+ + + + + | / | Orders Only | [facility] | [place] | | | 2015 | | NEPRHOLOGY [place] | STAFF NUCLEAR MEDICINE TECHNOLOGIST [address] | | | | | [address] | [address] | | | | | [address] [place], [place] | [place] | | | | | [address] | [address] | | | | | [phone] | [phone] | | | | | | | [...] [place] | | | | | | [id number] | | | | | | | | +--------+ + + + + documented as of this encounter Procedures + +--------+ + + + | Procedure Name | Priori | Date/Time | Associated Diagnosis | Comments | | | ty | | | | + +--------+ + + + | EXTERNAL LAB: CBC | Routin | 09/03/2015 | | Results for this | | | e | 12:00 AM | | procedure are in the | | | | PST | | results section. | + +--------+ + + + | URINALYSIS WITH | Routin | 09/03/2015 | | Results for this | | MICROSCOPIC IF | e | 12:00 AM | | procedure are in the | | INDICATED | | PST | | results section. | + +--------+ + + + | VITAMIN D, | Routin | 09/03/2015 | | Results for this | | DEFICIENCY SCREEN | e | 12:00 AM | | procedure are in the | | (25-HYDROXY) | | PST | | results section. | + +--------+ + + + | PARATHYROID HORMONE, | Routin | 09/03/2015 | | Results for this | | INTACT AND CALCIUM | e | 12:00 AM | | procedure are in the | | | | PST | | results section. | + +--------+ + + + | PROTEIN/CREATININE | Routin | 09/03/2015 | | Results for this | | RATIO, URINE | e | 12:00 AM | | procedure are in the | | | | PST | | results section. | + +--------+ + + + | URIC ACID | Routin | 09/03/2015 | | Results for this | | | e | 12:00 AM | | procedure are in the | | | | PST | | results section. | + +--------+ + + + | MAGNESIUM | Routin | 09/03/2015 | | Results for this | | | e | 12:00 AM | | procedure are in the | | | | PST | | results section. | + +--------+ + + + | RENAL FUNCTION PANEL | Routin | 09/03/2015 | | Results for this | | | e | 12:00 AM | | procedure are in the | | | | PST | | results section. | + +--------+ + + + documented in this encounter Results Parathyroid Hormone, Intact and Calcium (09/03/2015 12:00 AM PST) + + + + + + | Component | Value | Ref Range | Performed | Pathologist | | | | | At | Signature | + + + + + + | PTH Intact | 34.12 | 15 - 65 | EXTERNAL | | | | | | LAB | | + + + + + + | Calcium | 10.3 (A) | 8.4 - 10.2 | EXTERNAL [...] + +---------+ + + Protein/Creatinine Ratio, Urine (09/03/2015 12:00 AM PST) + + + + + + | Component | Value | Ref Range | Performed | Pathologist | | | | | At | Signature | + + + + + + | Protein/Cre | 608.7 (A) | 0 - 150 | EXTERNAL [...] + + Vitamin D, Deficiency Screen (25-Hydroxy) (09/03/2015 12:00 AM PST) + +-------+ + + + | Component | Value | Ref Range | Performed | Pathologist | | | | | At | Signature | + +-------+ + + + | Vit D, | 50 | 30 - 100 | EXTERNAL | [...] + + Urinalysis with Microscopic if Indicated (09/03/2015 12:00 AM PST) + + + + [...] + + + | Spec Grav, | 1.015 | 1.005 - 1.030 | [...] + + + | Blood, | PositiveComment: 250 | | EXTERNAL | | | Urine [...] + +---------+ + + External Lab: CBC (09/03/2015 12:00 AM PST) + +-------+ + + + | Component | Value | Ref Range | Performed | Pathologist | | | | | At | Signature | + +-------+ + + + | WBC | 5.5 | 4.5 - 11.0 10 | EXTERNAL | | | | | | LAB | | + +-------+ + + + | Non- | 4.65 | 3.8 - 5.1 10 | EXTERNAL | | | Red Blood | | | LAB | | | Cells | | | | | | Counted | | | | | + +-------+ + + + | Hemoglobin | 13.2 | 12 - 16 g/dL | EXTERNAL | | | | | | LAB | | + +-------+ + + + | Hematocrit, | 40.2 | 35 - 45 % | EXTERNAL | | | POC | | | LAB | | + +-------+ + + + | MCV | 86.4 | 81 - 99 fL | EXTERNAL [...] +-------+ + + + | Platelet | 351 | 140 - 440 K/ L | EXTERNAL | | | Count | | | LAB | | | Plasma | | | | | + +-------+ + + + | RDW-CV | 13.9 [...] + + + | % Segmented | 59.8 | 39 - 80 % | EXTERNAL | | | | | | LAB | | | Neutrophils | | | | | + +-------+ + + + | % | 24.9 | 24 - 44 % | EXTERNAL | | | Lymphocytes | | | LAB | | + +-------+ + + + | % Monocytes | 10.7 | 0 - 12 % | EXTERNAL | | | | | | LAB | | + +-------+ + + + | % | | [...] | + +---------+ + + Uric Acid (09/03/2015 12:00 AM PST) + +---------+ + + [...] | | + +---------+ + + Magnesium (09/03/2015 12:00 AM PST) + +-------+ + + [...] + +---------+ + + Renal Function Panel (09/03/2015 12:00 AM PST) + + + + [...] + + + + | BUN | 38 (A) | 6 - 23 mg/dL | EXTERNAL | | | | | | LAB | | + + + + + + | Creatinine | 1.93 (A) | 0.70 - 1.25 | EXTERNAL [...] + + + + | K | 5.2 (A) | 3.6 - 5.1 | EXTERNAL | | | | | mmol/L | LAB | | + + + + + + | Cl | 101 | 95 - 112 mmol/L | EXTERNAL | | | | | | LAB | | + + + + + + | CO2 | 25 | 19 - 31 mmol/L | EXTERNAL | | | | | | LAB | | + + + + + + | Anion Gap | 16.2 | 7 - 21 mmol/L | EXTERNAL | | | | | | LAB | | + + + + + + | eGFR, | | | EXTERNAL | | | non- | | | LAB | | | [place] | | | | | + + [...] + + + + | Calcium | 10.3 (A) | 8.4 - 10.2 | EXTERNAL | | | | | mg/dL | LAB | | + + + + + + | Estimated | 26 (A) | 60 - 140 mg/dL | [...]
--- OUTSIDE RECORDS SUMMARY | ~2020-02-01 | XMS | Encounter Summary ---
Demographics + + + | Address | [address] | | | [place] [address] | + + + | Home Phone | | + + + | Preferred Language | Unknown | + + + | Marital Status | | + + + | Faith Affiliation | Unknown | + + + | Race | Unknown | + + + | Ethnic Group | Unknown | + + + Author + + + | Author | [facility] | | | and [place] | + + + | Organization | [facility] | | [...] Team Providers + +------+ + | Care Cook Fish And Chips Name | Role | Phone | + +------+ + | Heidi Koch MD | PCP | | + +------+ + Encounter Details +--------+ + + + + | Date | Type | Department | Care Team | Description | +--------+ + + + + | 03/25/ | Orders Only | [facility] | Oskar Rainey MD | | | 2015 | | NEPHROLOGY [place] | [address] [place] | | | | | [address] [place] | [address] [place], [place] | | | | | [address] [place], [place] | [address] | | | | | [address] | | | | | | [phone] | | | +--------+ + + + [...] [place] | | | | | | [id number] | | | | | | | | +--------+ + + + + documented as of this encounter Procedures + +--------+ + + + | Procedure Name | Priori | Date/Time | Associated Diagnosis | Comments | | | ty | | | | + +--------+ + + + | EXTERNAL LAB: CBC | Routin | 03/25/2016 | | Results for this | | | e | 12:05 PM | | procedure are in the | | | | PDT | | results section. | + +--------+ + + + | URINALYSIS, REFLEX | Routin | 03/25/2016 | | Results for this | | MICROSCOPIC AND/OR | e | 12:05 PM | | procedure are in the | | CULTURE | | PDT | | results section. | + +--------+ + + + | PROTEIN/CREATININE | Routin | 03/25/2016 | | Results for this | | RATIO, URINE | e | 12:05 PM | | procedure are in the | | | | PDT | | results section. | + +--------+ + + + | URIC ACID | Routin | 03/25/2016 | | Results for this | | | e | 12:05 PM | | procedure are in the | | | | PDT | | results section. | + +--------+ + + + | MAGNESIUM | Routin | 03/25/2016 | | Results for this | | | e | 12:05 PM | | procedure are in the | | | | PDT | | results section. | + +--------+ + + + | RENAL FUNCTION PANEL | Routin | 03/25/2016 | | Results for this | | | e | 12:05 PM | | procedure are in the | | | | PDT | | results section. | + +--------+ + + + documented in this encounter Results Urinalysis, Reflex Microscopic and/or Culture (03/25/2016 12:05 PM PDT) + + + + + [...] + +---------+ + + Protein/Creatinine Ratio, Urine (03/25/2016 12:05 PM PDT) + + + + + + | Component | Value | Ref Range | Performed | Pathologist | | | | | At | Signature | + + + + + + | Protein/Cre | 563.9 (A) | 0 - 150 | EXTERNAL [...] + +---------+ + + External Lab: CBC (03/25/2016 12:05 PM PDT) + + + + + + | Component | Value | Ref Range | Performed | Pathologist | | | | | At | Signature | + + + + + + | WBC | 5.4 | 4.5 - 11.0 10 | EXTERNAL | | | | | | LAB | | + + + + + + | Non- | 3.96 | 3.8 - 5.1 10 | EXTERNAL | | | Red Blood | | | LAB | | | Cells | | | | | | Counted | | | | | + + + + + + | Hemoglobin | 11.3 (A) | 12.0 - 16.0 | EXTERNAL | | | | | g/dL | LAB | | + + + + + + | Hematocrit, | 33.7 (A) | 35 - 45 % | EXTERNAL | | | POC | | | LAB | | + + + + + + | MCV | 85.1 | 81 - 99 fL | EXTERNAL | | | | | | LAB | | + + + + + + | MCH | 29 | 27 - 33 pg | EXTERNAL | | | | | | LAB | | + + + + + + | MCHC | 34 | 30 - 36 g/dL | EXTERNAL | | | | | | LAB | | + + + + + + | Platelet | 338 | 140 - 440 K/ L | [...] | + +---------+ + + Uric Acid (03/25/2016 12:05 PM PDT) + +---------+ + + + | Component | Value | Ref Range | Performed | Pathologist | | | | | At | Signature | + +---------+ + + + | Uric Acid | 8.1 (A) | 2.3 - 6.6 | EXTERNAL [...] | | + +---------+ + + Magnesium (03/25/2016 12:05 PM PDT) + +-------+ + + + [...] + +---------+ + + Renal Function Panel (03/25/2016 12:05 PM PDT) + + + + + [...] + + + + | Creatinine | 3.18 (A) | 0.70 - 1.25 | EXTERNAL [...] | | | LAB | | | Guyanese | | | | | + + + + + + | Phosphorus, | 3.2 | 2.5 - 5.0 | EXTERNAL | | | Inorganic | | | LAB | | + + + + + + | BUN/Creatin | 12.6 | 6.0 - 28.6 | EXTERNAL | | | ine Ratio | | | LAB | | + + + + + + | Calcium | 9.7 | 8.4 - 10.2 | EXTERNAL | [...]
--- OUTSIDE RECORDS SUMMARY | ~2020-02-01 | XMS | Encounter Summary ---
Demographics + + + | Address | [address] | | | [place] [address] | + + + | Home Phone | | + + + | Preferred Language | Unknown | + + + | Marital Status | | + + + | Sabianism Affiliation | Unknown | + + + | Race | Unknown | + + + | Ethnic Group | Unknown | + + + Author + + + | Author | [facility] | | | and [place] | + + + | Organization | [facility] | | | and [...] Team Providers + +------+ + | Care Circular Knife Cutter Machine Name | Role | Phone | + +------+ + | Heidi Koch MD | PCP | | + +------+ + Encounter Details +--------+ + + + + | Date | Type | Department | Care Team | Description | +--------+ + + + + | 12/04/ | Orders Only | [facility] | Conversion | | | 2014 | | NEPHROLOGY [place] | Transaction, | | | | | [address] | Provider Unknown | | | | | [address] [facility] [place] | | | | | | [phone] | (Fax) | | | | | [phone] | | | +--------+ + + + [...] Oliver | | | | | | [phone] | | | | | | | | +--------+ + + + + | 02/22/ | Office | Cardiology | Phylicia Patel DO | | | 2019 | Visit | | [address] | | | | | | [place] | | | | | | [phone] | | | | | | | | +--------+ + + + + documented as of this encounter Procedures + +--------+ + + + | Procedure Name | Priori | Date/Time | Associated Diagnosis | Comments | | | ty | | | | + +--------+ + + + | EXTERNAL LAB: CBC | Routin | 12/04/2014 | | Results for this | | | e | 12:00 AM | | procedure are in the | | | | PDT | | results section. | + +--------+ + + + | MAGNESIUM | Routin | 12/04/2014 | | Results for this | | | e | 12:00 AM | | procedure are in the | | | | PDT | | results section. | + +--------+ + + + | COMPREHENSIVE | Routin | 12/04/2014 | | Results for this | | METABOLIC PANEL | e | 12:00 AM | | procedure are in the | | | | PDT | | results section. | + +--------+ + + + documented in this encounter Results External Lab: CBC (12/04/2014 12:00 AM PDT) + + + + + + | Component | Value | Ref Range | Performed | Pathologist | | | | | At | Signature | + + + + + + | WBC | 6.9 | 4.5 - 11.0 10 | EXTERNAL | | | | | | LAB | | + + + + + + | Non- | 4.11 | 3.8 - 5.1 10 | EXTERNAL | | | Red Blood | | | LAB | | | Cells | | | | | | Counted | | | | | + + + + + + | Hemoglobin | 11.8 (A) | 12.0 - 16.0 | EXTERNAL | | | | | g/dL | LAB | | + + + + + + | Hematocrit, | 35.6 | 35 - 45 % | EXTERNAL | | | POC | | | LAB | | + + + + + + | MCV | 86.6 | 81 - 99 fL | EXTERNAL [...] + + + + | Platelet | 308 | 140 - 440 K/ L | EXTERNAL | | | Count | | | LAB | | | Plasma | | | | | + + + + + + | RDW-CV | 86.6 | 81 - 99 % | EXTERNAL | | | | | | LAB | | + + + + + + | MPV | | fL | EXTERNAL | | | | | | LAB | | + + + + + + | Differentia | Auto | | EXTERNAL | | | l Type | | | LAB | | + + + + + + | % Segmented | 60.5 | 39 - 80 % | EXTERNAL | | | | | | LAB | | | Neutrophils | | | | | + + + + + + | % | 28.1 | 24 - 44 % | EXTERNAL | | | Lymphocytes | | | LAB | | + + + + + + | % Monocytes | 9.0 | 0 - 12 % | EXTERNAL | | | | | | LAB | | + + + + + + | % | 2.0 | 0 - 6 % | EXTERNAL [...] | | + +---------+ + + Magnesium (12/04/2014 12:00 AM PDT) + +-------+ + + [...] + +---------+ + + Comprehensive Metabolic Panel (12/04/2014 12:00 AM PDT) + + + + + + | Component | Value | Ref Range | Performed | Pathologist | | | | | At | Signature | + + + + + + | Glucose, | 132 (A) | 70 - 100 mg/dL | EXTERNAL | | | Fasting | | | LAB | | + + + + + + | BUN | 27 (A) | 6 - 23 mg/dL | EXTERNAL | | | | | | LAB | | + + + + + + | Creatinine | 1.70 (A) | 0.70 - 1.25 | EXTERNAL | | | | | mg/dL | LAB | | + + + + + + | BUN/Creatin | 15.9 | 6.0 - 28.6 | EXTERNAL | | | ine Ratio | | | LAB | | + + + + + + | Calcium | 9.7 | 8.4 - 10.2 | EXTERNAL | | | | | mg/dL | LAB | | + + + + + + | Protein, | 7.6 | 6.0 - 8.0 g/dL | EXTERNAL | | | Total | | | LAB | | + + + + + + | Albumin | 4.3 | 3.5 - 5.0 | EXTERNAL | | | | | | LAB | | + + + + + + | Globulin | 3.3 | 1.8 - 35 | EXTERNAL | | | | | | LAB | | + + + + + + | A/G Ratio | 1.3 | 1.1 - 2.4 | EXTERNAL | | | | | | LAB | | + + + + + + | Bilirubin | 0.4 | 0.0 - 1.2 mg/dL | EXTERNAL | | | Total | | | LAB | | + + + + + + | ALP, | 101 | 30 - 128 | EXTERNAL | | | External | | | LAB | | + + + + + + | ALT | 28 | 7 - 52 U/L | EXTERNAL | | | | | | LAB | | + + + + + + | AST | 57 (A) | 13 - 39 U/L | EXTERNAL | | | | | | LAB | | + + + + + + | Na | 137 | 132 - 143 | EXTERNAL | | | | | mmol/L | LAB | | + + + + + + | K | 4.0 | 3.6 - 5.1 | EXTERNAL | | | | | mmol/L | LAB | | + + + + + + | Cl | 109 | 95 - 112 mmol/L | EXTERNAL | | | | | | LAB | | + + + + + + | CO2 | 22 | 19 - 31 mmol/L | EXTERNAL | | | | | | LAB | | + + + + + + | Anion Gap | 10.0 | 7 - 21 mmol/L | EXTERNAL | | | | | | LAB | | + + + + + + | Estimated | 30 | mg/dL | EXTERNAL | [...]
--- OUTSIDE RECORDS SUMMARY | ~2020-02-01 | XMS | Encounter Summary ---
Demographics + + + | Address | [address] | | | [place] [address] | + + + | Home Phone | | + + + | Preferred Language | Unknown | + + + | Marital Status | | + + + | Yarsani Affiliation | Unknown | + + + | Race | Unknown | + + + | Ethnic Group | Unknown | + + + Author + + + | Author | [facility] | | | and [place] | + + + | Organization | [facility] | | | [...] Team Providers + +------+ + | Care Top Case Assembler Name | Role | Phone | + +------+ + | Heidi Koch MD | PCP | | + +------+ + Encounter Details +--------+ + + + + | Date | Type | Department | Care Team | Description | +--------+ + + + + | 12/23/ | Orders Only | [facility] | Conversion | | | 2016 | | NEPRHOLOGY [place] | Transaction, | | | | | [address] | Provider Unknown | | | | | [address] [place], [place] | [phone] | | | | | [address] | | | | | | [phone] | | | +--------+ + + + [...] [place] | | | | | | [phone] | | | | | | | [...] encounter Results Parathyroid Hormone, Intact and Calcium (12/24/2015 12:00 AM PDT) + + + + [...] + Vitamin D, Deficiency Screen (25-Hydroxy) (12/24/2015 12:00 AM PDT) + +-------+ + + [...] + + Urinalysis with Microscopic if Indicated (12/24/2015 12:00 AM PDT) + + + + + + | Component | Value | Ref Range | Performed | Pathologist | | | | | At | Signature | + + + + + + | Color | Light Yellow | | EXTERNAL | | | [...] + + + | Leukocyte | 4+Comment: 100 | | EXTERNAL | | | [...] +---------+ + + External Lab: CBC (12/24/2015 12:00 AM PDT) + + + + [...] + + + + | RDW-CV | 16.9 (A) | 10.5 - 15.0 % | EXTERNAL [...] + + + | % Segmented | 68.8 | 39 - 80 % | EXTERNAL | | | | | | LAB | | | Neutrophils | | | | | + + + + + + | % | 18.1 (A) | 24 - 44 % | EXTERNAL | | | Lymphocytes | | | LAB | | + + + + + + | % Monocytes | 9.6 | 0 - 12 % | EXTERNAL | | | | | | LAB | | + + + + + + | % | 2.9 | 0 - 6 % | EXTERNAL | | | Eosinophils | | | LAB | | + + + + + + | % Basophils | 0.6 | 0 - 2 % | EXTERNAL [...] | + +---------+ + + Magnesium (12/24/2015 12:00 AM PDT) + +-------+ + + [...] +---------+ + + Renal Function Panel (12/24/2015 12:00 AM PDT) + + + + [...] | | | LAB | | | Moroccan | | | | | + + + + + + | Phosphorus, | 3.3 | 2.5 - 5.0 | EXTERNAL | [...] + + + | Estimated | 13 (A) | 60 mg/dL | EXTERNAL | [...]
--- OUTSIDE RECORDS SUMMARY | ~2020-02-01 | XMS | Encounter Summary ---
Demographics + + + | Address | [address] | | | [place] [address] | + + + | Home Phone [...] Team Providers + +------+ + | Care Continuous Improvement Analyst Name | Role | Phone | + +------+ + PCP | Unavailable | + +------+ + Encounter Details +--------+ + + + + | Date | Type | Department | Care Team | Description | +--------+ + + + + | 09/06/ | Hospital | [facility] | Conversion | Diagnosis unknown | | 2018 | Encounter | CONVERSION [address] | Transaction, | | | | | [address] | Provider Unknown | | | | | [place], [place] | [phone] | | | | | [phone] | (Fax) | | | | | [phone] | | | +--------+ + + + [...] [place] | | | | | | [phone] | | | | | | | | +--------+ + + + + | 02/22/ | Office | Cardiology | Phylicia Patel DO | | | 2019 | Visit | | [address] | | | | | | [place] | | | | | | [address] | | | | | | | | +--------+ + + + + documented as of this encounter Procedures + +--------+ + + + | Procedure Name | Priori | Date/Time | Associated Diagnosis | Comments | | | ty | | | | + +--------+ + + + | XR CHEST 1 VIEW | Routin | 12/12/2013 | | Results for this | | | e | 6:33 PM | | procedure are in the | | | | PDT | | results section. | + +--------+ + + + documented in this encounter Results XR Chest 1 Vw (12/12/2013 6:33 PM PDT) + + | Specimen | [...] + | Diagnosis | + + | Diagnosis unknown Other unknown and unspecified cause of morbidity or mortality | + + documented in this encounter"
--- OUTSIDE RECORDS SUMMARY | ~2020-02-01 | XMS | Encounter Summary ---
Demographics + + + | Address | [address] | | | [place] [address] | + + + | Home Phone | | + + + | Preferred Language | Unknown | + + + | Marital Status | | + + + | Hindu Affiliation | Unknown | + + + | Race | Unknown | + + + | Ethnic Group | Unknown | + + + Author + + + | Author | [facility] | | | and [place] | + + + | Organization | [facility] | | | [...] Team Providers + +------+ + | Care Wood Casket Assembler Name | Role | Phone | + +------+ + | Heidi Koch MD | PCP | | + +------+ + Encounter Details +--------+ + + + + | Date | Type | Department | Care Team | Description | +--------+ + + + + | 05/19/ | Orders Only | [facility] | Conversion | | | 2015 | | NEPHROLOGY [place] | Transaction, | | | | | [address] | Provider Unknown | | | | | [address] [facility] [place] | | | | | | [address] | (Fax) | | | | | [phone] | | | +--------+ + + + [...] [place] | | | | | | [phone] | | | | | | | | +--------+ + + + + | 02/22/ | Office | Cardiology | Phylicia Patel DO | | | 2019 | Visit | | [address] | | | | | | [place] | | | | | | [phone] | | | | | | | | +--------+ + + + + documented as of this encounter Procedures + +--------+ + + + | Procedure Name | Priori | Date/Time | Associated Diagnosis | Comments | | | ty | | | | + +--------+ + + + | BASIC METABOLIC | Routin | 05/19/2016 | | Results for this | | PANEL | e | 11:45 AM | | procedure are in the | | | | PST | | results section. | + +--------+ + + + documented in this encounter Results Basic Metabolic Panel (05/19/2016 11:45 AM PST) + + + + + [...] + + + + | BUN | 44 (A) | 6 - 23 mg/dL | EXTERNAL | | | | | | LAB | | + + + + + + | Creatinine | 3.11 (A) | 0.70 - 1.25 | EXTERNAL | | | | | mg/dL | LAB | | + + + + + + | BUN/Creatin | 14.1 | 6.0 - 28.6 | EXTERNAL | | | ine Ratio | | | LAB | | + + + + + + | Calcium | 11.4 (A) | 8.4 - 10.2 | EXTERNAL [...] + + + + | Cl | 100 | 95 - 112 mmol/L | EXTERNAL [...]
--- OUTSIDE RECORDS SUMMARY | ~2020-02-01 | XMS | Encounter Summary ---
Demographics + + + | Address | [address] | | | [place] [address] | + + + | Home Phone | | + + + | Preferred Language | Unknown | + + + | Marital Status | | + + + | Sikh Affiliation | Unknown | + + + [...] Team Providers + +------+ + | Care Nondestructive Tester Name | Role | Phone | + +------+ + | Heidi Koch MD | PCP | | + +------+ + Encounter Details +--------+ + + + + | Date | Type | Department | Care Team | Description | +--------+ + + + + | 07/21/ | Orders Only | [facility] | Conversion | | | 2018 | | NEPRHOLOGY [place] | Transaction, | | | | | [address] | Provider Unknown | | | | | [address] [place], [place] | [phone] | | | | | [address] | | | | | | [phone] | | | +--------+ + + + [...] [place] | | | | | | [phone] | | | | | | | [...] + | URINALYSIS WITH | Routin | 07/21/2017 | | Results for this | | MICROSCOPIC WITH | e | 12:00 AM | | procedure are in the | | CULTURE IF INDICATED | | PST | | results section. | + +--------+ + + + | PROTEIN/CREATININE | Routin | 07/21/2017 | | Results for this | | RATIO, URINE | e | 12:00 AM | | procedure are in the | | | | PST | | results section. | + +--------+ + + + | MICROALBUMIN/CREATIN | Routin | 07/21/2017 | | Results for this | | INE RATIO, URINE | e | 12:00 AM | | procedure are in the | | TEST | | PST | | results section. | + +--------+ + + + documented in this encounter Results Urinalysis with Microscopic with Culture if Indicated (07/21/2017 12:00 AM PST) + + + + [...] + + + | Spec Grav, | 1.016 | 1.005 - 1.030 | EXTERNAL | [...] + + + + | Total | NEG | | EXTERNAL | | | Protein [...] + + + + | Ketones | NEG | | EXTERNAL | | | | [...] + + + | WBC, UA | Comment: >50 | 0 - 4 | EXTERNAL | | | | | | LAB | | + + + + + + | RBC, UA | 15 (A) | 0 - 4 | EXTERNAL | | | | | | LAB | | + + + + + + | Epithelial | | | EXTERNAL | | | Cells | | | LAB | | + + + + + + | Bacteria, | None Seen | | EXTERNAL | | | UA | | | LAB | | + + + + + + | HYALINE | Comment: HYALINE 2+ | | EXTERNAL | | | CASTS [...] + +---------+ + + Protein/Creatinine Ratio, Urine (07/21/2017 12:00 AM PST) + + + + + + | Component | Value | Ref Range | Performed | Pathologist | | | | | At | Signature | + + + + + + | Protein/Cre | 469.0 (A) | 0 - 150 | EXTERNAL | | | at Ratio | | | LAB | | + + + + + + + + | Specimen | + + | Urine specimen | | (specimen) | + + + + + | Narrative | Performed At | + + + | PROTEIN, URINE - 53 - 0.0 - 50.0 CREATININE, URINE - 113 | EXTERNAL LAB | + + + + +---------+ + + | Performing | Address | City/State/Zipcode | Phone Number | | Organization | | | | + +---------+ + + | EXTERNAL LAB | | | | + +---------+ + + Microalbumin/Creatinine Ratio, Urine (07/21/2017 12:00 AM PST) + + + + + + | Component | Value | Ref Range | Performed | Pathologist | | | | | At | Signature | + + + + + + | ALBUMIN/CRE | 49.6 (A) | 0 - 30 | EXTERNAL [...] Performed At | + + + | MICROALB, URINE - 5.6 - 0.0 - 2.0 CREATININE, URINE - 113 | EXTERNAL LAB | + + + + +---------+ + + | Performing | Address | City/State/Zipcode | Phone Number | | Organization | | | | + +---------+ + + | EXTERNAL LAB | | | | + +---------+ + + documented in this encounter Visit Diagnoses Not on filedocumented in this encounter"
--- OUTSIDE RECORDS SUMMARY | ~2020-02-01 | XMS | Encounter Summary ---
Demographics + + + | Address | [address] | | | [place] [address] | + + + | Home Phone | | + + + | Preferred Language | Unknown | + + + | Marital Status | | + + + | Rastafarian Affiliation | Unknown | + + + | Race | Unknown | + + + | Ethnic Group | Unknown | + + + Author + + + | Author | [facility] | | | and [place] | + + + | Organization | [facility] | | | [...] Team Providers + +------+ + | Care Harbor Pilot Name | Role | Phone | + +------+ + | Heidi Koch MD | PCP | | + +------+ + Encounter Details +--------+ + + + + | Date | Type | Department | Care Team | Description | +--------+ + + + + | 05/08/ | Orders Only | [facility] | Ирина Song | | | 2017 | | CARDIOLOGY [place] | [address] | | | | | [address] | [address] | | | | | [place], [place] | [place] [address] | | | | | [address] | [phone] | | | | | [phone] | | | +--------+ + + + [...] [place] | | | | | | [id number] | | | | | | | | +--------+ + + + + | 02/22/ | Office | Cardiology | Phylicia Patel DO | | | 2019 | Visit | | [address] | | | | | | [place] | | | | | | [phone] | | | | | | | | +--------+ + + + + documented as of this encounter Procedures + +--------+ + + + | Procedure Name | Priori | Date/Time | Associated Diagnosis | Comments | | | ty | | | | + +--------+ + + + | LIPID PANEL | Routin | 05/08/2017 | | Results for this | | | e | 9:41 AM | | procedure are in the | | | | PDT | | results section. | + +--------+ + + + documented in this encounter Results Lipid Panel (05/08/2017 9:41 AM PDT) + +-------+ + + + | Component | Value | Ref Range | Performed | Pathologist | | | | | At | Signature | + +-------+ + + + | Cholesterol | 185 | 200 mg/dL | EXTERNAL | | | | | | LAB | | + +-------+ + + + | Triglycerid | 99 | 30 - 150 mg/dL | EXTERNAL | | | es | | | LAB | | + +-------+ + + + | HDL | 66.1 | 40 mg/dl | EXTERNAL | | | | | | LAB | | + +-------+ + + + | LDL, | 99 | 100 mg/dL | EXTERNAL | | | Calculated | | | LAB | | + +-------+ + + + | LDl/HDL | | | EXTERNAL | | | Ratio | | | LAB | | + +-------+ + + + | Chol/HDL | 2.8 | 4.44 | EXTERNAL | | | Ratio | | | LAB | | + +-------+ + + + | VLDL | 20 | 4 - 40 mg/dL | EXTERNAL | | | | | | LAB | | + +-------+ + + + | Non HDL | 119 | 130 | EXTERNAL | | | Chol. | | | LAB | | | (LDL+VLDL) | | | | | + +-------+ [...]
--- OUTSIDE RECORDS SUMMARY | ~2020-02-01 | XMS | Encounter Summary ---
Demographics + + + | Address | [address] | | | [place] [address] | + + + | Home Phone | | + + + | Preferred Language | Unknown | + + + | Marital Status | | + + + | Yarsani Affiliation | Unknown | + + + | Race | Unknown | + + + | Ethnic Group | Unknown | + + + Author + + + | Author | [facility] | | | and [place] | + + + | Organization | [facility] | | | [...] Team Providers + +------+ + | Care Real Estate Clerk Name | Role | Phone | + +------+ + | Heidi Koch MD | PCP | | + +------+ + Encounter Details +--------+ + + + + | Date | Type | Department | Care Team | Description | +--------+ + + + + | 09/13/ | Orders Only | [facility] | Brodie Jean-Baptiste, | | | 2014 | | NEPRHOLOGY [place] | [facility]GER [address] | | | | | [address] | [address] [place], | | | | | [address] [place], [place] | [place] [address] | | | | | [address] | [phone] | | | | | [phone] | | | +--------+ + + + [...] [place] | | | | | | [id number] | | | | | | | | +--------+ + + + + | 02/22/ | Office | Cardiology | Phylicia Patel DO | | | 2019 | Visit | | [address] | | | | | | [place] | | | | | | [phone] | | | | | | | | +--------+ + + + + documented as of this encounter Procedures + +--------+ + + + | Procedure Name | Priori | Date/Time | Associated Diagnosis | Comments | | | ty | | | | + +--------+ + + + | EXTERNAL LAB: CBC | Routin | 09/13/2014 | | Results for this | | | e | 12:00 AM | | procedure are in the | | | | PDT | | results section. | + +--------+ + + + | URINALYSIS WITH | Routin | 09/13/2014 | | Results for this | | MICROSCOPIC WITH | e | 12:00 AM | | procedure are in the | | CULTURE IF INDICATED | | PDT | | results section. | + +--------+ + + + | VITAMIN D, | Routin | 09/13/2014 | | Results for this | | DEFICIENCY SCREEN | e | 12:00 AM | | procedure are in the | | (25-HYDROXY) | | PDT | | results section. | + +--------+ + + + | PARATHYROID HORMONE, | Routin | 09/13/2014 | | Results for this | | INTACT | e | 12:00 AM | | procedure are in the | | | | PDT | | results section. | + +--------+ + + + | MAGNESIUM | Routin | 09/13/2014 | | Results for this | | | e | 12:00 AM | | procedure are in the | | | | PDT | | results section. | + +--------+ + + + | RENAL FUNCTION PANEL | Routin | 09/13/2014 | | Results for this | | | e | 12:00 AM | | procedure are in the | | | | PDT | | results section. | + +--------+ + + + documented in this encounter Results Urinalysis with Microscopic with Culture if Indicated (09/13/2014 12:00 AM PDT) + + + + [...] + + + | Blood, | PositiveComment: 150 | | EXTERNAL | | | Urine [...] + + Vitamin D, Deficiency Screen (25-Hydroxy) (09/13/2014 12:00 AM PDT) + +--------+ + + + | Component | Value | Ref Range | Performed | Pathologist | | | | | At | Signature | + +--------+ + + + | Vit D, | 25 (A) | 30 - 100 | EXTERNAL [...] + +---------+ + + External Lab: CBC (09/13/2014 12:00 AM PDT) + +-------+ + + + | Component | Value | Ref Range | Performed | Pathologist | | | | | At | Signature | + +-------+ + + + | WBC | 5.6 | 4.5 - 11.0 10 | EXTERNAL | | | | | | LAB | | + +-------+ + + + | Non- | 4.32 | 3.8 - 5.1 10 | EXTERNAL | | | Red Blood | | | LAB | | | Cells | | | | | | Counted | | | | | + +-------+ + + + | Hemoglobin | 12.4 | 12.0 - 16.0 | EXTERNAL | | | | | g/dL | LAB | | + +-------+ + + + | Hematocrit, | 37.7 | 35 - 45 % | EXTERNAL | | | POC | | | LAB | | + +-------+ + + + | MCV | 87.3 | 81 - 99 fL | EXTERNAL [...] +-------+ + + + | Platelet | 324 | 140 - 440 K/ L | EXTERNAL | | | Count | | | LAB | | | Plasma | | | | | + +-------+ + + + | RDW-CV | 14.7 | 10.5 - 15.0 % | EXTERNAL [...] +-------+ + + + | % | 26.2 | 24 - 44 % | EXTERNAL | | | Lymphocytes | | | LAB | | + +-------+ + + + | % Monocytes | 10.4 | 0 - 12 % | EXTERNAL | | | | | | LAB | | + +-------+ + + + | % | 3.1 | 0 - 6 % | EXTERNAL [...] + +---------+ + + Parathyroid Hormone, Intact (09/13/2014 12:00 AM PDT) + +-------+ + + + | Component | Value | Ref Range | Performed | Pathologist | | | | | At | Signature | + +-------+ + + + | PTH INTACT | 48.46 | 15 - 65 pg/mL | EXTERNAL [...] | | + +---------+ + + Magnesium (09/13/2014 12:00 AM PDT) + +-------+ + + + | Component | Value | Ref Range | Performed | Pathologist | | | | | At | Signature | + +-------+ + + + | Magnesium | 1.9 | 1.78 - 2.5 | EXTERNAL | | | | | [...] + +---------+ + + Renal Function Panel (09/13/2014 12:00 AM PDT) + + + + [...] + + + | BUN | 29 (A) | 6 - 23 mg/dL | [...] + + + + | Albumin | 4.5 | 3.5 - 5.0 | EXTERNAL | [...] + + + + | BUN/Creatin | 14.3 | 6.0 - 28.6 | EXTERNAL | [...]
--- OUTSIDE RECORDS SUMMARY | ~2020-02-01 | XMS | Encounter Summary ---
Demographics + + + | Address | [address] | | | [place] [address] | + + + | Home Phone | | + + + | Preferred Language | Unknown | + + + | Marital Status | | + + + | Uatsdin Affiliation | Unknown | + + + [...] Team Providers + +------+ + | Care Pet Trainer Name | Role | Phone | + +------+ + PCP | Unavailable | + +------+ + Encounter Details +--------+ + + + + | Date | Type | Department | Care Team | Description | +--------+ + + + + | 11/19/ | Hospital | [facility] | Julio C Bañuelos | Unspecified Urinary | | 2007 - | Encounter | [facility] | Cyrus Vincent MD | Calculus | | | | CARE [address] | [address] | | | 11/21/ | | [address] | [address] | | | [address] | | [place], [place] | [place] [address] | | | | | [address] | [phone] | | | | | [phone] | | | +--------+ + + + [...] [place] | | | | | | [phone] | | | | | | | | +--------+ + + + + documented as of this encounter Visit Diagnoses + + | Diagnosis | + + | Urinary calculus, unspecified | + + documented in this encounter"
--- OUTSIDE RECORDS SUMMARY | ~2020-02-01 | XMS | Encounter Summary ---
Demographics + + + | Address | [address] | | | [place] [address] | + + + | Home Phone | | + + + | Preferred Language | Unknown | + + + | Marital Status | | + + + | Jew Affiliation | Unknown | + + + [...] Team Providers + +------+ + | Care Mother'S Helper Name | Role | Phone | + +------+ + PCP | Unavailable | + +------+ + Encounter Details +--------+ + + + + | Date | Type | Department | Care Team | Description | +--------+ + + + + | 08/17/ | Hospital | [facility] | [place], | [place] [facility] | | 2005 - | Encounter | [facility] [place] | Rafael Chavez, | [facility] ([facility]) | | | | INTENSIVE CARE UNIT | MD Melissa [address] | | | 08/20/ | | [address] | [place] [address] | | | 2005 | | [place], [place] | [phone] | | | | | [address] | | | | | | [phone] | | | +--------+ + + + [...] | | | | | | DEB IROS | | | | | | [phone] | | | | | | | | +--------+ + + + + documented as of this encounter Visit Diagnoses + + | Diagnosis | + + | Acute myocardial infarction of inferolateral wall, initial episode of care ([facility]) | | Acute myocardial infarction of inferolateral wall, initial episode of care | + + documented in this encounter"
--- OUTSIDE RECORDS SUMMARY | ~2020-02-01 | XMS | Encounter Summary ---
Demographics + + + | Address | [address] | | | [place] [address] | + + + | Home Phone | | + + + | Preferred Language | Unknown | + + + | Marital Status | | + + + | Baptism Affiliation | Unknown | + + + | Race | Unknown | + + + | Ethnic Group | Unknown | + + + Author + + + | Author | [facility] | | | and [place] | + + + | Organization | [facility] | | | [...] Team Providers + +------+ + | Care Construction Carpenters Helper Name | Role | Phone | + +------+ + | Heidi Koch MD | PCP | | + +------+ + Encounter Details +--------+ + + + + | Date | Type | Department | Care Team | Description | +--------+ + + + + | 08/22/ | Orders Only | [facility] | Oskar Rainey MD | | | 2016 | | NEPHROLOGY [place] | [address] [place] | | | | | [address] | [address] [place], [place] | | | | | [place] | [address] | | | | | [address] | | | | | | [phone] | | | +--------+ + + + [...] RIOS | | | | | | [phone] | | | | | | | | +--------+ + + + + documented as of this encounter Procedures + +--------+ + + + | Procedure Name | Priori | Date/Time | Associated Diagnosis | Comments | | | ty | | | | + +--------+ + + + | EXTERNAL LAB: CBC | Routin | 08/22/2016 | | Results for this | | | e | 8:55 AM | | procedure are in the | | | | PST | | results section. | + +--------+ + + + | URIC ACID | Routin | 08/22/2016 | | Results for this | | | e | 8:55 AM | | procedure are in the | | | | PST | | results section. | + +--------+ + + + | PARATHYROID HORMONE, | Routin | 08/22/2016 | | Results for this | | INTACT | e | 8:55 AM | | procedure are in the | | | | PST | | results section. | + +--------+ + + + | MAGNESIUM | Routin | 08/22/2016 | | Results for this | | | e | 8:55 AM | | procedure are in the | | | | PST | | results section. | + +--------+ + + + | RENAL FUNCTION PANEL | Routin | 08/22/2016 | | Results for this | | | e | 8:55 AM | | procedure are in the | | | | PST | | results section. | + +--------+ + + + | CREATININE, URINE, | Routin | 06/18/2016 | | Results for this | | 24HR | e | 12:00 AM | | procedure are in the | | | | PST | | results section. | + +--------+ + + + documented in this encounter Results External Lab: CBC (08/22/2016 8:55 AM PST) + + + [...] + + + + | Non- | 4.04 | 3.8 - 5.1 10 | EXTERNAL | | | Red Blood | | | LAB | | | Cells | | | | | | Counted | | | | | + + + + + + | Hemoglobin | 11.4 (A) | 12.0 - 16.0 | EXTERNAL | | | | | g/dL | LAB | | + + + + + + | Hematocrit, | 34.4 (A) | 35 - 45 % | EXTERNAL | | | POC | | | LAB | | + + + + + + | MCV | 85.0 | 81 - 99 fL | EXTERNAL [...] + + + + | Platelet | 343 | 140 - 440 K/ L | [...] | + +---------+ + + Uric Acid (08/22/2016 8:55 AM PST) + + + + + + | Component | Value | Ref Range | Performed | Pathologist | | | | | At | Signature | + + + + + + | Uric Acid | 11.3 (A) | 2.3 - 6.6 | EXTERNAL [...] + +---------+ + + Parathyroid Hormone, Intact (08/22/2016 8:55 AM PST) + +-------+ + + + | Component | Value | Ref Range | Performed | Pathologist | | | | | At | Signature | + +-------+ + + + | PTH INTACT | 20.36 | 15 - 65 pg/mL | EXTERNAL [...] | | + +---------+ + + Magnesium (08/22/2016 8:55 AM PST) + +-------+ + [...] + +---------+ + + Renal Function Panel (08/22/2016 8:55 AM PST) + + + + + + | Component | Value | Ref Range | Performed | Pathologist | | | | | At | Signature | + + + + + + | Glucose, | 107 (A) | 70 - 100 mg/dL | EXTERNAL | | | Fasting | | | LAB | | + + + + + + | BUN | 63 (A) | 6 - 23 mg/dL | EXTERNAL | | | | | | LAB | | + + + + + + | Creatinine | 3.28 (A) | 0.70 - 1.25 | EXTERNAL [...] + + + | Anion Gap | 20.3 | 7 - 21 mmol/L | EXTERNAL | | | | | | LAB | | + + + + + + | eGFR, | | | EXTERNAL | | | non- | | | LAB | | | Albanian | | | | | + + + + + + | Phosphorus, | 4.9 | 2.5 - 5.0 | EXTERNAL | | | Inorganic | | | LAB | | + + + + + + | BUN/Creatin | 19.2 | 6.0 - 28.6 | EXTERNAL | [...] | + +---------+ + + Creatinine, Urine, 24Hr (06/18/2016 12:00 AM PST) + + + + + + | Component | Value | Ref Range | Performed | Pathologist | | | | | At | Signature | + + + + + + | CREATININE | 28 (A) | 75 - 115 mL/min | EXTERNAL | | | CLEARANCE | | | LAB | | + + + + + + | Creatinine | 3.35 (A) | 0.5 - 1.5 | EXTERNAL | | | | | | LAB | | + + + + + + | Creatinine, | 103 | | EXTERNAL | | | Urine, | | | LAB | | | Random | | | | | + + + + + + | Creatinine, | | | EXTERNAL | | | Urine, | | | LAB | | | Random | | | | | + + [...]
--- OUTSIDE RECORDS SUMMARY | ~2020-02-01 | XMS | Encounter Summary ---
Demographics + + + | Address | [address] | | | [place] [address] | + + + | Home Phone [...] Team Providers + +------+ + | Care Army Helicopter Pilot Name | Role | Phone | + +------+ + PCP | Unavailable | + +------+ + Encounter Details +--------+ + + + + | Date | Type | Department | Care Team | Description | +--------+ + + + + | 12/22/ | Hospital | [facility] | [place], | Unspecified Chest | | 2006 - | Encounter | [facility] | Rafael Chavez, | Pain | | | | CARE FLOOR [phone] | MD [address] | | | [address] | | [address] | [place] [address] | | | 2006 | | [place], [place] | [phone] | | | | | [address] | | | | | | [phone] | | | +--------+ + + + [...] RIOS | | | | | | [phone] | | | | | | | | +--------+ + + + + documented as of this encounter Visit Diagnoses + + | Diagnosis | + + | Chest pain, unspecified | + + documented in this encounter"
[~2020-02-01 18:12] MED LIST: ACID CONTROL150 MG PO; ALBUTEROL2.5 MG/3 M; ASPIRIN EC81 MG PO; BUDEPRION XL150 MG PO; BUPROPION HCL100 MG PO; CARTIA XT180 MG PO; CLOPIDOGREL75 MG PO; COLACE100 MG PO; COMBIVENT INH14.7 GM INH; COMBIVENT RESPIM4 GM INH; DILTIAZEM ER180 MG PO; FLEXERIL10 MG PO; GEMFIBROZIL600 MG PO; HYDROCHLOROTHIA25 MG PO; ISOSORBIDE MONO30 MG PO; LEVAQUIN500 MG PO; LISINOPRIL40 MG PO; NITROGLYCERIN0.4 MG SL; NORCO 5-325 TA1 EACH PO; PERCOCET 5-3251 EACH PO; PRAVACHOL40 MG PO; TOPROL XL50 MG PO; ULTRAM50 MG PO; ZOFRAN ODT4 MG SL
[2020-02-01] MEDS ORDERED: HYDRALAZINE HCL25 MG PO (18:29)
[2020-02-01] MEDS ORDERED: PANTOPRAZOLE SO40 MG PO (18:29)
[2020-02-01] MEDS ORDERED: OXYBUTYNIN CHLO10 MG PO (18:31)
[2020-02-01] MEDS ORDERED: GABAPENTIN100 MG PO (18:31)
[2020-02-01] MEDS ORDERED: CIMETIDINE800 MG PO (18:32)
--- NOTE | 2020-02-02 21:36 | EKG ---
[facility] [address] [place], [place] [address] Signed Normal sinus rhythm with sinus arrhythmia Inferior infarct , age undetermined T wave abnormality, consider lateral ischemia Abnormal ECG No previous ECGs available Confirmed by RISHABH IBARRA DO ([id number]) on 02/02/2020 9:36:28 PM Electronically Signed By: RISHABH IBARRA DO 02/02/20 2136 PATIENT NAME: DANNI GILLESPIE ZULY Electrocardiogram DATE OF : 46 PHYSICIAN: RISHABH IBARRA DO REPORT #: [id number] REPORT IS CONFIDENTIAL AND NOT TO BE RELEASED WITHOUT AUTHORIZATION
== END 2020-02-01 21:31 | disposition home or self-care (01) ==
LOC: ED 18:12
DX: R07.9 Chest pain, unspecified (principal); I25.10 Atherosclerotic heart disease of native coronary artery without angina pectoris; I25.2 Old myocardial infarction; I10 Essential (primary) hypertension; Z87.891 Personal history of nicotine dependence; Z91.048 Other nonmedicinal substance allergy status; Z88.5 Allergy status to narcotic agent; Z91.018 Allergy to other foods; Z79.899 Other long term (current) drug therapy; Z79.82 Long term (current) use of aspirin; Z79.02 Long term (current) use of antithrombotics/antiplatelets
CPT/HCPCS: 71045; 80053; 83690; 83735; 84484; 85025; 93005; 93010; 99285-25

== ENCOUNTER 2021-03-19 13:31 | Emergency (ER) | payer MEDICARE, OTHER ==
[~2021-03-19] VITALS: Ht 180.3 cm; Wt 138.7 kg
[~2021-03-19 13:31] MED LIST changes: +CIMETIDINE800 MG PO; +GABAPENTIN100 MG PO; +HYDRALAZINE HCL25 MG PO; +OXYBUTYNIN CHLO10 MG PO; +PANTOPRAZOLE SO40 MG PO
--- OUTSIDE RECORDS SUMMARY | 2021-03-19 13:34 | XMS ---
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 [facility] has no Care Guidelines for this patient. [facility] VISIT COUNT (12 MO.) 1 SHYAM [facility] TOTAL 1 NOTE: Visits indicate total known visits. ED/C VISIT TRACKING (12 MO.) 03/19/2021 13:31 [facility] [place] TYPE: Emergency COMPLAINT: - FALL INPATIENT VISIT TRACKING (12 MO.) No inpatient visits to display in this time frame [email or web address]
[2021-03-19] MEDS ORDERED: LASIX40 MG PO (13:43)
[2021-03-19] MEDS ORDERED: SULFAMETHOXAZO1 EAC1 PO (13:43)
[2021-03-19] MEDS ORDERED: POTASSIUM CHLO10 ME2 PO (13:44)
[2021-03-19] MEDS ORDERED: ALLOPURINOL100 MG PO (13:45)
[2021-03-19] MEDS ORDERED: CINACALCET HCL30 MG PO (13:46)
[2021-03-19] MEDS ORDERED: VITAMIN D350 MCG PO (13:47)
[2021-03-19] MEDS ORDERED: VITAMIN B122500 MC1 PO (13:47)
--- NOTE | 2021-03-19 22:13 | EKG ---
[facility] [address] [place] [address] Signed Sinus bradycardia with sinus arrhythmia Cannot rule out Inferior infarct (cited on or before 01-FEB-2020) ST \T\ T wave abnormality, consider lateral ischemia Abnormal ECG When compared with ECG of 01-FEB-2020 18:15, ST elevation now present in Inferior leads ST now depressed in Anterior leads T wave inversion no longer evident in Inferior leads Confirmed by FRANCESCO CARLISLE MD ([id number]) on 03/19/2021 10:10:09 PM Electronically Signed By: FRANCESCO CARLISLE MD 03/19/21 2213 PATIENT NAME: DANNI GILLESPIE Electrocardiogram DATE OF : 46 PHYSICIAN: FRANCESCO CARLISLE MD REPORT #: [id number] REPORT IS CONFIDENTIAL AND NOT TO BE RELEASED WITHOUT AUTHORIZATION
[2021-03-22] MEDS ORDERED: BACTRIM 400-801 EACH PO (15:18)
== END 2021-03-19 16:50 | disposition home or self-care (01) ==
LOC: ED 13:31
DX: R53.1 Weakness (principal); I13.0 Hypertensive heart and chronic kidney disease with heart failure and stage 1 through stage 4 chronic kidney disease, or unspecified chronic kidney disease; I50.9 Heart failure, unspecified; N18.9 Chronic kidney disease, unspecified; I25.10 Atherosclerotic heart disease of native coronary artery without angina pectoris; I25.2 Old myocardial infarction; Z95.5 Presence of coronary angioplasty implant and graft; Z87.891 Personal history of nicotine dependence; Z91.048 Other nonmedicinal substance allergy status; Z88.5 Allergy status to narcotic agent; Z91.018 Allergy to other foods; Z79.899 Other long term (current) drug therapy; Z79.82 Long term (current) use of aspirin; Z79.02 Long term (current) use of antithrombotics/antiplatelets
CPT/HCPCS: 70450; 71045; 80053; 81001; 83880; 84484; 85025; 87088; 93005; 93010; 99285-25